=== PATIENT | male | born 1935 | race Caucasian/White ===

== ENCOUNTER → 2018-07-25 07:51 | Outpatient (CLI) | payer MEDICARE, OTHER, SELFPAY ==
[2018-07-25 10:14] LABS: Alanine Aminotransferase 15 IU/L (21-72); Albumin 4.4 g/dL (3.5-5.0); Albumin Globulin Ratio 1.3 (1.0-2.8); Alkaline Phosphatase 107 U/L (38-126); Aspartate Aminotransferase 23 IU/L (17-59); BUN Creatinine Ratio 17.1 (6-22); Bilirubin Total 0.8 mg/dL (0.2-1.3); Blood Urea Nitrogen 29 mg/dL (9-20); Calcium 9.8 mg/dL (8.4-10.2); Carbon Dioxide 32 mmol/L (22-32); Chloride 93 mmol/L (98-107); Cholesterol 151 mg/dL (140-199); Estimated Glomerular Filt Rate 38.7 mL/min (>60); Globulin 3.5 g/dL (1.7-4.1); HDL Cholesterol 39 mg/dL (40-60); HEMOLYSIS < 15 (0-50); LDL Cholesterol Calculated 71 mg/dL (<100); Potassium 4.6 mmol/L (3.4-5.1); Sodium 137 mmol/L (137-145); Total Protein 7.9 g/dL (6.3-8.2); Triglycerides 206 mg/dL (35-150)
[2018-07-25 10:16] LABS: Add Manual Diff / Slide Review NO; Basophils Percent Auto 0.4 % (0-2); Eosinophils Percent Auto 1.4 % (2-4); Hematocrit 44.8 % (41-53); Hemoglobin 14.9 g/dL (13.5-17.5); Lymphocytes Percent Auto 29.6 % (25-40); Mean Corpuscular HGB Conc 33.2 % (30-36); Mean Corpuscular Hemoglobin 31.3 PG (26-34); Mean Corpuscular Volume 94.3 fL (80-100); Monocytes Percent Auto 10.6 % (3-14); Neutrophils Absolute Auto 6800 /uL (3000-5900); Platelet Count 226 X10^3/uL (150-400); Red Blood Cell Count 4.75 X10^6/uL (4.5-5.9); Red Cell Distribution Width 13.4 % (11.6-14.8); White Blood Cell Count 11.7 X10^3/uL (4.5-11.0)
[2018-07-25 11:29] LABS: Glucose 532 mg/dL (80-110)
== END ==
PROVIDERS: PCP Family Medicine; Visit Provider Family Medicine
DX: E11.9 Type 2 diabetes mellitus without complications (principal)
CPT/HCPCS: 36415; 80053; 80061; 83036; 84443; 85025

== ENCOUNTER → 2018-12-27 08:32 | Outpatient (CLI) | payer MEDICARE, OTHER, SELFPAY ==
[2018-12-27 09:27] LABS: Hemoglobin A1C% w Est Avg Glu 7.8 % (4.0-6.0)
[2018-12-27 09:58] LABS: BUN Creatinine Ratio 16.5 (6-22); Blood Urea Nitrogen 28 mg/dL (9-20); Calcium 10.8 mg/dL (8.4-10.2); Carbon Dioxide 32 mmol/L (22-32); Chloride 98 mmol/L (98-107); Estimated Glomerular Filt Rate 38.7 mL/min (>60); Glucose 169 mg/dL (80-110); HEMOLYSIS < 15 (0-50); Potassium 4.7 mmol/L (3.4-5.1); Sodium 139 mmol/L (137-145)
== END ==
PROVIDERS: PCP Family Medicine; Visit Provider Family Medicine
DX: E11.9 Type 2 diabetes mellitus without complications (principal)
CPT/HCPCS: 36415; 80048; 83036

== ENCOUNTER → 2019-04-07 07:40 | Outpatient (CLI) | payer MEDICARE, OTHER, SELFPAY ==
[2019-04-07 09:03] LABS: Hemoglobin A1C% w Est Avg Glu 6.6 % (4.0-6.0)
[2019-04-07 09:33] LABS: Blood Urea Nitrogen 28 mg/dL (9-20); Calcium 10.6 mg/dL (8.4-10.2); Carbon Dioxide 32 mmol/L (22-32); Chloride 99 mmol/L (98-107); Estimated Glomerular Filt Rate 48.3 mL/min (>60); Glucose 156 mg/dL (80-110); HEMOLYSIS < 15 (0-50); Potassium 4.7 mmol/L (3.4-5.1); Sodium 141 mmol/L (137-145)
== END ==
PROVIDERS: PCP Family Medicine; Visit Provider Family Medicine
DX: E11.9 Type 2 diabetes mellitus without complications (principal)
CPT/HCPCS: 36415; 80048; 83036

== ENCOUNTER → 2019-07-06 07:58 | Outpatient (CLI) | payer MEDICARE, OTHER, SELFPAY ==
[2019-07-06 09:02] LABS: Hemoglobin A1C% w Est Avg Glu 6.4 % (4.0-6.0)
[2019-07-06 09:18] LABS: BUN Creatinine Ratio 18.6 (6-22); Blood Urea Nitrogen 26 mg/dL (9-20); Calcium 10.4 mg/dL (8.4-10.2); Carbon Dioxide 30 mmol/L (22-32); Chloride 100 mmol/L (98-107); Estimated Glomerular Filt Rate 48.3 mL/min (>60); Glucose 129 mg/dL (80-110); HEMOLYSIS < 15 (0-50); Potassium 4.5 mmol/L (3.4-5.1); Sodium 138 mmol/L (137-145)
== END ==
PROVIDERS: PCP Family Medicine; Visit Provider Family Medicine
DX: E11.9 Type 2 diabetes mellitus without complications (principal)
CPT/HCPCS: 36415; 80048; 83036

== ENCOUNTER → 2019-11-03 08:30 | Outpatient (CLI) | payer MEDICARE, OTHER, SELFPAY ==
[2019-11-03 10:06] LABS: Hemoglobin A1C% w Est Avg Glu 6.5 % (4.0-6.0)
[2019-11-03 10:07] LABS: BUN Creatinine Ratio 16.2 (6-22); Blood Urea Nitrogen 21 mg/dL (9-20); Calcium 11.1 mg/dL (8.4-10.2); Carbon Dioxide 32 mmol/L (22-32); Chloride 97 mmol/L (98-107); Estimated Glomerular Filt Rate 52.6 mL/min (>60); Glucose 132 mg/dL (80-110); HEMOLYSIS < 15 (0-50); Potassium 4.6 mmol/L (3.4-5.1); Sodium 138 mmol/L (137-145)
== END ==
PROVIDERS: PCP Family Medicine; Visit Provider Family Medicine
DX: E11.9 Type 2 diabetes mellitus without complications (principal)
CPT/HCPCS: 36415; 80048; 83036

== ENCOUNTER → 2020-02-02 08:09 | Outpatient (CLI) | payer MEDICARE, OTHER, SELFPAY ==
[2020-02-02 08:54] LABS: Hemoglobin A1C% w Est Avg Glu 6.9 % (4.0-6.0)
[2020-02-02 08:56] LABS: BUN Creatinine Ratio 17.3 (6-22); Blood Urea Nitrogen 23 mg/dL (9-20); Calcium 10.7 mg/dL (8.4-10.2); Carbon Dioxide 29 mmol/L (22-32); Chloride 99 mmol/L (98-107); Estimated Glomerular Filt Rate 51.2 mL/min (>60); Glucose 163 mg/dL (80-110); HEMOLYSIS < 15 (0-50); Potassium 4.6 mmol/L (3.4-5.1); Sodium 138 mmol/L (137-145)
== END ==
PROVIDERS: PCP Family Medicine; Referring Provider Family Medicine; Visit Provider Family Medicine
DX: E11.9 Type 2 diabetes mellitus without complications (principal)
CPT/HCPCS: 36415; 80048; 83036

== ENCOUNTER → 2020-05-07 07:36 | Outpatient (CLI) | payer MEDICARE, OTHER, SELFPAY ==
[2020-05-07 08:05] LABS: Add Manual Diff / Slide Review NO; Basophils Absolute Auto 100 /uL (0-100); Basophils Percent Auto 0.5 % (0-2); Eosinophils Absolute Auto 200 /uL (0-450); Eosinophils Percent Auto 1.4 % (2-4); Hematocrit 44.7 % (41-53); Hemoglobin 14.7 g/dL (13.5-17.5); Lymphocytes Absolute Auto 3300 /uL (1100-4500); Mean Corpuscular HGB Conc 32.8 % (30-36); Mean Corpuscular Hemoglobin 30.6 PG (26-34); Mean Corpuscular Volume 93.1 fL (80-100); Monocytes Absolute Auto 1200 /uL (0-900); Monocytes Percent Auto 9.6 % (3-14); Neutrophils Absolute Auto 8000 /uL (1500-7000); Neutrophils Percent Auto 62.5 % (50-75); Platelet Count 190 X10^3/uL (150-400); Red Blood Cell Count 4.81 X10^6/uL (4.5-5.9); White Blood Cell Count 12.8 X10^3/uL (4.5-11.0)
[2020-05-07 08:27] LABS: Alanine Aminotransferase 20 IU/L (<50); Albumin 4.1 g/dL (3.5-5.0); Albumin Globulin Ratio 1.4 (1.0-2.8); Alkaline Phosphatase 84 U/L (38-126); Aspartate Aminotransferase 25 IU/L (17-59); BUN Creatinine Ratio 17.8 (6-22); Blood Urea Nitrogen 23 mg/dL (9-20); Calcium 10.3 mg/dL (8.4-10.2); Carbon Dioxide 28 mmol/L (22-32); Chloride 102 mmol/L (98-107); Cholesterol 137 mg/dL (140-199); Estimated Glomerular Filt Rate 52.9 mL/min (>60); Glucose 184 mg/dL (80-110); HDL Cholesterol 53 mg/dL (40-60); HEMOLYSIS < 15 (0-50); LDL Cholesterol Calculated 63 mg/dL (<100); Potassium 4.9 mmol/L (3.4-5.1); Sodium 137 mmol/L (137-145); Total Protein 7.1 g/dL (6.3-8.2); Triglycerides 103 mg/dL (35-150)
== END ==
PROVIDERS: PCP Family Medicine; Referring Provider Family Medicine; Visit Provider Family Medicine
DX: E11.9 Type 2 diabetes mellitus without complications (principal)
CPT/HCPCS: 36415; 80053; 80061; 83036; 85025

== ENCOUNTER → 2020-05-13 11:38 | Outpatient (CLI) | payer MEDICARE, OTHER, SELFPAY ==
--- NOTE | 2020-05-13 11:39 | DI.CT.S_ITS ---
PROCEDURE: CT SINUS SCREEN WO CON INDICATIONS: Chronic sinusitis TECHNIQUE: Noncontrast 3.0 mm axial images acquired from the frontal sinuses to the mid-sella, with coronal and sagittal reformats. For radiation dose reduction, the following was used: automated exposure control, adjustment of mA and/or kV according to patient size. COMPARISON: None. FINDINGS: Image quality: Excellent. Maxillary Sinuses: No bony remodeling or destruction. Sinuses are clear. Ethmoid Air Cells: No bony remodeling or destruction. Sinuses are clear. Sphenoid Sinuses: No bony remodeling or destruction. Mild mucosal thickening can be seen within the anterior right sphenoid sinus. Frontal Sinuses: No bony remodeling or destruction. Sinuses are clear. Ostiomeatal Complexes: Ostiomeatal complexes are patent, yet they are constitutionally narrowed, with bilateral Marino cells. Miscellaneous: Visualized intra-orbital contents are normal. No tameka bullosa or paradoxical turbinate curvature. There is mild S-shaped nasal septal deviation, with both rightward and leftward components. IMPRESSION: No significant active paranasal sinus disease is seen. Constitutionally narrowed ostiomeatal complexes. Mild S-shaped nasal septal deviation. Dictated by: Benny Montenegro M.D. on 05/13/2020 at 11:45 Approved by: Benny Montenegro M.D. on 05/13/2020 at 11:46
== END ==
PROVIDERS: PCP Family Medicine; Referring Provider Family Medicine; Visit Provider Family Medicine
DX: J32.9 Chronic sinusitis, unspecified (principal); J34.2 Deviated nasal septum
CPT/HCPCS: 70486

== ENCOUNTER → 2020-08-14 07:59 | Outpatient (CLI) | payer MEDICARE, OTHER, SELFPAY ==
[2020-08-14 09:25] LABS: Hemoglobin A1C% w Est Avg Glu 7.2 % (4.0-6.0)
[2020-08-14 09:27] LABS: BUN Creatinine Ratio 17.4 (6-22); Blood Urea Nitrogen 24 mg/dL (9-20); Calcium 10.2 mg/dL (8.4-10.2); Carbon Dioxide 34 mmol/L (22-32); Chloride 100 mmol/L (98-107); Glucose 165 mg/dL (80-110); HEMOLYSIS < 15 (0-50); Potassium 4.7 mmol/L (3.4-5.1); Sodium 139 mmol/L (137-145)
== END ==
PROVIDERS: PCP Family Medicine; Referring Provider Family Medicine; Visit Provider Family Medicine
DX: E11.9 Type 2 diabetes mellitus without complications (principal)
CPT/HCPCS: 36415; 80048; 83036

== ENCOUNTER → 2020-08-21 11:05 | Outpatient (CLI) | payer MEDICARE, OTHER, SELFPAY ==
[2020-08-21 13:20] LABS: Free T3, Triiodothyronine Free 4.32 pg/mL (2.77-5.27); Free T4, Direct Thyroxine 1.17 ng/dL (0.78-2.19)
[2020-08-21 13:34] LABS: Thyroid Stimulating Hormone 0.473 uIU/mL (0.47-4.68)
== END ==
PROVIDERS: PCP Family Medicine; Referring Provider Family Medicine; Visit Provider Family Medicine
DX: E78.2 Mixed hyperlipidemia (principal); R79.89 Other specified abnormal findings of blood chemistry
CPT/HCPCS: 36415; 84439; 84443; 84481

== ENCOUNTER → 2020-10-25 14:33 | Outpatient (CLI) | payer MEDICARE, OTHER, SELFPAY ==
[2020-10-25 15:26] LABS: Hemoglobin A1C% w Est Avg Glu 7.1 % (4.0-6.0)
[2020-10-25 15:30] LABS: BUN Creatinine Ratio 17.6 (6-22); Blood Urea Nitrogen 22 mg/dL (9-20); Calcium 10.1 mg/dL (8.4-10.2); Carbon Dioxide 30 mmol/L (22-32); Chloride 103 mmol/L (98-107); Estimated Glomerular Filt Rate 54.9 mL/min (>60); Glucose 215 mg/dL (80-110); HEMOLYSIS 16 (0-50); Potassium 4.5 mmol/L (3.4-5.1); Sodium 138 mmol/L (137-145)
[2020-10-25 16:01] LABS: TSH w/ Reflex to FT4 0.53 uIU/mL (0.47-4.68)
[2020-10-25 16:18] LABS: Vitamin B12 569 pg/mL (239-931)
== END ==
PROVIDERS: Family Medicine; PCP Student in an Organized Health Care Education/Training Program; Referring Provider Psychiatry & Neurology Neurology; Visit Provider Psychiatry & Neurology Neurology
DX: E11.9 Type 2 diabetes mellitus without complications (principal); F02.80 Dementia in other diseases classified elsewhere, unspecified severity, without behavioral disturbance, psychotic disturbance, mood disturbance, and anxiety
CPT/HCPCS: 36415; 80048; 82607; 83036; 84443

== ENCOUNTER → 2020-10-30 11:23 | Outpatient (CLI) | payer MEDICARE, OTHER, SELFPAY ==
[2020-10-30 17:38] LABS: Creatinine Urine Random 82.9 mg/dL
[2020-10-30 17:43] LABS: Microalbumi Creatinin Ratio Ur 42.2 ug/mg CR (<30); Microalbumin Urine Random 3.5 mg/dL (0-1.6)
== END ==
PROVIDERS: PCP Student in an Organized Health Care Education/Training Program; Referring Provider Student in an Organized Health Care Education/Training Program; Visit Provider Student in an Organized Health Care Education/Training Program
DX: E11.9 Type 2 diabetes mellitus without complications (principal)
CPT/HCPCS: 36415; 82043; 82570

== ENCOUNTER → 2021-03-10 07:43 | Outpatient (CLI) | payer MEDICARE, OTHER, SELFPAY ==
[2021-03-10 08:28] LABS: Hemoglobin A1C% w Est Avg Glu 6.3 % (4.0-6.0)
[2021-03-10 08:37] LABS: BUN Creatinine Ratio 20.7 (6-22); Blood Urea Nitrogen 23 mg/dL (9-20); Estimated Glomerular Filt Rate > 60.0 mL/min (>60)
[2021-03-10 08:49] LABS: Vitamin D 25 Hydroxy (D3) 55.1 ng/mL (30.0-100.0)
[2021-03-10 10:52] LABS: Creatinine Urine Random 83.2 mg/dL
[2021-03-10 10:57] LABS: Microalbumi Creatinin Ratio Ur 25.2 ug/mg CR (<30); Microalbumin Urine Random 2.1 mg/dL (0-1.6)
== END ==
PROVIDERS: PCP Student in an Organized Health Care Education/Training Program; Referring Provider Student in an Organized Health Care Education/Training Program; Visit Provider Student in an Organized Health Care Education/Training Program
DX: E11.9 Type 2 diabetes mellitus without complications (principal); E55.9 Vitamin D deficiency, unspecified
CPT/HCPCS: 36415; 82043; 82306; 82565; 82570; 83036; 84520

== ENCOUNTER 2021-05-18 06:16 | Emergency (ER) | payer MEDICARE, OTHER, SELFPAY ==
[2021-05-18 06:24] VITALS: BP 187/80; PULSE 72; RESP 24; TEMP 36.8; O2SAT 99
--- NOTE | 2021-05-18 06:32 | PC.NURSE ---
Patient does not remember falling, but was found down on the ground by SNF staff. Endorsed some pain in his R hip that he said was resolved at the time he arrived to ED. Patient was argumentative with staff.
--- NOTE | 2021-05-18 06:38 | ED.FALL ---
HPI - Fall General Chief Complaint: Fall Stated Complaint: GLF/UTI Time Seen by Provider: 05/18/21 06:38 Source: EMS Mode of arrival: EMS Related Data Home Medications Medication Instructions Recorded Confirmed [CALCIUM/VITAMIN D] 1 tab PO QDAY #0 03/10/17 03/11/21 [CENTRUM SILVER] 1 tab PO QDAY #0 03/10/17 03/11/21 [FISH OIL] 1 cap PO QDAY #0 03/10/17 03/11/21 acetaminophen 500 mg tablet 1 tab PO PRN PRN #0 03/10/17 03/11/21 ipratropium bromide 42 mcg (0.06 2 spray INTRANASAL TID ml 08/21/20 03/11/21 %) nasal spray aspirin 81 mg tablet,delayed 81 mg PO DAILY 10/30/20 03/11/21 release clonazepam 0.25 mg disintegrating 0.75 mg PO DAILY tab 03/11/21 03/11/21 tablet trazodone 100 mg tablet 100 mg PO BEDTIME PRN 03/11/21 03/11/21 Previous Rx's Medication Instructions Recorded simvastatin 20 mg tablet 20 mg PO HS #90 mg 02/07/20 lancets 28 gauge (FreeStyle #100 each 02/19/20 Lancets) blood sugar diagnostic (FreeStyle #100 each 03/06/20 Lite Strips) carbidopa 25 mg-levodopa 250 mg 1 tab PO QID #360 tab 05/27/20 tablet glimepiride 1 mg tablet 4 mg PO BID #360 mg 07/30/20 rasagiline 0.5 mg tablet (Azilect) 0.5 mg PO DAILY #90 tab 11/05/20 lisinopril 5 mg tablet 5 mg PO DAILY #90 tab 11/26/20 metformin 500 mg tablet 1,000 mg PO BID #360 tab 01/08/21 Allergies Allergy/AdvReac Type Severity Reaction Status Date / Time bacitracin Allergy Unknown Verified 03/11/21 13:41 [From NEOSPORIN ([id number])] neomycin Allergy Unknown Verified 03/11/21 13:41 [From NEOSPORIN ([id number])] polymyxin B Allergy Unknown Verified 03/11/21 13:41 [From NEOSPORIN ([id number])] Patient History Medical History (Updated 03/12/21 @ 08:00 by Richard Ortiz MD) Chicken pox Hearing loss (~2011) Hyperlipidemia associated with type 2 diabetes mellitus Measles Mumps Parkinson's disease (~2009) 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 Rosacea Sleep apnea (~2010) Type 2 diabetes mellitus without complication (11/10/16) Surgical History (Updated 04/05/18 @ 21:11 by Dalia Barragan) Anesthesia History of cataract removal with insertion of prosthetic lens History of tonsillectomy Status post appendectomy Family History (Updated 04/05/18 @ 21:15 by Dalia Barragan) Mother Heart disease Diabetes mellitus Father Cancer Grandfather Heart disease Grandmother Heart disease Grandmother Heart disease Social History Smoking Status: Former smoker Smoking Status: Former smoker Substance Use Type: does not use Exam Initial Vital Signs Initial Vital Signs: Vital Signs Temperature 98.3 F 05/18/21 06:24 Pulse Rate 72 05/18/21 06:24 Respiratory Rate 24 05/18/21 06:24 Blood Pressure 187/80 H 05/18/21 06:24 Pulse Oximetry 99 05/18/21 06:24 Course Vital Signs Vital signs: Vital Signs - 8 hr 05/18/21 06:24 Temperature 98.3 F Pulse Rate 72 Respiratory Rate 24 Blood Pressure 187/80 H Pulse Oximetry 99 Discharge Plan Departure Prescriptions: No Action [CENTRUM SILVER] 1 tab PO QDAY Qty: 0 RF: 0 [CALCIUM/VITAMIN D] 1 tab PO QDAY Qty: 0 RF: 0 acetaminophen 500 MG tablet 1 tab PO PRN PRNQty: 0 RF: 0 [FISH OIL] 1 cap PO QDAY Qty: 0 RF: 0 (DME) lancets [FreeStyle Lancets] 28 gauge misc See Dose Instructions .ROUTE .MEDSUPPLY Qty: 100 RF: 3 (DME) FreeStyle Lite Strips Strip See Dose Instructions .ROUTE .MEDSUPPLY Qty: 100 RF: 3 carbidopa-levodopa 25-250 mg tablet 1 tab PO QID Qty: 360 RF: 1 glimepiride 1 mg tablet 4 mg PO BID Qty: 360 RF: 3 rasagiline [Azilect] 0.5 mg tablet 0.5 mg PO DAILY Qty: 90 RF: 3 lisinopril 5 mg tablet 5 mg PO DAILY Qty: 90 RF: 3 metformin 500 mg tablet 1,000 mg PO BID Qty: 360 RF: 1 clonazepam 0.25 mg tablet,disintegrating 0.75 mg PO DAILY RF: 0 trazodone 100 mg tablet 100 mg PO BEDTIME PRNRF: 0 simvastatin 20 mg tablet 20 mg PO HS Qty: 90 RF: 3 ipratropium bromide 42 mcg (0.06 %) spray,non-aerosol 2 spray intranasal TID RF: 0 aspirin 81 mg tablet,delayed release (DR/EC) 81 mg PO DAILY RF: 0 Referrals: Richard Ortiz MD [Primary Care Provider] -
[2021-05-18 07:41] LABS: Add Manual Diff / Slide Review NO; Basophils Absolute Auto 0 /uL (0-100); Basophils Percent Auto 0.3 % (0-2); Eosinophils Absolute Auto 200 /uL (0-450); Eosinophils Percent Auto 1.4 % (2-4); Hematocrit 38.7 % (41-53); Hemoglobin 12.5 g/dL (13.5-17.5); Lymphocytes Absolute Auto 2400 /uL (1100-4500); Lymphocytes Percent Auto 18.1 % (25-40); Mean Corpuscular HGB Conc 32.3 % (30-36); Mean Corpuscular Hemoglobin 30.2 PG (26-34); Mean Corpuscular Volume 93.4 fL (80-100); Monocytes Absolute Auto 1600 /uL (0-900); Monocytes Percent Auto 11.6 % (3-14); Neutrophils Absolute Auto 9200 /uL (1500-7000); Neutrophils Percent Auto 68.6 % (50-75); Platelet Count 215 X10^3/uL (150-400); Red Blood Cell Count 4.15 X10^6/uL (4.5-5.9); Red Cell Distribution Width 14.1 % (11.6-14.8); White Blood Cell Count 13.5 X10^3/uL (4.5-11.0)
[2021-05-18 07:49] LABS: Alanine Aminotransferase 11 IU/L (<50); Albumin 3.8 g/dL (3.5-5.0); Albumin Globulin Ratio 1.1 (1.0-2.8); Alkaline Phosphatase 73 U/L (38-126); Aspartate Aminotransferase 27 IU/L (17-59); BUN Creatinine Ratio 21.4 (6-22); Bilirubin Total 1.2 mg/dL (0.2-1.3); Blood Urea Nitrogen 25 mg/dL (9-20); Calcium 10.4 mg/dL (8.4-10.2); Carbon Dioxide 29 mmol/L (22-32); Chloride 106 mmol/L (98-107); Estimated Glomerular Filt Rate 59.1 mL/min (>60); Globulin 3.5 g/dL (1.7-4.1); Glucose 136 mg/dL (80-110); HEMOLYSIS < 15 (0-50); Potassium 4.8 mmol/L (3.4-5.1); Sodium 140 mmol/L (137-145); Total Protein 7.3 g/dL (6.3-8.2)
[2021-05-18 07:59] LABS: RBC Urine None Seen (0-5/HPF)
[2021-05-18 08:01] LABS: Bilirubin Urine UA NEGATIVE (NEGATIVE); Color Urine UA YELLOW; Glucose Urine UA NEGATIVE (Negative); Ketones Urine UA NEGATIVE (NEGATIVE); Leukocyte Esterase Urine UA 3+ (NEGATIVE); Nitrite Urine UA POSITIVE (Negative); Occult Blood Urine UA TRACE-LYSED (Negative); Protein Urine UA NEGATIVE (Negative); Urobilinogen Urine UA 0.2 E.U./dL (0.2)
[2021-05-18 08:02] LABS: Appearance Urine UA Slightly Cloudy
[2021-05-18 08:12] LABS: Bacteria Urine Moderate (10-30); Culture Indicated Urine Specimen Cultured; Squamous Epithelial Cell Urine 0-1 /HPF (0-5/HPF); WBC Urine 30-100/HPF (0-5/HPF)
--- NOTE | 2021-05-18 08:24 | ED.FALL ---
HPI - Fall General Chief Complaint: Fall Stated Complaint: GLF/UTI Time Seen by Provider: 05/18/21 06:38 Source: EMS Mode of arrival: EMS History of Present Illness HPI Narrative: 86-year-old gentleman who lives in a memory care facility with staff reports of mild behavioral changes over the last week with concerns for developing urinary tract infection. They believe he may have had fall sometime last night but details of that are unclear and not confirmed. Patient is accompanied by his who indicates that he has been more agitated with increasing wondering and verbal outbursts over the last week. She notes that there has been no reports of fevers he is not complaining of abdominal pain, dysuria there has been no noted hematuria. He has some mild chronic back pain that is otherwise unchanged. Related Data Home Medications Medication Instructions Recorded Confirmed [CALCIUM/VITAMIN D] 1 tab PO QDAY #0 03/10/17 03/11/21 [CENTRUM SILVER] 1 tab PO QDAY #0 03/10/17 03/11/21 [FISH OIL] 1 cap PO QDAY #0 03/10/17 03/11/21 acetaminophen 500 mg tablet 1 tab PO PRN PRN #0 03/10/17 03/11/21 ipratropium bromide 42 mcg (0.06 2 spray INTRANASAL TID ml 08/21/20 03/11/21 %) nasal spray aspirin 81 mg tablet,delayed 81 mg PO DAILY 10/30/20 03/11/21 release clonazepam 0.25 mg disintegrating 0.75 mg PO DAILY tab 03/11/21 03/11/21 tablet trazodone 100 mg tablet 100 mg PO BEDTIME PRN 03/11/21 03/11/21 Previous Rx's Medication Instructions Recorded simvastatin 20 mg tablet 20 mg PO HS #90 mg 02/07/20 lancets 28 gauge (FreeStyle #100 each 02/19/20 Lancets) blood sugar diagnostic (FreeStyle #100 each 03/06/20 Lite Strips) carbidopa 25 mg-levodopa 250 mg 1 tab PO QID #360 tab 05/27/20 tablet glimepiride 1 mg tablet 4 mg PO BID #360 mg 07/30/20 rasagiline 0.5 mg tablet (Azilect) 0.5 mg PO DAILY #90 tab 11/05/20 lisinopril 5 mg tablet 5 mg PO DAILY #90 tab 11/26/20 metformin 500 mg tablet 1,000 mg PO BID #360 tab 01/08/21 ciprofloxacin HCl 500 mg tablet 500 mg PO BID #10 tab 05/18/21 Allergies Allergy/AdvReac Type Severity Reaction Status Date / Time bacitracin Allergy Unknown Verified 03/11/21 13:41 [From NEOSPORIN ([id number])] neomycin Allergy Unknown Verified 03/11/21 13:41 [From NEOSPORIN ([id number])] polymyxin B Allergy Unknown Verified 03/11/21 13:41 [From NEOSPORIN ([id number])] Review of Systems Review of Systems Narrative: Complete review of systems is limited to input from his with full review difficult due to his dementia and Parkinson's disease. 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 HEENT: Moist mucous membranes, normal sclera with reactive pupils, Respiratory: Full and symmetrical air movement, speaking in full sentences Cardiac: Regular rate and rhythm no murmurs no bruits Abdomen: Soft, nontender, good bowel tones, no flank pain. No suprapubic pain Skin: Warm and dry, no rashes Neurologic: Grossly neurologically intact with no obvious asymmetries or abnormalities Extremities: No trauma, well perfused Psych: Flat affect, poor eye contact mildly cantankerous and poor insight into overall reason for visit today Initial Vital Signs Initial Vital Signs: Vital Signs Temperature 98.3 F 05/18/21 06:24 Pulse Rate 72 05/18/21 06:24 Respiratory Rate 24 05/18/21 06:24 Blood Pressure 187/80 H 05/18/21 06:24 Pulse Oximetry 99 05/18/21 06:24 Course Orders Ordered: ED Orders 05/18/21 07:30 Complete Blood Count AUTO DIFF Stat Comprehensive Metabolic Panel Stat 05/18/21 07:58 Urinalysis and Microscopic Stat Urine Culture Stat Ciprofloxacin (Ciprofloxacin 250 Mg Tablet) 500 mg PO NOW ONE Stop: 05/18/21 08:42 Vital Signs Vital signs: Vital Signs - 8 hr 05/18/21 06:24 Temperature 98.3 F Pulse Rate 72 Respiratory Rate 24 Blood Pressure 187/80 H Pulse Oximetry 99 - Fall Lab Data Result diagrams: 05/18/21 07:30 05/18/21 07:30 Labs: Lab Results 05/18/21 05/18/21 05/18/21 Range/Units 07:30 07:30 07:58 WBC 13.5 H (4.5-11.0) X10^3/uL RBC 4.15 L (4.5-5.9) X10^6/uL Hgb 12.5 L (13.5-17.5) g/dL Hct 38.7 L (41-53) % MCV 93.4 (80-100) fL MCH 30.2 (26-34) PG MCHC 32.3 (30-36) % RDW 14.1 (11.6-14.8) % Plt Count 215 (150-400) X10^3/uL Neut % (Auto) 68.6 (50-75) % Lymph % (Auto) 18.1 L (25-40) % [place] % (Auto) 11.6 (3-14) % Eos % (Auto) 1.4 L (2-4) % Baso % (Auto) 0.3 (0-2) % Neut # (Auto) 9200 H (2626-7268) /uL Lymph # (Auto) 2400 (1714-5331) /uL [place] # (Auto) 1600 H (0-900) /uL Eos # (Auto) 200 (0-450) /uL Baso # (Auto) 0 (0-100) /uL Sodium 140 (137-145) mmol/L Potassium 4.8 (3.4-5.1) mmol/L Chloride 106 (98-107) mmol/L Carbon Dioxide 29 (22-32) mmol/L BUN 25 H (9-20) mg/dL Creatinine 1.17 (0.66-1.25) mg/dL Estimated GFR 59.1 L (>60) mL/min BUN/Creatinine Ratio 21.4 (6-22) Glucose 136 H (80-110) mg/dL Calcium 10.4 H (8.4-10.2) mg/dL Total Bilirubin 1.2 (0.2-1.3) mg/dL AST 27 (17-59) IU/L ALT 11 (<50) IU/L Alkaline Phosphatase 73 (38-126) U/L Total Protein 7.3 (6.3-8.2) g/dL Albumin 3.8 (3.5-5.0) g/dL Globulin 3.5 (1.7-4.1) g/dL Albumin/Globulin Ratio 1.1 (1.0-2.8) Urine Color Yellow Urine Appearance Slightly cloudy Urine pH 6.0 (4.5-8.0) Ur Specific [place] 1.010 (1.000-1.035) Urine Protein Negative (Negative) Urine Glucose (UA) Negative (Negative) g/dL Urine Ketones Negative (NEGATIVE) Urine Occult Blood Trace-lysed (Negative) Urine Nitrate Positive H (Negative) Urine Bilirubin Negative (NEGATIVE) Urine Urobilinogen 0.2 (0.2) E.U./dL Ur Leukocyte Esterase 3+ H (NEGATIVE) Urine RBC None seen (0-5/HPF) Urine WBC 30-100/hpf H (0-5/HPF) Ur Squamous Epith Cells 0-1 /hpf (0-5/HPF) Urine Bacteria Moderate (10-30) H (None) Ur Culture Indicated? Specimen cultured MDM Narrative Medical decision making narrative: Who lives [facility] with increasing agitation over the last week and lab work suggesting developing urinary tract infection without evidence of sepsis or pyelonephritis. His notes that he had a urinary tract infection about a year ago and was treated antibiotics. There are no urine cultures from that visit to guide antibiotic choices at this time. Because his white count is slightly elevated will choose Cipro b.i.d. for 5 days with 1st dose given in the emergency department today. Patient is safe for discharge back to [facility]. Discharge Plan Departure Patient Disposition: Home Clinical Impression: Parkinson's disease, Altered behavior Urinary tract infection Qualifiers: Urinary tract infection type: acute cystitis Hematuria presence: without hematuria Qualified Code(s): N30.00 - Acute cystitis without hematuria Instructions: DI for Urinary Tract Infection (UTI) Activity Restrictions/Additional Instructions: Your urine sample today suggest that you do have a bladder infection. Your white blood cell count, the cells that fight infection, are slightly elevated but there is no sign of overwhelming infection or need for hospitalization at this time. I have given you your 1st dose of ciprofloxacin, 500 mg and you will need to continue for 5 complete days, with dosing twice daily. Prescription was electronically transmitted to [facility] and your next dose will be due at bedtime this evening. If you have worsening symptoms or additional concerns, please return to the ER for further evaluation Prescriptions: New ciprofloxacin HCl 500 mg tablet 500 mg PO BID Qty: 10 RF: 0 No Action [CENTRUM SILVER] 1 tab PO QDAY Qty: 0 RF: 0 [CALCIUM/VITAMIN D] 1 tab PO QDAY Qty: 0 RF: 0 acetaminophen 500 MG tablet 1 tab PO PRN PRNQty: 0 RF: 0 [FISH OIL] 1 cap PO QDAY Qty: 0 RF: 0 (DME) lancets [FreeStyle Lancets] 28 gauge misc See Dose Instructions .ROUTE .MEDSUPPLY Qty: 100 RF: 3 (DME) FreeStyle Lite Strips Strip See Dose Instructions .ROUTE .MEDSUPPLY Qty: 100 RF: 3 carbidopa-levodopa 25-250 mg tablet 1 tab PO QID Qty: 360 RF: 1 glimepiride 1 mg tablet 4 mg PO BID Qty: 360 RF: 3 rasagiline [Azilect] 0.5 mg tablet 0.5 mg PO DAILY Qty: 90 RF: 3 lisinopril 5 mg tablet 5 mg PO DAILY Qty: 90 RF: 3 metformin 500 mg tablet 1,000 mg PO BID Qty: 360 RF: 1 clonazepam 0.25 mg tablet,disintegrating 0.75 mg PO DAILY RF: 0 trazodone 100 mg tablet 100 mg PO BEDTIME PRNRF: 0 simvastatin 20 mg tablet 20 mg PO HS Qty: 90 RF: 3 ipratropium bromide 42 mcg (0.06 %) spray,non-aerosol 2 spray intranasal TID RF: 0 aspirin 81 mg tablet,delayed release (DR/EC) 81 mg PO DAILY RF: 0 Referrals: Richard Ortiz MD [Primary Care Provider] -
[2021-05-18] MEDS: CIPROFLOXACIN 250 MG TABLET 500 MG PO (08:50)
[2021-05-18 09:00] VITALS: BP 165/82; PULSE 70; RESP 18; O2SAT 98
== END 2021-05-18 09:16 | disposition home or self-care (01) ==
PROVIDERS: Emergency Medicine; Emergency Provider Emergency Medicine; PCP Student in an Organized Health Care Education/Training Program
DX: N30.00 Acute cystitis without hematuria (principal); G20 Parkinson's disease
CPT/HCPCS: 36415; 80053; 81001; 85025; 87077; 87086; 99283

== ENCOUNTER 2021-06-02 14:06 | Emergency (ER) | payer MEDICARE, OTHER, SELFPAY ==
[2021-06-02 14:11] VITALS: BP 126/66; PULSE 75; RESP 16; TEMP 36.9; O2SAT 97
--- NOTE | 2021-06-02 14:22 | ED_ITS ---
HPI - Psych General Chief Complaint: Psychiatric Symptoms Stated Complaint: combative/valeriy psych Time Seen by Provider: 06/02/21 14:11 History of Present Illness HPI Narrative: Patient is an 86-year-old male who resides at [facility]. He was recently diagnosed with UTI on 05/18/2021. He was placed on Cipro, it grew lactobacillus species. Today he presents with aggressive behavior. states that he has a history of Parkinson's and he does have some hallucinations occasionally and gets slightly combative. He has no complaints he is a bit cantankerous. No evidence of trauma Related Data Home Medications Medication Instructions Recorded Confirmed [CALCIUM/VITAMIN D] 1 tab PO QDAY #0 03/10/17 03/11/21 [CENTRUM SILVER] 1 tab PO QDAY #0 03/10/17 03/11/21 [FISH OIL] 1 cap PO QDAY #0 03/10/17 03/11/21 acetaminophen 500 mg tablet 1 tab PO PRN PRN #0 03/10/17 03/11/21 ipratropium bromide 42 mcg (0.06 2 spray INTRANASAL TID ml 08/21/20 03/11/21 %) nasal spray aspirin 81 mg tablet,delayed 81 mg PO DAILY 10/30/20 03/11/21 release clonazepam 0.25 mg disintegrating 0.75 mg PO DAILY tab 03/11/21 03/11/21 tablet trazodone 100 mg tablet 100 mg PO BEDTIME PRN 03/11/21 03/11/21 Previous Rx's Medication Instructions Recorded simvastatin 20 mg tablet 20 mg PO HS #90 mg 02/07/20 lancets 28 gauge (FreeStyle #100 each 02/19/20 Lancets) blood sugar diagnostic (FreeStyle #100 each 03/06/20 Lite Strips) carbidopa 25 mg-levodopa 250 mg 1 tab PO QID #360 tab 05/27/20 tablet glimepiride 1 mg tablet 4 mg PO BID #360 mg 07/30/20 rasagiline 0.5 mg tablet (Azilect) 0.5 mg PO DAILY #90 tab 11/05/20 lisinopril 5 mg tablet 5 mg PO DAILY #90 tab 11/26/20 metformin 500 mg tablet 1,000 mg PO BID #360 tab 01/08/21 ciprofloxacin HCl 500 mg tablet 500 mg PO BID #10 tab 05/18/21 Allergies Allergy/AdvReac Type Severity Reaction Status Date / Time bacitracin Allergy Unknown Verified 03/11/21 13:41 [From NEOSPORIN ([id number])] neomycin Allergy Unknown Verified 03/11/21 13:41 [From NEOSPORIN ([id number])] polymyxin B Allergy Unknown Verified 03/11/21 13:41 [From NEOSPORIN ([id number])] Review of Systems Review of Systems ROS Unobtainable: All systems reviewed & are unremarkable except as noted in HPI and below Constitutional Constitutional: Denies fever(s) ENT Ears, Nose, Mouth, and Throat: Denies otalgia Cardiovascular Cardiovascular: Denies chest pain and Denies dyspnea Respiratory Respiratory: Denies cough and Denies dyspnea Gastrointestinal Gastrointestinal: Denies nausea and Denies vomiting Genitourinary Genitourinary: Reports as per HPI Musculoskeletal Musculoskeletal: Denies back pain Integumentary/Breasts Skin/Breast: Denies rash Neurologic Neurologic: Reports behavioral changes Psychiatric Psychiatric: Reports behavioral changes 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 Rosacea Sleep apnea (~2010) Type 2 diabetes mellitus without complication (11/10/16) Surgical History Anesthesia History of cataract removal with insertion of prosthetic lens History of tonsillectomy Status post appendectomy Family History Mother Heart disease Diabetes mellitus Father Cancer Grandfather Heart disease Grandmother Heart disease Grandmother Heart disease Social History Smoking Status: Former smoker Smoking Status: Former smoker Substance Use Type: does not use Exam Initial Vital Signs Initial Vital Signs: Vital Signs Temperature 98.4 F 06/02/21 14:11 Pulse Rate 75 06/02/21 14:11 Respiratory Rate 16 06/02/21 14:11 Blood Pressure 126/66 06/02/21 14:11 Pulse Oximetry 97 06/02/21 14:11 GENERAL: Alert 86-year-old male responsive HEENT: Head atraumatic,EOMI, pupils reactive, CARDIOVASCULAR: Regular rate and rhythm without murmurs, rubs or gallops. RESPIRATORY: Breath sounds equal bilaterally, no wheezes rales or rhonchi. ABDOMEN: Soft, nontender. Normoactive bowel sounds all 4 quadrants. No guarding or rebound. EXTREMITIES: Normal range of motion, no clubbing or + 1 pitting edema Neurovascularly intact NEUROLOGICAL: Alert and oriented to person. No focal deficit SKIN: Warm, dry, no laceration, no petechiae, no rashes or lesions. Course Orders Ordered: ED Orders 06/02/21 14:30 Basic Metabolic Panel Stat Complete Blood Count AUTO DIFF Stat Vital Signs Vital signs: Vital Signs - 8 hr 06/02/21 14:11 Temperature 98.4 F Pulse Rate 75 Respiratory Rate 16 Blood Pressure 126/66 Pulse Oximetry 97 MDM - Psych Lab Data Attestation: I reviewed the patient's lab results. Result diagrams: 06/02/21 14:30 06/02/21 14:30 Labs: Lab Results 06/02/21 06/02/21 Range/Units 14:30 14:30 WBC 9.7 (4.5-11.0) X10^3/uL RBC 3.80 L (4.5-5.9) X10^6/uL Hgb 11.8 L (13.5-17.5) g/dL Hct 35.6 L (41-53) % MCV 93.7 (80-100) fL MCH 31.0 (26-34) PG MCHC 33.1 (30-36) % RDW 14.1 (11.6-14.8) % Plt Count 201 (150-400) X10^3/uL Neut % (Auto) 61.7 (50-75) % Lymph % (Auto) 25.3 (25-40) % [place] % (Auto) 10.4 (3-14) % Eos % (Auto) 2.2 (2-4) % Baso % (Auto) 0.4 (0-2) % Neut # (Auto) 6000 (3589-9230) /uL Lymph # (Auto) 2500 (6333-7271) /uL [place] # (Auto) 1000 H (0-900) /uL Eos # (Auto) 200 (0-450) /uL Baso # (Auto) 0 (0-100) /uL Sodium 140 (137-145) mmol/L Potassium 4.6 (3.4-5.1) mmol/L Chloride 106 (98-107) mmol/L Carbon Dioxide 30 (22-32) mmol/L BUN 19 (9-20) mg/dL Creatinine 1.19 (0.66-1.25) mg/dL Estimated GFR 58.0 L (>60) mL/min BUN/Creatinine Ratio 16.0 (6-22) Glucose 134 H (80-110) mg/dL Calcium 9.9 (8.4-10.2) mg/dL Urine Dip Bedside Urine Glucose Negative Bedside Urine Bilirubin - Negative Bedside Urine Ketone - Negative Urine Specific [place] 1.020 Bedside Urine Occult Blood - Negative Bedside Urine pH 6.0 Bedside Urine Protein - Negative Bedside Urine Urobilinogen - Negative Bedside Urine Nitrite - Negative Bedside Urine Leukocytes - Negative Esterase MDM Narrative Medical decision making narrative: Patient has not had any behavior issues here in this emergency department. Blood work is overall reassuring urine does not show any sign of infection. At this time behavior changes are not related to infection, more likely related to his Parkinson's and hallucinations. is bedside. She is happy to take him to [facility]. Discharge Plan Departure Patient Disposition: Home Clinical Impression: Dementia Instructions: Dementia Activity Restrictions/Additional Instructions: *You have been diagnosed with dementia *What to do: At this time there is no evidence of infection *Continue to take medications as directed *Follow up with your primary care provider in 2-3 days *Return to ER if you should have increased confusion, fever or any new, worsening or concerning symptoms Prescriptions: No Action [CENTRUM SILVER] 1 tab PO QDAY Qty: 0 RF: 0 [CALCIUM/VITAMIN D] 1 tab PO QDAY Qty: 0 RF: 0 acetaminophen 500 MG tablet 1 tab PO PRN PRNQty: 0 RF: 0 [FISH OIL] 1 cap PO QDAY Qty: 0 RF: 0 (DME) lancets [FreeStyle Lancets] 28 gauge misc See Dose Instructions .ROUTE .MEDSUPPLY Qty: 100 RF: 3 (DME) FreeStyle Lite Strips Strip See Dose Instructions .ROUTE .MEDSUPPLY Qty: 100 RF: 3 carbidopa-levodopa 25-250 mg tablet 1 tab PO QID Qty: 360 RF: 1 glimepiride 1 mg tablet 4 mg PO BID Qty: 360 RF: 3 rasagiline [Azilect] 0.5 mg tablet 0.5 mg PO DAILY Qty: 90 RF: 3 lisinopril 5 mg tablet 5 mg PO DAILY Qty: 90 RF: 3 metformin 500 mg tablet 1,000 mg PO BID Qty: 360 RF: 1 clonazepam 0.25 mg tablet,disintegrating 0.75 mg PO DAILY RF: 0 trazodone 100 mg tablet 100 mg PO BEDTIME PRNRF: 0 simvastatin 20 mg tablet 20 mg PO HS Qty: 90 RF: 3 ipratropium bromide 42 mcg (0.06 %) spray,non-aerosol 2 spray intranasal TID RF: 0 aspirin 81 mg tablet,delayed release (DR/EC) 81 mg PO DAILY RF: 0 ciprofloxacin HCl 500 mg tablet 500 mg PO BID Qty: 10 RF: 0 Referrals: Richard Ortiz MD [Primary Care Provider] -
[2021-06-02 14:39] LABS: Add Manual Diff / Slide Review NO; Basophils Absolute Auto 0 /uL (0-100); Basophils Percent Auto 0.4 % (0-2); Eosinophils Absolute Auto 200 /uL (0-450); Eosinophils Percent Auto 2.2 % (2-4); Hematocrit 35.6 % (41-53); Hemoglobin 11.8 g/dL (13.5-17.5); Lymphocytes Absolute Auto 2500 /uL (1100-4500); Lymphocytes Percent Auto 25.3 % (25-40); Mean Corpuscular HGB Conc 33.1 % (30-36); Mean Corpuscular Volume 93.7 fL (80-100); Monocytes Absolute Auto 1000 /uL (0-900); Monocytes Percent Auto 10.4 % (3-14); Neutrophils Absolute Auto 6000 /uL (1500-7000); Neutrophils Percent Auto 61.7 % (50-75); Platelet Count 201 X10^3/uL (150-400); Red Cell Distribution Width 14.1 % (11.6-14.8); White Blood Cell Count 9.7 X10^3/uL (4.5-11.0)
[2021-06-02 14:49] LABS: Blood Urea Nitrogen 19 mg/dL (9-20); Calcium 9.9 mg/dL (8.4-10.2); Carbon Dioxide 30 mmol/L (22-32); Chloride 106 mmol/L (98-107); Glucose 134 mg/dL (80-110); HEMOLYSIS < 15 (0-50); Potassium 4.6 mmol/L (3.4-5.1); Sodium 140 mmol/L (137-145)
[2021-06-02 15:41] VITALS: BP 165/74; PULSE 66; RESP 16; O2SAT 100
== END 2021-06-02 15:42 | disposition home or self-care (01) ==
PROVIDERS: Emergency Provider Emergency Medicine; PCP Student in an Organized Health Care Education/Training Program
DX: F03.90 Unspecified dementia, unspecified severity, without behavioral disturbance, psychotic disturbance, mood disturbance, and anxiety (principal)
CPT/HCPCS: 36415; 80048; 81003; 85025; 99283; 99284

== ENCOUNTER → 2021-06-11 11:58 | Outpatient (CLI) | payer MEDICARE, OTHER, SELFPAY ==
[2021-06-11 13:22] LABS: Add Manual Diff / Slide Review NO; Basophils Absolute Auto 0 /uL (0-100); Basophils Percent Auto 0.4 % (0-2); Eosinophils Absolute Auto 200 /uL (0-450); Eosinophils Percent Auto 1.5 % (2-4); Hematocrit 37.2 % (41-53); Lymphocytes Absolute Auto 2500 /uL (1100-4500); Lymphocytes Percent Auto 22.5 % (25-40); Mean Corpuscular HGB Conc 32.3 % (30-36); Mean Corpuscular Hemoglobin 30.1 PG (26-34); Mean Corpuscular Volume 93.2 fL (80-100); Monocytes Absolute Auto 1100 /uL (0-900); Monocytes Percent Auto 10.3 % (3-14); Neutrophils Absolute Auto 7200 /uL (1500-7000); Neutrophils Percent Auto 65.3 % (50-75); Platelet Count 206 X10^3/uL (150-400); Red Cell Distribution Width 14.3 % (11.6-14.8); White Blood Cell Count 11.1 X10^3/uL (4.5-11.0)
[2021-06-11 13:46] LABS: Hemoglobin A1C% w Est Avg Glu 5.6 % (4.0-6.0)
[2021-06-11 14:01] LABS: Alanine Aminotransferase 11 IU/L (<50); Albumin 3.6 g/dL (3.5-5.0); Albumin Globulin Ratio 1.2 (1.0-2.8); Alkaline Phosphatase 82 U/L (38-126); Aspartate Aminotransferase 23 IU/L (17-59); BUN Creatinine Ratio 15.6 (6-22); Bilirubin Total 0.8 mg/dL (0.2-1.3); Blood Urea Nitrogen 17 mg/dL (9-20); Calcium 9.8 mg/dL (8.4-10.2); Carbon Dioxide 29 mmol/L (22-32); Chloride 105 mmol/L (98-107); Estimated Glomerular Filt Rate > 60.0 mL/min (>60); Glucose 160 mg/dL (80-110); HEMOLYSIS < 15 (0-50); Potassium 4.6 mmol/L (3.4-5.1); Sodium 140 mmol/L (137-145); Total Protein 6.6 g/dL (6.3-8.2)
== END ==
PROVIDERS: PCP Student in an Organized Health Care Education/Training Program; Referring Provider Nurse Practitioner Family; Visit Provider Nurse Practitioner Family
DX: E11.9 Type 2 diabetes mellitus without complications (principal); D72.829 Elevated white blood cell count, unspecified
CPT/HCPCS: 36415; 80053; 83036; 85025

== ENCOUNTER 2021-08-07 12:20 | Inpatient (IN) | payer MEDICARE, OTHER, SELFPAY ==
[2021-08-07] VITALS (26 sets, daily range): BP systolic 120–196; BP diastolic 59–120; PULSE 67–84; RESP 18–37; TEMP 36.8–37.1; O2SAT 85–99; BMI 37.3; BMI 25.7
--- NOTE | 2021-08-07 12:26 | DI.RAD.S_ITS ---
PROCEDURE: XR CHEST 1V INDICATIONS: flu-like symptoms TECHNIQUE: One view of the chest was acquired. COMPARISON: [facility], , CHEST 1 VIEW, 02/24/2017, 11:33. FINDINGS: Surgical changes and devices: None. Lungs and pleura: Minimal bilateral inferior interstitial infiltrates are seen. Trace blunting of the costophrenic angles can be seen. No pneumothorax. Mediastinum: The cardiac contours are within normal limits. The aorta demonstrates calcification and tortuosity. Bones and chest wall: No suspicious bony lesions. Age-appropriate bony degenerative changes are seen. Overlying soft tissues appear unremarkable. IMPRESSION: Minimal inferior interstitial type infiltrates are seen. Please consider atypical infiltrate, including COVID pneumonia. Likely trace bilateral pleural effusions. Dictated by: Benny Montenegro M.D. on 08/07/2021 at 12:53 Approved by: Benny Montenegro M.D. on 08/07/2021 at 12:53
--- NOTE | 2021-08-07 12:49 | PC.NURSE ---
RT at bedside intiating heated high flow nasal cannula.
[2021-08-07 12:51] LABS: Add Manual Diff / Slide Review NO; Basophils Absolute Auto 0 /uL (0-100); Basophils Percent Auto 0.3 % (0-2); Eosinophils Absolute Auto 300 /uL (0-450); Eosinophils Percent Auto 2.9 % (2-4); Hematocrit 37.2 % (41-53); Hemoglobin 12.3 g/dL (13.5-17.5); Lymphocytes Absolute Auto 2500 /uL (1100-4500); Lymphocytes Percent Auto 26.3 % (25-40); Mean Corpuscular Hemoglobin 29.6 PG (26-34); Monocytes Absolute Auto 1000 /uL (0-900); Monocytes Percent Auto 10.9 % (3-14); Neutrophils Absolute Auto 5600 /uL (1500-7000); Neutrophils Percent Auto 59.6 % (50-75); Platelet Count 125 X10^3/uL (150-400); Red Blood Cell Count 4.14 X10^6/uL (4.5-5.9); Red Cell Distribution Width 13.8 % (11.6-14.8); White Blood Cell Count 9.4 X10^3/uL (4.5-11.0)
[2021-08-07 12:57] LABS: D Dimer 718 ng/mL (<230)
[2021-08-07 12:59] LABS: Lactate (Lactic Acid) 1.5 mmol/L (0.7-2.1)
[2021-08-07 13:03] LABS: Alanine Aminotransferase 10 IU/L (<50); Albumin 3.4 g/dL (3.5-5.0); Alkaline Phosphatase 195 U/L (38-126); Aspartate Aminotransferase 37 IU/L (17-59); BUN Creatinine Ratio 24.1 (6-22); Bilirubin Total 0.7 mg/dL (0.2-1.3); Blood Urea Nitrogen 32 mg/dL (9-20); Calcium 9.4 mg/dL (8.4-10.2); Carbon Dioxide 31 mmol/L (22-32); Chloride 99 mmol/L (98-107); Creatine Kinase 21 U/L (55-170); Globulin 3.4 g/dL (1.7-4.1); Glucose 88 mg/dL (80-110); HEMOLYSIS < 15 (0-50); Sodium 138 mmol/L (137-145); Total Protein 6.8 g/dL (6.3-8.2)
[2021-08-07] MEDS: SODIUM CHLORIDE 0.9% 1,000 ML 125 ML IV (13:08)
[2021-08-07 13:13] LABS: NT-proBNP (BNP-Adult 18+) 163 pg/mL (<450); Troponin I 0.054 ng/mL (0.01-0.034)
[2021-08-07 13:16] LABS: C-Reactive Protein Quant 20.5 mg/dL (<1.0)
[2021-08-07 13:17] LABS: Procalcitonin 0.29 ng/mL (<0.5)
--- NOTE | 2021-08-07 13:19 | ED.GENADULT ---
HPI - General Adult General Chief complaint: Shortness of Breath/Dyspnea Stated complaint: Hypoxic COVID + Time Seen by Provider: 08/07/21 12:24 Source: EMS Mode of arrival: EMS Limitations: altered mental status History of Present Illness HPI narrative: Patient is an 86-year-old male. Comes from [facility]. Received a call from the nurse practitioner at the facility that approximately 1 week ago the patient tested positive for COVID. Today his reported that he was hypoxic on room air to the 70s. Unsure if he has received any treatment up to this point since his positive COVID result. Here in the emergency department the patient states that he does have a cough but denies any chest pain. No abdominal pain. No nausea vomiting. No headache. No urinary symptoms. He reports no arm or leg discomfort. At the time of my evaluation he was on heated high-flow and states that things seem to be improving with this. Patient does have a POLSt form that does say DNR with limited interventions. Related Data Home Medications Medication Instructions Recorded Confirmed [CALCIUM/VITAMIN D] 1 tab PO QDAY #0 03/10/17 03/11/21 [CENTRUM SILVER] 1 tab PO QDAY #0 03/10/17 03/11/21 [FISH OIL] 1 cap PO QDAY #0 03/10/17 03/11/21 acetaminophen 500 mg tablet 1 tab PO PRN PRN #0 03/10/17 03/11/21 ipratropium bromide 42 mcg (0.06 2 spray INTRANASAL TID ml 08/21/20 03/11/21 %) nasal spray aspirin 81 mg tablet,delayed 81 mg PO DAILY 10/30/20 03/11/21 release clonazepam 0.25 mg disintegrating 0.75 mg PO DAILY tab 03/11/21 03/11/21 tablet trazodone 100 mg tablet 100 mg PO BEDTIME PRN 03/11/21 03/11/21 Previous Rx's Medication Instructions Recorded simvastatin 20 mg tablet 20 mg PO HS #90 mg 02/07/20 lancets 28 gauge (FreeStyle #100 each 02/19/20 Lancets) blood sugar diagnostic (FreeStyle #100 each 03/06/20 Lite Strips) carbidopa 25 mg-levodopa 250 mg 1 tab PO QID #360 tab 05/27/20 tablet glimepiride 1 mg tablet 4 mg PO BID #360 mg 07/30/20 rasagiline 0.5 mg tablet (Azilect) 0.5 mg PO DAILY #90 tab 11/05/20 lisinopril 5 mg tablet 5 mg PO DAILY #90 tab 11/26/20 metformin 500 mg tablet 1,000 mg PO BID #360 tab 01/08/21 ciprofloxacin HCl 500 mg tablet 500 mg PO BID #10 tab 05/18/21 Allergies Allergy/AdvReac Type Severity Reaction Status Date / Time bacitracin Allergy Unknown Verified 03/11/21 13:41 [From NEOSPORIN ([id number])] neomycin Allergy Unknown Verified 03/11/21 13:41 [From NEOSPORIN ([id number])] polymyxin B Allergy Unknown Verified 03/11/21 13:41 [From NEOSPORIN ([id number])] Review of Systems Constitutional Constitutional: Denies fever(s) ENT Ears, Nose, Mouth, and Throat: Reports system reviewed and no additional complaints, except as documented Cardiovascular Cardiovascular: Reports as per HPI Respiratory Respiratory: Reports as per HPI and Reports cough Gastrointestinal Gastrointestinal: Reports as per HPI and Reports system reviewed and no additional complaints, except as documented Musculoskeletal Musculoskeletal: Reports system reviewed and no additional complaints, except as documented and Reports as per HPI Integumentary/Breasts Skin/Breast: Reports system reviewed and no additional complaints, except as documented Neurologic Neurologic: Reports system reviewed and no additional complaints, except as documented Hematologic/Lymphatic On Anticoagulants: No Allergic/Immunologic Allergic/Immunologic: Reports system reviewed and no additional complaints, except as documented 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 Rosacea Sleep apnea (~2010) Type 2 diabetes mellitus without complication (11/10/16) Surgical History Anesthesia History of cataract removal with insertion of prosthetic lens History of tonsillectomy Status post appendectomy Family History Mother Heart disease Diabetes mellitus Father Cancer Grandfather Heart disease Grandmother Heart disease Grandmother Heart disease Social History Smoking Status: Former smoker Smoking Status: Former smoker Substance Use Type: does not use Exam Initial Vital Signs Initial Vital Signs: Vital Signs Pulse Rate 70 08/07/21 12:23 Pulse Oximetry 97 08/07/21 12:23 Const General: cooperative and comfortable HENMT Head: normal to inspection and normocephalic Eyes General: appearance normal, both eyes and all related structures Resp Effort & Inspection: not labored and tachypneic Auscultation: crackles Cardio Rate: regular rate Rhythm: regular rhythm GI Inspection: normal to inspection Palpation: soft Skin General: no rashes or lesions noted Neuro General: patient alert, patient awake and moves all extremities Extrem General: no pedal edema Psych Appearance: grossly normal Scores GCS [place] coma scale eye opening: Spontaneous Katina coma scale verbal response: Confused [place] coma scale motor response: Obey commands [place] coma scale total score: 14 Course Orders Ordered: ED Orders 08/07/21 12:25 High flow/High humidity nasal STAT 08/07/21 12:26 XR chest 1V Stat EKG-12 Lead Stat 08/07/21 12:31 Arterial Blood Gas Stat 08/07/21 12:35 C-Reactive Protein Quant Stat COVID19 - ADMIT (ESCROW CLERK swab/PCR) Stat Complete Blood Count AUTO DIFF Stat Comprehensive Metabolic Panel Stat D Dimer Stat Ferritin Stat Lactate (Lactic Acid) Stat Lactate Dehydrogenase Stat NT-proBNP (BNP-Adult 18+) Stat Procalcitonin Stat Troponin & CK Cardiac Panel Stat 08/07/21 13:07 Blood Culture Stat Sodium Chloride (Normal Saline 0.9%) 1,000 mls @ 125 mls/hr IV CONT MARYELLEN Last Admin: 08/07/21 13:08 Dose: 125 mls/hr Documented by: MONTRELL Remdesivir 200 mg/ Sodium (Chloride) 250 mls @ 250 mls/hr IV NOW ONE Stop: 08/07/21 15:05 Last Admin: 08/07/21 14:36 Dose: 250 mls/hr Documented by: MONTRELL Discontinued Medications Dexamethasone (Dexamethasone 10 Mg/Ml Vial) 10 mg IV NOW ONE Stop: 08/07/21 14:07 Last Admin: 08/07/21 14:36 Dose: 10 mg Documented by: KBROWNE Furosemide (Furosemide 40 Mg/4 Ml Vial) 40 mg IV NOW ONE Stop: 08/07/21 14:47 Vital Signs Vital signs: Vital Signs - 8 hr 08/07/21 12:23 08/07/21 12:30 08/07/21 12:40 Temperature 98.7 F Pulse Rate 70 70 Respiratory Rate 37 H 34 H Blood Pressure 147/62 H Pulse Oximetry 97 97 93 08/07/21 13:00 08/07/21 13:02 08/07/21 13:04 Temperature Pulse Rate 69 67 68 Respiratory Rate 37 H 33 H 33 H Blood Pressure 152/70 H 156/73 H 159/84 H Pulse Oximetry 96 94 93 08/07/21 13:17 08/07/21 13:30 08/07/21 13:31 Temperature Pulse Rate 69 68 69 Respiratory Rate 34 H 31 H 31 H Blood Pressure 145/67 H Pulse Oximetry 94 95 95 08/07/21 14:00 08/07/21 14:01 Temperature Pulse Rate 70 70 Respiratory Rate 27 H 31 H Blood Pressure 159/65 H Pulse Oximetry 95 95 Medical Decision Making Medical Records Medical records reviewed: Yes I reviewed the patient's medical records. Lab Data Lab results reviewed: Yes I reviewed the patient's lab results. Result diagrams: 08/07/21 12:35 08/07/21 12:35 Labs: Lab Results 08/07/21 08/07/21 08/07/21 Range/Units 12:31 12:35 12:35 WBC (4.5-11.0) X10^3/uL RBC (4.5-5.9) X10^6/uL Hgb (13.5-17.5) g/dL Hct (41-53) % MCV (80-100) fL MCH (26-34) PG MCHC (30-36) % RDW (11.6-14.8) % Plt Count (150-400) X10^3/uL Neut % (Auto) (50-75) % Lymph % (Auto) (25-40) % [place] % (Auto) (3-14) % Eos % (Auto) (2-4) % Baso % (Auto) (0-2) % Neut # (Auto) (7539-7195) /uL Lymph # (Auto) (8510-0817) /uL [place] # (Auto) (0-900) /uL Eos # (Auto) (0-450) /uL Baso # (Auto) (0-100) /uL D-Dimer 718 H (<230) ng/mL ABG pH 7.43 (7.35-7.45) ABG pCO2 43.1 (35-45) mmHg ABG pO2 44 L* (80-100) mmHg ABG HCO3 29 H (22-26) mmol/L ABG Total CO2 30 (21-31) mmol/L ABG O2 Saturation 81 L* (95-100) % ABG Base Excess 4.0 H (-2-2) mmol/L FiO2 21 Sodium (137-145) mmol/L Potassium (3.4-5.1) mmol/L Chloride (98-107) mmol/L Carbon Dioxide (22-32) mmol/L BUN (9-20) mg/dL Creatinine (0.66-1.25) mg/dL Estimated GFR (>60) mL/min BUN/Creatinine Ratio (6-22) Glucose (80-110) mg/dL Lactate (0.7-2.1) mmol/L Calcium (8.4-10.2) mg/dL Ferritin (18-464) ng/mL Total Bilirubin (0.2-1.3) mg/dL AST (17-59) IU/L ALT (<50) IU/L Alkaline Phosphatase (38-126) U/L Total Creatine Kinase (55-170) U/L CK-MB (CK-2) CK-MB (CK-2) Rel Index Troponin I (0.01-0.034) ng/mL C-Reactive Protein (<1.0) mg/dL NT-Pro-B Natriuret Pep (<450) pg/mL Total Protein (6.3-8.2) g/dL Albumin (3.5-5.0) g/dL Globulin (1.7-4.1) g/dL Albumin/Globulin Ratio (1.0-2.8) Procalcitonin 0.29 (<0.5) ng/mL SARS-CoV-2 (PCR) (Negative) 08/07/21 08/07/21 08/07/21 Range/Units 12:35 12:35 12:35 WBC 9.4 (4.5-11.0) X10^3/uL RBC 4.14 L (4.5-5.9) X10^6/uL Hgb 12.3 L (13.5-17.5) g/dL Hct 37.2 L (41-53) % MCV 90.0 (80-100) fL MCH 29.6 (26-34) PG MCHC 33.0 (30-36) % RDW 13.8 (11.6-14.8) % Plt Count 125 L (150-400) X10^3/uL Neut % (Auto) 59.6 (50-75) % Lymph % (Auto) 26.3 (25-40) % Freestone % (Auto) 10.9 (3-14) % Eos % (Auto) 2.9 (2-4) % Baso % (Auto) 0.3 (0-2) % Neut # (Auto) 5600 (8408-7318) /uL Lymph # (Auto) 2500 (4010-0216) /uL Freestone # (Auto) 1000 H (0-900) /uL Eos # (Auto) 300 (0-450) /uL Baso # (Auto) 0 (0-100) /uL D-Dimer (<230) ng/mL ABG pH (7.35-7.45) ABG pCO2 (35-45) mmHg ABG pO2 (80-100) mmHg ABG HCO3 (22-26) mmol/L ABG Total CO2 (21-31) mmol/L ABG O2 Saturation (95-100) % ABG Base Excess (-2-2) mmol/L FiO2 Sodium 138 (137-145) mmol/L Potassium 5.0 (3.4-5.1) mmol/L Chloride 99 (98-107) mmol/L Carbon Dioxide 31 (22-32) mmol/L BUN 32 H (9-20) mg/dL Creatinine 1.33 H (0.66-1.25) mg/dL Estimated GFR 51.0 L (>60) mL/min BUN/Creatinine Ratio 24.1 H (6-22) Glucose 88 (80-110) mg/dL Lactate 1.5 (0.7-2.1) mmol/L Calcium 9.4 (8.4-10.2) mg/dL Ferritin 422 (18-464) ng/mL Total Bilirubin 0.7 (0.2-1.3) mg/dL AST 37 (17-59) IU/L ALT 10 (<50) IU/L Alkaline Phosphatase 195 H (38-126) U/L Total Creatine Kinase 21 L (55-170) U/L CK-MB (CK-2) TNP CK-MB (CK-2) Rel Index TNP Troponin I 0.054 H (0.01-0.034) ng/mL C-Reactive Protein 20.5 H (<1.0) mg/dL NT-Pro-B Natriuret Pep 163 (<450) pg/mL Total Protein 6.8 (6.3-8.2) g/dL Albumin 3.4 L (3.5-5.0) g/dL Globulin 3.4 (1.7-4.1) g/dL Albumin/Globulin Ratio 1.0 (1.0-2.8) Procalcitonin (<0.5) ng/mL SARS-CoV-2 (PCR) (Negative) 08/07/21 Range/Units 12:35 WBC (4.5-11.0) X10^3/uL RBC (4.5-5.9) X10^6/uL Hgb (13.5-17.5) g/dL Hct (41-53) % MCV (80-100) fL MCH (26-34) PG MCHC (30-36) % RDW (11.6-14.8) % Plt Count (150-400) X10^3/uL Neut % (Auto) (50-75) % Lymph % (Auto) (25-40) % Freestone % (Auto) (3-14) % Eos % (Auto) (2-4) % Baso % (Auto) (0-2) % Neut # (Auto) (1832-1559) /uL Lymph # (Auto) (1549-3710) /uL [place] # (Auto) (0-900) /uL Eos # (Auto) (0-450) /uL Baso # (Auto) (0-100) /uL D-Dimer (<230) ng/mL ABG pH (7.35-7.45) ABG pCO2 (35-45) mmHg ABG pO2 (80-100) mmHg ABG HCO3 (22-26) mmol/L ABG Total CO2 (21-31) mmol/L ABG O2 Saturation (95-100) % ABG Base Excess (-2-2) mmol/L FiO2 Sodium (137-145) mmol/L Potassium (3.4-5.1) mmol/L Chloride (98-107) mmol/L Carbon Dioxide (22-32) mmol/L BUN (9-20) mg/dL Creatinine (0.66-1.25) mg/dL Estimated GFR (>60) mL/min BUN/Creatinine Ratio (6-22) Glucose (80-110) mg/dL Lactate (0.7-2.1) mmol/L Calcium (8.4-10.2) mg/dL Ferritin (18-464) ng/mL Total Bilirubin (0.2-1.3) mg/dL AST (17-59) IU/L ALT (<50) IU/L Alkaline Phosphatase (38-126) U/L Total Creatine Kinase (55-170) U/L CK-MB (CK-2) CK-MB (CK-2) Rel Index Troponin I (0.01-0.034) ng/mL C-Reactive Protein (<1.0) mg/dL NT-Pro-B Natriuret Pep (<450) pg/mL Total Protein (6.3-8.2) g/dL Albumin (3.5-5.0) g/dL Globulin (1.7-4.1) g/dL Albumin/Globulin Ratio (1.0-2.8) Procalcitonin (<0.5) ng/mL SARS-CoV-2 (PCR) Positive H (Negative) Imaging Data Chest x-ray: Radiologist's Impression: [address] [address] XRay Report Signed Patient: Richard Bird MR#: [id number] : 1935 Acct:[id number] Age/Sex: 86 / M Date of Service: 08/07/21 Loc: ED Accession Number: [id number] ?? Procedure: XR chest 1V Ordering Provider: Zacarias Loza D.O. PROCEDURE:? XR CHEST 1V ? INDICATIONS:? flu-like symptoms ? TECHNIQUE:? One view of the chest was acquired.? ? COMPARISON:? [facility], CR, CHEST 1 VIEW, 02/24/2017, 11:33. ? FINDINGS:? ? Surgical changes and devices:? None.? ? Lungs and pleura:? Minimal bilateral inferior interstitial infiltrates are seen.? Trace blunting of the costophrenic angles can be seen.? No pneumothorax.? ? Mediastinum:? The cardiac contours are within normal limits. The aorta demonstrates calcification and tortuosity. ? Bones and chest wall:? No suspicious bony lesions.? Age-appropriate bony degenerative changes are seen. ? Overlying soft tissues appear unremarkable.? ? ? IMPRESSION:? Minimal inferior interstitial type infiltrates are seen.? Please consider atypical infiltrate, including COVID pneumonia. ? Likely trace bilateral pleural effusions. ? ? Dictated by: Benny Montenegro M.D. on 08/07/2021 at 12:53 ? ? Approved by: Benny Montenegro M.D. on 08/07/2021 at 12:53?? ECG Data Attestation: I personally reviewed and interpreted this ECG as follows: Interpretation: Sinus rhythm Ventricular rate is 69 Occasional PVC Normal axis Normal QTC No ST T wave changes MDM Narrative Medical decision making narrative: COVID positive and vital signs and chest x-ray consistent with this. Patient was hypoxic on room air. Improved with oxygen by nasal cannula however was still somewhat tachypneic so was placed on high-flow. This did seem to improve his symptoms. Patient is a DNR/DNI however family OK with treatment up to the point of intubation. Discussed the case with Dr. Fischer. Will admit for further evaluation and treatment. Discharge Plan Departure Patient Disposition: Admitted As Inpatient Clinical Impression: COVID-19, Hypoxia
[2021-08-07 13:22] LABS: HCO3 ABG 29 mmol/L (22-26); PCO2 ABG 43.1 mmHg (35-45); PO2 ABG 44 mmHg (80-100); TCO2 ABG 30 mmol/L (21-31); pH ABG 7.43 (7.35-7.45)
[2021-08-07 13:23] LABS: Fractionated Inspired Oxygen 21; Oxygen Saturation ABG 81 % (95-100)
[2021-08-07 13:36] LABS: Ferritin 422 ng/mL (18-464)
[2021-08-07 13:53] LABS: COVID19 - ADMIT (NP swab/PCR) POSITIVE (Negative)
[2021-08-07] MEDS: REMDESIVIR 200 MG in SODIUM CHLORIDE 0.9% 210 ML 250 ML IV (14:36)
[2021-08-07] MEDS: DEXAMETHASONE 10 MG/ML VIAL IV (14:36)
--- NOTE | 2021-08-07 15:30 | PC.NURSE ---
Patient aggressive and uncooperative throughout the afternoon, tears off his monitoring stickers, tried to tip over the high flow machine twice, threatened staff, thinks he is back in [place], calls RNs the enemy and warns staff to hit the door before you get hurt and you are the enemy. Patient is redirectable 50% of the time and aggressive the remaindder amount of time.
[2021-08-07] MEDS: FUROSEMIDE 40 MG/4 ML VIAL IV (15:50)
[2021-08-07 17:44] LABS: Lactate Dehydrogenase 425 U/L (313-618)
--- NOTE | 2021-08-07 19:06 | P.HP_ITS ---
History of Present Illness History of Present Illness Date Patient Seen: 08/07/21 Time Patient Seen: 19:06 Chief complaint: Hypoxic COVID + Narrative: This is an 86-year-old male, with a past medical history of hyperlipidemia, diabetes, Parkinson's dementia, resident of [facility] unit who was sent to the emergency room for worsening shortness of breath after a positive COVID-19 test. Patient is on able to participate in HPI so information is gleaned from emergency record. According to the ER report the ER physician received a call from the nurse practitioner who stated that at the facility approximately 1 week ago the patient tested positive for COVID-19. At the facility, the patient was hypoxic on room air into the 70s and in respiratory distress. During my interview, the patient denies any chest pain, shortness of breath. He states he generally did not feel well but was unable to explain why. He denied any nausea, vomiting, or abdominal pain. In the emergency room, the patient was hypertensive, hypoxic to 85% on room air, he was initially placed on high-flow nasal cannula, and at the time of arrival to the hospital floor his oxygen needs are currently at 10 L via high-flow nasal cannula. He was also initially tachypneic which improved with supplemental therapy. His laboratory results were notable for a mild thrombocytopenia with a platelet count of 125, the rest of his CBC was unremarkable. D-dimer was negative for age at 718. Arterial blood gas showed a PO2 of 44 on room air, there was no hypercarbia with a pCO2 of 43.1. Chemistry panel showed a creatinine of 1.33, slightly up from his baseline of around 1.1, the remainder of his chemistry panel was unremarkable. Troponin was elevated at 0.054. Procalcitonin was 0.29. COVID-19 testing was positive. 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 Rosacea Sleep apnea (~2010) Type 2 diabetes mellitus without complication (11/10/16) Surgical History Anesthesia History of cataract removal with insertion of prosthetic lens History of tonsillectomy Status post appendectomy Family & Social History Family History Mother Heart disease Diabetes mellitus Father Cancer Grandfather Heart disease Grandmother Heart disease Grandmother Heart disease Safety & Behavioral: Feels Safe in Current Yes Environment Been Physically Hurt or No Threatened By a Person Tobacco & Substance use: Smoking Status Former smoker Substance Use Type does not use Meds Home Medications and Allergies Home Medications Medication Instructions Recorded Confirmed Type [CALCIUM/VITAMIN D] 1 tab PO QDAY #0 03/10/17 08/07/21 History [CENTRUM SILVER] 1 tab PO QDAY #0 03/10/17 08/07/21 History [FISH OIL] 2 cap PO QDAY #0 03/10/17 08/07/21 History simvastatin 20 mg tablet 20 mg PO HS #90 mg 02/07/20 03/11/21 Rx lancets 28 gauge (FreeStyle #100 each 02/19/20 03/11/21 Rx Lancets) blood sugar diagnostic (FreeStyle #100 each 03/06/20 03/11/21 Rx Lite Strips) ipratropium bromide 42 mcg (0.06 2 spray INTRANASAL TID ml 08/21/20 03/11/21 History %) nasal spray aspirin 81 mg tablet,delayed 81 mg PO DAILY 10/30/20 08/07/21 History release rasagiline 0.5 mg tablet (Azilect) 0.5 mg PO DAILY #90 tab 11/05/20 08/07/21 Rx lisinopril 5 mg tablet 5 mg PO DAILY #90 tab 11/26/20 08/07/21 Rx metformin 500 mg tablet 1,000 mg PO BID #360 tab 01/08/21 08/07/21 Rx trazodone 100 mg tablet 100 mg PO BEDTIME PRN 03/11/21 03/11/21 History albuterol sulfate 90 mcg/actuation 2 inh INHALATION BID 08/07/21 08/07/21 History aerosol inhaler ascorbic acid (vitamin C) 1,000 mg 1 g PO DAILY 08/07/21 08/07/21 History tablet carbidopa 25 mg-levodopa 100 mg 1 tab PO TID 08/07/21 08/07/21 History tablet citalopram 10 mg tablet 10 mg PO DAILY 08/07/21 08/07/21 History clonazepam 0.5 mg disintegrating 0.5 mg PO BID 08/07/21 08/07/21 History tablet clonazepam 0.5 mg disintegrating 0.5 mg PO Q4H PRN 08/07/21 08/07/21 History tablet famotidine 20 mg tablet 20 mg PO DAILY 08/07/21 08/07/21 History ipratropium bromide 42 mcg (0.06 2 spray INTRANASAL TID PRN 08/07/21 08/07/21 History %) nasal spray melatonin 10 mg tablet 10 mg PO BEDTIME 08/07/21 08/07/21 History psyllium husk 0.4 gram capsule 0.8 g PO BEDTIME 08/07/21 08/07/21 History (Metamucil) quetiapine 25 mg tablet (Seroquel) 25 mg PO Q4HR PRN 08/07/21 08/07/21 History quetiapine 50 mg tablet 50 mg PO BID 08/07/21 08/07/21 History trazodone 100 mg tablet 100 mg PO BEDTIME PRN 08/07/21 08/07/21 History Allergies Allergy/AdvReac Type Severity Reaction Status Date / Time bacitracin Allergy Unknown Verified 03/11/21 13:41 [From NEOSPORIN ([id number])] neomycin Allergy Unknown Verified 03/11/21 13:41 [From NEOSPORIN ([id number])] polymyxin B Allergy Unknown Verified 03/11/21 13:41 [From NEOSPORIN ([id number])] Review of Systems Review of Systems Narrative: Unable to perform accurate review of systems given the patient's dementia. Exam Vital Signs (past 8 hours): - 08/07/21 12:23 08/07/21 12:30 08/07/21 12:40 Temperature 98.7 F Pulse Rate 70 70 Respiratory Rate 37 H 34 H Blood Pressure 147/62 H Pulse Oximetry 97 97 93 08/07/21 13:00 08/07/21 13:02 08/07/21 13:04 Temperature Pulse Rate 69 67 68 Respiratory Rate 37 H 33 H 33 H Blood Pressure 152/70 H 156/73 H 159/84 H Pulse Oximetry 96 94 93 08/07/21 13:17 08/07/21 13:30 08/07/21 13:31 Temperature Pulse Rate 69 68 69 Respiratory Rate 34 H 31 H 31 H Blood Pressure 145/67 H Pulse Oximetry 94 95 95 08/07/21 14:00 08/07/21 14:01 08/07/21 14:30 Temperature Pulse Rate 70 70 69 Respiratory Rate 27 H 31 H 29 H Blood Pressure 159/65 H 148/104 H Pulse Oximetry 95 95 96 08/07/21 14:32 08/07/21 15:00 08/07/21 15:01 Temperature Pulse Rate 68 67 67 Respiratory Rate 34 H 33 H 35 H Blood Pressure 154/70 H 158/69 H Pulse Oximetry 96 97 97 08/07/21 15:30 08/07/21 16:00 08/07/21 16:30 Temperature Pulse Rate 68 67 69 Respiratory Rate 32 H 29 H 31 H Blood Pressure 156/120 H 168/72 H Pulse Oximetry 91 92 08/07/21 16:31 08/07/21 17:01 08/07/21 17:03 Temperature Pulse Rate 69 73 72 Respiratory Rate 33 H Blood Pressure 179/75 H 177/74 H 196/82 H Pulse Oximetry 92 88 L 08/07/21 18:00 Temperature Pulse Rate 84 Respiratory Rate 24 Blood Pressure Pulse Oximetry 94 Oxygen Delivery Method Nasal Cannula Oxygen Flow Rate 6 Narrative Exam Narrative: GENERAL APPEARANCE: Mildly ill-appearing elderly male, in no acute distress SKIN: Inspection of the skin reveals no rashes, ulcerations or petechiae. HEENT: Normocephalic atraumatic, extraocular muscles are intact, oropharynx is clear and mucous membranes are moist, neck is supple without adenopathy NECK: Supple and symmetric. There was no thyroid enlargement, and no tenderness, or masses were felt. CHEST: Normal AP diameter and normal contour without any kyphoscoliosis. LUNGS: Auscultation of the lungs revealed no wheezes, rhonchi, or rales. CARDIOVASCULAR: There was a regular rate and rhythm without any murmurs, gallops, rubs. Peripheral pulses were 2+ and symmetric. ABDOMEN: Soft, nontender, and nondistended MUSCULOSKELETAL: There was no tenderness or effusions noted. Muscle strength and tone were normal. EXTREMITIES: No cyanosis, clubbing or edema. NEUROLOGIC: Alert and oriented x1 (name only). No focal deficits. Occasional tremor. Objective ECG Impression: Sinus rhythm with a single PVC. No evidence of acute ischemia. Imaging Chest x-ray: My impression: Minimal bilateral interstitial infiltrates of the lower lungs. Trace bilateral pleural effusions. No pneumothorax. Radiologist's impression: PROCEDURE:? XR CHEST 1V ? INDICATIONS:? flu-like symptoms ? TECHNIQUE:? One view of the chest was acquired.? ? COMPARISON:? Located Within [facility], , CHEST 1 VIEW, 02/24/2017, 11:33. ? FINDINGS:? ? Surgical changes and devices:? None.? ? Lungs and pleura:? Minimal bilateral inferior interstitial infiltrates are seen.? Trace blunting of the costophrenic angles can be seen.? No pneumothorax.? ? Mediastinum:? The cardiac contours are within normal limits. The aorta demonstrates calcification and tortuosity. ? Bones and chest wall:? No suspicious bony lesions.? Age-appropriate bony degenerative changes are seen. ? Overlying soft tissues appear unremarkable.? ? ? IMPRESSION:? Minimal inferior interstitial type infiltrates are seen.? Please consider atypical infiltrate, including COVID pneumonia. ? Likely trace bilateral pleural effusions. Labs Result Diagrams: 08/07/21 12:35 08/07/21 12:35 Labs: Laboratory Results - last 24 hr 08/07/21 08/07/21 08/07/21 12:31 12:35 12:35 WBC RBC Hgb Hct MCV MCH MCHC RDW Plt Count Neut % (Auto) Lymph % (Auto) [place] % (Auto) Eos % (Auto) Baso % (Auto) Neut # (Auto) Lymph # (Auto) [place] # (Auto) Eos # (Auto) Baso # (Auto) D-Dimer 718 H ABG pH 7.43 ABG pCO2 43.1 ABG pO2 44 L* ABG HCO3 29 H ABG Total CO2 30 ABG O2 Saturation 81 L* ABG Base Excess 4.0 H FiO2 21 Sodium Potassium Chloride Carbon Dioxide BUN Creatinine Estimated GFR BUN/Creatinine Ratio Glucose Lactate Calcium Ferritin Total Bilirubin AST ALT Alkaline Phosphatase Lactate Dehydrogenase Total Creatine Kinase CK-MB (CK-2) CK-MB (CK-2) Rel Index Troponin I C-Reactive Protein NT-Pro-B Natriuret Pep Total Protein Albumin Globulin Albumin/Globulin Ratio Procalcitonin 0.29 SARS-CoV-2 (PCR) 08/07/21 08/07/21 08/07/21 12:35 12:35 12:35 WBC 9.4 RBC 4.14 L Hgb 12.3 L Hct 37.2 L MCV 90.0 MCH 29.6 MCHC 33.0 RDW 13.8 Plt Count 125 L Neut % (Auto) 59.6 Lymph % (Auto) 26.3 [place] % (Auto) 10.9 Eos % (Auto) 2.9 Baso % (Auto) 0.3 Neut # (Auto) 5600 Lymph # (Auto) 2500 [place] # (Auto) 1000 H Eos # (Auto) 300 Baso # (Auto) 0 D-Dimer ABG pH ABG pCO2 ABG pO2 ABG HCO3 ABG Total CO2 ABG O2 Saturation ABG Base Excess FiO2 Sodium 138 Potassium 5.0 Chloride 99 Carbon Dioxide 31 BUN 32 H Creatinine 1.33 H Estimated GFR 51.0 L BUN/Creatinine Ratio 24.1 H Glucose 88 Lactate 1.5 Calcium 9.4 Ferritin 422 Total Bilirubin 0.7 AST 37 ALT 10 Alkaline Phosphatase 195 H Lactate Dehydrogenase 425 Total Creatine Kinase 21 L CK-MB (CK-2) TNP CK-MB (CK-2) Rel Index TNP Troponin I 0.054 H C-Reactive Protein 20.5 H NT-Pro-B Natriuret Pep 163 Total Protein 6.8 Albumin 3.4 L Globulin 3.4 Albumin/Globulin Ratio 1.0 Procalcitonin SARS-CoV-2 (PCR) 08/07/21 12:35 WBC RBC Hgb Hct MCV MCH MCHC RDW Plt Count Neut % (Auto) Lymph % (Auto) [place] % (Auto) Eos % (Auto) Baso % (Auto) Neut # (Auto) Lymph # (Auto) [place] # (Auto) Eos # (Auto) Baso # (Auto) D-Dimer ABG pH ABG pCO2 ABG pO2 ABG HCO3 ABG Total CO2 ABG O2 Saturation ABG Base Excess FiO2 Sodium Potassium Chloride Carbon Dioxide BUN Creatinine Estimated GFR BUN/Creatinine Ratio Glucose Lactate Calcium Ferritin Total Bilirubin AST ALT Alkaline Phosphatase Lactate Dehydrogenase Total Creatine Kinase CK-MB (CK-2) CK-MB (CK-2) Rel Index Troponin I C-Reactive Protein NT-Pro-B Natriuret Pep Total Protein Albumin Globulin Albumin/Globulin Ratio Procalcitonin SARS-CoV-2 (PCR) Positive H Assessment & Plan Assessment & Plan narrative: 1. Acute respiratory failure secondary to COVID-19 - continue to wean O2 as tolerated, goal >90% - start baricitinib, decadron, remdesevir given high flow currently. - DNR / DNI - if heated high flow will be ICU status. - unknown vaccination status at this time. 2. Type 2 diabetes - hold long acting for now given glucose 88 on admit labs. add sliding scale. Hold home meds. - check a1c. 3. Hypertension - continue home medications, patient is quite hypertensive here. 4. Parkinson's dementia with behavioral disturbance - continue home benzos to avoid withdrawal, continue home seroquel and sinemet. Code: DNR, surrogate as outlined in scanned advanced directive on file. DVT: lovenox daily dispo: Admit as inpatient. I have utilized all available immediate resources to obtain, update, or review the patient's current medications. COVID-19 COVID-19 status: Positive Time Spent With Patient Critical Care time: I spent a total of [] minutes of critical care time on this patient's care today; this time is exclusive of procedural time. Quality MIPS - Admit I confirm the patient?s Advance Care Plan is present, Code status is documented, Surrogate decision maker is in patient?s record [If Yes, STOP here]: Yes
--- NOTE | 2021-08-07 19:37 | PC.NURSE ---
Rec'd pt from ED to rm 231 at 1815. Pt was transitioned to high flow nasal cannula 10L with sats 97%. Denies shortness of breath at rest. Sounds audibly wet and noted to be hypertensive. Reported to Dr. Fischer on rounds at bedside. Pt was also extremely incontinent of urine on arrival. Brief was soaked completely through sweatpants, blankets, and sheets. Provided hygiene, clean brief. Pt is oriented to self and month. Bed alarm on.
[2021-08-07] MEDS: QUETIAPINE 25 MG TABLET 50 MG PO (20:40)
[2021-08-07] MEDS: clonazePAM 0.5 MG TABLET PO (20:40)
[2021-08-07] MEDS: CARBIDOPA-LEVODOPA 25/100 TABLET 1 EACH PO (20:40)
[2021-08-07] MEDS: TRAZODONE 100 MG TABLET PO (20:41)
[2021-08-07] MEDS: ACETAMINOPHEN 325 MG TABLET 650 MG PO (20:42)
[2021-08-07 21:13] LABS: Troponin I 0.043 ng/mL (0.01-0.034)
[2021-08-08] VITALS (16 sets, daily range): BP systolic 115–158; BP diastolic 61–87; PULSE 59–79; RESP 16–24; TEMP 36.2–36.8; O2SAT 87–97
[2021-08-08 04:12] LABS: Add Manual Diff / Slide Review NO; Basophils Absolute Auto 0 /uL (0-100); Basophils Percent Auto 0.3 % (0-2); Eosinophils Absolute Auto 0 /uL (0-450); Hematocrit 38.8 % (41-53); Hemoglobin 12.9 g/dL (13.5-17.5); Lymphocytes Absolute Auto 1400 /uL (1100-4500); Lymphocytes Percent Auto 15.7 % (25-40); Mean Corpuscular HGB Conc 33.2 % (30-36); Mean Corpuscular Hemoglobin 29.6 PG (26-34); Mean Corpuscular Volume 89.3 fL (80-100); Monocytes Absolute Auto 500 /uL (0-900); Monocytes Percent Auto 5.5 % (3-14); Neutrophils Absolute Auto 7000 /uL (1500-7000); Neutrophils Percent Auto 78.5 % (50-75); Platelet Count 160 X10^3/uL (150-400); Red Blood Cell Count 4.35 X10^6/uL (4.5-5.9); Red Cell Distribution Width 13.9 % (11.6-14.8); White Blood Cell Count 8.9 X10^3/uL (4.5-11.0)
[2021-08-08 04:18] LABS: Alanine Aminotransferase 7 IU/L (<50); Albumin 3.4 g/dL (3.5-5.0); Albumin Globulin Ratio 0.9 (1.0-2.8); Alkaline Phosphatase 172 U/L (38-126); Aspartate Aminotransferase 32 IU/L (17-59); BUN Creatinine Ratio 32.8 (6-22); Bilirubin Total 0.7 mg/dL (0.2-1.3); Blood Urea Nitrogen 42 mg/dL (9-20); Calcium 9.5 mg/dL (8.4-10.2); Carbon Dioxide 30 mmol/L (22-32); Chloride 100 mmol/L (98-107); Estimated Glomerular Filt Rate 53.3 mL/min (>60); Globulin 3.7 g/dL (1.7-4.1); Glucose 198 mg/dL (80-110); HEMOLYSIS 30 (0-50); Sodium 138 mmol/L (137-145); Total Protein 7.1 g/dL (6.3-8.2)
[2021-08-08 04:46] LABS: Hemoglobin A1C% w Est Avg Glu 6.4 % (4.0-6.0)
[2021-08-08] MEDS: ENOXAPARIN 40 MG/0.4 ML SYRINGE SUBCUT (08:12)
[2021-08-08] MEDS: ASPIRIN EC 81 MG TABLET PO (08:14)
[2021-08-08] MEDS: clonazePAM 0.5 MG TABLET PO ×3 (08:14→20:25)
[2021-08-08] MEDS: CARBIDOPA-LEVODOPA 25/100 TABLET 1 EACH PO ×3 (08:14→20:25)
[2021-08-08] MEDS: CITALOPRAM 10 MG TABLET PO (08:14)
[2021-08-08] MEDS: FAMOTIDINE 20 MG TABLET PO (08:14)
[2021-08-08] MEDS: QUETIAPINE 25 MG TABLET 50 MG PO ×2 (08:14→20:25)
[2021-08-08] MEDS: DEXAMETHASONE 10 MG/ML VIAL 6 MG IV (08:14)
[2021-08-08] MEDS: lisinopriL 5 MG TABLET PO (08:14)
[2021-08-08] MEDS: BARICITINIB 2 MG TABLET 4 MG PO (08:21)
[2021-08-08] MEDS: INSULIN LISPRO 100 UNIT/ML 3ML VIAL SUBCUT ×3 (08:23→20:22)
[2021-08-08] MEDS: REMDESIVIR 100 MG in SODIUM CHLORIDE 0.9% 230 ML 250 ML IV (10:27)
--- NOTE | 2021-08-08 10:53 | PC.NURSE ---
Addendum entered by Ross Traore R.N. 08/08/21 12:39: Nurse's name is Emily. Also called and requested someone bring pt's hearing aid independent consultant. Original Note: Spoke with Nurse Lindsay from [facility]. Requested she send pt's glasses and medication not stocked by our pharmacy. Nurse states pt is normally 1PA with walker for transfers to w/c. Normally takes his pills whole and feeds himself. 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 Incontinent of bladder but continent of stool.
--- NOTE | 2021-08-08 13:50 | DIET.PN1 ---
Dietary Progress Note Assessment: 86 y/o M covid +. Discussed pt with RN. She reports he has poor appetite. Difficulty seeing food r/t blindness in right eye. Notes indicate he normally self feeds. Also hard of hearing. PMH Parkinson's dementia. Weight hx indicates potential weight loss. RN confirms recent weight of 88.5 kg. Weight hx per EMR: 06/02/21: 95 kg 05/18/21: 102 kg 03/11/21: 99.79 kg 10/30/20: 99.79 kg 08/21/20: 94 kg Potentially 6.8% weight loss over 3 months (not significant) and 11% over 5 months (significant). Unclear how reliable weight hx is. No change in food intake reported at intake. Due to covid +, no nutrition focused physical exam completed. Tried calling pt. He did not answer, and may not be appropriate for consult over the phone. At risk for malnutrition. Ht: 185.42 cm Wt: 88.5 kg BMI: 25.7 Last BM: 08/07/21 (08/07/21 18:30) MNA: 7 Elmer Score: 17 Diet: 08/07/21 Dinner General (Regular) Diet Diet Modifications: Nutrition Percent Meal Consumed 7 08/08/21 13:18 Percent Meal Consumed 5 08/08/21 10:14 Labs: RBC 4.35 X10^6/uL (4.5-5.9) L 08/08/21 03:48 Hgb 12.9 g/dL (13.5-17.5) L 08/08/21 03:48 Hct 38.8 % (41-53) L 08/08/21 03:48 Creatinine 1.28 mg/dL (0.66-1.25) H 08/08/21 03:48 Hemoglobin A1c 6.4 % (4.0-6.0) H 08/08/21 03:48 Lactate 1.5 mmol/L (0.7-2.1) 08/07/21 12:35 Ferritin 422 ng/mL (18-464) 08/07/21 12:35 NT-Pro-B Natriuret Pep 163 pg/mL (<450) 08/07/21 12:35 Nutrition Diagnosis: Inadequate intake r/t potential difficulty seeing foods, poor appetite, increased energy needs with covid+ aeb RN report and low PO% and EMR notes Interventions: 1. Sending Ensure max ONS daily to support kcal and protein needs 2. Changing diet to soft chew and finger foods preferred Monitoring/Evaluations: PO, ONS tolerance. Electronically Signed by: Emily Rae 08/08/21 13:50 Clinical Dietitian [address] [address]
--- NOTE | 2021-08-08 14:34 | CM.DANOTE ---
DCP Assessment: Patient is a 86 yr old male who was admitted for Covid pneumonia. CM spoke with Emily at [facility] and yes the patient has been vaccinated on 12/13/2020 and 01/03/2021 Patient has advancing dementia and lives at [facility]. Patient is incontinent with urine but can feed himself and is usually not aggressive or combative according to Emily. However, she did say that patient does have flash backs to his time in [place] days occasionally but not every day. patient currently on High flow at 6L per NC. I: medicare and for life Plan: DC back to [facility] when medically stable.Emily at [facility] said that the paitent is welcome back and are happy to have him when he is ready to DC. prior to DC if patient needs home O2 that will need to be in place prior to his return. Saniya Sifuentes RNdirector of knowledge management Discharge Planning/Care Management Discharge Assessment Start: 08/08/21 14:26 Freq: Status: Active Protocol: Document 08/08/21 14:26 (Rec: 08/08/21 14:31 [id number]) Discharge Planning Assessment Assigned Radiology Services Manager Saniya Sifuentes RNwheel alignment technician DPOA/Assigned Designee Name Marleen Bird () Contact Information [phone] Advance Directives? Yes: POLST on chart Advance Directives on File No History Provided By Family Member,Medical Record Prior Living Arrangements Intermediate Facility Comment lives at [facility] Household Members other Type of transporation used prior to Relies on Others admit Facility Name Admitted From: [facility] Independent with ADL's No: incontinent Is patient alert and oriented? No: Has dementia Caregiver for Another No Whiteboard Updated in Patient Room with Yes name and ext. # of Radiology Services Manager Review Status In Process Next Review Type Continued Stay Review
--- NOTE | 2021-08-08 15:54 | P.PN_ITS ---
Subjective Subjective Date Patient Seen: 08/08/21 Time Patient Seen: 15:54 Interval history: Denies chest pain, abdominal pain. Does not feel short of breath, but still on approx. 6L of oxygen. Exam Vital Signs (past 8 hours): - 08/08/21 08:00 08/08/21 09:32 08/08/21 11:00 Temperature 97.1 F L Pulse Rate 59 L Respiratory Rate 16 Blood Pressure 158/71 H Pulse Oximetry 94 95 94 08/08/21 11:45 08/08/21 13:30 Temperature 97.8 F Pulse Rate 64 68 Respiratory Rate 19 24 Blood Pressure 132/61 Pulse Oximetry 94 95 Fraction of Inspired Oxygen 40 Oxygen Delivery Method High Flow Nasal Cannula Oxygen Flow Rate 6 Narrative Exam Narrative: GENERAL APPEARANCE:? Mildly ill-appearing elderly male, in no acute distress SKIN: Inspection of the skin reveals no rashes, ulcerations or petechiae. HEENT:? Normocephalic atraumatic, extraocular muscles are intact, oropharynx is clear and mucous membranes are moist, neck is supple without adenopathy NECK: Supple and symmetric. There was no thyroid enlargement, and no tenderness, or masses were felt. CHEST: Normal AP diameter and normal contour without any kyphoscoliosis. LUNGS: Auscultation of the lungs revealed no wheezes, rhonchi, or rales. CARDIOVASCULAR: There was a regular rate and rhythm without any murmurs, gallops, rubs. Peripheral pulses were 2+ and symmetric. ABDOMEN:? Soft, nontender, and nondistended MUSCULOSKELETAL: There was no tenderness or effusions noted. Muscle strength and tone were normal. EXTREMITIES: No cyanosis, clubbing or edema. NEUROLOGIC: Alert and oriented x1 (name only).? No focal deficits.? Occasional tremor. Mumbles responses frequently. Objective Labs Result Diagrams: 08/08/21 03:48 08/08/21 03:48 Labs: Laboratory Results - last 24 hr 08/07/21 08/07/21 08/07/21 12:35 18:30 20:42 WBC RBC Hgb Hct MCV MCH MCHC RDW Plt Count Neut % (Auto) Lymph % (Auto) [place] % (Auto) Eos % (Auto) Baso % (Auto) Neut # (Auto) Lymph # (Auto) [place] # (Auto) Eos # (Auto) Baso # (Auto) Sodium Potassium Chloride Carbon Dioxide BUN Creatinine Estimated GFR BUN/Creatinine Ratio Glucose Hemoglobin A1c Calcium Total Bilirubin AST ALT Alkaline Phosphatase Lactate Dehydrogenase 425 Troponin I 0.043 H Total Protein Albumin Globulin Albumin/Globulin Ratio Nasal Screen MRSA (PCR) Negative for mrsa 08/08/21 08/08/21 08/08/21 03:48 03:48 03:48 WBC 8.9 RBC 4.35 L Hgb 12.9 L Hct 38.8 L MCV 89.3 MCH 29.6 MCHC 33.2 RDW 13.9 Plt Count 160 Neut % (Auto) 78.5 H Lymph % (Auto) 15.7 L [place] % (Auto) 5.5 Eos % (Auto) 0.0 L Baso % (Auto) 0.3 Neut # (Auto) 7000 Lymph # (Auto) 1400 [place] # (Auto) 500 Eos # (Auto) 0 Baso # (Auto) 0 Sodium 138 Potassium 6.0 H Chloride 100 Carbon Dioxide 30 BUN 42 H Creatinine 1.28 H Estimated GFR 53.3 L BUN/Creatinine Ratio 32.8 H Glucose 198 H D Hemoglobin A1c 6.4 H Calcium 9.5 Total Bilirubin 0.7 AST 32 ALT 7 Alkaline Phosphatase 172 H Lactate Dehydrogenase Troponin I Total Protein 7.1 Albumin 3.4 L Globulin 3.7 Albumin/Globulin Ratio 0.9 L Nasal Screen MRSA (PCR) [facility] Medical History Chicken pox Hearing loss (~2011) Hyperlipidemia associated with type 2 diabetes mellitus Measles Mumps Parkinson's disease (~2009) 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 Rosacea Sleep apnea (~2010) Type 2 diabetes mellitus without complication (11/10/16) Surgical History Anesthesia History of cataract removal with insertion of prosthetic lens History of tonsillectomy Status post appendectomy Family History Mother Heart disease Diabetes mellitus Father Cancer Grandfather Heart disease Grandmother Heart disease Grandmother Heart disease Social History household members: other Smoking Status: Former smoker Assessment & Plan Assessment & Plan narrative: ?1. Acute respiratory failure secondary to COVID-19 ?- continue to wean O2 as tolerated, goal >90% ?- continue baricitinib, decadron, remdesevir given high flow nasal cannula currently. ?- DNR / DNI ?- if heated high flow will be ICU status. ?- patient was vaccinated according to [facility]. 2. Type 2 diabetes ?- replace home meds with lantus, but low dose to start at 5. Held initially given glucose 88 on admit labs. added sliding scale. Hold home PO meds. ?- A1c 6.4% with adequate control 3. Hypertension ?- continue home medications, patient was quite hypertensive here intially but now improved. 4. Parkinson's dementia with behavioral disturbance ?- continue home benzos to avoid withdrawal, continue home seroquel and sinemet. 5. Elevated troponin - likely in setting of acute hypoxia. EKG without ischemic changes and no chest pain reported. Stopped trending once downtrending, peaked at 0.05. 6. Hyperkalemia - unclear etiology, will recheck labs today to confirm. Medically treat if repeat remains elevated. Code: DNR, surrogate as outlined in scanned advanced directive on file. DVT: lovenox daily dispo: Admit as inpatient. I have utilized all available immediate resources to obtain, update, or review the patient's current medications. COVID-19 COVID-19 status:?Positive Time Spent With Patient Critical Care time: I spent a total of [] minutes of critical care time on this patient's care today; this time is exclusive of procedural time.
[2021-08-08] MEDS: QUETIAPINE 25 MG TABLET PO (16:27)
[2021-08-08] MEDS: RASAGILINE 0.5 MG 0.5 EACH PO (16:28)
--- NOTE | 2021-08-08 16:43 | PC.NURSE ---
Addendum entered by Ross Traore R.N. 08/08/21 18:49: Pt open to getting back to bed and having brief change. Pt had large amount of incontinent urine. Assisted back to bed with walker and CGA. Pt declined dinner, blood sugar check, insulin. On 6L high flow NC with SPO2 96%. Bed alarm on. Original Note: Pt has been calm and cooperative with care over course of shift but became acutely agitated after being incontinent of urine. Pt states he needs to urinate. Assisted with urinal but pt unable to void (due to already being incontinent). Pt became angry about the [email or web address] and proceeded to throw an empty urinal at this RN. Pt then stated he was going into the bathroom and attempted to exit the bed without assistance of staff or fww per pt request. Able to redirect pt to use fww and assisted pt to sitting up to chair. Pt declines garrett care/brief change at this time. Also declining blood glucose check. Reported to hospitalist and orders received for pt's normal PRN med regimen as well as IV lorazepam. Gave pt PO meds with glucerna and pt took them without issue. Pt is currently declining O2 therapy. SPO2 ranging 86-92% on RA. Will attempt to replace O2 once pt is calm. Pt is currently sitting up to chair with call light in easy reach, curtain opened for direct visualization.
--- NOTE | 2021-08-08 18:08 | PM.PN.1 ---
Exam Vital Signs (past 8 hours): - 08/08/21 11:00 08/08/21 11:45 08/08/21 13:30 Temperature 97.8 F Pulse Rate 64 68 Respiratory Rate 19 24 Blood Pressure 132/61 Pulse Oximetry 94 94 95 08/08/21 15:25 08/08/21 17:05 08/08/21 17:43 Temperature 97.7 F Pulse Rate 77 Respiratory Rate 19 Blood Pressure 145/67 H Pulse Oximetry 94 87 L 94 Fraction of Inspired Oxygen 40 Oxygen Delivery Method High Flow Nasal Cannula Oxygen Flow Rate 6 Objective Labs Result Diagrams: 08/08/21 03:48 08/08/21 03:48 Labs: Laboratory Results - last 24 hr 08/07/21 08/07/21 08/08/21 18:30 20:42 03:48 WBC 8.9 RBC 4.35 L Hgb 12.9 L Hct 38.8 L MCV 89.3 MCH 29.6 MCHC 33.2 RDW 13.9 Plt Count 160 Neut % (Auto) 78.5 H Lymph % (Auto) 15.7 L [place] % (Auto) 5.5 Eos % (Auto) 0.0 L Baso % (Auto) 0.3 Neut # (Auto) 7000 Lymph # (Auto) 1400 [place] # (Auto) 500 Eos # (Auto) 0 Baso # (Auto) 0 Sodium Potassium Chloride Carbon Dioxide BUN Creatinine Estimated GFR BUN/Creatinine Ratio Glucose Hemoglobin A1c Calcium Total Bilirubin AST ALT Alkaline Phosphatase Troponin I 0.043 H Total Protein Albumin Globulin Albumin/Globulin Ratio Nasal Screen MRSA (PCR) Negative for mrsa 08/08/21 08/08/21 03:48 03:48 WBC RBC Hgb Hct MCV MCH MCHC RDW Plt Count Neut % (Auto) Lymph % (Auto) [place] % (Auto) Eos % (Auto) Baso % (Auto) Neut # (Auto) Lymph # (Auto) [place] # (Auto) Eos # (Auto) Baso # (Auto) Sodium 138 Potassium 6.0 H Chloride 100 Carbon Dioxide 30 BUN 42 H Creatinine 1.28 H Estimated GFR 53.3 L BUN/Creatinine Ratio 32.8 H Glucose 198 H D Hemoglobin A1c 6.4 H Calcium 9.5 Total Bilirubin 0.7 AST 32 ALT 7 Alkaline Phosphatase 172 H Troponin I Total Protein 7.1 Albumin 3.4 L Globulin 3.7 Albumin/Globulin Ratio 0.9 L Nasal Screen MRSA (PCR) [facility] Medical History Chicken pox Hearing loss (~2011) Hyperlipidemia associated with type 2 diabetes mellitus Measles Mumps Parkinson's disease (~2009) 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 Acute respiratory failure secondary to COVID-19 ?- continue to wean O2 as tolerated, goal >90% ?- continue baricitinib, decadron, remdesevir given high flow nasal cannula currently. ?- DNR / DNI ?- if heated high flow will be ICU status. ?- patient was vaccinated according to [facility]. 2. Type 2 diabetes ?- replace home meds with lantus, but low dose to start at 5. Held initially given glucose 88 on admit labs. added sliding scale. Hold home PO meds. ?- A1c 6.4% with adequate control 3. Hypertension ?- continue home medications, patient was quite hypertensive here intially but now improved. 4. Parkinson's dementia with behavioral disturbance ?- continue home benzos to avoid withdrawal, continue home seroquel and sinemet. 5. Elevated troponin ?- likely in setting of acute hypoxia. EKG without ischemic changes and no chest pain reported. Stopped trending once downtrending, peaked at 0.05. 6. Hyperkalemia ?- unclear etiology, will recheck labs today to confirm. Medically treat if repeat remains elevated. Code: DNR, surrogate as outlined in scanned advanced directive on file. DVT: lovenox daily dispo: Admit as inpatient. I have utilized all available immediate resources to obtain, update, or review the patient's current medications. Time Spent With Patient Critical Care time: I spent a total of [] minutes of critical care time on this patient's care today; this time is exclusive of procedural time.
[2021-08-08] MEDS: INSULIN GLARGINE 100 UNIT/ML 3ML PEN SUBCUT (20:22)
[2021-08-08] MEDS: DOCUSATE 100 MG CAPSULE PO (20:25)
[2021-08-08] MEDS: TRAZODONE 100 MG TABLET PO (20:25)
[2021-08-08] MEDS: SENNOSIDES 8.6 MG TABLET 17.2 MG PO (20:25)
[2021-08-08] MEDS: LORazepam 2 MG/ML INJ 0.5 MG IV (23:03)
--- NOTE | 2021-08-08 23:52 | PC.NURSE ---
Evening Note-Patient is pleasantly confused, cooperative with care except refused lab draw, did allow finger stick for [id number], HS Lantus and sliding scale Lispro given and HS meds given without incident. 0.5mg IV Ativan for restlessness, constantly taking HFNC off, SpO2 84% on RA, >90% on 5L, RR 20, loose non-productive cough, lungs sounds rhonchorus throughout, denies shortness of breath.
[2021-08-09] VITALS (14 sets, daily range): BP systolic 136–167; BP diastolic 64–73; PULSE 55–65; RESP 14–24; TEMP 36.2–36.7; O2SAT 93–96
[2021-08-09 05:29] LABS: Add Manual Diff / Slide Review NO; Basophils Absolute Auto 0 /uL (0-100); Eosinophils Absolute Auto 0 /uL (0-450); Eosinophils Percent Auto 0.1 % (2-4); Hematocrit 36.8 % (41-53); Hemoglobin 12.1 g/dL (13.5-17.5); Lymphocytes Absolute Auto 1800 /uL (1100-4500); Mean Corpuscular Hemoglobin 29.5 PG (26-34); Mean Corpuscular Volume 89.5 fL (80-100); Monocytes Absolute Auto 900 /uL (0-900); Monocytes Percent Auto 9.1 % (3-14); Neutrophils Absolute Auto 7600 /uL (1500-7000); Neutrophils Percent Auto 73.8 % (50-75); Platelet Count 206 X10^3/uL (150-400); Red Blood Cell Count 4.11 X10^6/uL (4.5-5.9); Red Cell Distribution Width 13.7 % (11.6-14.8); White Blood Cell Count 10.3 X10^3/uL (4.5-11.0)
[2021-08-09 05:40] LABS: Alanine Aminotransferase 10 IU/L (<50); Albumin 3.1 g/dL (3.5-5.0); Albumin Globulin Ratio 0.9 (1.0-2.8); Alkaline Phosphatase 165 U/L (38-126); Aspartate Aminotransferase 33 IU/L (17-59); Bilirubin Total 0.4 mg/dL (0.2-1.3); Blood Urea Nitrogen 52 mg/dL (9-20); Calcium 9.2 mg/dL (8.4-10.2); Carbon Dioxide 32 mmol/L (22-32); Chloride 100 mmol/L (98-107); Estimated Glomerular Filt Rate > 60.0 mL/min (>60); Globulin 3.4 g/dL (1.7-4.1); Glucose 312 mg/dL (80-110); HEMOLYSIS < 15 (0-50); Potassium 5.1 mmol/L (3.4-5.1); Sodium 137 mmol/L (137-145); Total Protein 6.5 g/dL (6.3-8.2)
--- NOTE | 2021-08-09 08:08 | PM.PN.1 ---
Subjective Subjective Date Patient Seen: 08/09/21 Interval history: He is seen in his room today to follow-up his COVID pneumonia. His speech is somewhat garbled but he does say quite clearly that he is feeling better today and that he would like to keep trying to sleep instead of visiting. He comes from the [facility] where most of the residents experienced COVID. His CMP is normal and the glucose is 317. Exam Vital Signs (past 8 hours): - 08/09/21 03:00 08/09/21 03:30 08/09/21 04:00 Temperature Pulse Rate 61 Respiratory Rate 22 Blood Pressure Pulse Oximetry 96 96 96 08/09/21 05:00 08/09/21 05:13 Temperature 97.2 F L Pulse Rate 58 L 61 Respiratory Rate 18 20 Blood Pressure 140/68 Pulse Oximetry 96 96 Fraction of Inspired Oxygen 40 Oxygen Delivery Method High Flow Nasal Cannula Oxygen Flow Rate 3 Narrative Exam Narrative: He is alert but quite distracted by sleepiness. No apparent respiratory distress Heart is regular rate and rhythm without murmur. Lungs are clear to auscultation bilaterally Extremities have no ankle edema. Objective Labs Result Diagrams: 08/09/21 04:50 08/09/21 04:50 Labs: Laboratory Results - last 24 hr 08/09/21 08/09/21 04:50 04:50 WBC 10.3 RBC 4.11 L Hgb 12.1 L Hct 36.8 L MCV 89.5 MCH 29.5 MCHC 33.0 RDW 13.7 Plt Count 206 Neut % (Auto) 73.8 Lymph % (Auto) 17.0 L [place] % (Auto) 9.1 Eos % (Auto) 0.1 L Baso % (Auto) 0.0 Neut # (Auto) 7600 H Lymph # (Auto) 1800 [place] # (Auto) 900 Eos # (Auto) 0 Baso # (Auto) 0 Sodium 137 Potassium 5.1 Chloride 100 Carbon Dioxide 32 BUN 52 H Creatinine 1.04 Estimated GFR > 60.0 BUN/Creatinine Ratio 50.0 H Glucose 312 H D Calcium 9.2 Total Bilirubin 0.4 AST 33 ALT 10 Alkaline Phosphatase 165 H Total Protein 6.5 Albumin 3.1 L Globulin 3.4 Albumin/Globulin Ratio 0.9 L [facility] Medical History Chicken pox Hearing loss (~2011) Hyperlipidemia associated with type 2 diabetes mellitus Measles Mumps Parkinson's disease (~2009) 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 Acute respiratory failure secondary to COVID-19 pneumonia - continue to wean O2 as tolerated, goal >90%, currently on 6 L on 08/09. - continue baricitinib, decadron, remdesevir given continued hypoxia - DNR / DNI a - patient was vaccinated according to [facility]. 2. Type 2 diabetes - replace home meds with lantus, but low dose to start at 5. Held initially given glucose 88 on admit labs. added sliding scale. Hold home PO meds. - A1c 6.4% with adequate control 3. Hypertension - continue home medications, patient was quite hypertensive here intially but now improved. 4. Parkinson's dementia with behavioral disturbance - continue home benzos to avoid withdrawal, continue home seroquel and sinemet. 5. Elevated troponin - likely in setting of acute hypoxia. EKG without ischemic changes and no chest pain reported. Stopped trending once downtrending, peaked at 0.05. 6. Hyperkalemia - unclear etiology, resolved Code: DNR, surrogate as outlined in scanned advanced directive on file. DVT: lovenox daily Time Spent With Patient Critical Care time: I spent a total of [] minutes of critical care time on this patient's care today; this time is exclusive of procedural time.
[2021-08-09] MEDS: BARICITINIB 2 MG TABLET PO (08:32)
[2021-08-09] MEDS: QUETIAPINE 25 MG TABLET 50 MG PO ×2 (08:32→21:35)
[2021-08-09] MEDS: CITALOPRAM 10 MG TABLET PO (08:33)
[2021-08-09] MEDS: DEXAMETHASONE 10 MG/ML VIAL 6 MG IV (08:33)
[2021-08-09] MEDS: clonazePAM 0.5 MG TABLET PO ×2 (08:33→21:35)
[2021-08-09] MEDS: CARBIDOPA-LEVODOPA 25/100 TABLET 1 EACH PO ×3 (08:33→21:35)
[2021-08-09] MEDS: DOCUSATE 100 MG CAPSULE PO (08:33)
[2021-08-09] MEDS: FAMOTIDINE 20 MG TABLET PO (08:33)
[2021-08-09] MEDS: lisinopriL 5 MG TABLET PO (08:33)
[2021-08-09] MEDS: ASPIRIN EC 81 MG TABLET PO (08:33)
[2021-08-09] MEDS: RASAGILINE 0.5 MG 0.5 EACH PO (08:33)
[2021-08-09] MEDS: ENOXAPARIN 40 MG/0.4 ML SYRINGE SUBCUT (08:34)
[2021-08-09] MEDS: INSULIN LISPRO 100 UNIT/ML 3ML VIAL SUBCUT ×3 (08:35→22:35)
[2021-08-09] MEDS: SODIUM CHLORIDE 0.9% FLUSH 10 ML IV ×2 (08:35→21:30)
[2021-08-09] MEDS: REMDESIVIR 100 MG in SODIUM CHLORIDE 0.9% 230 ML 250 ML IV (09:08)
--- NOTE | 2021-08-09 18:14 | PC.NURSE ---
0900 Pt is lethargic and oriented to name. Pt able to give one word answers, make eye contact and drinks ensure with morning meds. 1200 Pt's lethargy has increased. Pt is arousable to voice and gives incoherent sounds in response to questions. pt drinks a few sips of water and an sip of ensure. 1500 Pt is more awake and gives one word answers to simple questions. Pt is arousable to voice and when asked if he is hot, looks at the RN and flutters his eyebrows and smiles. Pt set up to watch tv. 1700 Pt drinks half a can of V8 and is happy to hear that his daughter Karolina called to check in on him. Pt follows simple directions. Pt lifts upper extremities and moves lower extremities to edge of bed but does not make an attempt to leave the bed. Pt voided twice in briefs x 2. No BM this shift. Pt coughed up moderate amount of sputum this am x 3. Pt had intermittent coughing in the am and whenever he was repositioned. Pt has on high flow nasal cannula 3L for entire shift and stating between 92% - 95%. Was temporarily placed on 5L after he removed the cannula for about 10 minutes. Daughter, Karolina and Emily at [facility] given updates this shift.
[2021-08-09] MEDS: INSULIN GLARGINE 100 UNIT/ML 3ML PEN SUBCUT (21:35)
[2021-08-09] MEDS: SENNOSIDES 8.6 MG TABLET 17.2 MG PO (21:35)
[2021-08-09] MEDS: TRAZODONE 100 MG TABLET PO (21:35)
[2021-08-10] VITALS (12 sets, daily range): BP systolic 115–176; BP diastolic 58–85; PULSE 58–68; RESP 16–20; TEMP 36.3–36.8; O2SAT 93–97
[2021-08-10] MEDS: LORazepam 2 MG/ML INJ 0.5 MG IV ×2 (05:20→09:00)
[2021-08-10] MEDS: CARBIDOPA-LEVODOPA 25/100 TABLET 1 EACH PO ×3 (08:55→21:25)
[2021-08-10] MEDS: CITALOPRAM 10 MG TABLET PO (08:55)
[2021-08-10] MEDS: DEXAMETHASONE 10 MG/ML VIAL 6 MG IV (08:55)
[2021-08-10] MEDS: BARICITINIB 2 MG TABLET 4 MG PO (08:55)
[2021-08-10] MEDS: ASPIRIN EC 81 MG TABLET PO (08:55)
[2021-08-10] MEDS: clonazePAM 0.5 MG TABLET PO ×2 (08:55→21:24)
[2021-08-10] MEDS: ENOXAPARIN 40 MG/0.4 ML SYRINGE SUBCUT (08:57)
[2021-08-10] MEDS: FAMOTIDINE 20 MG TABLET PO (08:57)
[2021-08-10] MEDS: lisinopriL 5 MG TABLET PO (08:57)
[2021-08-10] MEDS: DOCUSATE 100 MG CAPSULE PO ×2 (08:57→21:24)
[2021-08-10] MEDS: QUETIAPINE 25 MG TABLET 50 MG PO ×2 (08:58→21:24)
[2021-08-10] MEDS: REMDESIVIR 100 MG in SODIUM CHLORIDE 0.9% 230 ML 250 ML IV (08:58)
[2021-08-10] MEDS: SODIUM CHLORIDE 0.9% FLUSH 10 ML IV ×2 (09:00→21:25)
[2021-08-10] MEDS: INSULIN LISPRO 100 UNIT/ML 3ML VIAL SUBCUT ×4 (09:19→21:52)
[2021-08-10 11:17] LABS: Add Manual Diff / Slide Review NO; Basophils Absolute Auto 0 /uL (0-100); Basophils Percent Auto 0.2 % (0-2); Eosinophils Absolute Auto 0 /uL (0-450); Eosinophils Percent Auto 0.1 % (2-4); Hematocrit 45.5 % (41-53); Lymphocytes Absolute Auto 1400 /uL (1100-4500); Lymphocytes Percent Auto 9.6 % (25-40); Mean Corpuscular HGB Conc 32.9 % (30-36); Mean Corpuscular Hemoglobin 29.5 PG (26-34); Mean Corpuscular Volume 89.7 fL (80-100); Monocytes Absolute Auto 1100 /uL (0-900); Monocytes Percent Auto 7.6 % (3-14); Neutrophils Absolute Auto 12000 /uL (1500-7000); Neutrophils Percent Auto 82.5 % (50-75); Platelet Count 286 X10^3/uL (150-400); Red Blood Cell Count 5.08 X10^6/uL (4.5-5.9); White Blood Cell Count 14.6 X10^3/uL (4.5-11.0)
[2021-08-10 11:28] LABS: Alanine Aminotransferase 19 IU/L (<50); Albumin 4.1 g/dL (3.5-5.0); Alkaline Phosphatase 205 U/L (38-126); Aspartate Aminotransferase 54 IU/L (17-59); BUN Creatinine Ratio 43.4 (6-22); Bilirubin Total 0.8 mg/dL (0.2-1.3); Blood Urea Nitrogen 46 mg/dL (9-20); Calcium 10.5 mg/dL (8.4-10.2); Carbon Dioxide 32 mmol/L (22-32); Chloride 103 mmol/L (98-107); Estimated Glomerular Filt Rate > 60.0 mL/min (>60); Globulin 4.2 g/dL (1.7-4.1); Glucose 204 mg/dL (80-110); HEMOLYSIS < 15 (0-50); Potassium 4.6 mmol/L (3.4-5.1); Sodium 143 mmol/L (137-145); Total Protein 8.3 g/dL (6.3-8.2)
--- NOTE | 2021-08-10 14:54 | CM.DPC ---
DCP/continued: Reviewed chart. Per Dr. Medrano patient is medically stable to return to [facility]. CH[facility] L[employer] WETTER placed call to [facility] and spoke with Emily ph# [phone]. Emily reports that they cannot accept this patient back today. [facility] agreeable to accept patient tomorrow. Per Emily they most likely will provide transport. Emily to follow up with [employer] in AM. P: Return to [facility] on 08-11-21. JULY
[2021-08-10 16:01] LABS: COVID19 -Nasal RAPID POSITIVE (Negative)
--- NOTE | 2021-08-10 18:24 | P.PN_ITS ---
Subjective Subjective Date Patient Seen: 08/10/21 Interval history: 86-year-old male with Parkinson's, dementia admitted with COVID pneumonia. Patient has been improving and now on room air. He is baseline confused but reports feeling better. Exam Vital Signs (past 8 hours): - 08/10/21 12:00 08/10/21 14:00 08/10/21 16:00 Temperature 97.4 F L 97.7 F Pulse Rate 64 68 Respiratory Rate 20 20 Blood Pressure 115/58 L 160/85 H Pulse Oximetry 93 97 94 Fraction of Inspired Oxygen 21 Oxygen Delivery Method Room Air Oxygen Flow Rate 0 Narrative Exam Narrative: General: Alert, NAD Breathing nonlabored Objective Labs Result Diagrams: 08/10/21 11:05 08/10/21 11:05 Labs: Laboratory Results - last 24 hr 08/10/21 08/10/21 08/10/21 11:05 11:05 15:30 WBC 14.6 H RBC 5.08 Hgb 15.0 Hct 45.5 MCV 89.7 MCH 29.5 MCHC 32.9 RDW 14.0 Plt Count 286 Neut % (Auto) 82.5 H Lymph % (Auto) 9.6 L [place] % (Auto) 7.6 Eos % (Auto) 0.1 L Baso % (Auto) 0.2 Neut # (Auto) 83805 H Lymph # (Auto) 1400 [place] # (Auto) 1100 H Eos # (Auto) 0 Baso # (Auto) 0 Sodium 143 Potassium 4.6 Chloride 103 Carbon Dioxide 32 BUN 46 H Creatinine 1.06 Estimated GFR > 60.0 BUN/Creatinine Ratio 43.4 H Glucose 204 H D Calcium 10.5 H Total Bilirubin 0.8 AST 54 ALT 19 Alkaline Phosphatase 205 H Total Protein 8.3 H Albumin 4.1 Globulin 4.2 H Albumin/Globulin Ratio 1.0 SARS-CoV-2 (PCR) Cancelled [facility] Medical History Chicken pox Hearing loss (~2011) Hyperlipidemia associated with type 2 diabetes mellitus Measles Mumps Parkinson's disease (~2009) 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 Acute respiratory failure secondary to COVID-19 pneumonia -improving status, O2 titrated off, current sat 94% room air -stopped baracitinib, dexamethasone and remdesivir given marked improvement in status - DNR / DNI - patient was vaccinated according to [facility]. -discharge tomorrow 2. Type 2 diabetes - replace home meds with lantus, but low dose to start at 5. Held initially given glucose 88 on admit labs. added sliding scale. Hold home PO meds. - A1c 6.4% with adequate control 3. Hypertension - continue home medications, patient was quite hypertensive here intially but now improved. 4. Parkinson's dementia with behavioral disturbance - continue home benzos to avoid withdrawal, continue home seroquel and sinemet. 5. Elevated troponin - likely in setting of acute hypoxia. EKG without ischemic changes and no chest pain reported. Stopped trending once downtrending, peaked at 0.05. 6. Hyperkalemia - unclear etiology, resolved Code: DNR, surrogate as outlined in scanned advanced directive on file. DVT: lovenox daily Time Spent With Patient Critical Care time: I spent a total of [] minutes of critical care time on this patient's care today; this time is exclusive of procedural time.
[2021-08-10] MEDS: SENNOSIDES 8.6 MG TABLET 17.2 MG PO (21:24)
[2021-08-10] MEDS: INSULIN GLARGINE 100 UNIT/ML 3ML PEN SUBCUT (21:52)
[2021-08-11] VITALS (7 sets, daily range): BP systolic 165–171; BP diastolic 80–83; PULSE 58–62; RESP 18–19; TEMP 36.4–36.8; O2SAT 90–95
[2021-08-11] MEDS: QUETIAPINE 25 MG TABLET PO (04:01)
[2021-08-11] MEDS: INSULIN LISPRO 100 UNIT/ML 3ML VIAL SUBCUT (07:58)
[2021-08-11] MEDS: ENOXAPARIN 40 MG/0.4 ML SYRINGE SUBCUT (08:02)
[2021-08-11] MEDS: FAMOTIDINE 20 MG TABLET PO (08:02)
[2021-08-11] MEDS: lisinopriL 5 MG TABLET PO (08:02)
[2021-08-11] MEDS: ASPIRIN EC 81 MG TABLET PO (08:03)
[2021-08-11] MEDS: clonazePAM 0.5 MG TABLET PO (08:03)
[2021-08-11] MEDS: DOCUSATE 100 MG CAPSULE PO (08:03)
[2021-08-11] MEDS: CARBIDOPA-LEVODOPA 25/100 TABLET 1 EACH PO (08:03)
[2021-08-11] MEDS: CITALOPRAM 10 MG TABLET PO (08:03)
[2021-08-11] MEDS: QUETIAPINE 25 MG TABLET 50 MG PO (08:03)
[2021-08-11] MEDS: SODIUM CHLORIDE 0.9% FLUSH 10 ML IV (08:04)
[2021-08-11] MEDS: RASAGILINE 0.5 MG 0.5 EACH PO (08:14)
--- NOTE | 2021-08-11 14:46 | CM.DANOTE ---
DCP/continued: Reviewed chart. Patient medically stable to return to [facility]. Placed call to [facility] and spoke with Emily. They are aware and agreeable to accept. Asked NIKO/Trisha to fax requested information to [facility]. Spoke with RN and she reports that she will contact daughter re: d/c. Patient scheduled to be picked up at approximately 3:00pm by [facility]. Staff instructed to take patient to ED entrance. P: Return to [facility] today. JULY
--- NOTE | 2021-08-11 15:01 | P.DS_ITS ---
History of Present Illness History of Present Illness Chief complaint: Hypoxic COVID + Narrative: This is an 86-year-old male, with a past medical history of hyperlipidemia, diabetes, Parkinson's dementia, resident of [facility] unit who was sent to the emergency room for worsening shortness of breath after a positive COVID-19 test.? Patient is on able to participate in HPI so information is gleaned from emergency record.? According to the ER report the ER physician received a call from the nurse practitioner who stated that at the facility approximately 1 week ago the patient tested positive for COVID-19.? At the facility, the patient was hypoxic on room air into the 70s and in respiratory distress.? During my interview, the patient denies any chest pain, shortness of breath.? He states he generally did not feel well but was unable to explain why.? He denied any nausea, vomiting, or abdominal pain. In the emergency room, the patient was hypertensive, hypoxic to 85% on room air, he was initially placed on high-flow nasal cannula, and at the time of arrival to the hospital floor his oxygen needs are currently at 10 L via high-flow nasal cannula.? He was also initially tachypneic which improved with supplemental therapy.? His laboratory results were notable for a mild thrombocytopenia with a platelet count of 125, the rest of his CBC was unremarkable.? D-dimer was negative for age at 718.? Arterial blood gas showed a PO2 of 44 on room air, there was no hypercarbia with a pCO2 of 43.1.? Chemistry panel showed a creatinine of 1.33, slightly up from his baseline of around 1.1, the remainder of his chemistry panel was unremarkable.? Troponin was elevated at 0.054.? Procalcitonin was 0.29.? COVID-19 testing was positive. Discharge Providers Provider Date of admission: 08/07/21 17:15 Discharge Date: 08/11/21 Primary care physician: Richard Ortiz MD Consults: 08/07/21 19:26 Consult to Dietitian, Adult Routine Comment: Reason For Exam: at risk Discharge provider: Thanh Medrano MD Summary Hospital Course Discharge Diagnosis: 1. COVID-19 pneumonia with acute hypoxic respiratory failur e 2. Parkinson's dementia with behavioral disturbance 3. Type 2 diabetes 4. Elevated troponin demand ischemia 5. Hyperkalemia, resolved 6. Hypertension Patient was treated with dexamethasone, remdesivir and baracitinib in addition to respiratory support. He gradually improved to where he is now doing well on room air. Otherwise medically stable with chronic conditions. Status at Discharge Cognitive/behavioral status at discharge: at baseline, confused Overall status at discharge: patient is progressing back to baseline Exam Vital Signs (past 8 hours): - 08/11/21 08:00 08/11/21 08:02 08/11/21 08:45 Temperature 97.8 F Pulse Rate 59 L Respiratory Rate 18 Blood Pressure 171/80 H 171/80 H Pulse Oximetry 90 L 93 Fraction of Inspired Oxygen 21 Oxygen Delivery Method Room Air Oxygen Flow Rate 0 Narrative Exam Narrative: General: Alert and comfortable appearing Lungs: Clear Objective Labs Result Diagrams: 08/10/21 11:05 08/10/21 11:05 Labs: Laboratory Results - last 24 hr 08/10/21 15:30 SARS-CoV-2 (PCR) Cancelled [facility] Medical History Chicken pox Hearing loss (~2011) Hyperlipidemia associated with type 2 diabetes mellitus Measles Mumps Parkinson's disease (~2009) 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 Rosacea Sleep apnea (~2010) Type 2 diabetes mellitus without complication (11/10/16) Surgical History Anesthesia History of cataract removal with insertion of prosthetic lens History of tonsillectomy Status post appendectomy Family History Mother Heart disease Diabetes mellitus Father Cancer Grandfather Heart disease Grandmother Heart disease Grandmother Heart disease Social History household members: other Smoking Status: Former smoker Discharge Plan Discharge Plan Patient Disposition: Assisted Living Transfer to: [facility] Consult as needed: Dental, Hearing, Mental health, Podiatry and Vision Provider Discharge Comment: Patient was treated for COVID pneumonia and respiratory failure. He is medically stable for discharge. He should quarantine for 10 days from date of first positive test. Discharge orders & Medications Discharge Orders: Discharge (Order); Ordered 08/11/21 Ordered By: Thanh Medrano Prescriptions: Continued [CENTRUM SILVER] 1 tab PO QDAY Qty: 0 RF: 0 [CALCIUM/VITAMIN D] 1 tab PO QDAY Qty: 0 RF: 0 [FISH OIL] 2 cap PO QDAY Qty: 0 RF: 0 (DME) lancets [FreeStyle Lancets] 28 gauge misc See Dose Instructions .ROUTE .MEDSUPPLY Qty: 100 RF: 3 (DME) FreeStyle Lite Strips Strip See Dose Instructions .ROUTE .MEDSUPPLY Qty: 100 RF: 3 rasagiline [Azilect] 0.5 mg tablet 0.5 mg PO DAILY Qty: 90 RF: 3 lisinopril 5 mg tablet 5 mg PO DAILY Qty: 90 RF: 3 metformin 500 mg tablet 1,000 mg PO BID Qty: 360 RF: 1 aspirin 81 mg tablet,delayed release (DR/EC) 81 mg PO DAILY RF: 0 quetiapine [Seroquel] 25 mg Tablet 25 mg PO Q4HR PRN (Reason: Anxiety) RF: 0 ascorbic acid (vitamin C) 1,000 mg Tablet 1 g PO DAILY RF: 0 citalopram 10 mg tablet 10 mg PO DAILY RF: 0 famotidine 20 mg Tablet 20 mg PO DAILY RF: 0 trazodone 100 mg Tablet 100 mg PO BEDTIME PRN (Reason: Sleep) RF: 0 albuterol sulfate 90 mcg/actuation HFA aerosol inhaler 2 inh INHALATION BID RF: 0 carbidopa-levodopa 25-100 mg tablet 1 tab PO TID RF: 0 clonazepam 0.5 mg tablet,disintegrating 0.5 mg PO Q4H PRN (Reason: Agitation) RF: 0 clonazepam 0.5 mg tablet,disintegrating 0.5 mg PO BID RF: 0 quetiapine 50 mg tablet 50 mg PO BID RF: 0 melatonin 10 mg Tablet 10 mg PO BEDTIME RF: 0 psyllium husk [Metamucil] 0.4 gram Capsule 0.8 g PO BEDTIME RF: 0 ipratropium bromide 42 mcg (0.06 %) spray,non-aerosol 2 spray INTRANASAL TID PRN (Reason: Allergy Symptoms) RF: 0 lisinopril 5 mg tablet 5 mg PO DAILY RF: 0 rasagiline 0.5 mg tablet 0.5 mg PO DAILY RF: 0 Follow up/Referrals: Richard Ortiz MD [Primary Care Provider] - Discharge Health Status Multidrug resistant organism: No MDRO Precautions: Droplet Diet/Activity/Treatments Diet: Regular Liquid consistency: Normal/Thin Food texture: Regular Discharge Data Primary Care Provider: Richard Ortiz
--- NOTE | 2021-08-11 15:38 | PC.NURSE ---
Addendum entered by Christal Pitts R.N. 08/11/21 15:43: This RN called daughter to update on patient transfer back to [facility]. Per daughter she will update patients on transfer. Original Note: Discharge Note Patient A&O to baseline. VSS, RA 93%. No complaints of pain/discomfort. Patient eager to discharge to facility. Patient assisted to wheelchair and wheeled down to facility vehicle. Belongings and discharge packet given to facility staff.
== END 2021-08-11 15:20 | DRG 177 ==
LOC: ED 15:18 → AC 17:16 → ICU 17:48 → AC 08-09 18:49
PROVIDERS: Admitting Provider Internal Medicine; Emergency Provider Emergency Medicine; PCP Student in an Organized Health Care Education/Training Program; Referring Provider Emergency Medicine; Visit Provider Internal Medicine
DX: U07.1 COVID-19 (principal); J96.01 Acute respiratory failure with hypoxia; J12.82 Pneumonia due to coronavirus disease 2019; F02.81 Dementia in other diseases classified elsewhere, unspecified severity, with behavioral disturbance; I24.8 Other forms of acute ischemic heart disease; E87.5 Hyperkalemia; G20 Parkinson's disease; I10 Essential (primary) hypertension; Z66 Do not resuscitate; E11.9 Type 2 diabetes mellitus without complications; Z79.84 Long term (current) use of oral hypoglycemic drugs; Z87.891 Personal history of nicotine dependence
CPT/HCPCS: 36415; 36600; 71045; 80053; 82550; 82728; 82805; 82962; 83036; 83605; 83615; 83880; 84145; 84484; 85025; 85379; 86140; 87040; 87635; 87797; 93005; 94762; 96361; 96365; 96366; 96375; 99285; C9803; A9270; J1100; J1650; J1815; J1940; J2060

== ENCOUNTER → 2021-09-12 11:09 | Outpatient (CLI) | payer MEDICARE, OTHER, SELFPAY ==
[2021-08-07 18:30] VITALS: BMI 25.7
[2021-09-12 11:56] LABS: Hemoglobin A1C% w Est Avg Glu 6.4 % (4.0-6.0)
[2021-09-12 12:05] LABS: BUN Creatinine Ratio 14.7 (6-22); Blood Urea Nitrogen 16 mg/dL (9-20); Calcium 9.6 mg/dL (8.4-10.2); Carbon Dioxide 30 mmol/L (22-32); Chloride 103 mmol/L (98-107); Estimated Glomerular Filt Rate > 60.0 mL/min (>60); Glucose 178 mg/dL (80-110); HEMOLYSIS < 15 (0-50); Potassium 4.7 mmol/L (3.4-5.1); Sodium 140 mmol/L (137-145)
== END ==
PROVIDERS: Referring Provider Nurse Practitioner Family; Visit Provider Nurse Practitioner Family
DX: E11.9 Type 2 diabetes mellitus without complications (principal); N28.9 Disorder of kidney and ureter, unspecified
CPT/HCPCS: 36415; 80048; 83036

== ENCOUNTER → 2021-10-29 16:37 | Outpatient (ROUT) | payer MEDICARE, OTHER, SELFPAY ==
[2021-08-07 18:30] VITALS: BMI 25.7
[2021-10-29 16:58] LABS: Appearance Urine UA CLOUDY; Bilirubin Urine UA NEGATIVE (NEGATIVE); Color Urine UA YELLOW; Glucose Urine UA NEGATIVE (Negative); Ketones Urine UA NEGATIVE (NEGATIVE); Leukocyte Esterase Urine UA 3+ (NEGATIVE); Nitrite Urine UA POSITIVE (Negative); Occult Blood Urine UA TRACE-INTACT (Negative); Protein Urine UA 1+ (Negative); Specific Gravity Urine UA 1.015 (1.000-1.035); Urobilinogen Urine UA 0.2 E.U./dL (0.2)
[2021-10-29 17:16] LABS: Amorphous Sediment Urine 1+; Bacteria Urine Occasional (0-1); Culture Indicated Urine Specimen Cultured; RBC Urine 1-5/HPF (0-5/HPF); WBC Urine 5-10/HPF (0-5/HPF)
== END ==
PROVIDERS: PCP Student in an Organized Health Care Education/Training Program; Visit Provider Nurse Practitioner Family
DX: R41.0 Disorientation, unspecified (principal)
CPT/HCPCS: 81001; 87077; 87086; 87186

== ENCOUNTER → 2022-03-27 15:03 | Outpatient (CLI) | payer MEDICARE, OTHER, SELFPAY ==
[2021-08-07 18:30] VITALS: BMI 25.7
[2022-03-27 16:57] LABS: BUN Creatinine Ratio 19.3 (6-22); Blood Urea Nitrogen 28 mg/dL (9-20); Calcium 9.7 mg/dL (8.4-10.2); Carbon Dioxide 34 mmol/L (22-32); Chloride 99 mmol/L (98-107); Estimated Glomerular Filt Rate 47 mL/min (>60); Glucose 216 mg/dL (80-110); HEMOLYSIS < 15 (0-50); Potassium 4.2 mmol/L (3.4-5.1); Sodium 141 mmol/L (137-145)
== END ==
PROVIDERS: PCP Student in an Organized Health Care Education/Training Program; Referring Provider Nurse Practitioner Family; Visit Provider Nurse Practitioner Family
DX: R60.9 Edema, unspecified (principal)
CPT/HCPCS: 36415; 80048

== ENCOUNTER 2022-06-25 09:53 | Emergency (ER) | payer MEDICARE, OTHER, SELFPAY ==
[2021-08-07 18:30] VITALS: BMI 25.7
[2022-06-25] VITALS (18 sets, daily range): BP systolic 149–214; BP diastolic 66–98; PULSE 68–77; RESP 19–24; TEMP 36.7; O2SAT 96–98; BMI 32.0
--- NOTE | 2022-06-25 10:25 | ED_ITS ---
HPI - General Adult General Chief complaint: Dental/Oral Stated complaint: Blood in Mouth Time Seen by Provider: 06/25/22 10:14 Source: EMS Mode of arrival: EMS History of Present Illness HPI narrative: Patient brought in by ambulance from [facility]. Patient has history of dementia. Is not on any blood thinners. is at bedside. states she noted blood in patient's mouth yesterday. He was coughing up blood. No vomiting blood. No bloody nose. Staff at facility decided to watch the patient overnight. Patient had another episode this morning of blood in his mouth. And hemoptysis. Currently, no blood in mouth or nose. Vital signs noted, no hypotension or tachycardia. No history of blood clots in legs or lungs. No history of lung cancer. Related Data Home Medications Medication Instructions Recorded Confirmed [CALCIUM/VITAMIN D] 1 tab PO QDAY ##0 03/10/17 08/07/21 [CENTRUM SILVER] 1 tab PO QDAY ##0 03/10/17 08/07/21 [FISH OIL] 2 cap PO QDAY ##0 03/10/17 08/07/21 aspirin 81 mg tablet,delayed 81 mg PO DAILY 10/30/20 08/07/21 release albuterol sulfate 90 mcg/actuation 2 inh inhalation BID 08/07/21 08/07/21 aerosol inhaler ascorbic acid (vitamin C) 1,000 mg 1 g PO DAILY 08/07/21 08/07/21 tablet carbidopa 25 mg-levodopa 100 mg 1 tab PO TID 08/07/21 08/07/21 tablet citalopram 10 mg tablet 10 mg PO DAILY 08/07/21 08/07/21 clonazepam 0.5 mg disintegrating 0.5 mg PO BID 08/07/21 08/07/21 tablet clonazepam 0.5 mg disintegrating 0.5 mg PO Q4H PRN Agitation 08/07/21 08/07/21 tablet famotidine 20 mg tablet 20 mg PO DAILY 08/07/21 08/07/21 ipratropium bromide 42 mcg (0.06 2 spray intranasal TID PRN Allergy 08/07/21 08/07/21 %) nasal spray Symptoms lisinopril 5 mg tablet 5 mg PO DAILY 08/07/21 08/07/21 melatonin 10 mg tablet 10 mg PO BEDTIME 08/07/21 08/07/21 psyllium husk 0.4 gram capsule 0.8 g PO BEDTIME 08/07/21 08/07/21 (Metamucil) quetiapine 25 mg tablet (Seroquel) 25 mg PO Q4HR PRN Anxiety 08/07/21 08/07/21 quetiapine 50 mg tablet 50 mg PO BID 08/07/21 08/07/21 rasagiline 0.5 mg tablet 0.5 mg PO DAILY 08/07/21 08/07/21 trazodone 100 mg tablet 100 mg PO BEDTIME PRN Sleep 08/07/21 08/07/21 Previous Rx's Medication Instructions Recorded lancets 28 gauge (FreeStyle #100 ea 02/19/20 Lancets) blood sugar diagnostic (FreeStyle #100 ea 03/06/20 Lite Strips) rasagiline 0.5 mg tablet (Azilect) 0.5 mg PO DAILY #90 tabs 11/05/20 lisinopril 5 mg tablet 5 mg PO DAILY #90 tabs 11/26/20 metformin 500 mg tablet 1,000 mg PO BID #360 tabs 01/08/21 Allergies Allergy/AdvReac Type Severity Reaction Status Date / Time bacitracin Allergy Unknown Verified 09/15/21 08:02 [From NEOSPORIN ([id number])] neomycin Allergy Unknown Verified 09/15/21 08:02 [From NEOSPORIN ([id number])] polymyxin B Allergy Unknown Verified 09/15/21 08:02 [From NEOSPORIN ([id number])] Review of Systems Review of Systems Narrative: GENERAL: Denies chills, fatigue, malaise, fever, sweats. HEENT: Denies sinus pain, ear pain, sore throat RESPIRATORY: Denies dyspnea, cough, positive hemoptysis CARDIOVASCULAR: Denies chest pain, palpitations GASTROINTESTINAL: Denies nausea, vomiting, abdominal pain : Denies dysuria, frequency, hematuria MUSCULOSKELETAL: denies muscle or bony pain SKIN: Denies rash, skin lesions NEUROLOGIC: Denies weakness, numbness ROS Unobtainable: All systems reviewed & are unremarkable except as noted in HPI and below 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 Rosacea Sleep apnea (~2010) Type 2 diabetes mellitus without complication (11/10/16) Surgical History Anesthesia History of cataract removal with insertion of prosthetic lens History of tonsillectomy Status post appendectomy Family History Mother Heart disease Diabetes mellitus Father Cancer Grandfather Heart disease Grandmother Heart disease Grandmother Heart disease Social History household members: other Smoking Status: Former smoker Smoking Status: Former smoker Substance Use Type: does not use Exam Narrative Exam Narrative: GENERAL: in no distress, not toxic not dyspneic HEAD: Normocephalic. EYES: Pupils equal round No scleral icterus. ENT: Mucous membranes moist. No blood in nares, no blood in posterior pharynx or mouth. NECK: Trachea midline. CARDIOVASCULAR: Regular rate and rhythm without murmurs RESPIRATORY: Clear to auscultation. Breath sounds equal bilaterally. No wheezes, rales, or rhonchi. GASTROINTESTINAL: Abdomen soft, non-tender EXTREMITIES: No gross deformities. BACK: No flank tenderness. NEURO: AOx4. SKIN: Warm and dry PSYCH: Not anxious, is cooperative Initial Vital Signs Initial Vital Signs: Vital Signs Pulse Rate 72 06/25/22 09:57 Pulse Oximetry 97 06/25/22 09:57 Course Course Course Narrative: No new issues during course of stay Orders Ordered: ED Orders 06/25/22 10:25 CT angio chest PE protocol Stat 06/25/22 11:10 CBC Auto Diff [Complete Blood Count AUTO DIFF] Stat CMP [Comprehensive Metabolic Panel] Stat PT [Prothrombin Time INR] Stat PTT [Partial Thromboplastin Time] Stat Discontinued Medications Sodium Chloride (Normal Saline 0.9%) 500 mls @ 1,000 mls/hr IV BOLUS ONE Stop: 06/25/22 10:53 Last Infusion: 06/25/22 12:05 Dose: 0 mls/hr Documented By: Admin: 06/25/22 11:12 Dose: 1,000 mls/hr Documented By: RB Reevaluation(s) Reevaluation #1: Blood pressure 159/70 at time of discharge. Patient much more relaxed. Originally patient was anxious according to . Reviewed results with patient and . At this time source of hemoptysis may be from epistaxis. As it pulls in the posterior pharynx patient would cough to remove the blood in the posterior pharynx. CT scan is reassuring. They do agree for discharge home and follow up with primary care as well as ENT referral. Time: 13:39 Vital Signs Vital signs: Vital Signs - 8 hr 06/25/22 10:05 06/25/22 09:57 06/25/22 09:58 Temperature 98.1 F Pulse Rate 73 72 72 Respiratory Rate 20 Blood Pressure 149/66 H Pulse Oximetry 97 97 98 Oxygen Delivery Method Room Air 06/25/22 09:58 06/25/22 10:00 06/25/22 10:30 Temperature Pulse Rate 70 69 Respiratory Rate Blood Pressure 149/66 H Pulse Oximetry 98 98 Oxygen Delivery Method 06/25/22 10:31 06/25/22 10:31 06/25/22 11:00 Temperature Pulse Rate 70 68 Respiratory Rate Blood Pressure 175/79 H Pulse Oximetry 97 97 Oxygen Delivery Method 06/25/22 11:01 06/25/22 11:01 06/25/22 11:30 Temperature Pulse Rate 70 73 Respiratory Rate 21 Blood Pressure 207/73 H Pulse Oximetry 97 97 Oxygen Delivery Method 06/25/22 11:31 06/25/22 11:31 06/25/22 12:00 Temperature Pulse Rate 74 73 Respiratory Rate 21 22 Blood Pressure 194/77 H Pulse Oximetry 97 96 Oxygen Delivery Method 06/25/22 12:13 06/25/22 12:13 06/25/22 12:25 Temperature Pulse Rate 77 Respiratory Rate 24 Blood Pressure 213/98 H 192/84 H Pulse Oximetry 97 Oxygen Delivery Method 06/25/22 12:25 06/25/22 12:30 06/25/22 12:30 Temperature Pulse Rate 73 72 Respiratory Rate 21 19 Blood Pressure 202/87 H Pulse Oximetry 98 97 Oxygen Delivery Method 06/25/22 12:44 06/25/22 12:44 06/25/22 13:00 Temperature Pulse Rate 73 71 Respiratory Rate 20 19 Blood Pressure 214/80 H Pulse Oximetry 97 97 Oxygen Delivery Method 06/25/22 13:04 06/25/22 13:36 Temperature Pulse Rate 73 Respiratory Rate 22 Blood Pressure 159/70 H Pulse Oximetry 97 Oxygen Delivery Method Medical Decision Making Differential Diagnosis Differential Diagnosis: Epistaxis/PE/hemoptysis/neoplastic process/lung cancer Lab Data Result diagrams: 06/25/22 11:10 06/25/22 11:10 Labs: Lab Results 06/25/22 06/25/22 06/25/22 Range/Units 11:10 11:10 11:10 WBC 16.4 H (4.5-11.0) X10^3/uL RBC 4.25 L (4.5-5.9) X10^6/uL Hgb 12.7 L (13.5-17.5) g/dL Hct 38.3 L (41-53) % MCV 90.2 (80-100) fL MCH 29.9 (26-34) PG MCHC 33.2 (30-36) % RDW 14.1 (11.6-14.8) % Plt Count 178 (150-400) X10^3/uL Neut % (Auto) 68.9 (50-75) % Lymph % (Auto) 21.1 L (25-40) % [place] % (Auto) 8.2 (3-14) % Eos % (Auto) 1.3 L (2-4) % Baso % (Auto) 0.5 (0-2) % Neut # (Auto) 89724 H (1494-2188) /uL Lymph # (Auto) 3500 (9335-8247) /uL [place] # (Auto) 1300 H (0-900) /uL Eos # (Auto) 200 (0-450) /uL Baso # (Auto) 100 (0-100) /uL PT 10.8 (10.1-12.7) SECONDS INR 0.9 (0.9-1.3) APTT 32 (26-36) SECONDS Sodium 138 (137-145) mmol/L Potassium 5.1 (3.4-5.1) mmol/L Chloride 100 (98-107) mmol/L Carbon Dioxide 31 (22-32) mmol/L BUN 44 H (9-20) mg/dL Creatinine 1.60 H (0.66-1.25) mg/dL Estimated GFR 41 L (>60) mL/min BUN/Creatinine Ratio 27.5 H (6-22) Glucose 270 H (80-110) mg/dL Calcium 9.9 (8.4-10.2) mg/dL Total Bilirubin 1.0 (0.2-1.3) mg/dL AST 25 (17-59) IU/L ALT 11 (<50) IU/L Alkaline Phosphatase 115 (38-126) U/L Total Protein 7.9 (6.3-8.2) g/dL Albumin 3.8 (3.5-5.0) g/dL Globulin 4.1 (1.7-4.1) g/dL Albumin/Globulin Ratio 0.9 L (1.0-2.8) Imaging Data CT scan - chest: Radiologist's Impression: [address] [address] [address] Scan Report Signed Patient: Richard Bird MR#: [id number] : 1935 Acct:[id number] Age/Sex: 87 / M Date of Service: 06/25/22 Loc: ED Accession Number: [id number] ?? Procedure: CT angio chest PE protocol Ordering Provider: Humza Nelson MD PROCEDURE:? CT ANGIO CHEST PE PROTOCOL ? INDICATIONS:? Hemoptysis ? TECHNIQUE:? After the administration of intravenous contrast, 2 mm thick sections acquired from the pulmonary apices to the posterior costophrenic angles.? 3-dimensional maximum intensity projection (MIP) coronal and sagittal reformats were then acquired through the thorax.? For radiation dose reduction, the following was used:? automated exposure contro l, adjustment of mA and/or kV according to patient size.? ? COMPARISON:? None. ? FINDINGS:? Image quality:? Excellent.? ? Pulmonary arteries:? Pulmonary arteries are normal in size, and demonstrate no intraluminal filling defects to suggest central pulmonary embolism.? ? Lungs and pleura:? Lungs are clear.? No pleural effusions or pneumothorax.? Central and peripheral airways are patent.? ? Mediastinum:? Heart size is normal, without pericardial effusion.? The coronary arteries have atherosclerotic calcifications.? No mediastinal or hilar adenopathy.? Thoracic aorta is normal in caliber and enhancement.? Esophagus is patulous with a small hiatal hernia.? ? ? Bones and chest wall:? No suspicious bony lesions.? Ribs and thoracic spine appear intact throughout.? Thyroid gland is normal.? No axillary or supraclavicular adenopathy.? ? Abdomen:? Visualized upper abdominal solid organs appear normal in the early arterial phase of enhancement.? ? IMPRESSION:? 1. No pulmonary embolism. 2. No acute abnormality of the chest. 3. Patulous esophagus with a small hiatal hernia.? ? ? Dictated by: Donta Talley M.D. on 06/25/2022 at 12:42 ? ? Approved by: Donta Talley M.D. on 06/25/2022 at 12:45 ? MDM Narrative Medical decision making narrative: Appropriate for discharge home. Exam and imaging and laboratory studies are reassuring. Differential diagnosis includes but not limited to PE/lung cancer/epistaxis. Patient could have epistaxis that pulls and posterior pharynx causing him to cough and remove blood from posterior pharynx. At this time no signs epistaxis. Return precautions reviewed with them, they agree for discharge and not toxic at this time. Referral for Otolaryngology given as well. Discharge Plan Departure Patient Disposition: Home Clinical Impression: Hemoptysis Instructions: DI for Nosebleed, DI for Hemoptysis Activity Restrictions/Additional Instructions: Call provided ENT office today or tomorrow for office recheck next week for possible bloody nose as source of coughing blood. May continue home medications. See family doctor next week for re-evaluation. Today's laboratory studies and CT scans have been reassuring. Return if worse if any questions or concerns Prescriptions: No Action [CENTRUM SILVER] 1 tab PO QDAY Qty: 0 Rx Instructions: 7AM [CALCIUM/VITAMIN D] 1 tab PO QDAY Qty: 0 Rx Instructions: 7AM [FISH OIL] 2 cap PO QDAY Qty: 0 (DME) lancets [FreeStyle Lancets] 28 gauge misc See Dose Instructions .ROUTE .MEDSUPPLY Qty: 100 3RF Dose Instruction: As directed Rx Instructions: Use one Lancet to test Blood Sugar once daily (DME) FreeStyle Lite Strips Strip See Dose Instructions .ROUTE .MEDSUPPLY Qty: 100 3RF Dose Instruction: As directed Rx Instructions: Use one strip to test blood sugars once daily rasagiline [Azilect] 0.5 mg tablet 0.5 mg PO DAILY Qty: 90 3RF lisinopril 5 mg tablet 5 mg PO DAILY Qty: 90 3RF metformin 500 mg tablet 1,000 mg PO BID Qty: 360 1RF aspirin 81 mg tablet,delayed release (DR/EC) 81 mg PO DAILY quetiapine [Seroquel] 25 mg Tablet 25 mg PO Q4HR PRN (Reason: Anxiety) ascorbic acid (vitamin C) 1,000 mg Tablet 1 g PO DAILY citalopram 10 mg tablet 10 mg PO DAILY famotidine 20 mg Tablet 20 mg PO DAILY Rx Instructions: before dinner trazodone 100 mg Tablet 100 mg PO BEDTIME PRN (Reason: Sleep) albuterol sulfate 90 mcg/actuation HFA aerosol inhaler 2 inh INHALATION BID carbidopa-levodopa 25-100 mg tablet 1 tab PO TID Rx Instructions: 7AM, 12PM, 4PM clonazepam 0.5 mg tablet,disintegrating 0.5 mg PO Q4H PRN (Reason: Agitation) Rx Instructions: anxiety/agitation clonazepam 0.5 mg tablet,disintegrating 0.5 mg PO BID Rx Instructions: 7AM, 8PM quetiapine 50 mg tablet 50 mg PO BID Rx Instructions: 7AM, 8PM melatonin 10 mg Tablet 10 mg PO BEDTIME psyllium husk [Metamucil] 0.4 gram Capsule 0.8 g PO BEDTIME ipratropium bromide 42 mcg (0.06 %) spray,non-aerosol 2 spray INTRANASAL TID PRN (Reason: Allergy Symptoms) lisinopril 5 mg tablet 5 mg PO DAILY rasagiline 0.5 mg tablet 0.5 mg PO DAILY Referrals: Richard Ortiz MD [Primary Care Provider] - Mat Lopez MD [Physician] - Visit Report Forms: Patient Portal/API
--- NOTE | 2022-06-25 10:25 | DI.CT.S_ITS ---
PROCEDURE: CT ANGIO CHEST PE PROTOCOL INDICATIONS: Hemoptysis TECHNIQUE: After the administration of intravenous contrast, 2 mm thick sections acquired from the pulmonary apices to the posterior costophrenic angles. 3-dimensional maximum intensity projection (MIP) coronal and sagittal reformats were then acquired through the thorax. For radiation dose reduction, the following was used: automated exposure control, adjustment of mA and/or kV according to patient size. COMPARISON: None. FINDINGS: Image quality: Excellent. Pulmonary arteries: Pulmonary arteries are normal in size, and demonstrate no intraluminal filling defects to suggest central pulmonary embolism. Lungs and pleura: Lungs are clear. No pleural effusions or pneumothorax. Central and peripheral airways are patent. Mediastinum: Heart size is normal, without pericardial effusion. The coronary arteries have atherosclerotic calcifications. No mediastinal or hilar adenopathy. Thoracic aorta is normal in caliber and enhancement. Esophagus is patulous with a small hiatal hernia. Bones and chest wall: No suspicious bony lesions. Ribs and thoracic spine appear intact throughout. Thyroid gland is normal. No axillary or supraclavicular adenopathy. Abdomen: Visualized upper abdominal solid organs appear normal in the early arterial phase of enhancement. IMPRESSION: 1. No pulmonary embolism. 2. No acute abnormality of the chest. 3. Patulous esophagus with a small hiatal hernia. Dictated by: Donta Talley M.D. on 06/25/2022 at 12:42 Approved by: Donta Talley M.D. on 06/25/2022 at 12:45
[2022-06-25] MEDS: SODIUM CHLORIDE 0.9% 500 ML 1000 ML IV (11:12)
[2022-06-25 11:19] LABS: Add Manual Diff / Slide Review NO; Basophils Absolute Auto 100 /uL (0-100); Basophils Percent Auto 0.5 % (0-2); Eosinophils Absolute Auto 200 /uL (0-450); Eosinophils Percent Auto 1.3 % (2-4); Hematocrit 38.3 % (41-53); Hemoglobin 12.7 g/dL (13.5-17.5); Lymphocytes Absolute Auto 3500 /uL (1100-4500); Lymphocytes Percent Auto 21.1 % (25-40); Mean Corpuscular HGB Conc 33.2 % (30-36); Mean Corpuscular Hemoglobin 29.9 PG (26-34); Mean Corpuscular Volume 90.2 fL (80-100); Monocytes Absolute Auto 1300 /uL (0-900); Monocytes Percent Auto 8.2 % (3-14); Neutrophils Absolute Auto 11300 /uL (1500-7000); Neutrophils Percent Auto 68.9 % (50-75); Platelet Count 178 X10^3/uL (150-400); Red Blood Cell Count 4.25 X10^6/uL (4.5-5.9); Red Cell Distribution Width 14.1 % (11.6-14.8); White Blood Cell Count 16.4 X10^3/uL (4.5-11.0)
[2022-06-25 11:26] LABS: INR 0.9 (0.9-1.3); Prothrombin Time 10.8 SECONDS (10.1-12.7)
[2022-06-25 11:29] LABS: PTT Partial Thromboplastin Tim 32 SECONDS (26-36)
[2022-06-25 11:31] LABS: Alanine Aminotransferase 11 IU/L (<50); Albumin 3.8 g/dL (3.5-5.0); Albumin Globulin Ratio 0.9 (1.0-2.8); Alkaline Phosphatase 115 U/L (38-126); Aspartate Aminotransferase 25 IU/L (17-59); BUN Creatinine Ratio 27.5 (6-22); Blood Urea Nitrogen 44 mg/dL (9-20); Calcium 9.9 mg/dL (8.4-10.2); Carbon Dioxide 31 mmol/L (22-32); Chloride 100 mmol/L (98-107); Estimated Glomerular Filt Rate 41 mL/min (>60); Globulin 4.1 g/dL (1.7-4.1); Glucose 270 mg/dL (80-110); HEMOLYSIS < 15 (0-50); Potassium 5.1 mmol/L (3.4-5.1); Sodium 138 mmol/L (137-145); Total Protein 7.9 g/dL (6.3-8.2)
== END 2022-06-25 13:51 | disposition home or self-care (01) ==
PROVIDERS: Emergency Provider Emergency Medicine; PCP Student in an Organized Health Care Education/Training Program
DX: R04.2 Hemoptysis (principal); F03.90 Unspecified dementia, unspecified severity, without behavioral disturbance, psychotic disturbance, mood disturbance, and anxiety
CPT/HCPCS: 36415; 71275; 80053; 85025; 85610; 85730; 96360; 99284; Q9967

== ENCOUNTER 2022-06-30 13:00 | Emergency (ER) | payer MEDICARE, OTHER, SELFPAY ==
[2021-08-07 18:30] VITALS: BMI 25.7
[2022-06-30 13:12] VITALS: BP 141/64; PULSE 67; RESP 18; TEMP 36.6; O2SAT 96; BMI 35.6
--- NOTE | 2022-06-30 13:46 | DI.RAD.S_ITS ---
PROCEDURE: XR CHEST 1V INDICATIONS: blood clot coughed up TECHNIQUE: One view of the chest was acquired. COMPARISON: [facility], CT, CT ANGIO CHEST PE PROTOCOL, 06/25/2022, 12:04. [facility], CR, XR CHEST 1V, 08/07/2021, 13:15. FINDINGS: Surgical changes and devices: None. Lungs and pleura: Lungs are clear. No pleural effusions or pneumothorax. Mediastinum: Mediastinal contours appear normal. Heart size is normal. Bones and chest wall: No suspicious bony lesions. Overlying soft tissues appear unremarkable. IMPRESSION: No acute pulmonary process. Dictated by: Livier Gray M.D. on 06/30/2022 at 14:24 Approved by: Livier Gray M.D. on 06/30/2022 at 14:25
[2022-06-30 15:51] VITALS: BP 148/67; PULSE 61; RESP 20; O2SAT 95
--- NOTE | 2022-06-30 16:41 | ED.GENADULT ---
HPI - General Adult <Tara Harry PA-C - Last Filed: 06/30/22 16:47> General Chief complaint: Upper Respiratory Symptoms Stated complaint: cough/AMS Time Seen by Provider: 06/30/22 13:48 Source: patient and EMS Mode of arrival: EMS History of Present Illness HPI narrative: 87-year-old male with dementia brought in by his for coughing up some blood. Patient was seen in the ED for the same problem last week, patient describes it as he suddenly feels like there is blood at the back of his throat or mouth and he feels a choking sensation and then coughs up some blood. Patient describes this as being episodic and has happened a handful of times in the last week. Patient denies any other symptoms including fever, chills, chest pain, shortness of breath, sore throat, runny nose, nausea, vomiting, abdominal pain. Patient had a CTA last week to rule out a pulmonary embolism. Patient states that he has been using Flonase. Related Data Home Medications Medication Instructions Recorded Confirmed [CALCIUM/VITAMIN D] 1 tab PO QDAY ##0 03/10/17 08/07/21 [CENTRUM SILVER] 1 tab PO QDAY ##0 03/10/17 08/07/21 [FISH OIL] 2 cap PO QDAY ##0 03/10/17 08/07/21 aspirin 81 mg tablet,delayed 81 mg PO DAILY 10/30/20 08/07/21 release albuterol sulfate 90 mcg/actuation 2 inh inhalation BID 08/07/21 08/07/21 aerosol inhaler ascorbic acid (vitamin C) 1,000 mg 1 g PO DAILY 08/07/21 08/07/21 tablet carbidopa 25 mg-levodopa 100 mg 1 tab PO TID 08/07/21 08/07/21 tablet citalopram 10 mg tablet 10 mg PO DAILY 08/07/21 08/07/21 clonazepam 0.5 mg disintegrating 0.5 mg PO BID 08/07/21 08/07/21 tablet clonazepam 0.5 mg disintegrating 0.5 mg PO Q4H PRN Agitation 08/07/21 08/07/21 tablet famotidine 20 mg tablet 20 mg PO DAILY 08/07/21 08/07/21 ipratropium bromide 42 mcg (0.06 2 spray intranasal TID PRN Allergy 08/07/21 08/07/21 %) nasal spray Symptoms lisinopril 5 mg tablet 5 mg PO DAILY 08/07/21 08/07/21 melatonin 10 mg tablet 10 mg PO BEDTIME 08/07/21 08/07/21 psyllium husk 0.4 gram capsule 0.8 g PO BEDTIME 08/07/21 08/07/21 (Metamucil) quetiapine 25 mg tablet (Seroquel) 25 mg PO Q4HR PRN Anxiety 08/07/21 08/07/21 quetiapine 50 mg tablet 50 mg PO BID 08/07/21 08/07/21 rasagiline 0.5 mg tablet 0.5 mg PO DAILY 08/07/21 08/07/21 trazodone 100 mg tablet 100 mg PO BEDTIME PRN Sleep 08/07/21 08/07/21 Previous Rx's Medication Instructions Recorded lancets 28 gauge (FreeStyle #100 ea 02/19/20 Lancets) blood sugar diagnostic (FreeStyle #100 ea 03/06/20 Lite Strips) rasagiline 0.5 mg tablet (Azilect) 0.5 mg PO DAILY #90 tabs 11/05/20 lisinopril 5 mg tablet 5 mg PO DAILY #90 tabs 11/26/20 metformin 500 mg tablet 1,000 mg PO BID #360 tabs 01/08/21 Allergies Allergy/AdvReac Type Severity Reaction Status Date / Time bacitracin Allergy Unknown Verified 06/30/22 13:19 [From NEOSPORIN ([id number])] neomycin Allergy Unknown Verified 06/30/22 13:19 [From NEOSPORIN ([id number])] polymyxin B Allergy Unknown Verified 06/30/22 13:19 [From NEOSPORIN ([id number])] Review of Systems <Tara Harry PA-C - Last Filed: 06/30/22 16:47> Review of Systems ROS Unobtainable: All systems reviewed & are unremarkable except as noted in HPI and below Constitutional Constitutional: Denies chills, Denies fatigue, Denies fever(s), Denies frequent falls, Denies lethargy and Denies weakness Eyes Eyes: Denies change in vision, Denies eye discharge, Denies irritation and Denies loss of vision ENT Ears, Nose, Mouth, and Throat: Denies change in voice, Denies dizziness, Denies neck pain, Denies sore throat and Denies throat swelling Cardiovascular Cardiovascular: Denies chest pain, Denies irregular heart rhythm, Denies lightheadedness, Denies palpitations, Denies dyspnea, Denies dyspnea on exertion and Denies orthopnea Respiratory Respiratory: Denies cough, Reports hemoptysis, Denies dyspnea, Denies dyspnea on exertion and Denies wheezing Gastrointestinal Gastrointestinal: Denies abdominal pain, Denies change in bowel habits, Denies diarrhea, Denies nausea and Denies vomiting Genitourinary Genitourinary: Denies hematuria, Denies flank pain, Denies urinary incontinence and Denies urinary urgency Musculoskeletal Musculoskeletal: Denies back pain, Denies muscle weakness, Denies neck pain, Denies numbness and Denies tingling Integumentary/Breasts Skin/Breast: Denies pruritus, Denies erythema, Denies rash and Denies wounds Neurologic Neurologic: Denies behavioral changes, Denies confusion, Denies dizziness, Denies frequent falls, Denies loss of vision, Denies numbness, Denies tingling and Denies weakness Psychiatric Psychiatric: Denies anxiety, Denies behavioral changes, Denies confusion, Denies depression, Denies homicidal ideation and Denies suicidal ideation Endocrine Endocrine: Denies fatigue, Denies flushing and Denies palpitations Hematologic/Lymphatic Hematologic/Lymphatic: Denies easy bruising Allergic/Immunologic Allergic/Immunologic: Denies urticaria, Denies throat swelling and Denies wheezing Patient History <Tara Harry PA-C - Last Filed: 06/30/22 16:47> Medical History Chicken pox Hearing loss (~2011) Hyperlipidemia associated with type 2 diabetes mellitus Measles Mumps Parkinson's disease (~2009) 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 Rosacea Sleep apnea (~2010) Type 2 diabetes mellitus without complication (11/10/16) Surgical History Anesthesia History of cataract removal with insertion of prosthetic lens History of tonsillectomy Status post appendectomy Family History Mother Heart disease Diabetes mellitus Father Cancer Grandfather Heart disease Grandmother Heart disease Grandmother Heart disease Social History household members: other Smoking Status: Former smoker Smoking Status: Former smoker Substance Use Type: does not use Exam <Tara Harry PA-C - Last Filed: 06/30/22 16:47> Narrative Exam Narrative: Const General:?cooperative, healthy appearing and comfortable HENWV Head:?normal to inspection Ears:?hearing grossly normal bilaterally Nose:?external nose normal; no bleeding inside the nares Face and sinus:?normal facial exam and sinuses nontender Mouth:?oral mucosae normal; no wounds, no source of bleeding visualized, no blood visualized on exam Throat:?posterior oropharynx normal Eyes General:?appearance normal, both eyes and all related structures Neck Neck:?normal visual inspection and no lymphadenopathy noted Resp Effort & Inspection:?normal respiratory effort Auscultation:?clear to auscultation bilaterally Cardio Rate:?regular rate Rhythm:?regular rhythm Neuro General:?patient alert, patient awake and patient oriented x3 Initial Vital Signs Initial Vital Signs: Vital Signs Temperature 97.8 F 06/30/22 13:12 Pulse Rate 67 06/30/22 13:12 Respiratory Rate 18 06/30/22 13:12 Blood Pressure 141/64 H 06/30/22 13:12 Pulse Oximetry 96 06/30/22 13:12 Oxygen Delivery Method 06/30/22 13:12 <Desi Boudreaux DO - Last Filed: 07/06/22 19:50> Initial Vital Signs Initial Vital Signs: Vital Signs Temperature 97.8 F 06/30/22 13:12 Pulse Rate 67 06/30/22 13:12 Respiratory Rate 18 06/30/22 13:12 Blood Pressure 141/64 H 06/30/22 13:12 Pulse Oximetry 96 06/30/22 13:12 Oxygen Delivery Method 06/30/22 13:12 Course <Tara Harry PA-C - Last Filed: 06/30/22 16:47> Orders Ordered: ED Orders 06/30/22 13:46 XR chest 1V Stat Vital Signs Vital signs: Vital Signs - 8 hr 06/30/22 13:12 06/30/22 15:51 Temperature 97.8 F Pulse Rate 67 61 Respiratory Rate 18 20 Blood Pressure 141/64 H 148/67 H Pulse Oximetry 96 95 Oxygen Delivery Method Room Air Room Air <Desi Boudreaux DO - Last Filed: 07/06/22 19:50> Orders Ordered: ED Orders 06/30/22 13:46 XR chest 1V Stat Vital Signs Vital signs: Vital Signs - 8 hr 06/30/22 13:12 06/30/22 15:51 Temperature 97.8 F Pulse Rate 67 61 Respiratory Rate 18 20 Blood Pressure 141/64 H 148/67 H Pulse Oximetry 96 95 Oxygen Delivery Method Room Air Room Air Medical Decision Making <Tara Harry PA-C - Last Filed: 06/30/22 16:47> MDM Narrative Medical decision making narrative: 87-year-old male with dementia brought in by his for coughing up some blood. Patient is stable in the ED. Physical exam shows no blood in the mouth, etiology unknown. Most likely cause is posterior epistaxis. Flonase could be a contributing cause. Patient and patient's agree to follow-up with ENT as soon as possible. ED return precautions discussed with patient. Patient and patient's verbalized understanding. Discharge Plan Departure Patient Disposition: Home Clinical Impression: Epistaxis Instructions: DI for Nosebleed Activity Restrictions/Additional Instructions: You were evaluated in the ED today for some blood in the mouth. Based on the history, and symptoms, this is most likely due to a nose bleed. It is likely that the Flonase nasal spray that you are using might be contributing to the nosebleeds as well possible we recommend that you follow-up with a ENT specialist as soon as possible. You may call [facility] at [phone] to make an appointment. Please stop the Flonase until you have seen the ENT specialist. Return to the ED if you have uncontrollable nose bleeds, shortness of breath, lightheadedness, dizziness. Prescriptions: No Action [CENTRUM SILVER] 1 tab PO QDAY Qty: 0 Rx Instructions: 7AM [CALCIUM/VITAMIN D] 1 tab PO QDAY Qty: 0 Rx Instructions: 7AM [FISH OIL] 2 cap PO QDAY Qty: 0 (DME) lancets [FreeStyle Lancets] 28 gauge misc See Dose Instructions .ROUTE .MEDSUPPLY Qty: 100 3RF Dose Instruction: As directed Rx Instructions: Use one Lancet to test Blood Sugar once daily (DME) FreeStyle Lite Strips Strip See Dose Instructions .ROUTE .MEDSUPPLY Qty: 100 3RF Dose Instruction: As directed Rx Instructions: Use one strip to test blood sugars once daily rasagiline [Azilect] 0.5 mg tablet 0.5 mg PO DAILY Qty: 90 3RF lisinopril 5 mg tablet 5 mg PO DAILY Qty: 90 3RF metformin 500 mg tablet 1,000 mg PO BID Qty: 360 1RF aspirin 81 mg tablet,delayed release (DR/EC) 81 mg PO DAILY quetiapine [Seroquel] 25 mg Tablet 25 mg PO Q4HR PRN (Reason: Anxiety) ascorbic acid (vitamin C) 1,000 mg Tablet 1 g PO DAILY citalopram 10 mg tablet 10 mg PO DAILY famotidine 20 mg Tablet 20 mg PO DAILY Rx Instructions: before dinner trazodone 100 mg Tablet 100 mg PO BEDTIME PRN (Reason: Sleep) albuterol sulfate 90 mcg/actuation HFA aerosol inhaler 2 inh INHALATION BID carbidopa-levodopa 25-100 mg tablet 1 tab PO TID Rx Instructions: 7AM, 12PM, 4PM clonazepam 0.5 mg tablet,disintegrating 0.5 mg PO Q4H PRN (Reason: Agitation) Rx Instructions: anxiety/agitation clonazepam 0.5 mg tablet,disintegrating 0.5 mg PO BID Rx Instructions: 7AM, 8PM quetiapine 50 mg tablet 50 mg PO BID Rx Instructions: 7AM, 8PM melatonin 10 mg Tablet 10 mg PO BEDTIME psyllium husk [Metamucil] 0.4 gram Capsule 0.8 g PO BEDTIME ipratropium bromide 42 mcg (0.06 %) spray,non-aerosol 2 spray INTRANASAL TID PRN (Reason: Allergy Symptoms) lisinopril 5 mg tablet 5 mg PO DAILY rasagiline 0.5 mg tablet 0.5 mg PO DAILY Referrals: Richard Ortiz MD [Primary Care Provider] - Visit Report Forms: Patient Portal/API <Desi Boudreaux DO - Last Filed: 07/06/22 19:50> Cosign ED Attending Marilyature Attestation: I was immediately available in the department for consultation. Documentation has been reviewed. I agree with assessment and plan.
== END 2022-06-30 15:51 | disposition home or self-care (01) ==
PROVIDERS: Emergency Provider Student in an Organized Health Care Education/Training Program; PCP Student in an Organized Health Care Education/Training Program
DX: R04.0 Epistaxis (principal)
CPT/HCPCS: 71045; 99281; 99283

== ENCOUNTER 2022-07-24 10:28 | Inpatient (IN) | payer MEDICARE, OTHER, SELFPAY ==
[2021-08-07 18:30] VITALS: BMI 25.7
[2022-07-24] VITALS (11 sets, daily range): BP systolic 126–162; BP diastolic 56–77; PULSE 66–72; RESP 16–24; TEMP 36.3–36.7; O2SAT 94–97; BMI 30.4
--- NOTE | 2022-07-24 10:29 | DI.CT.S_ITS ---
PROCEDURE: CT STROKE INDICATIONS: left sided weakness, slurred speech TECHNIQUE: Noncontrast 4.5 mm thick angled axial sections acquired from the foramen magnum to the vertex, with coronal reformats. For radiation dose reduction, the following was used: automated exposure control, adjustment of mA and/or kV according to patient size. COMPARISON: None. FINDINGS: Image quality: Excellent. CSF spaces: Basal cisterns are patent. No extra-axial fluid collections. Ventricles are normal in size and shape. Brain: Advanced moderate global cerebral volume loss and chronic microvascular ischemic changes. No midline shift. No intracranial masses or hemorrhage. Zelaya-white matter interface is normal. Skull and face: Calvarium and visualized facial bones are intact, without suspicious lesions. Sinuses: Visualized sinuses and mastoids are clear. IMPRESSION: No acute intracranial abnormality. Results discussed with Dr. Boudreaux at time of dictation. This study fulfills neurological imaging criteria for inclusion or exclusion of acute stroke therapies based on available published neurological imaging guidelines. Dictated by: Jason Snyder M.D. on 07/24/2022 at 10:40 Approved by: Jason Snyder M.D. on 07/24/2022 at 10:42
--- NOTE | 2022-07-24 10:29 | DI.CT.S_ITS ---
PROCEDURE: CT ANGIO HEAD AND NECK INDICATIONS: left sided weakness TECHNIQUE: After the administration of intravenous contrast, 1 mm thick sections acquired from the aortic arch through the [place]. Post-contrast 4.5 mm thick sections then re-acquired from the foramen magnum to the vertex. 3-dimensional fbygigt-kpeuombdy-lbamcerywu (MIP) and/or volume rendering reformats were acquired of the central intracranial vasculature and neck separately. For radiation dose reduction, the following was used: automated exposure control, adjustment of mA and/or kV according to patient size. COMPARISON: None. FINDINGS: Image quality: Excellent. BRAIN: CSF spaces: Ventricles are normal in size and shape. Basal cisterns are patent. No extra-axial fluid collections. Brain: No midline shift. No intracranial bleeds or masses. Zelaya-white matter interface appears intact. Skull and face: Calvarium and facial bones appear intact, without suspicious lesions. Orbits appear normal. Sinuses: Sinuses and mastoids are clear. HEAD CT ANGIOGRAPHY: Anterior circulation: Intracranial internal carotid arteries are normal in size and flow. The flow within the paired anterior cerebral arteries is normal and symmetric. The flow within the middle cerebral arteries is normal and symmetric. The anterior communicating artery is seen. No aneurysms are seen. Posterior circulation: Visualized portions of the vertebral arteries demonstrate normal caliber, and join to form a normal appearing basilar artery. Flow within the posterior cerebral arteries is normal and symmetric. No aneurysms are seen. NECK CT ANGIOGRAPHY: Carotid system: The great vessels demonstrate a conventional anatomy as they arise from the aortic arch. The origins of the common carotid arteries appear patent. The common carotid arteries demonstrate normal caliber and courses. The bifurcation regions are both widely patent. The internal carotid arteries demonstrate normal calibers and courses. Posterior circulation: The origins of the vertebral arteries both appear widely patent. The more superior extracranial portions of both vertebral arteries also demonstrate normal courses and calibers. They join to form a normal appearing basilar artery. Soft tissues: Visualized neck soft tissues demonstrate no suspicious abnormalities. Bones: No suspicious bony lesions. Visualized cervical spine appears normally aligned. IMPRESSION: No hemodynamically significant stenosis or occlusion of the major intracranial or cervical arterial vasculature. Non-hemodynamically significant atherosclerotic narrowing of the carotid siphons and carotid termini. Any quantitative measurements of stenosis were performed using NASCET criteria. Dictated by: Jason Snyder M.D. on 07/24/2022 at 11:04 Approved by: Jason Snyder M.D. on 07/24/2022 at 11:16
--- NOTE | 2022-07-24 10:30 | DI.RAD.S_ITS ---
PROCEDURE: XR CHEST 1V INDICATIONS: stroke TECHNIQUE: One view of the chest was acquired. COMPARISON: [facility], CR, XR CHEST 1V, 06/30/2022, 13:46. FINDINGS: Surgical changes and devices: None. Lungs and pleura: Lungs are clear. No pleural effusions or pneumothorax. Mediastinum: Mediastinal contours appear normal. Heart size is normal. Bones and chest wall: No suspicious bony lesions. Overlying soft tissues appear unremarkable. IMPRESSION: No acute process. Dictated by: Jason Snyder M.D. on 07/24/2022 at 11:00 Approved by: Jason Snyder M.D. on 07/24/2022 at 11:00
--- NOTE | 2022-07-24 10:44 | ED_ITS ---
HPI - Neuro Symptoms/Deficit General Chief Complaint: Neuro Symptoms/Deficit Stated Complaint: code stroke Time Seen by Provider: 07/24/22 10:29 History of Present Illness HPI Narrative: Patient is a 87-year-old male who resides at [facility] history of hypertension, Parkinson's, hyperlipidemia presenting today as a code stroke. His last known well was 10:00 a.m. seen by staff then developed slurring of speech and was leaning towards the left. Speech was reported to be getting pos sibly improved per EMS. He is not on any anti-platelet or anticoagulation is. He is a DNR with limited interventions. Related Data Home Medications Medication Instructions Recorded Confirmed [CALCIUM/VITAMIN D] 1 tab PO QDAY ##0 03/10/17 07/24/22 [CENTRUM SILVER] 1 tab PO QDAY ##0 03/10/17 07/24/22 [FISH OIL] 2 cap PO QDAY ##0 03/10/17 07/24/22 aspirin 81 mg tablet,delayed 81 mg PO DAILY 10/30/20 07/24/22 release ascorbic acid (vitamin C) 1,000 mg 1 g PO DAILY 08/07/21 07/24/22 tablet carbidopa 25 mg-levodopa 100 mg 1 tab PO TID 08/07/21 07/24/22 tablet citalopram 10 mg tablet 10 mg PO DAILY 08/07/21 07/24/22 clonazepam 0.5 mg disintegrating 0.5 mg PO BID 08/07/21 07/24/22 tablet clonazepam 0.5 mg disintegrating 0.5 mg PO Q4H PRN Agitation 08/07/21 07/24/22 tablet famotidine 20 mg tablet 20 mg PO DAILY 08/07/21 07/24/22 ipratropium bromide 42 mcg (0.06 2 spray intranasal TID PRN Allergy 08/07/21 07/24/22 %) nasal spray Symptoms lisinopril 5 mg tablet 5 mg PO DAILY 08/07/21 07/24/22 melatonin 10 mg tablet 10 mg PO BEDTIME 08/07/21 07/24/22 psyllium husk 0.4 gram capsule 0.8 g PO BEDTIME 08/07/21 07/24/22 (Metamucil) quetiapine 25 mg tablet (Seroquel) 25 mg PO Q4HR PRN Anxiety 08/07/21 07/24/22 quetiapine 50 mg tablet 50 mg PO BID 08/07/21 07/24/22 rasagiline 0.5 mg tablet 0.5 mg PO DAILY 08/07/21 07/24/22 trazodone 100 mg tablet 100 mg PO BEDTIME PRN Sleep 08/07/21 07/24/22 Previous Rx's Medication Instructions Recorded lancets 28 gauge (FreeStyle #100 ea 02/19/20 Lancets) blood sugar diagnostic (FreeStyle #100 ea 03/06/20 Lite Strips) metformin 500 mg tablet 1,000 mg PO BID #360 tabs 01/08/21 Allergies Allergy/AdvReac Type Severity Reaction Status Date / Time bacitracin Allergy Unknown Verified 06/30/22 13:19 [From NEOSPORIN ([id number])] neomycin Allergy Unknown Verified 06/30/22 13:19 [From NEOSPORIN ([id number])] polymyxin B Allergy Unknown Verified 06/30/22 13:19 [From NEOSPORIN ([id number])] Review of Systems Review of Systems ROS Unobtainable: Unobtainable due to medical condition 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 Rosacea Sleep apnea (~2010) Type 2 diabetes mellitus without complication (11/10/16) Surgical History Anesthesia History of cataract removal with insertion of prosthetic lens History of tonsillectomy Status post appendectomy Family History Mother Heart disease Diabetes mellitus Father Cancer Grandfather Heart disease Grandmother Heart disease Grandmother Heart disease Social History household members: other Smoking Status: Former smoker alcohol intake: never Smoking Status: Former smoker Substance Use Type: does not use Exam Initial Vital Signs Initial Vital Signs: Vital Signs Temperature 97.8 F 07/24/22 10:46 Pulse Rate 69 07/24/22 10:46 Respiratory Rate 18 07/24/22 10:46 Blood Pressure 152/65 H 07/24/22 10:46 Pulse Oximetry 97 07/24/22 10:46 Oxygen Delivery Method 07/24/22 10:46 GENERAL: Alert 87-year-old male leaning towards the left HEENT: Head atraumatic,EOMI, pupils reactive, face symmetric, moist mucous membranes CARDIOVASCULAR: Regular rate and rhythm without murmurs, rubs or gallops. RESPIRATORY: Breath sounds equal bilaterally, no wheezes rales or rhonchi. ABDOMEN: Soft, nontender. Normoactive bowel sounds all 4 quadrants. No guarding or rebound. EXTREMITIES: Normal range of motion, no clubbing or edema. Neurovascularly intact NEUROLOGICAL: Alert and oriented x3.Normal gait and speech. Cranial nerves II through XII grossly intact. Good [id number], good [id number], strength equal bilaterally, mild dysarthria or aphasia, sensation in tact to soft touch bilaterally, no visual changes, no facial droop SKIN: Warm, dry, no laceration, no petechiae, no rashes or lesions. Scores NIH Stroke Scale Level of Conciousness: Alert, keenly responsive Ask month/age: Answers both questions correctly. Open/close eyes, close hand: Performs both tasks correctly Best gaze horizontal: Normal Visual ba: No visual loss Facial palsy: Normal symetrical movement Left arm drift: No drift for full 10 sec Right arm drift: No drift for full 10 sec Left leg drift: No drift for full 5 sec Right leg drift: No drift for full 5 sec Limb ataxia: Absent Sensory on face/arms/legs: Normal, no sensory loss Best language: No aphasia, normal Dysarthria: Mild to mod,some slurring Extinction or inattention: No abnormality Total NIH Stroke scale score: 1 Course Orders Ordered: ED Orders 07/24/22 10:[address] angio head and neck Stat 07/24/22 10:30 Chest [XR chest 1V] Stat CBC Auto Diff [Complete Blood Count AUTO DIFF] Stat CMP [Comprehensive Metabolic Panel] Stat PT [Prothrombin Time INR] Stat PTT [Partial Thromboplastin Time] Stat Troponin & CK Cardiac Panel Stat EKG-12 Lead Stat Acetaminophen (Acetaminophen 325 Mg Tablet) 650 mg PO Q4H PRN PRN Reason: Fever/Mild Pain (1-3) Ascorbic Acid (Ascorbic Acid 500 Mg Tablet) 1,000 mg PO DAILY [facility] Aspirin (Aspirin Ec 81 Mg Tablet) 81 mg PO DAILY [facility] Calcium Carbonate/Cholecalciferol (Calcium Carb/Vit D3 500/200 Tablet) 1 each PO DAILY [facility] Carbidopa/Levodopa (Carbidopa-Levodopa 25/100 Tablet) 1 each PO TID@0700,1200,1600 [facility] Citalopram Hydrobromide (Citalopram 10 Mg Tablet) 10 mg PO DAILY [facility] Clonazepam (Clonazepam 0.5 Mg Tablet) 0.5 mg PO BID [facility] Clonazepam (Clonazepam 0.5 Mg Tablet) 0.5 mg PO Q4H PRN PRN Reason: Agitation Clopidogrel Bisulfate (Clopidogrel 75 Mg Tablet) 75 mg PO DAILY [facility] Enoxaparin Sodium (Enoxaparin 40 Mg/0.4 Ml Syringe) 40 mg SUBCUT DAILY [facility] Famotidine (Famotidine 20 Mg Tablet) 20 mg PO DAILY [facility] Fish Oil (Fish Oil 1,000 Mg Capsule) 2,000 mg PO DAILY [facility] Sodium Chloride (Normal Saline 0.45%) 1,000 mls @ 84 mls/hr IV CONT [facility] Last Admin: 07/24/22 18:42 Dose: 84 mls/hr Documented By: MS Ipratropium [place] (Ipratropium 0.06% Nasal 15 Ml) 2 spray NASAL TID PRN PRN Reason: Allergy Symptoms Lisinopril (Lisinopril 5 Mg Tablet) 5 mg PO DAILY [facility] Melatonin (Melatonin 3 Mg Tablet) 3 mg PO BEDTIME [facility] Metformin HCl (Metformin Hcl 500 Mg Tablet) 1,000 mg PO BIDWM [facility] Last Admin: 07/24/22 16:48 Dose: 1,000 mg Documented By: MS Multivitamins (Multivitamin 1 Tablet) 1 tab PO DAILY [facility] Rasagiline 1 Mg (Tablet) 0.5 mg PO DAILY [facility] Ondansetron HCl (Ondansetron 4 Mg Odt) 8 mg PO Q6HR PRN PRN Reason: nausea/vomiting Psyllium Hydrophilic Mucilloid (Psyllium Husk 1 Packet) 1 packet PO DAILY [facility] Quetiapine Fumarate (Quetiapine 25 Mg Tablet) 50 mg PO BID [facility] Quetiapine Fumarate (Quetiapine 25 Mg Tablet) 25 mg PO Q4HR PRN PRN Reason: Anxiety Sennosides (Sennosides 8.6 Mg Tablet) 17.2 mg PO BEDTIME MARYELLEN Trazodone HCl (Trazodone 100 Mg Tablet) 100 mg PO BEDTIME PRN PRN Reason: Sleep Discontinued Medications Aspirin (Aspirin 81 Mg Chew Tab) 324 mg PO NOW ONE Stop: 07/24/22 11:59 Last Admin: 07/24/22 12:06 Dose: 324 mg Documented By: AUGUSTO Carbidopa/Levodopa (Carbidopa-Levodopa 25/100 Tablet) 1 each PO TID MARYELLEN Last Admin: 07/24/22 15:31 Dose: 1 each Documented By: Clopidogrel Bisulfate (Clopidogrel 75 Mg Tablet) 300 mg PO NOW ONE Stop: 07/24/22 17:29 Last Admin: 07/24/22 18:21 Dose: 300 mg Documented By: Non-Formulary Medication (Melatonin) 10 mg PO BEDTIME MARYELLEN Ondansetron HCl (Ondansetron 8 Mg Tablet) 8 mg PO Q8H PRN PRN Reason: Nausea And Vomiting Vital Signs Vital signs: Vital Signs - 8 hr 07/24/22 11:00 07/24/22 11:00 07/24/22 11:30 Pulse Rate 72 70 Respiratory Rate 20 20 Blood Pressure 126/58 L Pulse Oximetry 97 97 Oxygen Delivery Method Room Air 07/24/22 11:31 07/24/22 11:31 07/24/22 12:00 Pulse Rate 71 67 Respiratory Rate 20 19 Blood Pressure 142/65 H Pulse Oximetry 97 96 Oxygen Delivery Method 07/24/22 12:01 07/24/22 12:01 07/24/22 12:30 Pulse Rate 67 Respiratory Rate 19 Blood Pressure 129/56 L 131/61 Pulse Oximetry 95 Oxygen Delivery Method 07/24/22 12:30 Pulse Rate 67 Respiratory Rate 19 Blood Pressure Pulse Oximetry 96 Oxygen Delivery Method MDM - Neuro Symptoms/Deficit Lab Data Result diagrams: 07/24/22 10:30 07/24/22 10:30 Labs: Lab Results 07/24/22 07/24/22 07/24/22 Range/Units 10:30 10:30 10:30 WBC 11.6 H (4.5-11.0) X10^3/uL RBC 4.05 L (4.5-5.9) X10^6/uL Hgb 12.2 L (13.5-17.5) g/dL Hct 36.9 L (41-53) % MCV 91.3 (80-100) fL MCH 30.2 (26-34) PG MCHC 33.1 (30-36) % RDW 14.2 (11.6-14.8) % Plt Count 173 (150-400) X10^3/uL Neut % (Auto) 58.4 (50-75) % Lymph % (Auto) 25.8 (25-40) % Tucker % (Auto) 11.4 (3-14) % Eos % (Auto) 3.9 (2-4) % Baso % (Auto) 0.5 (0-2) % Neut # (Auto) 6800 (7252-7229) /uL Lymph # (Auto) 3000 (0544-7399) /uL Tucker # (Auto) 1300 H (0-900) /uL Eos # (Auto) 400 (0-450) /uL Baso # (Auto) 100 (0-100) /uL PT 11.0 (10.1-12.7) SECONDS INR 1.0 (0.9-1.3) APTT 31 (26-36) SECONDS Sodium 140 (137-145) mmol/L Potassium 4.7 (3.4-5.1) mmol/L Chloride 99 (98-107) mmol/L Carbon Dioxide 30 (22-32) mmol/L BUN 39 H (9-20) mg/dL Creatinine 1.96 H (0.66-1.25) mg/dL Estimated GFR 32 L (>60) mL/min BUN/Creatinine Ratio 19.9 (6-22) Glucose 252 H (80-110) mg/dL Calcium 9.6 (8.4-10.2) mg/dL Total Bilirubin 0.7 (0.2-1.3) mg/dL AST 24 (17-59) IU/L ALT 14 (<50) IU/L Alkaline Phosphatase 122 (38-126) U/L Total Creatine Kinase 36 L (55-170) U/L CK-MB (CK-2) TNP CK-MB (CK-2) Rel Index TNP Troponin I < 0.012 (0.01-0.034) ng/mL Total Protein 8.0 (6.3-8.2) g/dL Albumin 3.9 (3.5-5.0) g/dL Globulin 4.1 (1.7-4.1) g/dL Albumin/Globulin Ratio 1.0 (1.0-2.8) Imaging Data CT scan - head: Radiologist's Impression: CT Scan Report Signed Patient: Richard Bird MR#: [id number] : 1935 Acct:[id number] Age/Sex: 87 / M Date of Service: 07/24/22 Loc: ED Accession Number: [id number] ?? Procedure: CT Stroke Ordering Provider: Desi Boudreaux D.O. PROCEDURE:? CT STROKE ? INDICATIONS:? left sided weakness, slurred speech ? TECHNIQUE:? Noncontrast 4.5 mm thick angled axial sections acquired from the foramen magnum to the vertex, with coronal reformats.? For radiation dose reduction, the following was used:? automated exposure control, adjustment of mA and/or kV according to patient size.? ? COMPARISON:? None. ? FINDINGS:? Image quality:? Excellent.? ? CSF spaces:? Basal cisterns are patent.? No extra-axial fluid collections.? Ventricles are normal in size and shape.? ? Brain:? Advanced moderate global cerebral volume loss and chronic microvascular ischemic changes.? No midline shift.? No intracranial masses or hemorrhage.? Zelaya-white matter interface is normal.? ? Skull and face:? Calvarium and visualized facial bones are intact, without suspicious lesions.? ? Sinuses:? Visualized sinuses and mastoids are clear.? ? IMPRESSION:? No acute intracranial abnormality.? Results discussed with Dr. Boudreaux at time of dictation. ? This study fulfills neurological imaging criteria for inclusion or exclusion of acute stroke therapies based on available published neurological imaging guidelines.? ? ? Dictated by: Jason Snyder M.D. on 07/24/2022 at 10:40 ? ? CTA - brain/neck: Radiologist's Impression: CT Scan Report Signed Patient: Richard Bird MR#: [id number] : 1935 Acct:[id number] Age/Sex: 87 / M Date of Service: 07/24/22 Loc: ED Accession Number: [id number] ?? Procedure: CT angio head and neck Ordering Provider: Botnick,Desi D.O. PROCEDURE:? CT ANGIO HEAD AND NECK ? INDICATIONS:? left sided weakness ? TECHNIQUE: ? After the administration of intravenous contrast, 1 mm thick sections acquired from the aortic arch through the [place] of [place].? Post-contrast 4.5 mm thick sections then re-acquired from the foramen magnum to the vertex.? 3-dimensional bcqmrkn-kvlvdiysg-mkmdezhjie (MIP) and/or volume rendering reformats were acquired of the central intracranial vasculature and neck separately. For radiation dose reduction, the following was used:? automated exposure control, adjustment of mA and/or kV according to patient size.? ? COMPARISON:? None. ? FINDINGS:? Image quality:? Excellent.? ? BRAIN:? CSF spaces:? Ventricles are normal in size and shape.? Basal cisterns are patent.? No extra-axial fluid collections.? ? Brain:? No midline shift.? No intracranial bleeds or masses.? Zelaya-white matter interface appears intact.? ? Skull and face:? Calvarium and facial bones appear intact, without suspicious lesions.? Orbits appear normal.? ? Sinuses:? Sinuses and mastoids are clear.? ? HEAD CT ANGIOGRAPHY:? Anterior circulation:? Intracranial internal carotid arteries are normal in size and flow.? The flow within the paired anterior cerebral arteries is normal and symmetric.? The flow within the middle cerebral arteries is normal and symmetric.? The anterior communicating artery is seen.? No aneurysms are seen.? ? Posterior circulation:? Visualized portions of the vertebral arteries demonstrate normal caliber, and join to form a normal appearing basilar artery.? Flow within the posterior cerebral arteries is normal and symmetric.? No aneurysms are seen.? ? NECK CT ANGIOGRAPHY:? Carotid system:? The great vessels demonstrate a conventional anatomy as they arise from the aortic arch.? The origins of the common carotid arteries appear patent.? The common carotid arteries demonstrate normal caliber and courses.? The bifurcation regions are both widely patent.? The internal carotid arteries demonstrate normal calibers and courses.? ? Posterior circulation:? The origins of the vertebral arteries both appear widely patent.? The more superior extracranial portions of both vertebral arteries also demonstrate normal courses and calibers.? They join to form a normal appearing basilar artery.? ? Soft tissues:? Visualized neck soft tissues demonstrate no suspicious abnormalities.? ? Bones:? No suspicious bony lesions.? Visualized cervical spine appears normally aligned.? IMPRESSION:? ? No hemodynamically significant stenosis or occlusion of the major intracranial or cervical arterial vasculature.? ? Non-hemodynamically significant atherosclerotic narrowing of the carotid siphons and carotid termini. ? Any quantitative measurements of stenosis were performed using NASCET criteria.? ? ? Dictated by: Jason Snyder M.D. on 07/24/2022 at 11:04 ? ? Approved by: Jason Snyder M.D. on 07/24/2022 at 11:16 ? Chest x-ray: Radiologist's Impression: XRay Report Signed Patient: Richard Bird MR#: [id number] : 1935 Acct:[id number] Age/Sex: 87 / M Date of Service: 07/24/22 Loc: ED Accession Number: [id number] ?? Procedure: XR chest 1V Ordering Provider: Desi Boudreaux D.O. PROCEDURE:? XR CHEST 1V ? INDICATIONS:? stroke ? TECHNIQUE:? One view of the chest was acquired.? ? COMPARISON:? [facility], , XR CHEST 1V, 06/30/2022, 13:46. ? FINDINGS:? ? Surgical changes and devices:? None.? ? Lungs and pleura:? Lungs are clear.? No pleural effusions or pneumothorax.? ? Mediastinum:? Mediastinal contours appear normal.? Heart size is normal.? ? Bones and chest wall:? No suspicious bony lesions.? Overlying soft tissues appear unremarkable.? ? IMPRESSION:? No acute process. ? ? Dictated by: Jason Snyder M.D. on 07/24/2022 at 11:00 ? ? ECG Data Interpretation: Normal sinus rhythm rate 72 AR interval 202 QRS [address] changes no T- wave inversions similar to prior [facility] Narrative Medical decision making narrative: Patient presents today as a code stroke. Initially having some left-sided weakness and speech difficulty. Head CT and CT angio are both negative. Neurology was consulted patient is actually having improved left-sided weakness but still having some speech difficulty giving him an NIH Stroke Scale of 1. At this time with a low NIH no recommendation of tPA. Upon re-evaluation speech is improved even more. at bedside states that he sometimes has trouble speaking at baseline but overall seems to be back to his normal self. Concern now for TIA. Dr. Evangelista accepts patient. Discharge Plan Departure Patient Disposition: Admitted as Observation Clinical Impression: Transient cerebral ischemia Admit Date/Time: 07/24/22 12:30 Admit Provider: Susan Carrizales
[2022-07-24 10:46] LABS: Add Manual Diff / Slide Review NO; Basophils Absolute Auto 100 /uL (0-100); Basophils Percent Auto 0.5 % (0-2); Eosinophils Absolute Auto 400 /uL (0-450); Eosinophils Percent Auto 3.9 % (2-4); Hematocrit 36.9 % (41-53); Hemoglobin 12.2 g/dL (13.5-17.5); Lymphocytes Absolute Auto 3000 /uL (1100-4500); Lymphocytes Percent Auto 25.8 % (25-40); Mean Corpuscular HGB Conc 33.1 % (30-36); Mean Corpuscular Hemoglobin 30.2 PG (26-34); Mean Corpuscular Volume 91.3 fL (80-100); Monocytes Absolute Auto 1300 /uL (0-900); Monocytes Percent Auto 11.4 % (3-14); Neutrophils Absolute Auto 6800 /uL (1500-7000); Neutrophils Percent Auto 58.4 % (50-75); Platelet Count 173 X10^3/uL (150-400); Red Blood Cell Count 4.05 X10^6/uL (4.5-5.9); Red Cell Distribution Width 14.2 % (11.6-14.8); White Blood Cell Count 11.6 X10^3/uL (4.5-11.0)
[2022-07-24 10:55] LABS: PTT Partial Thromboplastin Tim 31 SECONDS (26-36)
[2022-07-24 10:57] LABS: Alanine Aminotransferase 14 IU/L (<50); Albumin 3.9 g/dL (3.5-5.0); Alkaline Phosphatase 122 U/L (38-126); Aspartate Aminotransferase 24 IU/L (17-59); BUN Creatinine Ratio 19.9 (6-22); Bilirubin Total 0.7 mg/dL (0.2-1.3); Blood Urea Nitrogen 39 mg/dL (9-20); Calcium 9.6 mg/dL (8.4-10.2); Carbon Dioxide 30 mmol/L (22-32); Chloride 99 mmol/L (98-107); Creatine Kinase 36 U/L (55-170); Estimated Glomerular Filt Rate 32 mL/min (>60); Globulin 4.1 g/dL (1.7-4.1); Glucose 252 mg/dL (80-110); HEMOLYSIS < 15 (0-50); Potassium 4.7 mmol/L (3.4-5.1); Sodium 140 mmol/L (137-145)
[2022-07-24 11:09] LABS: Troponin I < 0.012 ng/mL (0.01-0.034)
[2022-07-24] MEDS: ASPIRIN 81 MG CHEW TAB 324 MG PO (12:06)
[2022-07-24 13:13] LABS: COVID19 -Nasal RAPID Negative (Negative)
--- NOTE | 2022-07-24 13:18 | PC.NURSE ---
DayShift Pt arrived to floor at 1310 from ER. Pt VS WNL, RA' 98. Pt denies any chest pain,pain or nausea. Pt orientated to call light. Pt had all questions answered.
[2022-07-24] MEDS: CARBIDOPA-LEVODOPA 25/100 TABLET 1 EACH PO (15:31)
[2022-07-24] MEDS: METFORMIN HCL 500 MG TABLET 1000 MG PO (16:48)
--- NOTE | 2022-07-24 17:09 | PM.HP.1 ---
History of Present Illness History of Present Illness Date Patient Seen: 07/24/22 Chief complaint: code stroke Narrative: This is an 87-year-old male, with a past medical history of hyperlipidemia, diabetes, Parkinson's dementia, resident of [facility] care unit who was sent to the emergency room for concern for Stroke. ?His last known well was 10:00 a.m. seen by staff then developed slurring of speech and was leaning towards the left.? Speech was reported to be getting possibly improved per EMS.? He is not on any anti-platelet or anticoagulation is.? He is a DNR with limited interventions. On examination in the ER the patient was Total NIH Stroke scale score: 1. Only scored due to minor dysarthria that likely is his baseline due to the patient's underlying Parkinson's disease. Therefore the initial working diagnosis is a TIA that is resolving. No fever chills nausea vomiting or diaphoresis. No chest pain. No cough wheezing or shortness of breath. No palpitations. No abdominal pain constipation or diarrhea. Able to move all extremities at his baseline that is affected by Parkinson's. Patient normally is mostly wheelchair-bound but can take a few steps with a walker. Patient will be placed in Observation for further assessment and treatment. It is unlikely that the patient will have a hospital stay more than 2 midnights. 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 Rosacea Sleep apnea (~2010) Type 2 diabetes mellitus without complication (11/10/16) Surgical History Anesthesia History of cataract removal with insertion of prosthetic lens History of tonsillectomy Status post appendectomy Family & Social History Family History Mother Heart disease Diabetes mellitus Father Cancer Grandfather Heart disease Grandmother Heart disease Grandmother Heart disease Social History: household members other Prior Living Arrangements Skilled Nurse Facility Safety & Behavioral: Feels Safe in Current Yes Environment Been Physically Hurt or No Threatened By a Person Tobacco & Substance use: Tobacco type cigarettes Smoking Status Former smoker alcohol intake never Substance Use Type does not use Meds Home Medications and Allergies Home Medications Medication Instructions Recorded Confirmed Type [CALCIUM/VITAMIN D] 1 tab PO QDAY ##0 03/10/17 07/24/22 History [CENTRUM SILVER] 1 tab PO QDAY ##0 03/10/17 07/24/22 History [FISH OIL] 2 cap PO QDAY ##0 03/10/17 07/24/22 History lancets 28 gauge (FreeStyle #100 ea 02/19/20 07/24/22 Rx Lancets) blood sugar diagnostic (FreeStyle #100 ea 03/06/20 07/24/22 Rx Lite Strips) aspirin 81 mg tablet,delayed 81 mg PO DAILY 10/30/20 07/24/22 History release metformin 500 mg tablet 1,000 mg PO BID #360 tabs 01/08/21 07/24/22 Rx ascorbic acid (vitamin C) 1,000 mg 1 g PO DAILY 08/07/21 07/24/22 History tablet carbidopa 25 mg-levodopa 100 mg 1 tab PO TID 08/07/21 07/24/22 History tablet citalopram 10 mg tablet 10 mg PO DAILY 08/07/21 07/24/22 History clonazepam 0.5 mg disintegrating 0.5 mg PO BID 08/07/21 07/24/22 History tablet clonazepam 0.5 mg disintegrating 0.5 mg PO Q4H PRN Agitation 08/07/21 07/24/22 History tablet famotidine 20 mg tablet 20 mg PO DAILY 08/07/21 07/24/22 History ipratropium bromide 42 mcg (0.06 2 spray intranasal TID PRN Allergy 08/07/21 07/24/22 History %) nasal spray Symptoms lisinopril 5 mg tablet 5 mg PO DAILY 08/07/21 07/24/22 History melatonin 10 mg tablet 10 mg PO BEDTIME 08/07/21 07/24/22 History psyllium husk 0.4 gram capsule 0.8 g PO BEDTIME 08/07/21 07/24/22 History (Metamucil) quetiapine 25 mg tablet (Seroquel) 25 mg PO Q4HR PRN Anxiety 08/07/21 07/24/22 History quetiapine 50 mg tablet 50 mg PO BID 08/07/21 07/24/22 History rasagiline 0.5 mg tablet 0.5 mg PO DAILY 08/07/21 07/24/22 History trazodone 100 mg tablet 100 mg PO BEDTIME PRN Sleep 08/07/21 07/24/22 History Allergies Allergy/AdvReac Type Severity Reaction Status Date / Time bacitracin Allergy Unknown Verified 06/30/22 13:19 [From NEOSPORIN ([id number])] neomycin Allergy Unknown Verified 06/30/22 13:19 [From NEOSPORIN ([id number])] polymyxin B Allergy Unknown Verified 06/30/22 13:19 [From NEOSPORIN ([id number])] Review of Systems Review of Systems Narrative: Fourteen system review was completed and pertinent findings in the history of chief complaint. Exam Vital Signs (past 8 hours): - 07/24/22 10:46 07/24/22 10:51 07/24/22 10:53 Temperature 97.8 F Pulse Rate 69 72 72 Respiratory Rate 18 24 21 Blood Pressure 152/65 H Pulse Oximetry 97 97 96 Oxygen Delivery Method Room Air Oxygen Flow Rate 07/24/22 10:53 07/24/22 11:00 07/24/22 11:00 Temperature Pulse Rate 72 Respiratory Rate 20 Blood Pressure 135/60 126/58 L Pulse Oximetry 97 Oxygen Delivery Method Room Air Oxygen Flow Rate 07/24/22 11:30 07/24/22 11:31 07/24/22 11:31 Temperature Pulse Rate 70 71 Respiratory Rate 20 20 Blood Pressure 142/65 H Pulse Oximetry 97 97 Oxygen Delivery Method Oxygen Flow Rate 07/24/22 12:00 07/24/22 12:01 07/24/22 12:01 Temperature Pulse Rate 67 67 Respiratory Rate 19 19 Blood Pressure 129/56 L Pulse Oximetry 96 95 Oxygen Delivery Method Oxygen Flow Rate 07/24/22 12:30 07/24/22 12:30 07/24/22 13:30 Temperature 97.4 F L Pulse Rate 67 66 Respiratory Rate 19 16 Blood Pressure 131/61 148/74 H Pulse Oximetry 96 95 Oxygen Delivery Method Oxygen Flow Rate 0 Oxygen Delivery Method Room Air Oxygen Flow Rate 0 Narrative Exam Narrative: General: Appears not to be in any acute distress. HEENT: Skin around the right eye is a little bit erythema from the patient rubbing it. He states that he was rubbing it since there was eye symptoms with decreased vision initially at home at the onset of symptoms. He can reactive to light. Neck is supple. Trachea is midline. Head is normocephalic. Cardiovascular: Heart sounds S1 and S2 no extra sounds or murmurs. Peripheral pulses equal bilaterally. Respiratory: Adequate air entry throughout the lung ba. No wheezes or crackles. Gastrointestinal: Abdomen is soft. Nontender. Bowel sounds normal. Musculoskeletal: Some stiffness of extremity secondary to Parkinson's. Able to move volitionally all extremities. Amount of movement is consistent with the patient's baseline. Neuro: Normal sensation of all extremities. Objective Labs Result Diagrams: 07/24/22 10:30 07/24/22 10:30 Labs: Laboratory Results - last 24 hr 07/24/22 07/24/22 07/24/22 10:30 10:30 10:30 WBC 11.6 H RBC 4.05 L Hgb 12.2 L Hct 36.9 L MCV 91.3 MCH 30.2 MCHC 33.1 RDW 14.2 Plt Count 173 Neut % (Auto) 58.4 Lymph % (Auto) 25.8 [place] % (Auto) 11.4 Eos % (Auto) 3.9 Baso % (Auto) 0.5 Neut # (Auto) 6800 Lymph # (Auto) 3000 [place] # (Auto) 1300 H Eos # (Auto) 400 Baso # (Auto) 100 PT 11.0 INR 1.0 APTT 31 Sodium 140 Potassium 4.7 Chloride 99 Carbon Dioxide 30 BUN 39 H Creatinine 1.96 H Estimated GFR 32 L BUN/Creatinine Ratio 19.9 Glucose 252 H Calcium 9.6 Total Bilirubin 0.7 AST 24 ALT 14 Alkaline Phosphatase 122 Total Creatine Kinase 36 L CK-MB (CK-2) TNP CK-MB (CK-2) Rel Index TNP Troponin I < 0.012 Total Protein 8.0 Albumin 3.9 Globulin 4.1 Albumin/Globulin Ratio 1.0 SARS-CoV-2 (PCR) 07/24/22 12:53 WBC RBC Hgb Hct MCV MCH MCHC RDW Plt Count Neut % (Auto) Lymph % (Auto) [place] % (Auto) Eos % (Auto) Baso % (Auto) Neut # (Auto) Lymph # (Auto) [place] # (Auto) Eos # (Auto) Baso # (Auto) PT INR APTT Sodium Potassium Chloride Carbon Dioxide BUN Creatinine Estimated GFR BUN/Creatinine Ratio Glucose Calcium Total Bilirubin AST ALT Alkaline Phosphatase Total Creatine Kinase CK-MB (CK-2) CK-MB (CK-2) Rel Index Troponin I Total Protein Albumin Globulin Albumin/Globulin Ratio SARS-CoV-2 (PCR) Negative Assessment & Plan Assessment & Plan narrative: 1. Concern for TIA. Emergency room. Brain CT done in the emergency room. Loading ASA completed in the emergency room. We will treat with 81 mg daily of ASA and loading dose of clopidogrel 300 mg followed by 75 mg daily. Telemetry monitoring. Echocardiogram. Lipid panel. Consult physical therapy, occupational therapy and speech therapy. 2. Hyperlipidemia. Maintain patient's regular medications. 3. Parkinson's disorder. Maintain patient's regular medication. 4. Diabetes. Maintain patient's regular medication. Code status: Do not resuscitate DVT prophylaxis: Enoxaparin 40 mg subcu daily GI prophylaxis: Currently on famotidine. will continue Surrogate decision maker: Patient's . Time Spent With Patient Critical Care time: I spent a total of [] minutes of critical care time on this patient's care today; this time is exclusive of procedural time. Quality VTE Deep Vein Thrombosis/Pulmonary Embolism Present on Admission: No
--- NOTE | 2022-07-24 17:29 | DI.ECHO.S_ITS ---
[facility]---------+ [facility] +---------+ : : [address] [place] : : : : [id number] : : : : Phone: [phone]---------+ Echocardiogram Report + + :Name: BRAULIO CAR Study Date: 07/25/2022 Height: 73 in : :[facility] ReadingLocation: Weight: 230 lb : : Gender: Male BSA: 2.3 m2 : :: 1935 Age: 87 yrs BP: 162/77 mmHg: :Reason For Study: TIA : :Ordering Physician: ALONSO, : :MARISA Performed By: Gabibe Espinosa : :Referring: MARISA GUPTA : + + Interpretation Summary There is mild concentric left ventricular hypertrophy. The ejection fraction is estimated to be 55-60%. Diastolic parameters suggest probable normal left ventricular diastolic function and normal filling pressures. The right ventricle is mildly dilated. The right ventricular systolic function is normal. No significant valvular abnormalities. The right ventricular systolic pressure is estimated to be at least 37 mmHg based on an estimated right atrial pressure of 3 mm Hg. The aortic root is mildly dilated. Procedure: A two-dimensional transthoracic echocardiogram with color flow and Doppler was performed. The study quality was technically adequate. There is no prior echocardiogram noted for this patient. A contrast injection of Definity was performed to improve assessment of LV function. The patient had occasional PVCs during the exam. The patient was in sinus rhythm with heart rates between 59-76 bpm during the exam. Left Ventricle: The left ventricle is normal in size. There is mild concentric left ventricular hypertrophy. The ejection fraction is estimated to be 55-60%. Diastolic parameters suggest probable normal left ventricular diastolic function and normal filling pressures. Right Ventricle: The right ventricle is mildly dilated. The right ventricular systolic function is normal. Atria: The left atrial size is normal. Right atrial size is normal. There is no Doppler evidence for an interatrial shunt. Mitral Valve: The mitral valve is normal in structure and function. There is trace mitral regurgitation. Aortic Valve: The aortic valve is mildly calcified. The aortic valve is not well visualized. There is no aortic valve stenosis. No aortic regurgitation is present. Tricuspid Valve: The tricuspid valve is normal in structure and function. There is trace tricuspid regurgitation. The right ventricular systolic pressure is estimated to be at least 37 mmHg based on an estimated right atrial pressure of 3 mm Hg. Pulmonic Valve: The pulmonic valve is not well visualized. There is mild pulmonic regurgitation. Great Vessels: The aortic root is mildly dilated. The ascending aorta could not be visualized. The IVC is of normal diameter and collapses greater than 50% with a sniff. This suggests a low right atrial pressure of 3 mm Hg. Pericardium/ Pleura There is no pericardial effusion. There is no pleural effusion. MMode/2D Measurements & Calculations LVIDd: 4.6 cm LVOT diam: 2.5 cm LVIDs: 3.3 cm Ao root diam: 4.1 cm FS: 28.2 % Ao Arch Diam (Prox Trans): 3.1 cm IVSd: 1.2 cm LVPWd: 1.0 cm LV alejandro. diameter/BSA (cm/m^2): 2.0 LV sys. diameter/BSA (cm/m^2): 1.4 LA A2 area: 16.3 cm2 RA long axis: 5.2 cm LA A4 area: 16.9 cm2 RA area: 20.1 cm2 LA length (vol): 5.1 cm RA vol: 65.7 ml LA vol: 45.5 ml RA : 28.8 ml/m2 LA vol index: 19.9 ml/m2 IVC diam: 1.1 cm RVD1 (basal): 4.1 cm RVD2 (mid): 3.9 cm TAPSE: 3.2 cm Doppler Measurements & Calculations Ao V2 max: 202.0 cm/sec LVOT Max Garcia: 90.9 cm/sec Ao V2 mean: 141.0 cm/sec LV V1 max P.3 mmHg Ao max P.3 mmHg LV V1 VTI: 23.6 cm Ao mean P.8 mmHg JAVY(I,D): 2.5 cm2 Ao V2 VTI: 48.3 cm JAVY(V,D): 2.3 cm2 sev ratio: 0.49 JAVY indexed to BSA (cm^2/m^2): 1.1 MV E max garcia: 83.5 cm/sec TR max garcia: 290.9 cm/sec MV A max garcia: 95.3 cm/sec TR max P.9 mmHg MV E/A: 0.88 PA V2 max: 138.1 cm/sec Med Peak E' Garcia: 6.2 cm/sec PA V2 mean: 100.6 cm/sec E/E' med: 13.5 PA mean P.4 mmHg Lat Peak E' Garcia: 8.8 cm/sec E/E' lat: 9.5 E/e' average: 11.5 MV dec time: 0.28 sec SV(LVOT): 119.1 ml Reading Physician:02:54 PM
[2022-07-24] MEDS: CLOPIDOGREL 75 MG TABLET 300 MG PO (18:21)
[2022-07-24] MEDS: SODIUM CHLORIDE 0.45% 1,000 ML 84 ML IV (18:42)
[2022-07-24] MEDS: clonazePAM 0.5 MG TABLET PO (20:12)
[2022-07-24] MEDS: QUETIAPINE 25 MG TABLET 50 MG PO (20:12)
[2022-07-24] MEDS: SENNOSIDES 8.6 MG TABLET 17.2 MG PO (20:12)
[2022-07-24] MEDS: MELATONIN 3 MG TABLET PO (20:12)
[2022-07-25] VITALS (8 sets, daily range): BP systolic 130–163; BP diastolic 58–76; PULSE 64–77; RESP 16–18; TEMP 36.2–36.4; O2SAT 93–96
--- NOTE | 2022-07-25 03:12 | PC.NURSE ---
Pt is AxOx3-4, calm and cooperative. VSS, pt denies pain. Pt is on tele and it is SR and 1st degree AV. Pt slept well. No BM overnight. Continue monitor.
[2022-07-25] MEDS: CARBIDOPA-LEVODOPA 25/100 TABLET 1 EACH PO ×3 (06:13→17:04)
[2022-07-25] MEDS: SODIUM CHLORIDE 0.45% 1,000 ML 84 ML IV ×2 (06:17→20:56)
[2022-07-25] MEDS: ASPIRIN EC 81 MG TABLET PO (09:38)
[2022-07-25] MEDS: METFORMIN HCL 500 MG TABLET 1000 MG PO (09:38)
[2022-07-25] MEDS: CALCIUM CARB/VIT D3 500/200 TABLET 1 EACH PO (09:39)
[2022-07-25] MEDS: ASCORBIC ACID 500 MG TABLET 1000 MG PO (09:39)
[2022-07-25] MEDS: CITALOPRAM 10 MG TABLET PO (09:39)
[2022-07-25] MEDS: CLOPIDOGREL 75 MG TABLET PO (09:40)
[2022-07-25] MEDS: ENOXAPARIN 40 MG/0.4 ML SYRINGE SUBCUT (09:40)
[2022-07-25] MEDS: clonazePAM 0.5 MG TABLET PO ×2 (09:40→20:56)
[2022-07-25] MEDS: lisinopriL 5 MG TABLET PO (09:41)
[2022-07-25] MEDS: FAMOTIDINE 20 MG TABLET PO (09:41)
[2022-07-25] MEDS: FISH OIL 1,000 MG CAPSULE 2000 MG PO (09:43)
[2022-07-25] MEDS: MULTIVITAMIN 1 TABLET 1 TAB PO (09:43)
[2022-07-25] MEDS: QUETIAPINE 25 MG TABLET 50 MG PO ×2 (09:44→20:57)
[2022-07-25] MEDS: PSYLLIUM HUSK 1 PACKET PO (09:44)
[2022-07-25 10:05] LABS: Add Manual Diff / Slide Review NO; Basophils Absolute Auto 100 /uL (0-100); Basophils Percent Auto 0.6 % (0-2); Eosinophils Absolute Auto 500 /uL (0-450); Eosinophils Percent Auto 4.4 % (2-4); Hematocrit 36.7 % (41-53); Lymphocytes Absolute Auto 2900 /uL (1100-4500); Lymphocytes Percent Auto 25.3 % (25-40); Mean Corpuscular HGB Conc 32.7 % (30-36); Mean Corpuscular Hemoglobin 30.1 PG (26-34); Mean Corpuscular Volume 91.8 fL (80-100); Monocytes Absolute Auto 1300 /uL (0-900); Monocytes Percent Auto 11.4 % (3-14); Neutrophils Absolute Auto 6800 /uL (1500-7000); Neutrophils Percent Auto 58.3 % (50-75); Platelet Count 163 X10^3/uL (150-400); Red Cell Distribution Width 13.9 % (11.6-14.8); White Blood Cell Count 11.6 X10^3/uL (4.5-11.0)
[2022-07-25 10:09] LABS: Appearance Urine UA CLOUDY; Bilirubin Urine UA NEGATIVE (NEGATIVE); Color Urine UA YELLOW; Glucose Urine UA NEGATIVE (Negative); Ketones Urine UA NEGATIVE (NEGATIVE); Leukocyte Esterase Urine UA 3+ (NEGATIVE); Nitrite Urine UA NEGATIVE (Negative); Occult Blood Urine UA 2+ (Negative); Protein Urine UA NEGATIVE (Negative); Specific Gravity Urine UA <=1.005 (1.000-1.035); Urobilinogen Urine UA 0.2 E.U./dL (0.2); pH Urine UA 6.5 (4.5-8.0)
[2022-07-25 10:15] LABS: Bacteria Urine Many (>30); Culture Indicated Urine Specimen Cultured; RBC Urine 0-1/HPF (0-5/HPF); WBC Urine 30-100/HPF (0-5/HPF)
[2022-07-25 10:28] LABS: BUN Creatinine Ratio 23.2 (6-22); Blood Urea Nitrogen 38 mg/dL (9-20); Calcium 9.1 mg/dL (8.4-10.2); Carbon Dioxide 29 mmol/L (22-32); Chloride 98 mmol/L (98-107); Cholesterol 193 mg/dL (140-199); Estimated Glomerular Filt Rate 40 mL/min (>60); Glucose 234 mg/dL (80-110); HDL Cholesterol 33 mg/dL (40-60); HEMOLYSIS < 15 (0-50); LDL Cholesterol Calculated 132 mg/dL (<100); Potassium 4.6 mmol/L (3.4-5.1); Sodium 137 mmol/L (137-145); Triglycerides 138 mg/dL (35-150)
--- NOTE | 2022-07-25 11:29 | CM.DANOTE ---
Patient is an 87 yo male who was admitted on 07/24/22 for CVA/TIA r/o. Pt has [facility] and [employer] for insurance and his PCP is Dr. Richard Ortiz. EMR was reviewed. Per MD, pt with hx of Parkinson's, advanced dementia, diabetes. MRI to r/o possible TIA as symptoms have resolved. Per MD, pt's urine results came back showing UTI with sepsis and KWAN. Pt to be started on IV-Abx and MRI today to still r/o other medical needs. SW met bedside with pt, very pleasant but demented and no behaviors, and spouse Marleen and explained role and spouse confirms that she and their Dtr Karolina are pt's DPOA's. Spouse confirms that she still lives in [facility] with her adult Dtr Karolina and spouse visits pt daily at [facility]. Pt moved into [facility] about a year and a half ago and spouse feels it has been going well. Pt ambulates with SBA short distances at [facility]. Spouse would like pt to return to [facility] at d/c and states she plans to provide transport as long as pt can still transfer from w/c into POV. SW called [facility] and spoke to [employer] as it's the weekend and they confirm that they love [place] at their facility and pt not w/c bound and helps with transfers and short ambulation distances with supervision. Pt pleasant and cooperative and no dementia aggression or behaviors. SW updated on current pt status and faxed requested clinicals to [facility] to review to fax [phone]. Plan: SW to follow for MRI results today and [facility] review of clinicals to confirm safe d/c back via spouse POV when medically stable. MARLENE Palencia Discharge Planning/Care Management CM Discharge Assessment Start: 07/25/22 11:26 Freq: Status: Active Protocol: Document 07/25/22 11:26 BF (Rec: 07/25/22 11:29 BF [id number]) Discharge Planning Assessment Assigned Maintenance Inspector MARLENE Quiroga DPOA/Assigned Designee Name Spouse Marleen solo, Dtr Karolina 2nd Contact Information [phone] Advance Directives? Yes: POLST Advance Directives on File Yes History Provided By Family Member,Significant Other,Medical Record Has Patient been admitted in last 30 No days? Prior Living Arrangements Assisted Living Household Members other Comment Lives at [facility] Type of transporation used prior to Relies on Others admit Independent with ADL's No: memory care facility Is patient alert and oriented? No: Dementia Caregiver for Another No Barriers to Discharge No Comment Return to [facility] Memory Discharge Plan Assisted Living Facility Transportation Arrangement spouse plans to transport pt at d/c as long as he isn't too below baseline Referrals Initiated None needed Additional Comment Pending possible PT eval and recommendations Whiteboard Updated in Patient Room with Yes name and ext. # of Maintenance Inspector Review Status In Process Please Provide Date Initial DC 07/25/22 Assessment Was Performed Next Review Type Continued Stay Review
--- NOTE | 2022-07-25 11:42 | PC.NURSE ---
Alert SELDOVIA impaired eye sight. Conversant though deliberate and a bit delayed responses. attentive in the room. Echo done. Will be going for MRI. needs urine sent.
--- NOTE | 2022-07-25 11:49 | OT.IP.EVAL ---
Past Medical History (Last Reviewed 06/30/22 @ 16:46 by Tara Harry PA-C) Chicken pox Hearing loss (~2011) Hyperlipidemia associated with type 2 diabetes mellitus Measles Mumps Parkinson's disease (~2009) 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 Rosacea Sleep apnea (~2010) Type 2 diabetes mellitus without complication (11/10/16) Surgical History (Last Reviewed 06/30/22 @ 16:46 by Tara Harry PA-C) Anesthesia History of cataract removal with insertion of prosthetic lens History of tonsillectomy Status post appendectomy Occupational Therapy Inpatient Evaluation/Re-Eval M1 PT/OT-IP Prior Functional Status Start: 07/25/22 12:54 Freq: NEEDED Status: Active Protocol: Document 07/25/22 15:11 CGR (Rec: 07/25/22 15:34 CGR [id number]) Medical Review Prior Functional Status Medical History Reviewed Yes Communication able to follow instructions but with delay Mobility and Gait pt's spouse in room and able to provide pt's PLOF and set up: stated that pt is w/c bound but able to maneuver w/c by himself using BUE/LE. able to stand using a 4WW for transfers with staff assist at [facility]. stated that pt gets assistance with almost everything: showers, dressing and toileting needs. spouse stated that pt had HHPT before and able to ambulate ~ 6-8 ft using 4WW Activities of Daily Living and IADL's Pt and state that he receives assist for all ADLs at [facility] but is able to perform simple ADLs seated at sink. Social History Household Members caregiver Living Arrangements Assisted Living Number of Stairs To Enter/Railing? pt lives at [facility] Home Environment Walk in Shower Home Equipment Four Wheel Walker,Lift Recliner Additional Social History Comment Pt has a bed cane on R side M2 OT-IP Current Condition Start: 07/25/22 15:10 Freq: Status: Active Protocol: Document 07/25/22 15:11 CGR (Rec: 07/25/22 15:34 CGR [id number]) Occupational Therapy Current Condition Current Condition Evaluation Date 07/25/22 Treatment Diagnosis slurring speech and left sided lean Diagnosis Onset Date 07/24/22 M3 OT- IP Subjective and Pain Start: 07/25/22 15:10 Freq: Status: Active Protocol: Document 07/25/22 15:11 CGR (Rec: 07/25/22 15:34 CGR [id number]) OT- Subjective Occupational Therapy Visit Type Type Initial Evaluation Visit Start Time 11:21 Visit Stop Time 11:49 Total Visit Minutes 28 Notes Pt's present throughout. OT Pain Assessment Pain When Pain Assessed At Rest Pain Present Pain Present Denied Pain M4 OT- IP ADL's Start: 07/25/22 15:10 Freq: Status: Active Protocol: Document 07/25/22 15:11 CGR (Rec: 07/25/22 15:34 CGR [id number]) OT [id number] Comments OT Self-Feeding Comments not meal time OT ADL-Grooming General Evaluation Grooming Ability Standby Assistance Areas Needing Assistance Combing/Brushing Hair,Face Washing Comments OT Grooming Comments seated in chair at sink OT ADL-Oral Care General Eval Oral Care Ability Standby Assistance Areas of Assistance Brushing Teeth Comments Oral Care Comments seated in chair at sink OT ADL-Dressing Comments OT Dressing Comments not performed, pt is dep at baseline. OT ADL-Toileting Comments OT Toileting Comments not performed, pt just completed using urinal with wifes assist when OT entered. OT ADL-Bathing Comments OT Bathing Comments not performed M5 OT- IP IADL's Start: 07/25/22 15:10 Freq: Status: Active Protocol: Document 07/25/22 15:11 CGR (Rec: 07/25/22 15:34 CGR [id number]) OT-Instrumental Activities of Daily Living Deficits IADL Deficits Identified Deficits Home Safety Awareness Awareness of Need for Assistance at Home Decreased Awareness Ability to Problem Solve Emergency Unable to Problem Solve Situations Medication Management Medication Management Caregiver Administers Money Management Money Management Caregiver Provides Assistance Meal Preparation Meal Preparation Caregiver Provides Assist Fire Alarm Operator Fire Alarm Operator Caregiver Provides Assist Driving Driving Comments Pt does not drive M6 OT- IP Functional Cognition Start: 07/25/22 15:10 Freq: Status: Active Protocol: Document 07/25/22 15:11 CGR (Rec: 07/25/22 15:34 CGR [id number]) Cognitive Factors Limiting Selfcare Function Cognitive Ability Level of Alertness Alert,Confusional State Patient Orientation Name,Age,Birthday,Month,Date, Year,Day of Week,Place, Situation Attention Span Ability Capable of Focused Attention, Capable of Sustained Attention Ability to Follow Commands Able to Follow One Step Commands with Increased Time, Able to Follow One Step Commands with Repetition Cognitive Comments Cognitive Assessment Comments Pt is cognitievly intact for orientation but has deficits with higher level congnition. 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 M7 OT- IP Mobility and Balance Start: 07/25/22 15:10 Freq: Status: Active Protocol: Document 07/25/22 15:11 CGR (Rec: 07/25/22 15:34 CGR [id number]) OT- Bed Mobility Assessment Rolling Level of Assistance Total Assistance,1 Person Assistance Supine to Sit Supine to Sit Assist Total Assistance,1 Person Assistance Scooting Scooting to Edge of Bed Total Assistance,1 Person Assistance OT-Transfer Assessment Sit to and From Stand Sit to and from Stand Total Assistance,1 Person Assistance Transfers Transfer Ability Total Assistance,1 Person Assistance Technique Transfer Destination Bed,Chair Transfer Technique Stand Step Pivot Devices Transfer Assistive Devices Gait Belt,Front Wheeled Walker Comments Mobility Comments Pt able to stand with total assist and transfer to chair. Pt's states his mobility appears typical OT- Balance Assessment Sitting Balance and Reactions Static Sitting Balance Ability Good Dynamic Sitting Balance Ability Fair M8 OT- IP Objective Assessments Start: 07/25/22 15:10 Freq: Status: Active Protocol: Document 07/25/22 15:11 CGR (Rec: 07/25/22 15:34 CGR [id number]) OT Gross Range of Motion Upper Extremity Range of Motion Assessment Within Functional Limits OT Strength Upper Extremity Strength Assessment Within Functional Limits Comments Strength Comments 4/5 OT- Coordination Assessment Upper Extremity Finger to Nose Test Within Functional Limits Finger Tapping Test Within Functional Limits OT-Muscle Tone Assessment Muscle Tone WNL Yes OT Sensation Assessment Edema Edema Absent M9 OT- IP Assessment and Plan Start: 07/25/22 15:10 Freq: Status: Active Protocol: Document 07/25/22 15:11 CGR (Rec: 07/25/22 15:34 CGR [id number]) OT Summary Assessment and Plan Potential Rehabilitation Potential Excellent Analytic Complexity at Evaluation High Summary OT Impairments Balance,Functional Cognition, Functional Mobility,Grooming, Dressing,Toileting,Bathing, Toilet Transfers,Shower Transfers,Activity Tolerance Progress Towards Goals Safe For Discharge Assessment Summary Pt presents as a high complexity ecaluation s/p admit for possible CVA. Pt appears to be at his baseline which is requiring assist for transfers and most ADls. No further OT needs. [facility] Frequency of Treatment Frequency Of Treatment Discharge Discharge Recommendations OT Discharge Recommendations LTAC Transportation Needs at Discharge Wheelchair/Cabulance
--- NOTE | 2022-07-25 11:51 | PT.IIE ---
Surgical History (Last Reviewed 06/30/22 @ 16:46 by Tara Harry PA-C) Anesthesia History of cataract removal with insertion of prosthetic lens History of tonsillectomy Status post appendectomy Medical History (Last Reviewed 06/30/22 @ 16:46 by Tara Harry PA-C) Chicken pox Hearing loss (~2011) Hyperlipidemia associated with type 2 diabetes mellitus Measles Mumps Parkinson's disease (~2009) 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 Rosacea Sleep apnea (~2010) Type 2 diabetes mellitus without complication (11/10/16) Physical Therapy Inpatient Evaluation/Re-Eval M1 PT/OT-IP Prior Functional Status Start: 07/25/22 12:54 Freq: NEEDED Status: Active Protocol: Document 07/25/22 11:51 AB (Rec: 07/25/22 13:15 AB [id number]) Medical Review Prior Functional Status Medical History Reviewed Yes Communication able to follow instructions but with delay Mobility and Gait pt's spouse in room and able to provide pt's PLOF and set up: stated that pt is w/c bound but able to maneuver w/c by himself using BUE/LE. able to stand using a 4WW for transfers with staff assist at [facility]. stated that pt gets assistance with almost everything: showers, dressing and toileting needs. spouse stated that pt had HHPT before and able to ambulate ~ 6-8 ft using 4WW Social History Household Members caregiver Living Arrangements Assisted Living Number of Stairs To Enter/Railing? pt lives at [facility] Home Environment Walk in Shower Home Equipment Four Wheel Walker,Lift Recliner Additional Social History Comment Pt has a bed cane on R side M2 PT-IP Current Condition Start: 07/25/22 12:54 Freq: NEEDED Status: Active Protocol: Document 07/25/22 11:51 AB (Rec: 07/25/22 13:15 AB [id number]) Physical Therapy Current Condition Current Condition Evaluation Date 07/25/22 Treatment Diagnosis TIA;PD; difficulty in walking Onset Date 07/24/22 M3 PT-IP Subjective Start: 07/25/22 12:54 Freq: NEEDED Status: Active Protocol: Document 07/25/22 11:51 AB (Rec: 07/25/22 13:15 AB [email or web address]) Subjective Physical Therapy Visit Type Type Initial Evaluation Visit Start Time 11:51 Visit Stop Time 12:12 Total Visit Minutes 21 Number of [facility] Visits 0 Physical Therapy Visit Comments Patient Comments agreeable to do PT M4 PT-IP Mobility and Gait Start: 07/25/22 12:54 Freq: NEEDED Status: Active Protocol: Document 07/25/22 11:51 AB (Rec: 07/25/22 13:15 AB [email or web address]) PT-Bed Mobility Assessment Supine to Sit Supine to Sit Maximum Assistance,Bedrails Sit to Supine Sit to Supine Minimal Assistance PT-Transfer Assessment Sit to and From Stand Sit to and from Stand Maximum Assistance,1 Person Assistance,2 Person Assistance ,Use of Upper Extremities Equipment Transfer Assistive Device Gait Belt,Front Wheeled Walker Orthotic/Prosthetic Devices or Brace: No Transfers Transfer Destination Bed,Chair Transfer Technique Stand Step Pivot Transfer Ability Level of Assist Maximum Assistance,1 Person Assistance,2 Person Assistance ,Use of Upper Extremities Comments Mobility Comments pt sitting on chair and spouse in room. pt completed sit to stand from the chair x 3 attempts max A x 1-2 and max cues. completed step transfer chair to bed max A x 1-2 and max cues. completed sit to supine min A and max A with supine to sit using bed rail. completed sit to stand from bed max A and step transfer back to chair using fWW max A and max cues. positioned pt on the chair. call light and table placed within reach. PT-Balance Assessment Sitting Balance and Reactions Static Sitting Balance Ability Good Dynamic Sitting Balance Ability Fair Standing Balance and Reactions Static Standing Balance Ability Poor Dynamic Standing Balance Ability Poor Device Used FWW M5 PT-IP Objective Assessments Start: 07/25/22 12:54 Freq: NEEDED Status: Active Protocol: Document 07/25/22 11:51 AB (Rec: 07/25/22 13:15 AB [id number]) Orientation Orientation/Cognition Level of Alertness Alert Orientation Name Safety Awareness Decreased Safety Awareness Memory Description Short Term Impaired Gross Range of Motion Lower Extremity ROM Assessment Within Functional Limits Strength Lower Extremity Strength Assessment Within Functional Limits Muscle Tone Muscle Tone WNL Yes M6 PT-IP Treatment Start: 07/25/22 12:54 Freq: NEEDED Status: Active Protocol: Document 07/25/22 11:51 AB (Rec: 07/25/22 13:15 AB [email or web address]) Physical Therapy Treatment Education Education Provided Safety M7 PT-IP Assessment and Plan Start: 07/25/22 12:54 Freq: NEEDED Status: Active Protocol: Document 07/25/22 11:51 AB (Rec: 07/25/22 13:15 AB [id number]) PT Summary Assessment and Plan Potential Rehabilitation Potential Fair Status of Condition at Evaluation Evolving Summary Impairments Pain,ROM,Strength,Balance, Coordination,Sensation,Tone, Cognition,Bed Mobility, Transfers,Gait,Activity Tolerance Assessment Summary pt requiring max A x 1-2 and max cues with transfers using FWW. pt lives at [facility] and if able to provide appropriate assistance to pt, pt may go back there. pt will benefit from HHPT. Goals Bed Mobility Goal Contact Guard Assistance Transfer Goal Minimal Assistance,Front Wheeled Walker Gait Goal Minimal Assistance,Front Wheel Walker Gait Distance 5 Days to Meet Goals 10 Frequency of Treatment Frequency Of Treatment Once a Day Treatment Plan Physical Therapy Treatment Plan Bed Mobility Training,Transfer Training,Gait Training, Therapeutic Exercise,Balance Retraining,Discharge Planning, Neuromuscular Re-ed, Coordination Retraining,Manual Therapy Precautions Other Precautions falls Recommendations To Nursing Amount of Assist Needed 2 Person Assist Discharge Recommendations PT Discharge Recommendations Home with 24/ Assist Available,Home Health Other Discharge Recommendations Home: [facility] Transportation Needs at Discharge Private Vehicle,Wheelchair/ Cabulance
--- NOTE | 2022-07-25 14:09 | P.PN_ITS ---
Subjective Subjective Date Patient Seen: 07/25/22 Interval history: 87 M whom resides at a memory care unit admitted with concern for possible CVA with reported weakness, slurred speech and leaning to the left. He is improved today. He does appear to have a UTI and did have an episode of what is likely encephalopathy based on review. Also with KWAN on admission. Concern for sepsis based on presentation. MRI of brain pending to evaluate for CVA but started on antibiotics for presumed sepsis today. He is hypertensive and appeared euvolemic and had been fairly stable so fluids were not given as the risks seemed to outweigh benefits in this situation. Exam Vital Signs (past 8 hours): - 07/25/22 08:10 07/25/22 09:41 07/25/22 11:05 Temperature 97.3 F L 97.6 F Pulse Rate 64 64 68 Respiratory Rate 18 18 Blood Pressure 138/68 138/68 163/72 H Pulse Oximetry 94 96 07/25/22 11:41 Temperature 97.6 F Pulse Rate 68 Respiratory Rate 18 Blood Pressure 163/72 H Pulse Oximetry 96 Oxygen Delivery Method Room Air Oxygen Flow Rate 0 Narrative Exam Narrative: GENERAL APPEARANCE:? elderly male, in no acute distress SKIN: Inspection of the skin reveals no rashes, ulcerations or petechiae. HEENT:? Normocephalic atraumatic, extraocular muscles are intact, oropharynx is clear and mucous membranes are moist, neck is supple without adenopathy NECK: Supple and symmetric. There was no thyroid enlargement, and no tenderness, or masses were felt. CHEST: Normal AP diameter and normal contour without any kyphoscoliosis. LUNGS: Auscultation of the lungs revealed no wheezes, rhonchi, or rales. CARDIOVASCULAR: There was a regular rate and rhythm without any murmurs, gallops, rubs. Peripheral pulses were 2+ and symmetric. ABDOMEN:? Soft, nontender, and nondistended MUSCULOSKELETAL: There was no tenderness or effusions noted. Muscle strength and tone were normal. EXTREMITIES: No cyanosis, clubbing or edema. NEUROLOGIC: Alert and oriented x1 (name only).? No focal deficits.? Occasional tremor. Mumbles responses frequently. Objective Labs Result Diagrams: 07/25/22 09:30 07/25/22 09:30 Labs: Laboratory Results - last 24 hr 07/25/22 07/25/22 07/25/22 09:30 09:30 09:45 WBC 11.6 H RBC 4.00 L Hgb 12.0 L Hct 36.7 L MCV 91.8 MCH 30.1 MCHC 32.7 RDW 13.9 Plt Count 163 Neut % (Auto) 58.3 Lymph % (Auto) 25.3 [place] % (Auto) 11.4 Eos % (Auto) 4.4 H Baso % (Auto) 0.6 Neut # (Auto) 6800 Lymph # (Auto) 2900 [place] # (Auto) 1300 H Eos # (Auto) 500 H Baso # (Auto) 100 Sodium 137 Potassium 4.6 Chloride 98 Carbon Dioxide 29 BUN 38 H Creatinine 1.64 H Estimated GFR 40 L BUN/Creatinine Ratio 23.2 H Glucose 234 H Calcium 9.1 Triglycerides 138 Cholesterol 193 LDL Cholesterol, Calc 132 H HDL Cholesterol 33 L Urine Color Yellow Urine Appearance Cloudy Urine pH 6.5 Ur Specific [place] <=1.005 Urine Protein Negative Urine Glucose (UA) Negative Urine Ketones Negative Urine Occult Blood 2+ H Urine Nitrate Negative Urine Bilirubin Negative Urine Urobilinogen 0.2 Ur Leukocyte Esterase 3+ H Urine RBC 0-1/hpf Urine WBC 30-100/hpf H Urine Bacteria Many (>30) H Ur Culture Indicated? Specimen cultured [facility] Medical History Chicken pox Hearing loss (~2011) Hyperlipidemia associated with type 2 diabetes mellitus Measles Mumps Parkinson's disease (~2009) 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 Rosacea Sleep apnea (~2010) Type 2 diabetes mellitus without complication (11/10/16) Surgical History Anesthesia History of cataract removal with insertion of prosthetic lens History of tonsillectomy Status post appendectomy Family History Mother Heart disease Diabetes mellitus Father Cancer Grandfather Heart disease Grandmother Heart disease Grandmother Heart disease Social History household members: caregiver Smoking Status: Former smoker alcohol intake: never Assessment & Plan Assessment & Plan narrative: 1. Sepsis secondary to acute cystitis with metabolic encephalopathy and KWAN - concern for possible CVA based on presentation, MRI pending but likely consistent with encephalopathy given UTI and KWAN today. He has a history of prior UTIs as well. - continue asa/plavix for now for possible CVA/TIA. Consider discontinuation if he remains improved given likely sepsis depending on MRI results. - started on ceftriaxone once urine culture results, risks of fluids (volume overload, hypertension) outweighed possible benefits so sepsis fluid bolus were considered but not given. - Creatinine improved today from 1.9 > 1.6. - follow up urine culture results, continue ceftriaxone for now 2. Hyperlipidemia. Maintain patient's regular medications. 3. Parkinson's disorder. Maintain patient's regular medication. 4. Diabetes. Hyperglycemic. Will hold home metformin in setting of sepsis, st art lantus 8 U tonight with sliding scale and continue to adjust as needed. Code status: Do not resuscitate DVT prophylaxis: Enoxaparin 40 mg subcu daily GI prophylaxis: Currently on famotidine. will continue Surrogate decision maker: Patient's . Time Spent With Patient Critical Care time: I spent a total of [] minutes of critical care time on this patient's care today; this time is exclusive of procedural time. Quality VTE Deep Vein Thrombosis/Pulmonary Embolism Present on Admission: No
--- NOTE | 2022-07-25 14:22 | DI.MRI.S_ITS ---
PROCEDURE: MR HEAD/BRAIN WO CON INDICATIONS: CVA vs TIA TECHNIQUE: Non-contrast axial T1 spin echo, axial T2 fast spin echo, sagittal and axial FLAIR, coronal T2 fast spin echo, axial gradient echo, axial diffusion and ADC through the brain. COMPARISON: [facility], CT, CT ANGIO HEAD AND NECK, 07/24/2022, 10:31. FINDINGS: Image quality: Excellent. CSF spaces: Ventricles appear symmetric in size and shape. Basal cisterns are patent. No extra-axial fluid collections. Brain: No intracranial bleeds or mass effects. There is cerebral volume loss for age. There are scattered small areas of periventricular and deep white matter chronic small vessel ischemic changes. Brainstem appears normal. Diffusion-weighted images show no acute ischemic insults. No chronic ischemic insults. Normal intravascular flow voids are present. Skull and face: Calvarial bone marrow is normal in signal. Orbits are normal. Sinuses: Sinuses and mastoids are clear. IMPRESSION: 1. No evidence of acute ischemia. 2. Age-appropriate exam with age-appropriate cortical volume and white matter signal changes. Dictated by: Kasey Israel M.D. on 07/25/2022 at 14:34 Approved by: Kasey Israel M.D. on 07/25/2022 at 14:37
--- NOTE | 2022-07-25 14:37 | ST.IPCSEOM ---
Visit Care Team Role Provider Type Richard Ortiz MD Primary Care Provider Physician Specialty: Internal Medicine Address: [address] [place] [address], [address], [place], [address] Email: [email or web address] Desi Boudreaux DO Emergency Provider Physician Referring Provider Specialty: Emergency Medicine Address: [address] [place] [address], [id number] Email: [email or web address] Susan Carrizales MD Admit Provider Physician Attending Provider Specialty: Family Practice Address: [address] [place] [address], [address] Phone: Fax: Email: [email or web address] Medical History (Last Reviewed 06/30/22 @ 16:46 by Tara Harry PA-C) Chicken pox (Medical) Hearing loss (Medical ~2011) Hyperlipidemia associated with type 2 diabetes mellitus (Medical) Measles (Medical) Mumps (Medical) Parkinson's disease (Medical ~2009) Partial blindness (Medical ~2014) Right eye Penis injury (Medical) REM behavioral disorder (Medical) Rosacea (Medical) Sleep apnea (Medical ~2010) Type 2 diabetes mellitus without complication (Medical 11/10/16) Speech-Language Pathology Swallow Evaluation [employer] Clinical Swallow Evaluation Start: 07/25/22 13:59 Freq: Status: Active Protocol: Document 07/25/22 13:59 CG (Rec: 07/25/22 14:11 [id number]) Clinical Swallow Evaluation Session Time Visit Start Time 12:55 Visit Stop Time 01:15 Total Visit Minutes 20 Visit Information Visit Number 1 Setting Assessment Location Acute Care Visit Type Note Type Initial evaluation Patient Information Identification Type Name History Pt is an 87-year-old male with a medical history significant for hyperlipidemia, diabetes, and Parkinson's, who is a resident of [facility]. He was sent to ED with concerns for a stroke, due to slurring of speech and leaning to the left. Initial working diagnosis was a TIA, with pt admitted for observation. Pt presents with dysarthria at baseline secondary to Parkinson's. Speech has been improving since admission per pt's . Subjective Observations Pt was seated upright in chair upon [employer] entry to the room. Pt was alert, oriented, and cooperative. Reported by Patient Comment Pt has a history of coughing/ choking on almanza and was previously on an altered diet. He was recently cleared for a regular diet by the [facility] at his [facility] care facility. Current Diet Regular,Thin liquids Baseline Feeding Method Independent in self-feeding Objective Assessment Mental Status Alert,Responsive Oral Integrity WFL Dentition Within normal limits Lip Function Mild impairment Observation of Lips at Rest Symmetrical Pucker Reduced range of motion, Reduced strength Lip Retraction Reduced range of motion Alternating Pucker/Lip Retraction Reduced range of motion, Incoordination Tongue Function Within normal limits Tongue Protrusion Within normal limits Tongue Lateralization Within normal limits Jaw Function Within normal limits Observations of Jaw at Rest Within normal limits Jaw Opening Within normal limits Jaw Closing Within normal limits Comment Pt presented with weak volitional cough. Food and Liquid Trials Position During Assessment Upright (90 degrees) Liquids Trialed Thin Solids Trialed Regular Administration Type Self-feeding Oral Impairment Mildly impaired Oral Phase Comments Prolongued mastication time, some lingual residue which cleared with lingual sweep and re-swallow. Pharyngeal Impairment Within normal limits Fatigue/Endurance Endurance WNL Findings Swallowing Function Within functional limits Severity of Swallow Impairment Within functional limits Prognosis Good Based on Family support Comment Patient is closely monitored for s/s dysphagia at his [facility] facility, per his 's report. Pt should continue to follow safe swallow strategies in order to minimize risk of aspiration. Impact on Safety and Functioning Risk for inadequate nutrition/ hydration Recommendations Instrumental Assessment No Swallowing Treatment No Recommended Solids Regular Recommended Liquids Thin Safety Precautions/Swallowing Feed only when alert,Remain Recommendations upright (90 degrees) during all oral intake,Needs verbal cues to use recommended strategies,Small bites and sips when eating,Check for pocketing Medication Recommendations As Tolerated Discharge Recommendations long-term care facility Education Patient/Caregiver Education Family/caregivers expressed understanding of evaluation, Patient expressed understanding of safety precautions,Patient expressed understanding of feeding recommendations,Family/ caregivers expressed understanding of safety precautions,Family/caregivers expressed understanding of feeding recommendations
[2022-07-25] MEDS: INSULIN LISPRO 100 UNIT/ML 3ML VIAL SUBCUT ×2 (17:05→21:09)
[2022-07-25] MEDS: SENNOSIDES 8.6 MG TABLET 17.2 MG PO (20:57)
[2022-07-25] MEDS: MELATONIN 3 MG TABLET PO (20:57)
[2022-07-25] MEDS: INSULIN GLARGINE 100 UNIT/ML 3ML PEN 8 UNIT SUBCUT (21:10)
[2022-07-26 00:21] VITALS: BP 151/55; PULSE 64; RESP 20; TEMP 36.6; O2SAT 94
--- NOTE | 2022-07-26 03:48 | PC.NURSE ---
At beginning of shift pt alert and oriented. Around 0000 pt by calling out for nurse and stuffing hands down brief, pt unsure of what he is doing. Pt is incontinent, urinating in brief, changed twice now.
[2022-07-26 04:46] VITALS: BP 152/75; PULSE 63; RESP 18; TEMP 36.5; O2SAT 94
[2022-07-26] MEDS: CARBIDOPA-LEVODOPA 25/100 TABLET 1 EACH PO ×2 (06:23→12:09)
[2022-07-26 07:36] VITALS: BP 159/72; PULSE 58; RESP 20; TEMP 36.5; O2SAT 94
--- NOTE | 2022-07-26 08:29 | PM.DS.1 ---
History of Present Illness History of Present Illness Date Patient Seen: 07/26/22 Chief complaint: code stroke Narrative: Per Dr. Carrizales, This is an 87-year-old male, with a past medical history of hyperlipidemia, diabetes, Parkinson's dementia, resident of [facility] unit who was sent to the emergency room for concern for Stroke. ?His last known well was 10:00 a.m. seen by staff then developed slurring of speech and was leaning towards the left.? Speech was reported to be getting possibly improved per EMS.? He is not on any anti-platelet or anticoagulation is.? He is a DNR with limited interventions. On examination in the ER the patient was Total NIH Stroke scale score: 1. Only scored due to minor dysarthria that likely is his baseline due to the patient's underlying Parkinson's disease. Therefore the initial working diagnosis is a TIA that is resolving. No fever chills nausea vomiting or diaphoresis. No chest pain. No cough wheezing or shortness of breath. No palpitations. No abdominal pain constipation or diarrhea. Able to move all extremities at his baseline that is affected by Parkinson's. Patient normally is mostly wheelchair-bound but can take a few steps with a walker. Patient will be placed in Observation for further assessment and treatment. It is unlikely that the patient will have a hospital stay more than 2 midnights. Discharge Providers Provider Date of admission: 07/24/22 12:30 Discharge Date: 07/26/22 Primary care physician: Richard Ortiz MD Consults: 07/24/22 14:21 Consult to Physical Therapy Evaluate & Treat Comment: TIA Physician Instructions: Evaluate and Treat 07/24/22 14:22 Consult to Occupational Therapy Evaluate & Treat Comment: TIA Physician Instructions: Evaluate and treat 07/24/22 17:32 Consult to Occupational Therapy Evaluate & Treat Comment: Physician Instructions: Evaluate and treat Consult to Physical Therapy Evaluate & Treat Comment: Physician Instructions: Evaluate and Treat Consult to Speech Therapy Evaluate & Treat Comment: Physician Instructions: Evaluate and treat Discharge provider: Ran Fischer DO Summary Hospital Course Discharge Diagnosis: 1. Sepsis secondary to acute cystitis with metabolic encephalopathy and KWAN 2. Hyperlipidemia. 3. Parkinson's disorder. 4. Diabetes, type 2. Hospital Course: This is an 87-year-old male with a past medical history of Parkinson's disease, diabetes, and hyperlipidemia who presented initially with concern for possible stroke with weakness and confusion. MRI was negative for acute infarct but infectious workup the following morning revealed a UTI. He quickly improved, was started on antibiotics. Cultures showed an alpha hemolytic strep species, so he was discharged home on oral augmentin to complete therapy for sepsis secondary to acute cystitis. He was also noted to have an KWAN which creatinine improved during his stay as well. Time Spent with Patient Time spent: Greater than 30 minutes Exam Vital Signs (past 8 hours): - 07/26/22 04:46 07/26/22 07:36 Temperature 97.7 F 97.7 F Pulse Rate 63 58 L Respiratory Rate 18 20 Blood Pressure 152/75 H 159/72 H Pulse Oximetry 94 94 Oxygen Flow Rate 0 Oxygen Delivery Method Room Air Oxygen Flow Rate 0 Narrative Exam Narrative: GENERAL APPEARANCE:? elderly male, in no acute distress SKIN: Inspection of the skin reveals no rashes, ulcerations or petechiae. HEENT:? Normocephalic atraumatic, extraocular muscles are intact, oropharynx is clear and mucous membranes are moist, neck is supple without adenopathy NECK: Supple and symmetric. There was no thyroid enlargement, and no tenderness, or masses were felt. CHEST: Normal AP diameter and normal contour without any kyphoscoliosis. LUNGS: Auscultation of the lungs revealed no wheezes, rhonchi, or rales. CARDIOVASCULAR: There was a regular rate and rhythm without any murmurs, gallops, rubs. Peripheral pulses were 2+ and symmetric. ABDOMEN:? Soft, nontender, and nondistended MUSCULOSKELETAL: There was no tenderness or effusions noted. Muscle strength and tone were normal. EXTREMITIES: No cyanosis, clubbing or edema. NEUROLOGIC: Alert and oriented x1 (name only).? No focal deficits.? Occasional tremor. Mumbles responses frequently. Objective Labs Result Diagrams: 07/25/22 09:30 07/25/22 09:30 Labs: Laboratory Results - last 24 hr 07/25/22 07/25/22 07/25/22 09:30 09:30 09:45 WBC 11.6 H RBC 4.00 L Hgb 12.0 L Hct 36.7 L MCV 91.8 MCH 30.1 MCHC 32.7 RDW 13.9 Plt Count 163 Neut % (Auto) 58.3 Lymph % (Auto) 25.3 Collin % (Auto) 11.4 Eos % (Auto) 4.4 H Baso % (Auto) 0.6 Neut # (Auto) 6800 Lymph # (Auto) 2900 Collin # (Auto) 1300 H Eos # (Auto) 500 H Baso # (Auto) 100 Sodium 137 Potassium 4.6 Chloride 98 Carbon Dioxide 29 BUN 38 H Creatinine 1.64 H Estimated GFR 40 L BUN/Creatinine Ratio 23.2 H Glucose 234 H Calcium 9.1 Triglycerides 138 Cholesterol 193 LDL Cholesterol, Calc 132 H HDL Cholesterol 33 L Urine Color Yellow Urine Appearance Cloudy Urine pH 6.5 Ur Specific Bozrah <=1.005 Urine Protein Negative Urine Glucose (UA) Negative Urine Ketones Negative Urine Occult Blood 2+ H Urine Nitrate Negative Urine Bilirubin Negative Urine Urobilinogen 0.2 Ur Leukocyte Esterase 3+ H Urine RBC 0-1/hpf Urine WBC 30-100/hpf H Urine Bacteria Many (>30) H Ur Culture Indicated? Specimen cultured [facility] Medical History Chicken pox Hearing loss (~2011) Hyperlipidemia associated with type 2 diabetes mellitus Measles Mumps Parkinson's disease (~2009) 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 Rosacea Sleep apnea (~2010) Type 2 diabetes mellitus without complication (11/10/16) Surgical History Anesthesia History of cataract removal with insertion of prosthetic lens History of tonsillectomy Status post appendectomy Family History Mother Heart disease Diabetes mellitus Father Cancer Grandfather Heart disease Grandmother Heart disease Grandmother Heart disease Social History household members: caregiver Smoking Status: Former smoker alcohol intake: never Discharge Plan Discharge Plan Patient Disposition: Home Provider Discharge Comment: you were admitted to the hospital with a urinary tract infection. You improved with treatments and will continue on oral antibiotics for one week. Discharge orders & Medications Prescriptions: New amoxicillin-pot clavulanate 875-125 mg tablet 1 tab PO BID 6 Days Qty: 12 0RF Continued [CENTRUM SILVER] 1 tab PO QDAY Qty: 0 Rx Instructions: 7AM [CALCIUM/VITAMIN D] 1 tab PO QDAY Qty: 0 Rx Instructions: 7AM [FISH OIL] 2 cap PO QDAY Qty: 0 (DME) lancets [FreeStyle Lancets] 28 gauge misc See Dose Instructions .ROUTE .MEDSUPPLY Qty: 100 3RF Dose Instruction: As directed Rx Instructions: Use one Lancet to test Blood Sugar once daily (DME) FreeStyle Lite Strips Strip See Dose Instructions .ROUTE .MEDSUPPLY Qty: 100 3RF Dose Instruction: As directed Rx Instructions: Use one strip to test blood sugars once daily metformin 500 mg tablet 1,000 mg PO BID Qty: 360 1RF aspirin 81 mg tablet,delayed release (DR/EC) 81 mg PO DAILY quetiapine [Seroquel] 25 mg Tablet 25 mg PO Q4HR PRN (Reason: Anxiety) ascorbic acid (vitamin C) 1,000 mg Tablet 1 g PO DAILY citalopram 10 mg tablet 10 mg PO DAILY famotidine 20 mg Tablet 20 mg PO DAILY Rx Instructions: before dinner trazodone 100 mg Tablet 100 mg PO BEDTIME PRN (Reason: Sleep) carbidopa-levodopa 25-100 mg tablet 1 tab PO TID Rx Instructions: 7AM, 12PM, 4PM clonazepam 0.5 mg tablet,disintegrating 0.5 mg PO Q4H PRN (Reason: Agitation) Rx Instructions: anxiety/agitation clonazepam 0.5 mg tablet,disintegrating 0.5 mg PO BID Rx Instructions: 7AM, 8PM quetiapine 50 mg tablet 50 mg PO BID Rx Instructions: 7AM, 8PM melatonin 10 mg Tablet 10 mg PO BEDTIME psyllium husk [Metamucil] 0.4 gram Capsule 0.8 g PO BEDTIME ipratropium bromide 42 mcg (0.06 %) spray,non-aerosol 2 spray INTRANASAL TID PRN (Reason: Allergy Symptoms) lisinopril 5 mg tablet 5 mg PO DAILY rasagiline 0.5 mg tablet 0.5 mg PO DAILY Follow up/Referrals: Richard Ortiz MD [Primary Care Provider] - Diet/Activity/Treatments Diet: Diet as Tolerated Activity: As tolerated. Visit Report/Discharge Packet Instructions: Amoxicillin and Clavulanic Acid Discharge Data Primary Care Provider: Richard Ortiz Attending Provider: Susan Carrizales VTE Deep Vein Thrombosis/Pulmonary Embolism Present on Admission: No
[2022-07-26] MEDS: ASPIRIN EC 81 MG TABLET PO (08:30)
[2022-07-26] MEDS: QUETIAPINE 25 MG TABLET 50 MG PO (08:30)
[2022-07-26] MEDS: SODIUM CHLORIDE 0.45% 1,000 ML 84 ML IV (08:30)
[2022-07-26] MEDS: CITALOPRAM 10 MG TABLET PO (08:31)
[2022-07-26 08:33] VITALS: BP 159/72; PULSE 59
[2022-07-26] MEDS: lisinopriL 5 MG TABLET PO (08:33)
[2022-07-26] MEDS: CLOPIDOGREL 75 MG TABLET PO (08:35)
[2022-07-26] MEDS: FAMOTIDINE 20 MG TABLET PO (08:35)
[2022-07-26] MEDS: ASCORBIC ACID 500 MG TABLET 1000 MG PO (08:36)
[2022-07-26] MEDS: MULTIVITAMIN 1 TABLET 1 TAB PO (08:37)
[2022-07-26] MEDS: FISH OIL 1,000 MG CAPSULE 2000 MG PO (08:37)
[2022-07-26] MEDS: INSULIN LISPRO 100 UNIT/ML 3ML VIAL SUBCUT ×2 (08:38→12:09)
[2022-07-26] MEDS: PSYLLIUM HUSK 1 PACKET PO (08:39)
[2022-07-26] MEDS: ENOXAPARIN 40 MG/0.4 ML SYRINGE SUBCUT (08:39)
[2022-07-26] MEDS: cefTRIAXone 1,000 MG in SODIUM CHLORIDE 0.9% 100 ML 200 MG IV (09:42)
[2022-07-26] MEDS: CALCIUM CARB/VIT D3 500/200 TABLET 1 EACH PO (09:46)
--- NOTE | 2022-07-26 11:20 | CM.DPC ---
DCP Discharge Per MD, pt medically stable from acute encephalopathy from UTI and to d/c on oral abx today and no identified barriers to discharge. ANDRES called [facility] and updated on d/c and confirmed no issues with pt discharge back just requesting d/c summary and med list. SW met bedside with pt and spouse and spouse states she is agreeable with d/c back today and she still plans to transport pt back today and denies any need for HH at this time but states pt was just discharged from [facility] and felt pt did well but does not need HH currently. Spouse states that typically [facility] orders their meds through [facility] but if needed she has filled rx at [facility] and has no issue doing this but MD states pt has his abx dose for today and will not need until tomorrow anyway. ANDERS updated RN and faxed signed med list and d/c summary to [facility] to review. Plan: Patient to d/c back to [facility] today via spouse POV and no further needs at this time. Spouse and pt has lots of local family support if needed. Kimber Rahman, SPECIAL EDUCATION ADMINISTRATOR
--- NOTE | 2022-07-26 11:26 | CM.DPC ---
DCP IV-Abx planning Per MD, pt's midline was placed and medically stable for d/c with IV Zosyn Q12 for total of 7 days and today is day 3 for when d/c plan secured. SW met bedside with pt and spouse and explained role again and they confirm preference would be home with home infusion rather than SNF but SNF if only option as Q12 too frequent for outpt infusion clinic. SW discussed quoted out of pocket of $425 a week from [facility] due to straight Medicare. Spouse states this would not be a barrier. SW called [facility] on-call pharmacist who cannot confirm if cost would be less since pt only has 4 days left of IV-Abx but that teaching would likely need to happen at the hospital prior to d/c since pt lives on [facility] and no teaching available today but will call their immigration case worker at [facility] to determine if they have availability tomorrow 07/27/22. If no availability to complete teaching and open pt to service then plan would be SNF. SW explained that pt likely cannot remain in the hospital just for IV-Abx course as she is medically stable to d/c to lower level of care. Plan: SW to follow closely for return call from [facility] to determine home infusion vs SNF today or tomorrow. MARLENE Palencia
--- NOTE | 2022-07-26 13:02 | PC.NURSE ---
Pt is A&Ox3,VSS, afebrile. Speech is slightly slurred, some drooling. Mild epistaxis this afternoon, provider notified. Pt is a 2PA with transfers; use of gaitbelt, fww. Pt is scheduled to D/C to [facility]. Spouse present for D/C teaching.
== END 2022-07-26 13:09 | disposition home or self-care (01) | DRG 871 ==
LOC: ED 12:27 → AC 12:31
PROVIDERS: Internal Medicine; Admitting Provider Neuromusculoskeletal Medicine, Sports Medicine; Emergency Provider Emergency Medicine; PCP Student in an Organized Health Care Education/Training Program; Referring Provider Emergency Medicine; Visit Provider Neuromusculoskeletal Medicine, Sports Medicine
DX: A41.9 Sepsis, unspecified organism (principal); G93.41 Metabolic encephalopathy; N17.9 Acute kidney failure, unspecified; N30.00 Acute cystitis without hematuria; R65.20 Severe sepsis without septic shock; R29.701 NIHSS score 1; E78.5 Hyperlipidemia, unspecified; G20 Parkinson's disease; F02.80 Dementia in other diseases classified elsewhere, unspecified severity, without behavioral disturbance, psychotic disturbance, mood disturbance, and anxiety; E11.65 Type 2 diabetes mellitus with hyperglycemia; Z79.84 Long term (current) use of oral hypoglycemic drugs; Z20.822 Contact with and (suspected) exposure to COVID-19; Z66 Do not resuscitate; Z87.891 Personal history of nicotine dependence
CPT/HCPCS: 70450; 70496; 70498; 70551; 71045; 80048; 80053; 80061; 81001; 82550; 82962; 84484; 85025; 85610; 85730; 87086; 87635; 92610; 93005; 93010; 97162; 97167; 97535; 99284; C9803; G0378; A9270; C8929; J0696; J1650; J1815; J7050; Q9957; Q9967

== ENCOUNTER 2022-08-04 09:36 | Emergency (ER) | payer MEDICARE, OTHER, SELFPAY ==
[2022-07-24 14:29] VITALS: BMI 30.4
[2022-08-04 09:30] VITALS: BP 111/59; PULSE 69; RESP 21; TEMP 36.4; O2SAT 96
--- NOTE | 2022-08-04 09:34 | DI.RAD.S_ITS ---
PROCEDURE: XR CHEST 1V INDICATIONS: chest pain TECHNIQUE: One view of the chest was acquired. COMPARISON: [facility], CR, XR CHEST 1V, 07/24/2022, 10:47. FINDINGS: Surgical changes and devices: None. Lungs and pleura: Lungs are clear. No pleural effusions or pneumothorax. Mediastinum: Mediastinal contours appear normal. Heart size is mildly enlarged. Bones and chest wall: No suspicious bony lesions. Overlying soft tissues appear unremarkable. IMPRESSION: No acute pulmonary process. Dictated by: Livier Gray M.D. on 08/04/2022 at 10:51 Approved by: Livier Gray M.D. on 08/04/2022 at 10:51
[2022-08-04 09:50] LABS: Add Manual Diff / Slide Review NO; Basophils Absolute Auto 100 /uL (0-100); Basophils Percent Auto 0.4 % (0-2); Eosinophils Absolute Auto 500 /uL (0-450); Eosinophils Percent Auto 3.2 % (2-4); Hematocrit 39.1 % (41-53); Hemoglobin 12.9 g/dL (13.5-17.5); Lymphocytes Absolute Auto 4700 /uL (1100-4500); Lymphocytes Percent Auto 31.8 % (25-40); Mean Corpuscular HGB Conc 33.1 % (30-36); Mean Corpuscular Hemoglobin 30.2 PG (26-34); Mean Corpuscular Volume 91.2 fL (80-100); Monocytes Absolute Auto 1200 /uL (0-900); Monocytes Percent Auto 7.8 % (3-14); Neutrophils Absolute Auto 8400 /uL (1500-7000); Neutrophils Percent Auto 56.8 % (50-75); Platelet Count 204 X10^3/uL (150-400); Red Blood Cell Count 4.29 X10^6/uL (4.5-5.9); Red Cell Distribution Width 14.1 % (11.6-14.8); White Blood Cell Count 14.8 X10^3/uL (4.5-11.0)
[2022-08-04 09:57] LABS: Alanine Aminotransferase 11 IU/L (<50); Albumin 3.9 g/dL (3.5-5.0); Alkaline Phosphatase 109 U/L (38-126); Aspartate Aminotransferase 20 IU/L (17-59); BUN Creatinine Ratio 22.1 (6-22); Bilirubin Total 0.7 mg/dL (0.2-1.3); Blood Urea Nitrogen 34 mg/dL (9-20); Calcium 9.7 mg/dL (8.4-10.2); Carbon Dioxide 30 mmol/L (22-32); Chloride 102 mmol/L (98-107); Creatine Kinase < 20 U/L (55-170); Estimated Glomerular Filt Rate 43 mL/min (>60); Globulin 4.1 g/dL (1.7-4.1); Glucose 183 mg/dL (80-110); HEMOLYSIS < 15 (0-50); Lipase 103 U/L (23-300); Magnesium 1.6 mg/dL (1.6-2.3); Potassium 4.5 mmol/L (3.4-5.1); Sodium 141 mmol/L (137-145)
[2022-08-04 10:08] LABS: Troponin I 0.014 ng/mL (0.01-0.034)
[2022-08-04 10:13] VITALS: BP 115/58; PULSE 65; RESP 18; O2SAT 96
--- NOTE | 2022-08-04 10:36 | ED_ITS ---
HPI - General Adult General Chief complaint: Syncope Stated complaint: Syncope Source: EMS Mode of arrival: EMS History of Present Illness HPI narrative: Elderly gentleman here today with a apparent apneic episode at the intermediate where he lives. The patient has no complaints at all at this time. He lives in a memory care facility and his says that she was called and told by a medicine switch technician that he had not been breathing for 60 seconds so they called 911. No abnormalities are noted by the paramedics. Related Data Home Medications Medication Instructions Recorded Confirmed [CALCIUM/VITAMIN D] 1 tab PO QDAY ##0 03/10/17 07/24/22 [CENTRUM SILVER] 1 tab PO QDAY ##0 03/10/17 07/24/22 [FISH OIL] 2 cap PO QDAY ##0 03/10/17 07/24/22 aspirin 81 mg tablet,delayed 81 mg PO DAILY 10/30/20 07/24/22 release ascorbic acid (vitamin C) 1,000 mg 1 g PO DAILY 08/07/21 07/24/22 tablet carbidopa 25 mg-levodopa 100 mg 1 tab PO TID 08/07/21 07/24/22 tablet citalopram 10 mg tablet 10 mg PO DAILY 08/07/21 07/24/22 clonazepam 0.5 mg disintegrating 0.5 mg PO BID 08/07/21 07/24/22 tablet clonazepam 0.5 mg disintegrating 0.5 mg PO Q4H PRN Agitation 08/07/21 07/24/22 tablet famotidine 20 mg tablet 20 mg PO DAILY 08/07/21 07/24/22 ipratropium bromide 42 mcg (0.06 2 spray intranasal TID PRN Allergy 08/07/21 07/24/22 %) nasal spray Symptoms lisinopril 5 mg tablet 5 mg PO DAILY 08/07/21 07/24/22 melatonin 10 mg tablet 10 mg PO BEDTIME 08/07/21 07/24/22 psyllium husk 0.4 gram capsule 0.8 g PO BEDTIME 08/07/21 07/24/22 (Metamucil) quetiapine 25 mg tablet (Seroquel) 25 mg PO Q4HR PRN Anxiety 08/07/21 07/24/22 quetiapine 50 mg tablet 50 mg PO BID 08/07/21 07/24/22 rasagiline 0.5 mg tablet 0.5 mg PO DAILY 08/07/21 07/24/22 trazodone 100 mg tablet 100 mg PO BEDTIME PRN Sleep 08/07/21 07/24/22 Previous Rx's Medication Instructions Recorded lancets 28 gauge (FreeStyle #100 ea 02/19/20 Lancets) blood sugar diagnostic (FreeStyle #100 ea 03/06/20 Lite Strips) metformin 500 mg tablet 1,000 mg PO BID #360 tabs 01/08/21 Allergies Allergy/AdvReac Type Severity Reaction Status Date / Time bacitracin Allergy Unknown Verified 08/04/22 09:33 [From NEOSPORIN ([id number])] neomycin Allergy Unknown Verified 08/04/22 09:33 [From NEOSPORIN ([id number])] polymyxin B Allergy Unknown Verified 08/04/22 09:33 [From NEOSPORIN ([id number])] Review of Systems Review of Systems Narrative: Complete review of systems is negative other than as noted. 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 Rosacea Sleep apnea (~2010) Type 2 diabetes mellitus without complication (11/10/16) Surgical History Anesthesia History of cataract removal with insertion of prosthetic lens History of tonsillectomy Status post appendectomy Family History Mother Heart disease Diabetes mellitus Father Cancer Grandfather Heart disease Grandmother Heart disease Grandmother Heart disease Social History household members: caregiver Smoking Status: Former smoker alcohol intake: never Smoking Status: Former smoker Substance Use Type: does not use Exam Narrative Exam Narrative: GENERAL: Alert, cooperative and in no distress. HEAD: Atraumatic. Normocephalic. EYES: Sclera are clear without icterus. Extraocular movements are full. ENT: No rhinorrhea NECK: Supple. Full range of motion. CARDIOVASCULAR: Normal rate and rhythm without murmur gallop or rub. RESPIRATORY: Clear to auscultation. Breath sounds equal bilaterally. No wheezes, rales, or rhonchi. GASTROINTESTINAL: Abdomen soft, non-tender, nondistended. EXTREMITIES: No edema, full range of motion. No obvious trauma. BACK: Normal inspection, no CVA tenderness. NEURO: Nonfocal examination, normal speech. SKIN: No rash or erythema of visible areas PSYCH: Normally oriented. Normal range of affect. Appropriate behavior Initial Vital Signs Initial Vital Signs: Vital Signs Temperature 97.6 F 08/04/22 09:30 Pulse Rate 69 08/04/22 09:30 Respiratory Rate 21 08/04/22 09:30 Blood Pressure 111/59 L 08/04/22 09:30 Pulse Oximetry 96 08/04/22 09:30 Oxygen Delivery Method 08/04/22 09:30 Course Orders Ordered: ED Orders 08/04/22 09:34 XR chest 1V Stat EKG-12 Lead Stat 08/04/22 09:35 Complete Blood Count AUTO DIFF Stat Comprehensive Metabolic Panel Stat Lipase Stat Magnesium Stat Troponin & CK Cardiac Panel Stat Vital Signs Vital signs: Vital Signs - 8 hr 08/04/22 09:30 08/04/22 10:13 Temperature 97.6 F Pulse Rate 69 65 Respiratory Rate 21 18 Blood Pressure 111/59 L 115/58 L Pulse Oximetry 96 96 Oxygen Delivery Method Room Air Room Air Medical Decision Making Lab Data Result diagrams: 08/04/22 09:35 08/04/22 09:35 Labs: Lab Results 08/04/22 08/04/22 Range/Units 09:35 09:35 WBC 14.8 H (4.5-11.0) X10^3/uL RBC 4.29 L (4.5-5.9) X10^6/uL Hgb 12.9 L (13.5-17.5) g/dL Hct 39.1 L (41-53) % MCV 91.2 (80-100) fL MCH 30.2 (26-34) PG MCHC 33.1 (30-36) % RDW 14.1 (11.6-14.8) % Plt Count 204 (150-400) X10^3/uL Neut % (Auto) 56.8 (50-75) % Lymph % (Auto) 31.8 (25-40) % Mchenry % (Auto) 7.8 (3-14) % Eos % (Auto) 3.2 (2-4) % Baso % (Auto) 0.4 (0-2) % Neut # (Auto) 8400 H (1427-8539) /uL Lymph # (Auto) 4700 H (1961-4892) /uL Mchenry # (Auto) 1200 H (0-900) /uL Eos # (Auto) 500 H (0-450) /uL Baso # (Auto) 100 (0-100) /uL Sodium 141 (137-145) mmol/L Potassium 4.5 (3.4-5.1) mmol/L Chloride 102 (98-107) mmol/L Carbon Dioxide 30 (22-32) mmol/L BUN 34 H (9-20) mg/dL Creatinine 1.54 H (0.66-1.25) mg/dL Estimated GFR 43 L (>60) mL/min BUN/Creatinine Ratio 22.1 H (6-22) Glucose 183 H (80-110) mg/dL Calcium 9.7 (8.4-10.2) mg/dL Magnesium 1.6 (1.6-2.3) mg/dL Total Bilirubin 0.7 (0.2-1.3) mg/dL AST 20 (17-59) IU/L ALT 11 (<50) IU/L Alkaline Phosphatase 109 (38-126) U/L Total Creatine Kinase < 20 L (55-170) U/L CK-MB (CK-2) TNP CK-MB (CK-2) Rel Index TNP Troponin I 0.014 (0.01-0.034) ng/mL Total Protein 8.0 (6.3-8.2) g/dL Albumin 3.9 (3.5-5.0) g/dL Globulin 4.1 (1.7-4.1) g/dL Albumin/Globulin Ratio 1.0 (1.0-2.8) Lipase 103 (23-300) U/L Imaging Data Chest x-ray: My Impression: Wet read: No pneumothorax, normal cardiac size, no discrete infiltrate. MDM Narrative Medical decision making narrative: Unknown event at the intermediate [facility] where he lives. He is entirely w ell-appearing now with reasonable laboratory report and x-ray. He has no complaints, normal exam. White blood cell count is elevated for no specific identified cause. Other laboratory data are baseline. I do not think further workup is indicated. EKG shows a sinus rhythm at 66 with a first-degree AV block. No other abnormality Discharge Plan Departure Patient Disposition: Home Clinical Impression: Apnea Activity Restrictions/Additional Instructions: No obvious cause for the event today. Your examination is totally reassuring at this point. Your white blood cell count is slightly elevated but this is a nonspecific finding. Chest x-ray and other laboratory data is relatively reassu ring. No urinalysis is performed. I recommend watchful waiting with follow-up with the provider at the intermediate or at the clinic in a few days if any symptoms persist or develop. Prescriptions: No Action [CENTRUM SILVER] 1 tab PO QDAY Qty: 0 Rx Instructions: 7AM [CALCIUM/VITAMIN D] 1 tab PO QDAY Qty: 0 Rx Instructions: 7AM [FISH OIL] 2 cap PO QDAY Qty: 0 (DME) lancets [FreeStyle Lancets] 28 gauge misc See Dose Instructions .ROUTE .MEDSUPPLY Qty: 100 3RF Dose Instruction: As directed Rx Instructions: Use one Lancet to test Blood Sugar once daily (DME) FreeStyle Lite Strips Strip See Dose Instructions .ROUTE .MEDSUPPLY Qty: 100 3RF Dose Instruction: As directed Rx Instructions: Use one strip to test blood sugars once daily metformin 500 mg tablet 1,000 mg PO BID Qty: 360 1RF aspirin 81 mg tablet,delayed release (DR/EC) 81 mg PO DAILY quetiapine [Seroquel] 25 mg Tablet 25 mg PO Q4HR PRN (Reason: Anxiety) ascorbic acid (vitamin C) 1,000 mg Tablet 1 g PO DAILY citalopram 10 mg tablet 10 mg PO DAILY famotidine 20 mg Tablet 20 mg PO DAILY Rx Instructions: before dinner trazodone 100 mg Tablet 100 mg PO BEDTIME PRN (Reason: Sleep) carbidopa-levodopa 25-100 mg tablet 1 tab PO TID Rx Instructions: 7AM, 12PM, 4PM clonazepam 0.5 mg tablet,disintegrating 0.5 mg PO Q4H PRN (Reason: Agitation) Rx Instructions: anxiety/agitation clonazepam 0.5 mg tablet,disintegrating 0.5 mg PO BID Rx Instructions: 7AM, 8PM quetiapine 50 mg tablet 50 mg PO BID Rx Instructions: 7AM, 8PM melatonin 10 mg Tablet 10 mg PO BEDTIME psyllium husk [Metamucil] 0.4 gram Capsule 0.8 g PO BEDTIME ipratropium bromide 42 mcg (0.06 %) spray,non-aerosol 2 spray INTRANASAL TID PRN (Reason: Allergy Symptoms) lisinopril 5 mg tablet 5 mg PO DAILY rasagiline 0.5 mg tablet 0.5 mg PO DAILY Referrals: Richard Ortiz MD [Primary Care Provider] -
== END 2022-08-04 11:03 | disposition home or self-care (01) ==
PROVIDERS: Emergency Provider Family Medicine Addiction Medicine; PCP Student in an Organized Health Care Education/Training Program
DX: R06.81 Apnea, not elsewhere classified (principal); R07.9 Chest pain, unspecified; Z79.899 Other long term (current) drug therapy
CPT/HCPCS: 71045; 80053; 82550; 83690; 83735; 84484; 85025; 93005; 99283; 99284

== ENCOUNTER → 2023-03-26 10:38 | Outpatient (ROUT) | payer MEDICARE, OTHER, SELFPAY ==
[2022-07-24 14:29] VITALS: BMI 30.4
[2023-03-26 10:45] LABS: Appearance Urine UA SL CLOUDY; Bilirubin Urine UA NEGATIVE (NEGATIVE); Color Urine UA YELLOW; Glucose Urine UA NEGATIVE (Negative); Ketones Urine UA NEGATIVE (NEGATIVE); Leukocyte Esterase Urine UA 3+ (NEGATIVE); Nitrite Urine UA NEGATIVE (Negative); Occult Blood Urine UA NEGATIVE (Negative); Protein Urine UA NEGATIVE (Negative); Urobilinogen Urine UA 0.2 E.U./dL (0.2); pH Urine UA 5.5 (4.5-8.0)
[2023-03-26 10:53] LABS: Bacteria Urine Moderate (10-30); Culture Indicated Urine Specimen Cultured; RBC Urine 5-10/HPF (0-5/HPF); Squamous Epithelial Cell Urine 1-5 /HPF (0-5/HPF); WBC Urine 30-100/HPF (0-5/HPF)
== END ==
PROVIDERS: PCP Nurse Practitioner Family; Visit Provider Nurse Practitioner Family
DX: R85.3 Abnormal level of substances chiefly nonmedicinal as to source in specimens from digestive organs and abdominal cavity (principal); R82.998 Other abnormal findings in urine
CPT/HCPCS: 81001; 87086

== ENCOUNTER → 2023-04-07 13:21 | Outpatient (ROUT) | payer MEDICARE, OTHER, SELFPAY ==
[2022-07-24 14:29] VITALS: BMI 30.4
[2023-04-07 13:29] LABS: Appearance Urine UA CLEAR; Bilirubin Urine UA NEGATIVE (NEGATIVE); Color Urine UA YELLOW; Glucose Urine UA NEGATIVE (Negative); Ketones Urine UA NEGATIVE (NEGATIVE); Leukocyte Esterase Urine UA NEGATIVE (NEGATIVE); Nitrite Urine UA NEGATIVE (Negative); Occult Blood Urine UA NEGATIVE (Negative); Protein Urine UA NEGATIVE (Negative); Urobilinogen Urine UA 0.2 E.U./dL (0.2)
[2023-04-07 13:40] LABS: Bacteria Urine None Seen; Culture Indicated Urine Cult Not Indicated; RBC Urine None Seen (0-5/HPF); Squamous Epithelial Cell Urine None Seen (0-5/HPF); WBC Urine 0-1/HPF (0-5/HPF)
== END ==
PROVIDERS: PCP Nurse Practitioner Family; Visit Provider Nurse Practitioner Family
DX: N39.0 Urinary tract infection, site not specified (principal)
CPT/HCPCS: 81001

== ENCOUNTER → 2023-04-13 09:13 | Outpatient (CLI) | payer MEDICARE, OTHER, SELFPAY ==
[2022-07-24 14:29] VITALS: BMI 30.4
[2023-04-13 09:57] LABS: Add Manual Diff / Slide Review NO; Basophils Absolute Auto 100 /uL (0-100); Basophils Percent Auto 0.5 % (0-2); Eosinophils Absolute Auto 400 /uL (0-450); Eosinophils Percent Auto 2.9 % (2-4); Hematocrit 34.7 % (41-53); Hemoglobin 11.4 g/dL (13.5-17.5); Lymphocytes Absolute Auto 3100 /uL (1100-4500); Lymphocytes Percent Auto 23.2 % (25-40); Mean Corpuscular HGB Conc 32.8 % (30-36); Mean Corpuscular Hemoglobin 29.9 PG (26-34); Mean Corpuscular Volume 91.3 fL (80-100); Monocytes Absolute Auto 1400 /uL (0-900); Monocytes Percent Auto 10.5 % (3-14); Neutrophils Absolute Auto 8400 /uL (1500-7000); Neutrophils Percent Auto 62.9 % (50-75); Platelet Count 252 X10^3/uL (150-400); Red Cell Distribution Width 13.5 % (11.6-14.8); White Blood Cell Count 13.3 X10^3/uL (4.5-11.0)
[2023-04-13 11:11] LABS: Alanine Aminotransferase 8 IU/L (<50); Albumin 3.2 g/dL (3.5-5.0); Alkaline Phosphatase 202 U/L (38-126); Aspartate Aminotransferase 17 IU/L (17-59); BUN Creatinine Ratio 20.8 (6-22); Bilirubin Total 0.4 mg/dL (0.2-1.3); Blood Urea Nitrogen 42 mg/dL (9-20); Calcium 9.2 mg/dL (8.4-10.2); Carbon Dioxide 28 mmol/L (22-32); Chloride 99 mmol/L (98-107); Estimated Glomerular Filt Rate 31 mL/min (>60); Globulin 3.2 g/dL (1.7-4.1); Glucose 177 mg/dL (80-110); HEMOLYSIS < 15 (0-50); Potassium 5.5 mmol/L (3.4-5.1); Sodium 136 mmol/L (137-145); Total Protein 6.4 g/dL (6.3-8.2)
[2023-04-13 11:34] LABS: Thyroid Stimulating Hormone 0.166 uIU/mL (0.47-4.68)
[2023-04-13 12:01] LABS: Vitamin B12 499 pg/mL (239-931)
[2023-04-14 05:30] LABS: Labcorp Hemoglobin (Hb) A1c 9.3 % (4.8-5.6)
== END ==
PROVIDERS: PCP Nurse Practitioner Family; Referring Provider Nurse Practitioner Family; Visit Provider Nurse Practitioner Family
DX: R53.83 Other fatigue (principal); E11.9 Type 2 diabetes mellitus without complications
CPT/HCPCS: 36415; 80053; 82607; 83036; 84443; 85025

== ENCOUNTER → 2023-04-14 11:13 | Outpatient (CLI) | payer MEDICARE, OTHER, SELFPAY ==
[2022-07-24 14:29] VITALS: BMI 30.4
== END ==
PROVIDERS: PCP Nurse Practitioner Family; Referring Provider Nurse Practitioner Family; Visit Provider Nurse Practitioner Family
DX: I49.9 Cardiac arrhythmia, unspecified (principal)
CPT/HCPCS: 93005

== ENCOUNTER → 2023-04-16 13:25 | Outpatient (CLI) | payer MEDICARE, OTHER, SELFPAY ==
[2022-07-24 14:29] VITALS: BMI 30.4
[2023-04-16 14:57] LABS: BUN Creatinine Ratio 18.3 (6-22); Blood Urea Nitrogen 36 mg/dL (9-20); Calcium 9.5 mg/dL (8.4-10.2); Carbon Dioxide 29 mmol/L (22-32); Chloride 98 mmol/L (98-107); Estimated Glomerular Filt Rate 32 mL/min (>60); Glucose 241 mg/dL (80-110); HEMOLYSIS < 15 (0-50); Potassium 4.5 mmol/L (3.4-5.1); Sodium 138 mmol/L (137-145)
== END ==
PROVIDERS: PCP Nurse Practitioner Family; Referring Provider Nurse Practitioner Family; Visit Provider Nurse Practitioner Family
DX: I49.9 Cardiac arrhythmia, unspecified (principal); E87.5 Hyperkalemia
CPT/HCPCS: 36415; 80048

== ENCOUNTER 2023-06-30 15:36 | Emergency (ER) | payer MEDICARE, OTHER, SELFPAY ==
[2022-07-24 14:29] VITALS: BMI 30.4
[2023-06-30] VITALS (12 sets, daily range): BP systolic 155–186; BP diastolic 65–81; PULSE 55–82; RESP 14–34; TEMP 36.4; O2SAT 93–97; BMI 35.6
--- NOTE | 2023-06-30 15:51 | DI.CT.S_ITS ---
PROCEDURE: CT HEAD/BRAIN WO CON INDICATIONS: fall,hit head TECHNIQUE: Noncontrast 4.5 mm thick angled axial sections acquired from the foramen magnum to the vertex, with coronal and sagittal reformats. For radiation dose reduction, the following was used: automated exposure control, adjustment of mA and/or kV according to patient size. COMPARISON: [facility], CT, CT STROKE, 07/24/2022, 10:31. FINDINGS: Image quality: Excellent. CSF spaces: Basal cisterns are patent. No extra-axial fluid collections. The ventricles are symmetric in size and shape. Brain: No intracranial bleeds or masses. There is cerebral volume loss for age, with resultant ventricular and sulcal prominence. There are periventricular and deep white matter chronic small vessel ischemic changes. There is intracranial internal carotid artery atherosclerosis. Skull and face: Calvarium and visualized facial bones appear intact, without suspicious lesions. Sinuses: Visualized sinuses and mastoids are clear. IMPRESSION: No acute intracranial process Dictated by: Kirby Orourke M.D. on 06/30/2023 at 16:21 Approved by: Kirby Orourke M.D. on 06/30/2023 at 16:22
--- NOTE | 2023-06-30 16:06 | DI.CT.S_ITS ---
PROCEDURE: CT CERVICAL SPINE WO CON INDICATIONS: fall,hit head TECHNIQUE: Noncontrast 3 mm thick sections acquired from the skull base to the T4 level. Sagittal and coronal reformats were then constructed. For radiation dose reduction, the following was used: automated exposure control, adjustment of mA and/or kV according to patient size. COMPARISON: [facility], CT, CT HEAD/BRAIN WO CON, 06/30/2023, 15:55. FINDINGS: Image quality: Excellent. Bones: No fractures or dislocations. Visualized superior ribs are intact. Cervical spine degenerative changes are seen, which are worst inferiorly. Soft tissues: Prevertebral soft tissues are normal in thickness. No paravertebral hematomas. No apical pneumothoraces. Atherosclerotic calcification is noted. IMPRESSION: Negative for cervical spine fracture. Dictated by: Benny Montenegro M.D. on 06/30/2023 at 15:17 Approved by: Benny Montenegro M.D. on 06/30/2023 at 15:19
[2023-06-30 16:55] LABS: Appearance Urine UA CLEAR; Bilirubin Urine UA NEGATIVE (NEGATIVE); Color Urine UA YELLOW; Glucose Urine UA NEGATIVE (Negative); Ketones Urine UA NEGATIVE (NEGATIVE); Leukocyte Esterase Urine UA 3+ (NEGATIVE); Nitrite Urine UA NEGATIVE (Negative); Occult Blood Urine UA TRACE-INTACT (Negative); Protein Urine UA NEGATIVE (Negative); Urobilinogen Urine UA 0.2 E.U./dL (0.2); pH Urine UA 5.5 (4.5-8.0)
[2023-06-30 17:12] LABS: Bacteria Urine Many (>30); Culture Indicated Urine Specimen Cultured; RBC Urine 0-1/HPF (0-5/HPF); Squamous Epithelial Cell Urine None Seen (0-5/HPF); WBC Urine >100/HPF (0-5/HPF)
--- NOTE | 2023-06-30 18:24 | ED.FALL ---
HPI - Fall <Marlyn Poe PA-C - Last Filed: 06/30/23 18:30> General Chief Complaint: Fall Stated Complaint: GLF, Head lac Time Seen by Provider: 06/30/23 16:24 Source: EMS Mode of arrival: EMS History of Present Illness HPI Narrative: Patient is an 88-year-old male who lives in a memory care facility who had a fall today. No loss of consciousness was reported. His thinks that he grew impatient trying to go to the restroom and attempted to move from his chair to his wheelchair without any assistance. He fell and hit the back of his head. He does not take any blood thinners. reports that he is at his baseline mentally today. He is incontinent at baseline. He is had no recent vomiting, diarrhea or constipation. He has no bleeding laceration from his head. Related Data Home Medications Medication Instructions Recorded Confirmed [CALCIUM/VITAMIN D] 1 tab PO QDAY ##0 03/10/17 07/24/22 [CENTRUM SILVER] 1 tab PO QDAY ##0 03/10/17 07/24/22 [FISH OIL] 2 cap PO QDAY ##0 03/10/17 07/24/22 aspirin 81 mg tablet,delayed 81 mg PO DAILY 10/30/20 07/24/22 release ascorbic acid (vitamin C) 1,000 mg 1 g PO DAILY 08/07/21 07/24/22 tablet carbidopa 25 mg-levodopa 100 mg 1 tab PO TID 08/07/21 07/24/22 tablet citalopram 10 mg tablet 10 mg PO DAILY 08/07/21 07/24/22 clonazepam 0.5 mg disintegrating 0.5 mg PO BID 08/07/21 07/24/22 tablet clonazepam 0.5 mg disintegrating 0.5 mg PO Q4H PRN Agitation 08/07/21 07/24/22 tablet famotidine 20 mg tablet 20 mg PO DAILY 08/07/21 07/24/22 ipratropium bromide 42 mcg (0.06 2 spray intranasal TID PRN Allergy 08/07/21 07/24/22 %) nasal spray Symptoms lisinopril 5 mg tablet 5 mg PO DAILY 08/07/21 07/24/22 melatonin 10 mg tablet 10 mg PO BEDTIME 08/07/21 07/24/22 psyllium husk 0.4 gram capsule 0.8 g PO BEDTIME 08/07/21 07/24/22 (Metamucil) quetiapine 25 mg tablet (Seroquel) 25 mg PO Q4HR PRN Anxiety 08/07/21 07/24/22 quetiapine 50 mg tablet 50 mg PO BID 08/07/21 07/24/22 rasagiline 0.5 mg tablet 0.5 mg PO DAILY 08/07/21 07/24/22 trazodone 100 mg tablet 100 mg PO BEDTIME PRN Sleep 08/07/21 07/24/22 Previous Rx's Medication Instructions Recorded lancets 28 gauge (FreeStyle #100 ea 02/19/20 Lancets) blood sugar diagnostic (FreeStyle #100 ea 03/06/20 Lite Strips) metformin 500 mg tablet 1,000 mg (2 x 500 mg) PO BID #360 01/08/21 tabs cefdinir 300 mg capsule 300 mg PO BID #14 caps 06/30/23 Allergies Allergy/AdvReac Type Severity Reaction Status Date / Time bacitracin Allergy Unknown Verified 08/04/22 09:33 [From NEOSPORIN ([id number])] neomycin Allergy Unknown Verified 08/04/22 09:33 [From NEOSPORIN ([id number])] polymyxin B Allergy Unknown Verified 08/04/22 09:33 [From NEOSPORIN ([id number])] Review of Systems <Marlyn Poe PA-C - Last Filed: 06/30/23 18:30> Review of Systems ROS Unobtainable: All systems reviewed & are unremarkable except as noted in HPI and below Patient History <Marlyn Poe PA-C - Last Filed: 06/30/23 18:30> Medical History Chicken pox Hearing loss (~2011) Hyperlipidemia associated with type 2 diabetes mellitus Measles Mumps Parkinson's disease (~2009) 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 Rosacea Sleep apnea (~2010) Type 2 diabetes mellitus without complication (11/10/16) Surgical History Anesthesia History of cataract removal with insertion of prosthetic lens History of tonsillectomy Status post appendectomy Family History Mother Heart disease Diabetes mellitus Father Cancer Grandfather Heart disease Grandmother Heart disease Grandmother Heart disease Social History household members: caregiver Smoking Status: Former smoker alcohol intake: never Smoking Status: Former smoker tobacco type: cigarettes Substance Use Type: does not use Exam <Marlyn Poe PA-C - Last Filed: 06/30/23 18:30> Narrative Exam Narrative: GENERAL: 88 year old patient appears stated age. Well-developed patient, in no distress. NEURO: AOx3. HEAD: No depressed skull fracture or focal abnormality on palpation. No laceration noted. Normocephalic. EYES: Pupils equal round and reactive. Extraocular motions intact. No scleral icterus. No injection or drainage. ENT: Nose without bleeding or purulent drainage. Airway patent. NECK: Trachea midline. Non tender CARDIOVASCULAR: Regular rate and rhythm without murmurs, gallops, or rubs. RESPIRATORY: Clear to auscultation. Breath sounds equal bilaterally. No wheezes, rales, or rhonchi. GASTROINTESTINAL: Abdomen soft, non-tender, nondistended. SKIN: No rash or erythema of visible areas Initial Vital Signs Initial Vital Signs: Vital Signs Pulse Rate 55 L 06/30/23 15:45 Pulse Oximetry 93 06/30/23 15:45 <Humza Nelson MD - Last Filed: 07/09/23 08:47> Initial Vital Signs Initial Vital Signs: Vital Signs Pulse Rate 55 L 06/30/23 15:45 Pulse Oximetry 93 06/30/23 15:45 Course <Marlyn Poe PA-C - Last Filed: 06/30/23 18:30> Orders Ordered: Discontinued Medications Cefdinir (Cefdinir 300 Mg Capsule) 300 mg PO NOW ONE Stop: 06/30/23 18:25 Last Admin: 06/30/23 18:31 Dose: 300 mg Documented By: TREMAYNE Vital Signs Vital signs: Vital Signs - 8 hr 06/30/23 15:53 Temperature 97.5 F L Pulse Rate 66 Respiratory Rate 14 Blood Pressure 184/78 H Pulse Oximetry 96 Oxygen Delivery Method Room Air <Humza Nelson MD - Last Filed: 07/09/23 08:47> Orders Ordered: Discontinued Medications Cefdinir (Cefdinir 300 Mg Capsule) 300 mg PO NOW ONE Stop: 06/30/23 18:25 Last Admin: 06/30/23 18:31 Dose: 300 mg Documented By: TREMAYNE Vital Signs Vital signs: Vital Signs - 8 hr 06/30/23 15:53 Temperature 97.5 F L Pulse Rate 66 Respiratory Rate 14 Blood Pressure 184/78 H Pulse Oximetry 96 Oxygen Delivery Method Room Air MDM - Fall <Marlyn Poe PA-C - Last Filed: 06/30/23 18:30> Lab Data Labs: Lab Results 06/30/23 Range/Units 16:41 Urine Color Yellow Urine Appearance Clear Urine pH 5.5 (4.5-8.0) Ur Specific Hilliard 1.010 (1.000-1.035) Urine Protein Negative (Negative) Urine Glucose (UA) Negative (Negative) g/dL Urine Ketones Negative (NEGATIVE) Urine Occult Blood Trace-intact (Negative) Urine Nitrate Negative (Negative) Urine Bilirubin Negative (NEGATIVE) Urine Urobilinogen 0.2 (0.2) E.U./dL Ur Leukocyte Esterase 3+ H (NEGATIVE) Urine RBC 0-1/hpf (0-5/HPF) Urine WBC >100/hpf H (0-5/HPF) Ur Squamous Epith Cells None seen (0-5/HPF) Urine Bacteria Many (>30) H (None) Ur Culture Indicated? Specimen cultured Imaging Data CT scan - head: Radiologist's Impression: PROCEDURE:? CT HEAD/BRAIN WO CON ? INDICATIONS:? fall,hit head ? TECHNIQUE:? Noncontrast 4.5 mm thick angled axial sections acquired from the foramen magnum to the vertex, with coronal and sagittal reformats.? For radiation dose reduction, the following was used:? automated exposure control, adjustment of mA and/or kV according to patient size.? ? COMPARISON:? [facility], CT, CT STROKE, 07/24/2022, 10:31. ? FINDINGS:? Image quality:? Excellent.? ? CSF spaces:? Basal cisterns are patent.? No extra-axial fluid collections.? The ventricles are symmetric in size and shape.? ? Brain:? No intracranial bleeds or masses.? There is cerebral volume loss for age, with resultant ventricular and sulcal prominence.? There are periventricular and deep white matter chronic small vessel ischemic changes.? There is intracranial internal carotid artery atherosclerosis.? ? Skull and face:? Calvarium and visualized facial bones appear intact, without suspicious lesions.? ? Sinuses:? Visualized sinuses and mastoids are clear.? ? IMPRESSION:? No acute intracranial process ? ? Dictated by: Kirby Orourke M.D. on 06/30/2023 at 16:21 ? ? Approved by: Kirby Orourke M.D. on 06/30/2023 at 16:22 ? CT - cervical spine: Radiologist's Impression: PROCEDURE:? CT CERVICAL SPINE WO CON ? INDICATIONS:? fall,hit head ? TECHNIQUE:? Noncontrast 3 mm thick sections acquired from the skull base to the T4 level.? Sagittal and coronal reformats were then constructed.? For radiation dose reduction, the following was used:? automated exposure control, adjustment of mA and/or kV according to patient size.? ? COMPARISON:? [facility], CT, CT HEAD/BRAIN WO CON, 06/30/2023, 15:55. ? FINDINGS:? Image quality:? Excellent.? ? Bones:? No fractures or dislocations.? Visualized superior ribs are intact.? Cervical spine degenerative changes are seen, which are worst inferiorly. ? Soft tissues:? Prevertebral soft tissues are normal in thickness.? No paravertebral hematomas.? No apical pneumothoraces.? Atherosclerotic calcification is noted.? ? ? IMPRESSION:? Negative for cervical spine fracture. ? ? ? Dictated by: Benny Montenegro M.D. on 06/30/2023 at 15:17 ? ? Approved by: Benny Montenegro M.D. on 06/30/2023 at 15:19 ? MDM Narrative Medical decision making narrative: Multiple etiologies for patient's symptoms considered including, but not limited to: Intracranial hemorrhage, skull fracture, cervical spine fracture. Imaging without evidence of intracranial abnormality or bony fracture. UA consistent with UTI. Patient denies any fever or chills or abdominal pain or pressure. states patient is incontinent at baseline. We will start a 7 day course of antibiotics for urinary tract infection and monitor urine culture for growth and sensitivity. Patient is stable to return to his memory care facility. Patient's symptoms improved over duration of stay with above-stated therapies. Findings and discharge diagnosis discussed with patient/family followed by verbalization of understanding Return precautions discussed with patient/family whom verbalize understanding of diagnosis and plan <Humza Nelson MD - Last Filed: 07/09/23 08:47> Lab Data Labs: Lab Results 06/30/23 Range/Units 16:41 Urine Color Yellow Urine Appearance Clear Urine pH 5.5 (4.5-8.0) Ur Specific Hilliard 1.010 (1.000-1.035) Urine Protein Negative (Negative) Urine Glucose (UA) Negative (Negative) g/dL Urine Ketones Negative (NEGATIVE) Urine Occult Blood Trace-intact (Negative) Urine Nitrate Negative (Negative) Urine Bilirubin Negative (NEGATIVE) Urine Urobilinogen 0.2 (0.2) E.U./dL Ur Leukocyte Esterase 3+ H (NEGATIVE) Urine RBC 0-1/hpf (0-5/HPF) Urine WBC >100/hpf H (0-5/HPF) Ur Squamous Epith Cells None seen (0-5/HPF) Urine Bacteria Many (>30) H (None) Ur Culture Indicated? Specimen cultured Discharge Plan Departure Patient Disposition: SNF Clinical Impression: Urinary tract infection, Fall Activity Restrictions/Additional Instructions: *You have been diagnosed with urinary tract infection. Your head and neck CT were negative for fracture or bleeding. Please take all the antibiotics, even if you feel better. Drink lots of water. *What to do: *Please continue to take your regular medications as directed. [x] New medication prescriptions sent to your pharmacy: [[facility]] [ ] New medication written as a paper prescription [ ] No new medications given *Please follow up with your primary care provider in 2-3 days, call for an appointment. Let them know you were seen in the Emergency Department and that we ask that you be seen in follow up. We will electronically transmit a record of today's note if your PCP is in our system *If you do not have a primary care provider please contact the [facility] Resource line at [phone]. They will ask some questions about your medical history and help get you set up with a doctor in the community. *Return to Emergency Department if you should have any new, worsening or concerning symptoms, such as [fever greater than 101 F, shaking chills, worsening pain, persistent vomiting or other concerning symptoms]. Prescriptions: New cefdinir 300 mg capsule 300 mg PO BID Qty: 14 0RF No Action [CENTRUM SILVER] 1 tab PO QDAY Qty: 0 Rx Instructions: 7AM [CALCIUM/VITAMIN D] 1 tab PO QDAY Qty: 0 Rx Instructions: 7AM [FISH OIL] 2 cap PO QDAY Qty: 0 (DME) lancets [FreeStyle Lancets] 28 gauge misc See Dose Instructions .ROUTE .MEDSUPPLY Qty: 100 3RF Dose Instruction: As directed Rx Instructions: Use one Lancet to test Blood Sugar once daily (DME) FreeStyle Lite Strips Strip See Dose Instructions .ROUTE .MEDSUPPLY Qty: 100 3RF Dose Instruction: As directed Rx Instructions: Use one strip to test blood sugars once daily metformin 500 mg tablet 1,000 mg PO BID Qty: 360 1RF aspirin 81 mg tablet,delayed release (DR/EC) 81 mg PO DAILY quetiapine [Seroquel] 25 mg Tablet 25 mg PO Q4HR PRN (Reason: Anxiety) ascorbic acid (vitamin C) 1,000 mg Tablet 1 g PO DAILY citalopram 10 mg tablet 10 mg PO DAILY famotidine 20 mg Tablet 20 mg PO DAILY Rx Instructions: before dinner trazodone 100 mg Tablet 100 mg PO BEDTIME PRN (Reason: Sleep) carbidopa-levodopa 25-100 mg tablet 1 tab PO TID Rx Instructions: 7AM, 12PM, 4PM clonazepam 0.5 mg tablet,disintegrating 0.5 mg PO Q4H PRN (Reason: Agitation) Rx Instructions: anxiety/agitation clonazepam 0.5 mg tablet,disintegrating 0.5 mg PO BID Rx Instructions: 7AM, 8PM quetiapine 50 mg tablet 50 mg PO BID Rx Instructions: 7AM, 8PM melatonin 10 mg Tablet 10 mg PO BEDTIME psyllium husk [Metamucil] 0.4 gram Capsule 0.8 g PO BEDTIME ipratropium bromide 42 mcg (0.06 %) spray,non-aerosol 2 spray INTRANASAL TID PRN (Reason: Allergy Symptoms) lisinopril 5 mg tablet 5 mg PO DAILY rasagiline 0.5 mg tablet 0.5 mg PO DAILY Stand Alone Forms: Patient Portal/API SNF Discharge Plan Transfer to: [facility] Transportation: Private vehicle I certify the postop hospital long-term care is medically necessary on a continuing basis for any conditions for which he/ she received care during this hospitalization.: Yes The receiving facility has agreed to accept transfer and provide medical treatment.: Yes Discharge Health Status Precautions: [place] ED Sign-out <Humza Nelson MD - Last Filed: 07/09/23 08:47> Cosign ED Attending Cosignature Attestation: I was immediately available in the department for consultation. ?This documentation has been reviewed and I agree with assessment and plan. Supervised by Humza Nelson MD
[2023-06-30] MEDS: CEFDINIR 300 MG CAPSULE PO (18:31)
== END 2023-06-30 18:45 ==
PROVIDERS: Emergency Medicine; Emergency Provider Physician Assistant; PCP Nurse Practitioner Family
DX: N39.0 Urinary tract infection, site not specified (principal); S09.90XA Unspecified injury of head, initial encounter; W18.30XA Fall on same level, unspecified, initial encounter; Z79.899 Other long term (current) drug therapy
CPT/HCPCS: 70450; 72125; 81001; 87086; 99283; 99284

== ENCOUNTER → 2023-07-22 18:21 | Outpatient (ROUT) | payer MEDICARE, OTHER, SELFPAY ==
[2022-07-24 14:29] VITALS: BMI 30.4
[2023-07-22 20:09] LABS: Appearance Urine UA CLOUDY; Bilirubin Urine UA NEGATIVE (NEGATIVE); Color Urine UA YELLOW; Glucose Urine UA NEGATIVE (Negative); Ketones Urine UA NEGATIVE (NEGATIVE); Leukocyte Esterase Urine UA 3+ (NEGATIVE); Nitrite Urine UA NEGATIVE (Negative); Occult Blood Urine UA 1+ (Negative); Protein Urine UA 2+ (Negative); Specific Gravity Urine UA 1.015 (1.000-1.035); Urobilinogen Urine UA 0.2 E.U./dL (0.2)
[2023-07-22 20:43] LABS: RBC Urine 0-1/HPF (0-5/HPF)
[2023-07-22 20:44] LABS: Bacteria Urine Many (>30); Culture Indicated Urine Specimen Cultured; Squamous Epithelial Cell Urine 0-1 /HPF (0-5/HPF); WBC Urine >100/HPF (0-5/HPF)
== END ==
PROVIDERS: PCP Nurse Practitioner Family; Visit Provider Nurse Practitioner Family
DX: R32 Unspecified urinary incontinence (principal)
CPT/HCPCS: 81001; 87077; 87086; 87186

== ENCOUNTER → 2023-08-04 15:52 | Outpatient (ROUT) | payer MEDICARE, OTHER, SELFPAY ==
[2022-07-24 14:29] VITALS: BMI 30.4
[2023-08-04 16:00] LABS: Appearance Urine UA CLOUDY; Bilirubin Urine UA NEGATIVE (NEGATIVE); Color Urine UA YELLOW; Glucose Urine UA NEGATIVE (Negative); Ketones Urine UA NEGATIVE (NEGATIVE); Leukocyte Esterase Urine UA 3+ (NEGATIVE); Nitrite Urine UA NEGATIVE (Negative); Occult Blood Urine UA NEGATIVE (Negative); Protein Urine UA 1+ (Negative); Specific Gravity Urine UA 1.015 (1.000-1.035); Urobilinogen Urine UA 0.2 E.U./dL (0.2)
[2023-08-04 16:14] LABS: Bacteria Urine Many (>30); Culture Indicated Urine Specimen Cultured; RBC Urine 0-1/HPF (0-5/HPF); Squamous Epithelial Cell Urine 1-5 /HPF (0-5/HPF); Triple Phosphate Crystal Urine Few; WBC Urine 30-100/HPF (0-5/HPF)
== END ==
PROVIDERS: PCP Nurse Practitioner Family; Visit Provider Nurse Practitioner Family
DX: R31.9 Hematuria, unspecified (principal)
CPT/HCPCS: 81001; 87077; 87086; 87186

== ENCOUNTER 2023-08-06 12:12 | Emergency (ER) | payer MEDICARE, OTHER, SELFPAY ==
[2022-07-24 14:29] VITALS: BMI 30.4
[2023-08-06] VITALS (16 sets, daily range): BP systolic 131–165; BP diastolic 70–95; PULSE 60–79; RESP 18–31; TEMP 36.6; O2SAT 94–99; BMI 31.1
--- NOTE | 2023-08-06 12:22 | DI.RAD.S_ITS ---
PROCEDURE: XR CHEST 1V INDICATIONS: chest pain TECHNIQUE: One view of the chest was acquired. COMPARISON: [facility], CR, XR CHEST 1V, 08/04/2022, 10:26. [facility], CR, XR CHEST 1V, 07/24/2022, 10:47. FINDINGS: Surgical changes and devices: None. Lungs and pleura: Lungs are unchanged, with a chronic mild interstitial prominence. No pleural effusions or pneumothorax. Mediastinum: Mediastinal contours appear normal. Heart size is normal. Bones and chest wall: No suspicious bony lesions. Overlying soft tissues appear unremarkable. IMPRESSION: Chronic mild interstitial prominence, no definite source of new onset chest pain is found. Dictated by: Rick Cordon M.D. on 08/06/2023 at 14:10 Approved by: Rick Cordon M.D. on 08/06/2023 at 14:10
--- NOTE | 2023-08-06 12:22 | DI.CT.S_ITS ---
PROCEDURE: CT HEAD/BRAIN WO CON INDICATIONS: decrease mental status TECHNIQUE: Noncontrast 4.5 mm thick angled axial sections acquired from the foramen magnum to the vertex, with coronal and sagittal reformats. For radiation dose reduction, the following was used: automated exposure control, adjustment of mA and/or kV according to patient size. COMPARISON: [facility], CT, CT HEAD/BRAIN WO CON, 06/30/2023, 15:55. FINDINGS: Image quality: Excellent. CSF spaces: Basal cisterns are patent. No extra-axial fluid collections. The ventricles are symmetric in size and shape. Brain: No intracranial bleeds or masses. There is cerebral volume loss for age, with resultant ventricular and sulcal prominence. There are periventricular and deep white matter chronic small vessel ischemic changes. There is intracranial internal carotid artery atherosclerosis. Skull and face: Calvarium and visualized facial bones appear intact, without suspicious lesions. Sinuses: Visualized sinuses and mastoids are clear. IMPRESSION: No acute intracranial process Dictated by: Kirby Orourke M.D. on 08/06/2023 at 13:37 Approved by: Kirby Orourke M.D. on 08/06/2023 at 13:38
--- NOTE | 2023-08-06 12:25 | ED_ITS ---
HPI - Weakness General Chief complaint: Weakness Stated complaint: lethargic Time Seen by Provider: 08/06/23 12:13 History of Present Illness HPI Narrative: Patient 88-year-old male history of Parkinson's cognitive impair lives at [facility] presenting today with weakness. Ongoing for couple of days. EMS reports heart rate 35 with bigeminy. He is not on beta-blockers or calcium channel blockers. He is alert and following commands denies any pain. No cough or shortness of breath. now at bedside reports that she saw him this morning. They were getting him up he was very lethargic not arousable kind of slurring of speech but no facial droop no unilateral weakness just kind of diffuse weakness. Related Data Home Medications Medication Instructions Recorded Confirmed [CALCIUM/VITAMIN D] 1 tab PO QDAY ##0 03/10/17 07/24/22 [CENTRUM SILVER] 1 tab PO QDAY ##0 03/10/17 07/24/22 [FISH OIL] 2 cap PO QDAY ##0 03/10/17 07/24/22 aspirin 81 mg tablet,delayed 81 mg PO DAILY 10/30/20 07/24/22 release ascorbic acid (vitamin C) 1,000 mg 1 g PO DAILY 08/07/21 07/24/22 tablet carbidopa 25 mg-levodopa 100 mg 1 tab PO TID 08/07/21 07/24/22 tablet citalopram 10 mg tablet 10 mg PO DAILY 08/07/21 07/24/22 clonazepam 0.5 mg disintegrating 0.5 mg PO BID 08/07/21 07/24/22 tablet clonazepam 0.5 mg disintegrating 0.5 mg PO Q4H PRN Agitation 08/07/21 07/24/22 tablet famotidine 20 mg tablet 20 mg PO DAILY 08/07/21 07/24/22 ipratropium bromide 42 mcg (0.06 2 spray intranasal TID PRN Allergy 08/07/21 07/24/22 %) nasal spray Symptoms lisinopril 5 mg tablet 5 mg PO DAILY 08/07/21 07/24/22 melatonin 10 mg tablet 10 mg PO BEDTIME 08/07/21 07/24/22 psyllium husk 0.4 gram capsule 0.8 g PO BEDTIME 08/07/21 07/24/22 (Metamucil) quetiapine 25 mg tablet (Seroquel) 25 mg PO Q4HR PRN Anxiety 08/07/21 07/24/22 quetiapine 50 mg tablet 50 mg PO BID 08/07/21 07/24/22 rasagiline 0.5 mg tablet 0.5 mg PO DAILY 08/07/21 07/24/22 trazodone 100 mg tablet 100 mg PO BEDTIME PRN Sleep 08/07/21 07/24/22 Previous Rx's Medication Instructions Recorded lancets 28 gauge (FreeStyle #100 ea 02/19/20 Lancets) blood sugar diagnostic (FreeStyle #100 ea 03/06/20 Lite Strips) metformin 500 mg tablet 1,000 mg (2 x 500 mg) PO BID #360 01/08/21 tabs cefdinir 300 mg capsule 300 mg PO BID #14 caps 06/30/23 Allergies Allergy/AdvReac Type Severity Reaction Status Date / Time bacitracin Allergy Unknown Verified 08/04/22 09:33 [From NEOSPORIN ([id number])] neomycin Allergy Unknown Verified 08/04/22 09:33 [From NEOSPORIN ([id number])] polymyxin B Allergy Unknown Verified 08/04/22 09:33 [From NEOSPORIN ([id number])] 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 Rosacea Sleep apnea (~2010) Type 2 diabetes mellitus without complication (11/10/16) Surgical History Anesthesia History of cataract removal with insertion of prosthetic lens History of tonsillectomy Status post appendectomy Family History Mother Heart disease Diabetes mellitus Father Cancer Grandfather Heart disease Grandmother Heart disease Grandmother Heart disease Social History household members: caregiver Smoking Status: Former smoker alcohol intake: never Smoking Status: Former smoker tobacco type: cigarettes Substance Use Type: does not use Exam Initial Vital Signs Initial Vital Signs: Vital Signs Temperature 97.9 F 08/06/23 12:15 Pulse Rate 68 08/06/23 12:15 Respiratory Rate 18 08/06/23 12:15 Blood Pressure 165/72 H 08/06/23 12:15 Pulse Oximetry 97 08/06/23 12:15 Oxygen Delivery Method Room Air 08/06/23 12:15 GENERAL: Alert 88-year-old male and in [no acute] distress. HEENT: Head atraumatic,EOMI, pupils reactive, face symmetric, [moist] mucous membranes CARDIOVASCULAR: Regular rate and rhythm without murmurs, rubs or gallops. RESPIRATORY: Breath sounds equal bilaterally, no wheezes rales or rhonchi. ABDOMEN: Soft, nontender. Normoactive bowel sounds all 4 quadrants. No guarding or rebound. EXTREMITIES: Normal range of motion, no clubbing or edema. Neurovascularly intact strong palpating NEUROLOGICAL: Alert and oriented x1.Normal gait and speech. Cranial nerves II through XII grossly intact. [Good [id number], good [id number], strength equal bilaterally, no dysarthria or aphasia, sensation in tact to soft touch bilaterally, no visual changes, no facial droop] SKIN: Warm, dry, no laceration, no petechiae, no rashes or lesions. Course Orders Ordered: ED Orders 08/06/23 12:12 Complete Blood Count AUTO DIFF Stat Comprehensive Metabolic Panel Stat Lactate (Lactic Acid) Stat Lipase Stat Troponin & CK Cardiac Panel Stat 08/06/23 12:22 CT head/brain wo con Stat XR chest 1V Stat EKG-12 Lead Stat 08/06/23 12:44 Blood Culture Stat 08/06/23 13:47 UA Complete [Urinalysis and Microscopic] Stat Urine Culture Stat 08/06/23 14:45 COVID19 -Nasal RAPID Stat Discontinued Medications Sodium Chloride (Normal Saline 0.9%) 1,000 mls @ 150 mls/hr IV CONT MARYELLEN Last Admin: 08/06/23 12:53 Dose: Not Given Documented By: TEP Vital Signs Vital signs: Vital Signs - 8 hr 08/06/23 12:15 08/06/23 12:36 08/06/23 13:00 Temperature 97.9 F Pulse Rate 68 66 64 Respiratory Rate 18 22 21 Blood Pressure 165/72 H 165/72 H Pulse Oximetry 97 97 97 Oxygen Delivery Method Room Air 08/06/23 13:01 08/06/23 13:01 08/06/23 13:14 Temperature Pulse Rate 66 65 Respiratory Rate 21 20 Blood Pressure 162/70 H Pulse Oximetry 97 97 Oxygen Delivery Method 08/06/23 13:14 08/06/23 13:30 08/06/23 13:30 Temperature Pulse Rate 66 Respiratory Rate 30 H Blood Pressure 156/70 H 161/83 H Pulse Oximetry 97 Oxygen Delivery Method 08/06/23 14:00 08/06/23 14:01 08/06/23 14:01 Temperature Pulse Rate 60 63 Respiratory Rate 21 21 Blood Pressure 156/70 H Pulse Oximetry 99 98 Oxygen Delivery Method 08/06/23 14:30 08/06/23 14:31 08/06/23 14:31 Temperature Pulse Rate 65 79 Respiratory Rate 31 H 26 H Blood Pressure 164/88 H Pulse Oximetry 96 97 Oxygen Delivery Method 08/06/23 15:00 08/06/23 15:01 08/06/23 15:01 Temperature Pulse Rate 61 69 Respiratory Rate 23 Blood Pressure 151/89 H Pulse Oximetry 96 96 Oxygen Delivery Method 08/06/23 15:30 08/06/23 15:31 08/06/23 15:31 Temperature Pulse Rate 67 61 Respiratory Rate 25 H Blood Pressure 131/76 Pulse Oximetry 95 94 Oxygen Delivery Method 08/06/23 15:57 08/06/23 15:58 Temperature Pulse Rate 72 Respiratory Rate Blood Pressure 136/95 H Pulse Oximetry 94 Oxygen Delivery Method MDM - Weakness Lab Data 08/06/23 12:12 08/06/23 12:12 Labs: Lab Results 08/06/23 08/06/23 08/06/23 Range/Units 12:12 13:47 14:45 WBC 12.0 H (4.5-11.0) X10^3/uL RBC 3.97 L (4.5-5.9) X10^6/uL Hgb 12.1 L (13.5-17.5) g/dL Hct 36.5 L (41-53) % MCV 92.0 (80-100) fL MCH 30.4 (26-34) PG MCHC 33.1 (30-36) % RDW 14.6 (11.6-14.8) % Plt Count 167 (150-400) X10^3/uL Neut % (Auto) 52.2 (50-75) % Lymph % (Auto) 31.9 (25-40) % [place] % (Auto) 12.5 (3-14) % Eos % (Auto) 3.0 (2-4) % Baso % (Auto) 0.4 (0-2) % Neut # (Auto) 6200 (6326-2299) /uL Lymph # (Auto) 3800 (5757-3157) /uL [place] # (Auto) 1500 H (0-900) /uL Eos # (Auto) 400 (0-450) /uL Baso # (Auto) 0 (0-100) /uL Sodium 138 (137-145) mmol/L Potassium 5.1 (3.4-5.1) mmol/L Chloride 104 (98-107) mmol/L Carbon Dioxide 29 (22-32) mmol/L BUN 49 H (9-20) mg/dL Creatinine 2.16 H (0.66-1.25) mg/dL Estimated GFR 29 L (>60) mL/min BUN/Creatinine Ratio 22.7 H (6-22) Glucose 207 H (80-110) mg/dL Lactate 2.1 (0.7-2.1) mmol/L Calcium 10.2 (8.4-10.2) mg/dL Total Bilirubin 0.7 (0.2-1.3) mg/dL AST 25 (17-59) IU/L ALT 12 (<50) IU/L Alkaline Phosphatase 153 H (38-126) U/L Total Creatine Kinase < 20 L (55-170) U/L Troponin I < 0.012 (0.01-0.034) ng/mL Total Protein 7.4 (6.3-8.2) g/dL Albumin 3.8 (3.5-5.0) g/dL Globulin 3.6 (1.7-4.1) g/dL Albumin/Globulin Ratio 1.1 (1.0-2.8) Lipase 82 (23-300) U/L Urine Color Yellow Urine Appearance Sl cloudy Urine pH 6.5 (4.5-8.0) Ur Specific [place] 1.010 (1.000-1.035) Urine Protein Negative (Negative) Urine Glucose (UA) Negative (Negative) g/dL Urine Ketones Negative (NEGATIVE) Urine Occult Blood 1+ H (Negative) Urine Nitrate Negative (Negative) Urine Bilirubin Negative (NEGATIVE) Urine Urobilinogen 0.2 (0.2) E.U./dL Ur Leukocyte Esterase 3+ H (NEGATIVE) Urine RBC 1-5/hpf (0-5/HPF) Urine WBC 30-100/hpf H (0-5/HPF) Ur Squamous Epith Cells 0-1 /hpf (0-5/HPF) Urine Bacteria Moderate (10-30) H (None) Ur Culture Indicated? Specimen cultured SARS-CoV-2 (PCR) Negative (Negative) Imaging Data CT scan - head: Radiologist Impression: PROCEDURE: CT HEAD/BRAIN WO CON INDICATIONS: decrease mental status TECHNIQUE: Noncontrast 4.5 mm thick angled axial sections acquired from the foramen magnum to the vertex, with coronal and sagittal reformats. For radiation dose reduction, the following was used: automated exposure control, adjustment of mA and/or kV according to patient size. COMPARISON: [facility], CT, CT HEAD/BRAIN WO CON, 06/30/2023, 15:55. FINDINGS: Image quality: Excellent. CSF spaces: Basal cisterns are patent. No extra-axial fluid collections. The ventricles are symmetric in size and shape. Brain: No intracranial bleeds or masses. There is cerebral volume loss for age, with resultant ventricular and sulcal prominence. There are periventricular and deep white matter chronic small vessel ischemic changes. There is intracranial internal carotid artery atherosclerosis. Skull and face: Calvarium and visualized facial bones appear intact, without suspicious lesions. Sinuses: Visualized sinuses and mastoids are clear. IMPRESSION: No acute intracranial process Dictated by: Kirby Orourke M.D. on 08/06/2023 at 13:37 Chest x-ray: Radiologist Impression: PROCEDURE: XR CHEST 1V INDICATIONS: chest pain TECHNIQUE: One view of the chest was acquired. COMPARISON: [facility], CR, XR CHEST 1V, 08/04/2022, 10:26. [facility], CR, XR CHEST 1V, 07/24/2022, 10:47. FINDINGS: Surgical changes and devices: None. Lungs and pleura: Lungs are unchanged, with a chronic mild interstitial prominence. No pleural effusions or pneumothorax. Mediastinum: Mediastinal contours appear normal. Heart size is normal. Bones and chest wall: No suspicious bony lesions. Overlying soft tissues appear unremarkable. IMPRESSION: Chronic mild interstitial prominence, no definite source of new onset chest pain is found. Dictated by: Rick Cordon M.D. on 08/06/2023 at 14:10 ECG Data Interpretation: Sinus rhythm rate 68 DC interval 212 QRS 90 QTC 455 bigeminy frequent PVCs noted MDM Narrative Medical decision making narrative: Patient 88-year-old male history of Parkinson's with dementia lives at [facility] presents today with decreasing mental status. EMS found him with heart rate bigeminy and 35 but bed time he got to the ED quickly resolved. He was awake alert following commands. Head CT is negative chest x-ray negative. Blood work is overall reassuring without evidence of infection electrolyte abnormality or anemia. He is incontinent he is a condom catheter on. at bedside reports that he has completely improved. We talked about possibility of heart rate problem versus TIA. However at this time they feel comfortable going back to [facility] Discharge Plan Departure Patient Disposition: Home Clinical Impression: Bradycardia Instructions: Bradycardia Activity Restrictions/Additional Instructions: *You have been diagnosed with low heart rate *What to do: At this time you were found to have a low heart rate with EMS however it quickly resolved. Blood work and head CT in the ED overall reassuring. Please follow-up with your doctor you may require a Holter monitor *Continue to take medications as directed *Follow up with your primary care provider in 2-3 days or call [phone] *Return to ER if you should have increasing confusion heart rate less than 40 weakness facial droop or any new, worsening or concerning symptoms Prescriptions: No Action [CENTRUM SILVER] 1 tab PO QDAY Qty: 0 Rx Instructions: 7AM [CALCIUM/VITAMIN D] 1 tab PO QDAY Qty: 0 Rx Instructions: 7AM [FISH OIL] 2 cap PO QDAY Qty: 0 (DME) lancets [FreeStyle Lancets] 28 gauge misc See Dose Instructions .ROUTE .MEDSUPPLY Qty: 100 3RF Dose Instruction: As directed Rx Instructions: Use one Lancet to test Blood Sugar once daily (DME) FreeStyle Lite Strips Strip See Dose Instructions .ROUTE .MEDSUPPLY Qty: 100 3RF Dose Instruction: As directed Rx Instructions: Use one strip to test blood sugars once daily metformin 500 mg tablet 1,000 mg PO BID Qty: 360 1RF aspirin 81 mg tablet,delayed release (DR/EC) 81 mg PO DAILY cefdinir 300 mg capsule 300 mg PO BID Qty: 14 0RF quetiapine [Seroquel] 25 mg Tablet 25 mg PO Q4HR PRN (Reason: Anxiety) ascorbic acid (vitamin C) 1,000 mg Tablet 1 g PO DAILY citalopram 10 mg tablet 10 mg PO DAILY famotidine 20 mg Tablet 20 mg PO DAILY Rx Instructions: before dinner trazodone 100 mg Tablet 100 mg PO BEDTIME PRN (Reason: Sleep) carbidopa-levodopa 25-100 mg tablet 1 tab PO TID Rx Instructions: 7AM, 12PM, 4PM clonazepam 0.5 mg tablet,disintegrating 0.5 mg PO Q4H PRN (Reason: Agitation) Rx Instructions: anxiety/agitation clonazepam 0.5 mg tablet,disintegrating 0.5 mg PO BID Rx Instructions: 7AM, 8PM quetiapine 50 mg tablet 50 mg PO BID Rx Instructions: 7AM, 8PM melatonin 10 mg Tablet 10 mg PO BEDTIME psyllium husk [Metamucil] 0.4 gram Capsule 0.8 g PO BEDTIME ipratropium bromide 42 mcg (0.06 %) spray,non-aerosol 2 spray INTRANASAL TID PRN (Reason: Allergy Symptoms) lisinopril 5 mg tablet 5 mg PO DAILY rasagiline 0.5 mg tablet 0.5 mg PO DAILY Referrals: Silvia Garcia ARNP [Primary Care Provider] - Stand Alone Forms: Patient Portal/API
[2023-08-06 12:33] LABS: Add Manual Diff / Slide Review NO; Basophils Absolute Auto 0 /uL (0-100); Basophils Percent Auto 0.4 % (0-2); Eosinophils Absolute Auto 400 /uL (0-450); Hematocrit 36.5 % (41-53); Hemoglobin 12.1 g/dL (13.5-17.5); Lymphocytes Absolute Auto 3800 /uL (1100-4500); Lymphocytes Percent Auto 31.9 % (25-40); Mean Corpuscular HGB Conc 33.1 % (30-36); Mean Corpuscular Hemoglobin 30.4 PG (26-34); Monocytes Absolute Auto 1500 /uL (0-900); Monocytes Percent Auto 12.5 % (3-14); Neutrophils Absolute Auto 6200 /uL (1500-7000); Neutrophils Percent Auto 52.2 % (50-75); Platelet Count 167 X10^3/uL (150-400); Red Blood Cell Count 3.97 X10^6/uL (4.5-5.9); Red Cell Distribution Width 14.6 % (11.6-14.8)
[2023-08-06 12:37] LABS: Alanine Aminotransferase 12 IU/L (<50); Albumin 3.8 g/dL (3.5-5.0); Albumin Globulin Ratio 1.1 (1.0-2.8); Alkaline Phosphatase 153 U/L (38-126); Aspartate Aminotransferase 25 IU/L (17-59); BUN Creatinine Ratio 22.7 (6-22); Bilirubin Total 0.7 mg/dL (0.2-1.3); Blood Urea Nitrogen 49 mg/dL (9-20); Calcium 10.2 mg/dL (8.4-10.2); Carbon Dioxide 29 mmol/L (22-32); Chloride 104 mmol/L (98-107); Creatine Kinase < 20 U/L (55-170); Estimated Glomerular Filt Rate 29 mL/min (>60); Globulin 3.6 g/dL (1.7-4.1); Glucose 207 mg/dL (80-110); HEMOLYSIS < 15 (0-50); Lipase 82 U/L (23-300); Potassium 5.1 mmol/L (3.4-5.1); Sodium 138 mmol/L (137-145); Total Protein 7.4 g/dL (6.3-8.2)
[2023-08-06 12:38] LABS: Lactate (Lactic Acid) 2.1 mmol/L (0.7-2.1)
[2023-08-06 12:49] LABS: Troponin I < 0.012 ng/mL (0.01-0.034)
[2023-08-06 13:52] LABS: Appearance Urine UA SL CLOUDY; Bilirubin Urine UA NEGATIVE (NEGATIVE); Color Urine UA YELLOW; Glucose Urine UA NEGATIVE (Negative); Ketones Urine UA NEGATIVE (NEGATIVE); Leukocyte Esterase Urine UA 3+ (NEGATIVE); Nitrite Urine UA NEGATIVE (Negative); Occult Blood Urine UA 1+ (Negative); Protein Urine UA NEGATIVE (Negative); Urobilinogen Urine UA 0.2 E.U./dL (0.2); pH Urine UA 6.5 (4.5-8.0)
[2023-08-06 13:54] LABS: Bacteria Urine Moderate (10-30); Culture Indicated Urine Specimen Cultured; RBC Urine 1-5/HPF (0-5/HPF); Squamous Epithelial Cell Urine 0-1 /HPF (0-5/HPF); WBC Urine 30-100/HPF (0-5/HPF)
[2023-08-06 14:11] LABS: Reflexed Lactate in 2 Hours Y
--- NOTE | 2023-08-06 14:28 | PC.NURSE ---
placed a [place]/condom cath on patient, draining to gravity. pt tolerated well. urine sent for a sample. cloudy yellow.
[2023-08-06 15:28] LABS: COVID19 -Nasal RAPID Negative (Negative)
== END 2023-08-06 17:00 | disposition home or self-care (01) ==
PROVIDERS: Emergency Provider Emergency Medicine; PCP Nurse Practitioner Family
DX: R00.1 Bradycardia, unspecified (principal); R07.9 Chest pain, unspecified; R41.82 Altered mental status, unspecified; Z79.899 Other long term (current) drug therapy; Z20.822 Contact with and (suspected) exposure to COVID-19
CPT/HCPCS: 36415; 70450; 71045; 80053; 81001; 82550; 83605; 83690; 84484; 85025; 87040; 87086; 87635; 93005; 99284; C9803

== ENCOUNTER 2023-09-16 11:51 | Inpatient (IN) | payer MEDICARE, OTHER, SELFPAY ==
[2022-07-24 14:29] VITALS: BMI 30.4
[2023-09-16] VITALS (12 sets, daily range): BP systolic 110–184; BP diastolic 42–102; PULSE 53–126; RESP 16–57; TEMP 36.6–37.7; O2SAT 86–100; BMI 27.1
--- NOTE | 2023-09-16 12:12 | ED_ITS ---
HPI - SOB/Dyspnea General Chief Complaint: Upper Respiratory Symptoms Stated Complaint: resp distress x4 days Time Seen by Provider: 09/16/23 12:03 History of Present Illness HPI Narrative: Patient 88-year-old male who resides at [facility] history of Parkinson's disease, presents today with increasing shortness of breath. According to staff he is had increasing shortness of breath for the last 4 days. He apparently had a recent infection with RSV. Sounds wet and chunky. Hypoxic for EMS mid to 80s. at bedside reports does not typically have difficulty breathing. No history of aspiration. He does get soft diets normally. Patient currently appears to be in [id number] respiratory distress. Able to answer some questions. Denies any pain POLST form has been reviewed he is a DNR with limited interventions. Family agrees with workup. Related Data Home Medications Medication Instructions Recorded Confirmed [CALCIUM/VITAMIN D] 1 tab PO QDAY ##0 03/10/17 09/16/23 [CENTRUM SILVER] 1 tab PO QDAY ##0 03/10/17 09/16/23 [FISH OIL] 2 cap PO QDAY ##0 03/10/17 09/16/23 aspirin 81 mg tablet,delayed 81 mg PO DAILY 10/30/20 09/16/23 release ascorbic acid (vitamin C) 1,000 mg 1 g PO DAILY 08/07/21 09/16/23 tablet carbidopa 25 mg-levodopa 100 mg 1 tab PO TID 08/07/21 09/16/23 tablet citalopram 10 mg tablet 10 mg PO DAILY 08/07/21 09/16/23 clonazepam 0.5 mg disintegrating 0.5 mg PO BID 08/07/21 09/16/23 tablet clonazepam 0.5 mg disintegrating 0.5 mg PO Q4H PRN Agitation 08/07/21 09/16/23 tablet famotidine 20 mg tablet 20 mg PO DAILY 08/07/21 09/16/23 melatonin 10 mg tablet 10 mg PO BEDTIME 08/07/21 09/16/23 psyllium husk 0.4 gram capsule 0.8 g PO BEDTIME 08/07/21 09/16/23 (Metamucil) acetaminophen 325 mg capsule 650 mg PO Q4H PRN Pain (Scale 09/16/23 09/16/23 Score 1-3) furosemide 80 mg tablet 80 mg PO DAILY 09/16/23 09/16/23 quetiapine 25 mg tablet 50 mg PO BID 09/16/23 09/16/23 trazodone 100 mg tablet 100 mg PO ONCE PM 09/16/23 09/16/23 Previous Rx's Medication Instructions Recorded lancets 28 gauge (FreeStyle #100 ea 02/19/20 Lancets) blood sugar diagnostic (FreeStyle #100 ea 03/06/20 Lite Strips) metformin 500 mg tablet 1,000 mg (2 x 500 mg) PO BID #360 01/08/21 tabs Allergies Allergy/AdvReac Type Severity Reaction Status Date / Time bacitracin Allergy Unknown Verified 08/04/22 09:33 [From NEOSPORIN ([id number])] neomycin Allergy Unknown Verified 08/04/22 09:33 [From NEOSPORIN ([id number])] polymyxin B Allergy Unknown Verified 08/04/22 09:33 [From NEOSPORIN ([id number])] Patient History Medical History Hyperlipidemia associated with type 2 diabetes mellitus REM behavioral disorder Sleep apnea (~2010) Parkinson's disease (~2009) Rosacea Mumps Measles Chicken pox Hearing loss (~2011) Partial blindness (~2014) Type 2 diabetes mellitus without complication (11/10/16) Penis injury Surgical History Anesthesia History of tonsillectomy History of cataract removal with insertion of prosthetic lens Status post appendectomy Family History Mother Heart disease Diabetes mellitus Father Cancer Grandfather Heart disease Grandmother Heart disease Grandmother Heart disease Social History household members: caregiver Smoking Status: Former smoker alcohol intake: never Smoking Status: Former smoker tobacco type: cigarettes Substance Use Type: does not use Exam Initial Vital Signs Initial Vital Signs: Vital Signs Temperature 97.8 F 09/16/23 11:52 Pulse Rate 53 L 09/16/23 11:52 Respiratory Rate 45 H 09/16/23 11:52 Blood Pressure 132/65 09/16/23 11:52 Pulse Oximetry 91 09/16/23 11:52 Oxygen Delivery Method Nasal Cannula 09/16/23 11:52 GENERAL: Alert 88 year male appears [id number] HEENT: Head atraumatic,EOMI, pupils reactive, face symmetric, moist mucous membranes CARDIOVASCULAR: Regular rate and rhythm without murmurs, rubs or gallops. RESPIRATORY: Mild to moderate tachypnea coarse breath sounds bilaterally ABDOMEN: Soft, nontender. Normoactive bowel sounds all 4 quadrants. No guarding or rebound. EXTREMITIES: Normal range of motion, no clubbing or edema. Neurovascularly intact NEUROLOGICAL: Moving all extremities no gross deficits no facial droop SKIN: Warm, dry, no laceration, no petechiae, no rashes or lesions. Course Orders Ordered: ED Orders 09/16/23 11:49 Complete Blood Count AUTO DIFF Stat Comprehensive Metabolic Panel Stat Lactate (Lactic Acid) Stat Lipase Stat NT-proBNP (BNP-Adult 18+) Stat Procalcitonin Stat Troponin & CK Cardiac Panel Stat 09/16/23 12:07 EKG-12 Lead Stat 09/16/23 12:12 XR chest 1V Stat 09/16/23 12:21 Covid-19 + FLU A/B + RSV - PCR Stat 09/16/23 13:00 Blood Culture Stat Acetaminophen (Acetaminophen 325 Mg Tablet) 650 mg PO Q6H PRN PRN Reason: Fever/Mild Pain (1-3) Ascorbic Acid (Ascorbic Acid 500 Mg Tablet) 1,000 mg PO DAILY MARYELLEN Aspirin (Aspirin Ec 81 Mg Tablet) 81 mg PO DAILY MARYELLEN Carbidopa/Levodopa (Carbidopa-Levodopa 25/100 Tablet) 1 each PO TID MARYELLEN Citalopram Hydrobromide (Citalopram 10 Mg Tablet) 10 mg PO DAILY MARYELLEN Clonazepam (Clonazepam 0.5 Mg Tablet) 0.5 mg PO BID MARYELLEN Clonazepam (Clonazepam 0.5 Mg Tablet) 0.5 mg PO Q4H PRN PRN Reason: Agitation Enoxaparin Sodium (Enoxaparin 40 Mg/0.4 Ml Syringe) 40 mg SUBCUT DAILY MARYELLEN Famotidine (Famotidine 20 Mg Tablet) 20 mg PO DAILY MARYELLEN Piperacillin Sod/Tazobactam (Sod 3.375 gm/ Sodium Chloride) 100 mls @ 25 mls/hr IV Q8H MARYELLEN Dextrose (D10w) 100 mls @ 1,200 mls/hr IV PRN PRN PRN Reason: Hypoglycemia Insulin Human Lispro (Insulin Lispro 100 Unit/Ml 3ml Vial) 0 unit SUBCUT ACHS MARYELLEN; Protocol Naloxone HCl (Naloxone 0.4 Mg/Ml Vial) 0.2 mg IV Q2MIN PRN PRN Reason: Opiate Reversal Ondansetron HCl (Ondansetron 4 Mg/2 Ml Inj) 4 mg IV Q8HR PRN PRN Reason: Nausea And Vomiting Quetiapine Fumarate (Quetiapine 25 Mg Tablet) 50 mg PO BID MARYELLEN Trazodone HCl (Trazodone 50 Mg Tablet) 100 mg PO BEDTIME MARYELLEN Discontinued Medications Diazepam (Diazepam 10 Mg/2 Ml Syringe) 5 mg IV NOW ONE Stop: 09/16/23 17:58 Last Admin: 09/16/23 18:15 Dose: 5 mg Documented By: NANCY Metronidazole (Flagyl) 500 mg in 100 mls @ 100 mls/hr IV NOW ONE Stop: 09/16/23 14:52 Last Admin: 09/16/23 17:02 Dose: Not Given Documented By: SB Piperacillin Sod/Tazobactam (Sod 4.5 gm/ Sodium Chloride) 100 mls @ 200 mls/hr IV NOW ONE Stop: 09/16/23 13:54 Last Infusion: 09/16/23 15:15 Dose: Infused Documented By: Admin: 09/16/23 14:24 Dose: 200 mls/hr Documented By: WENDY Vital Signs Vital signs: Vital Signs - 8 hr 09/16/23 11:52 09/16/23 11:52 09/16/23 11:52 Temperature 97.8 F Pulse Rate 53 L 80 Respiratory Rate 45 H Blood Pressure 132/65 133/88 Pulse Oximetry 91 91 Oxygen Delivery Method Nasal Cannula 09/16/23 12:00 09/16/23 12:00 09/16/23 12:30 Temperature Pulse Rate 81 84 Respiratory Rate 57 H Blood Pressure 132/65 Pulse Oximetry 96 87 L Oxygen Delivery Method 09/16/23 12:31 09/16/23 12:31 09/16/23 13:00 Temperature Pulse Rate 87 103 H Respiratory Rate 37 H 48 H Blood Pressure 118/58 L Pulse Oximetry 86 L 94 Oxygen Delivery Method 09/16/23 13:00 09/16/23 13:00 09/16/23 13:04 Temperature Pulse Rate 85 Respiratory Rate 32 H 32 H Blood Pressure 140/63 140/63 Pulse Oximetry 97 95 Oxygen Delivery Method 09/16/23 13:04 09/16/23 13:30 09/16/23 13:30 Temperature Pulse Rate 85 85 Respiratory Rate 37 H 40 H Blood Pressure 184/102 H Pulse Oximetry 93 92 Oxygen Delivery Method 09/16/23 14:00 09/16/23 14:00 Temperature Pulse Rate 126 H Respiratory Rate 35 H Blood Pressure 155/73 H Pulse Oximetry 93 Oxygen Delivery Method MDM - SOB/Dyspnea Lab Data 09/16/23 11:49 09/16/23 11:49 Labs: Lab Results 09/16/23 09/16/23 09/16/23 Range/Units 11:49 12:21 13:42 WBC 22.6 H (4.5-11.0) X10^3/uL RBC 3.94 L (4.5-5.9) X10^6/uL Hgb 12.1 L (13.5-17.5) g/dL Hct 36.8 L (41-53) % MCV 93.5 (80-100) fL MCH 30.7 (26-34) PG MCHC 32.8 (30-36) % RDW 14.5 (11.6-14.8) % Plt Count 167 (150-400) X10^3/uL Neut % (Auto) 80.5 H (50-75) % Lymph % (Auto) 10.0 L (25-40) % [place] % (Auto) 8.1 (3-14) % Eos % (Auto) 1.0 L (2-4) % Baso % (Auto) 0.4 (0-2) % Neut # (Auto) 17690 H (9179-3619) /uL Lymph # (Auto) 2300 (2955-2592) /uL [place] # (Auto) 1800 H (0-900) /uL Eos # (Auto) 200 (0-450) /uL Baso # (Auto) 100 (0-100) /uL Sodium 142 (137-145) mmol/L Potassium 5.0 (3.4-5.1) mmol/L Chloride 103 (98-107) mmol/L Carbon Dioxide 32 (22-32) mmol/L BUN 39 H (9-20) mg/dL Creatinine 1.70 H (0.66-1.25) mg/dL Estimated GFR 38 L (>60) mL/min BUN/Creatinine Ratio 22.9 H (6-22) Glucose 182 H (80-110) mg/dL Lactate 2.5 H 2.6 H (0.7-2.1) mmol/L Calcium 9.9 (8.4-10.2) mg/dL Total Bilirubin 1.2 (0.2-1.3) mg/dL AST 36 (17-59) IU/L ALT 18 (<50) IU/L Alkaline Phosphatase 218 H (38-126) U/L Total Creatine Kinase < 20 L (55-170) U/L Troponin I < 0.012 (0.01-0.034) ng/mL NT-Pro-B Natriuret Pep 201 (<450) pg/mL Total Protein 7.7 (6.3-8.2) g/dL Albumin 3.9 (3.5-5.0) g/dL Globulin 3.8 (1.7-4.1) g/dL Albumin/Globulin Ratio 1.0 (1.0-2.8) Lipase 53 (23-300) U/L Procalcitonin 0.10 (<0.5) ng/mL SARS-CoV-2 (PCR) Negative (Negative) Influenza A (RT-PCR) Flu a negative (NEGATIVE) Influenza B (RT-PCR) Flu b negative (NEGATIVE) RSV (PCR) Negative (Negative) Imaging Data Chest x-ray: Radiologist's Impression: [address] [address] XRay Report Signed Patient: Richard Bird MR#: [id number] : 1935 Acct:[id number] Age/Sex: 88 / M Date of Service: 09/16/23 Loc: ED Accession Number: [id number] Procedure: XR chest 1V Ordering Provider: Desi Boudreaux D.O. PROCEDURE: XR CHEST 1V INDICATIONS: short of breath TECHNIQUE: One view of the chest was acquired. COMPARISON: [facility], , XR CHEST 1V, 08/06/2023, 13:42. FINDINGS: Surgical changes and devices: None. Lungs and pleura: There is mild bibasilar airspace opacity. No pleural effusions or pneumothorax. Mediastinum: Mediastinal contours appear normal. Heart size is normal. Bones and chest wall: No suspicious bony lesions. Overlying soft tissues appear unremarkable. IMPRESSION: Bibasilar pneumonia. Continued plain film surveillance is recommended to ensure resolution, and to exclude underlying or central malignancy. ECG Data Interpretation: Sinus rhythm rate 80 [place] interval 202 QRS 90 QTC 454 PVCs noted similar to previous EKGs MDM Narrative Medical decision making narrative: Patient 80-year-old male history of dementia Parkinson's disease presents with hypoxia and decreased mental status. Discussed with at bedside confirmed patient has limited interventions DNR DNI but agrees for workup and treatment. Recently had RSV infection requiring oxygen now. To mild work of breathing he is put on high-flow nasal cannula which he tolerates very well and seems to. Blood work has been reviewed he is found have leukocytosis of 22, lactate 2.5, creatinine 1.7 which is improved from previous at 2.16. Chest x-ray confirms bibasilar pneumonia. Blood cultures pending Patient is given Zosyn. He is not hypotensive sepsis fluids were not ordered antibiotic. Repeat lactate pending Dr. Fischer updated on patient's symptoms test results and accepts patient. Discharge Plan Departure Patient Disposition: Admitted As Inpatient Clinical Impression: Pneumonia Admit Date/Time: 09/16/23 14:06 Admit Provider: Ran Fischer
--- NOTE | 2023-09-16 12:12 | DI.RAD.S_ITS ---
PROCEDURE: XR CHEST 1V INDICATIONS: short of breath TECHNIQUE: One view of the chest was acquired. COMPARISON: [facility], CR, XR CHEST 1V, 08/06/2023, 13:42. FINDINGS: Surgical changes and devices: None. Lungs and pleura: There is mild bibasilar airspace opacity. No pleural effusions or pneumothorax. Mediastinum: Mediastinal contours appear normal. Heart size is normal. Bones and chest wall: No suspicious bony lesions. Overlying soft tissues appear unremarkable. IMPRESSION: Bibasilar pneumonia. Continued plain film surveillance is recommended to ensure resolution, and to exclude underlying or central malignancy. Dictated by: Leandro Cotton M.D. on 09/16/2023 at 12:52 Approved by: Leandro Cotton M.D. on 09/16/2023 at 12:52
[2023-09-16 12:45] LABS: Add Manual Diff / Slide Review NO; Basophils Absolute Auto 100 /uL (0-100); Basophils Percent Auto 0.4 % (0-2); Eosinophils Absolute Auto 200 /uL (0-450); Hematocrit 36.8 % (41-53); Hemoglobin 12.1 g/dL (13.5-17.5); Lymphocytes Absolute Auto 2300 /uL (1100-4500); Mean Corpuscular HGB Conc 32.8 % (30-36); Mean Corpuscular Hemoglobin 30.7 PG (26-34); Mean Corpuscular Volume 93.5 fL (80-100); Monocytes Absolute Auto 1800 /uL (0-900); Monocytes Percent Auto 8.1 % (3-14); Neutrophils Absolute Auto 18200 /uL (1500-7000); Neutrophils Percent Auto 80.5 % (50-75); Platelet Count 167 X10^3/uL (150-400); Red Blood Cell Count 3.94 X10^6/uL (4.5-5.9); Red Cell Distribution Width 14.5 % (11.6-14.8); White Blood Cell Count 22.6 X10^3/uL (4.5-11.0)
[2023-09-16 12:53] LABS: Alanine Aminotransferase 18 IU/L (<50); Albumin 3.9 g/dL (3.5-5.0); Alkaline Phosphatase 218 U/L (38-126); Aspartate Aminotransferase 36 IU/L (17-59); BUN Creatinine Ratio 22.9 (6-22); Bilirubin Total 1.2 mg/dL (0.2-1.3); Blood Urea Nitrogen 39 mg/dL (9-20); Calcium 9.9 mg/dL (8.4-10.2); Carbon Dioxide 32 mmol/L (22-32); Chloride 103 mmol/L (98-107); Creatine Kinase < 20 U/L (55-170); Estimated Glomerular Filt Rate 38 mL/min (>60); Globulin 3.8 g/dL (1.7-4.1); Glucose 182 mg/dL (80-110); HEMOLYSIS < 15 (0-50); Lipase 53 U/L (23-300); Sodium 142 mmol/L (137-145); Total Protein 7.7 g/dL (6.3-8.2)
[2023-09-16 12:54] LABS: Lactate (Lactic Acid) 2.5 mmol/L (0.7-2.1)
[2023-09-16 13:02] LABS: NT-proBNP (BNP-Adult 18+) 201 pg/mL (<450)
[2023-09-16 13:06] LABS: Troponin I < 0.012 ng/mL (0.01-0.034)
[2023-09-16 13:18] LABS: Influenza A - CEPHEID Flu A NEGATIVE (NEGATIVE); Influenza B - CEPHEID Flu B NEGATIVE (NEGATIVE); Respiratory Syncytial Virus Negative (Negative)
[2023-09-16 14:06] LABS: COVID-19 CEPHEID 4-PLEX PCR Negative (Negative)
[2023-09-16 14:24] LABS: Reflexed Lactate in 2 Hours Y
[2023-09-16] MEDS: PIPERACILLIN/TAZO 4.5 GM in SODIUM CHLORIDE 0.9% 100 ML IV (14:24)
[2023-09-16 14:38] LABS: Lactate 2HR (Lactic Acid Rflx) 2.6 mmol/L (0.7-2.1)
[2023-09-16 15:44] LABS: Lactate (Lactic Acid) 2.3 mmol/L (0.7-2.1)
[2023-09-16 17:05] LABS: Reflexed Lactate in 2 Hours Y
--- NOTE | 2023-09-16 17:19 | PC.NURSE ---
Day shift: Patient admitted from ER at 1510. Pt A&Ox3. Unaware of year. Patient came up with RT who placed him on heated high-flow. Continuous pulse ox - patient sat'ing between 92-98 percent. RR 20-24. Lungs have significant wheezing - inspiratory and expiratory. Patient denies pain or pain with breathing. Patient has tremors in B upper extremities at baseline due to Parkinson's. BLE mild edema at baseline. Notified MD Fischer of patient meeting sepsis criteria with elevated lactate, increased heart rate, and increased RR. Let him know IV zosyn given in ER and blood cultures taken, but no fluids given. Asked MD Fischer that sepsis protocol indicates giving fluid bolus. MD Fischer said not necessary at this time. Notified MD Fischer of patient having diabetes. BG prior to dinner 219. stated he would put in orders. Patient incontinent of urine. Patient attempting to pull off his oxygen multiple times. Moved patient to view room in 215 and report given to SHAMIR Grant. Bed alarm on.
--- NOTE | 2023-09-16 17:24 | PM.HP.1 ---
History of Present Illness History of Present Illness Date Patient Seen: 09/16/23 Time Patient Seen: 17:00 Chief complaint: resp distress x4 days Narrative: This is an 87-year-old male, with a past medical history of hyperlipidemia, diabetes, Parkinson's dementia, resident of [facility] care unit who was sent to the emergency room for shortness of breath. Patient is not a reliable historian due to his underlying dementia and unable to provide a colloborating history so largely obtained via ER provider. According to the staff he had increasing dyspnea over the past 4 days. He was hypoxic with EMS to the mid 80s. He is a DNR with limited interventions but family was agreeable for antibiotics, oxygen and further evaluation. His evaluation was notable for leukocytosis, elevated creatinine (though improved from previous admission), and negative COVID,flu,RSV panel. CXR shows bibasilar infiltrates. He was admitted for further management of pneumonia with acute respiratory failure with hypoxia. [facility] Medical History Hyperlipidemia associated with type 2 diabetes mellitus REM behavioral disorder Sleep apnea (~2010) Parkinson's disease (~2009) Rosacea Mumps Measles Chicken pox Hearing loss (~2011) Partial blindness (~2014) Type 2 diabetes mellitus without complication (11/10/16) Penis injury Surgical History Anesthesia History of tonsillectomy History of cataract removal with insertion of prosthetic lens Status post appendectomy Family History Mother Heart disease Diabetes mellitus Father Cancer Grandfather Heart disease Grandmother Heart disease Grandmother Heart disease Social History household members: caregiver Smoking Status: Former smoker alcohol intake: never Meds Home Medications and Allergies Home Medications Medication Instructions Recorded Confirmed Type [CALCIUM/VITAMIN D] 1 tab PO QDAY ##0 03/10/17 09/16/23 History [CENTRUM SILVER] 1 tab PO QDAY ##0 03/10/17 09/16/23 History [FISH OIL] 2 cap PO QDAY ##0 03/10/17 09/16/23 History lancets 28 gauge (FreeStyle #100 ea 02/19/20 09/16/23 Rx Lancets) blood sugar diagnostic (FreeStyle #100 ea 03/06/20 09/16/23 Rx Lite Strips) aspirin 81 mg tablet,delayed 81 mg PO DAILY 10/30/20 09/16/23 History release metformin 500 mg tablet 1,000 mg (2 x 500 mg) PO BID #360 01/08/21 09/16/23 Rx tabs ascorbic acid (vitamin C) 1,000 mg 1 g PO DAILY 08/07/21 09/16/23 History tablet carbidopa 25 mg-levodopa 100 mg 1 tab PO TID 08/07/21 09/16/23 History tablet citalopram 10 mg tablet 10 mg PO DAILY 08/07/21 09/16/23 History clonazepam 0.5 mg disintegrating 0.5 mg PO BID 08/07/21 09/16/23 History tablet clonazepam 0.5 mg disintegrating 0.5 mg PO Q4H PRN Agitation 08/07/21 09/16/23 History tablet famotidine 20 mg tablet 20 mg PO DAILY 08/07/21 09/16/23 History melatonin 10 mg tablet 10 mg PO BEDTIME 08/07/21 09/16/23 History psyllium husk 0.4 gram capsule 0.8 g PO BEDTIME 08/07/21 09/16/23 History (Metamucil) acetaminophen 325 mg capsule 650 mg PO Q4H PRN Pain (Scale 09/16/23 09/16/23 History Score 1-3) furosemide 80 mg tablet 80 mg PO DAILY 09/16/23 09/16/23 History quetiapine 25 mg tablet 50 mg PO BID 09/16/23 09/16/23 History trazodone 100 mg tablet 100 mg PO ONCE PM 09/16/23 09/16/23 History Allergies Allergy/AdvReac Type Severity Reaction Status Date / Time bacitracin Allergy Unknown Verified 08/04/22 09:33 [From NEOSPORIN ([id number])] neomycin Allergy Unknown Verified 08/04/22 09:33 [From NEOSPORIN ([id number])] polymyxin B Allergy Unknown Verified 08/04/22 09:33 [From NEOSPORIN ([id number])] Review of Systems Review of Systems Narrative: All other systems reviewed with the patient and are negative unless otherwise stated, though history is unreliable as discussed above. Exam Vital Signs (past 8 hours): - 09/16/23 11:52 09/16/23 11:52 09/16/23 11:52 Temperature 97.8 F Pulse Rate 53 L 80 Respiratory Rate 45 H Blood Pressure 132/65 133/88 Pulse Oximetry 91 91 Oxygen Delivery Method Nasal Cannula 09/16/23 12:00 09/16/23 12:00 09/16/23 12:30 Temperature Pulse Rate 81 84 Respiratory Rate 57 H Blood Pressure 132/65 Pulse Oximetry 96 87 L Oxygen Delivery Method 09/16/23 12:31 09/16/23 12:31 09/16/23 13:00 Temperature Pulse Rate 87 103 H Respiratory Rate 37 H 48 H Blood Pressure 118/58 L Pulse Oximetry 86 L 94 Oxygen Delivery Method 09/16/23 13:00 09/16/23 13:00 09/16/23 13:04 Temperature Pulse Rate 85 Respiratory Rate 32 H 32 H Blood Pressure 140/63 140/63 Pulse Oximetry 97 95 Oxygen Delivery Method 09/16/23 13:04 09/16/23 13:30 09/16/23 13:30 Temperature Pulse Rate 85 85 Respiratory Rate 37 H 40 H Blood Pressure 184/102 H Pulse Oximetry 93 92 Oxygen Delivery Method 09/16/23 14:00 09/16/23 14:00 09/16/23 14:30 Temperature Pulse Rate 126 H 86 Respiratory Rate 35 H 35 H Blood Pressure 155/73 H Pulse Oximetry 93 93 Oxygen Delivery Method 09/16/23 14:30 09/16/23 15:32 09/16/23 16:00 Temperature Pulse Rate 90 Respiratory Rate 34 H Blood Pressure 159/63 H 159/63 H Pulse Oximetry 93 Oxygen Delivery Method Heated High Flow Oxygen Delivery Method Heated High Flow Narrative Exam Narrative: GENERAL APPEARANCE:? elderly male, appears acutely ill, SKIN: Inspection of the skin reveals no rashes, ulcerations or petechiae. HEENT:? Normocephalic atraumatic, extraocular muscles are intact, oropharynx is clear and mucous membranes are moist, neck is supple without adenopathy NECK: Supple and symmetric. There was no thyroid enlargement, and no tenderness, or masses were felt. CHEST: Normal AP diameter and normal contour without any kyphoscoliosis. LUNGS: Auscultation of the lungs revealed no wheezes, rhonchi, or rales. CARDIOVASCULAR: There was a regular rate and rhythm without any murmurs, gallops, rubs. Peripheral pulses were 2+ and symmetric. ABDOMEN:? Soft, nontender, and nondistended MUSCULOSKELETAL: There was no tenderness or effusions noted. Muscle strength and tone were normal. EXTREMITIES: No cyanosis, clubbing or edema. NEUROLOGIC: Alert and oriented x1 (name only).? No focal deficits.? Occasional tremor. Mumbles responses frequently. Objective ECG Impression: Sinus rhythm with occasional premature ventricular complexes Left axis deviation Similar to previous tracings, no acute ischemia as interpreted by me. Labs 09/16/23 11:49 09/16/23 11:49 Labs: Laboratory Results - last 24 hr 09/16/23 09/16/23 09/16/23 11:49 12:21 13:42 WBC 22.6 H RBC 3.94 L Hgb 12.1 L Hct 36.8 L MCV 93.5 MCH 30.7 MCHC 32.8 RDW 14.5 Plt Count 167 Neut % (Auto) 80.5 H Lymph % (Auto) 10.0 L [place] % (Auto) 8.1 Eos % (Auto) 1.0 L Baso % (Auto) 0.4 Neut # (Auto) 93528 H Lymph # (Auto) 2300 [place] # (Auto) 1800 H Eos # (Auto) 200 Baso # (Auto) 100 Sodium 142 Potassium 5.0 Chloride 103 Carbon Dioxide 32 BUN 39 H Creatinine 1.70 H Estimated GFR 38 L BUN/Creatinine Ratio 22.9 H Glucose 182 H Lactate 2.5 H 2.6 H Calcium 9.9 Total Bilirubin 1.2 AST 36 ALT 18 Alkaline Phosphatase 218 H Total Creatine Kinase < 20 L Troponin I < 0.012 NT-Pro-B Natriuret Pep 201 Total Protein 7.7 Albumin 3.9 Globulin 3.8 Albumin/Globulin Ratio 1.0 Lipase 53 Procalcitonin 0.10 SARS-CoV-2 (PCR) Negative Influenza A (RT-PCR) Flu a negative Influenza B (RT-PCR) Flu b negative RSV (PCR) Negative 09/16/23 15:20 WBC RBC Hgb Hct MCV MCH MCHC RDW Plt Count Neut % (Auto) Lymph % (Auto) [place] % (Auto) Eos % (Auto) Baso % (Auto) Neut # (Auto) Lymph # (Auto) [place] # (Auto) Eos # (Auto) Baso # (Auto) Sodium Potassium Chloride Carbon Dioxide BUN Creatinine Estimated GFR BUN/Creatinine Ratio Glucose Lactate 2.3 H Calcium Total Bilirubin AST ALT Alkaline Phosphatase Total Creatine Kinase Troponin I NT-Pro-B Natriuret Pep Total Protein Albumin Globulin Albumin/Globulin Ratio Lipase Procalcitonin SARS-CoV-2 (PCR) Influenza A (RT-PCR) Influenza B (RT-PCR) RSV (PCR) Assessment & Plan Assessment & Plan narrative: 1. Sepsis secondary to pneumonia with elevated creatinine, acute metabolic encephalopathy, and acute respiratory failure with hypoxia - unclear baseline creatinine as prior admission had KWAN in setting of sepsis due to UTI. Creatinine currently 1.7. - continue zosyn for presumed pneumonia, there is some concern for aspiration but will order speech when improved mentation - Lactate improving without fluids. He is hypertensive currently and believe risks of possible pulmonary edema and constant IV access and wiring outweigh the benefits of fluid in this case. - hold home diuretic for now. 2. Hyperlipidemia. Maintain patient's regular medications. 3. Parkinson's dementia with behavioral disturbance. - Maintain patient's regular medication. including benzodiazepines, citalopram, and sleep aids - has history of aggression per staff. - continue home sinemet. 4. Diabetes. Will hold home metformin in setting of sepsis, ordered sliding scale insulin. May need lantus coverage but will monitor glucose ACHS. Code status: Do not resuscitate, no advancement of care from current high flow oxygen. DVT prophylaxis: Enoxaparin 40 mg subcu daily Surrogate decision maker: Patient's . I have utilized all available immediate resources to obtain, update, or review the patient's current medications. Dispo: Admitted inpatient. Anticipated stay is beyond two midnights. Will see if he can return to memory care or if he is able to go to SNF depending on improvement. Discussed with ER provider and bedside staff to add additional information to presenting history and formulate the above assessment and plan. Quality VTE Deep Vein Thrombosis/Pulmonary Embolism Present on Admission: No
[2023-09-16] MEDS: diazePAM 10 MG/2 ML SYRINGE 5 MG IV (18:15)
[2023-09-16 18:41] LABS: Lactate 2HR (Lactic Acid Rflx) 2.2 mmol/L (0.7-2.1)
[2023-09-16] MEDS: CARBIDOPA-LEVODOPA 25/100 TABLET 1 EACH PO (21:01)
[2023-09-16] MEDS: QUETIAPINE 25 MG TABLET 50 MG PO (21:01)
[2023-09-16] MEDS: TRAZODONE 50 MG TABLET 100 MG PO (21:01)
[2023-09-16] MEDS: clonazePAM 0.5 MG TABLET PO (21:02)
[2023-09-16] MEDS: PIPERACILLIN/TAZO 3.375 GM in SODIUM CHLORIDE 0.9% 100 ML IV (22:47)
[2023-09-16] MEDS: INSULIN LISPRO 100 UNIT/ML 3ML VIAL SUBCUT (23:19)
[2023-09-17] VITALS (7 sets, daily range): BP systolic 100–143; BP diastolic 44–59; PULSE 62–74; RESP 17–22; TEMP 36.3–36.7; O2SAT 91–97
[2023-09-17] MEDS: guaiFENesin Solution 100 MG/5 ML UDC PO (02:25)
[2023-09-17] MEDS: clonazePAM 0.5 MG TABLET PO ×3 (02:26→20:58)
[2023-09-17] MEDS: ACETAMINOPHEN 325 MG TABLET 650 MG PO (03:51)
--- NOTE | 2023-09-17 03:57 | PC.NURSE ---
Contacted Dr. Ross regarding Lactate 2.2. She stated I think we are fine without it.
[2023-09-17] MEDS: PIPERACILLIN/TAZO 3.375 GM in SODIUM CHLORIDE 0.9% 100 ML IV ×2 (06:45→14:16)
[2023-09-17] MEDS: QUETIAPINE 25 MG TABLET 50 MG PO ×2 (08:19→20:58)
[2023-09-17] MEDS: FAMOTIDINE 20 MG TABLET PO (08:19)
[2023-09-17] MEDS: CITALOPRAM 10 MG TABLET PO (08:20)
[2023-09-17] MEDS: ASPIRIN EC 81 MG TABLET PO (08:20)
[2023-09-17] MEDS: CARBIDOPA-LEVODOPA 25/100 TABLET 1 EACH PO ×2 (08:20→20:58)
[2023-09-17] MEDS: ASCORBIC ACID 500 MG TABLET 1000 MG PO (08:20)
[2023-09-17] MEDS: ENOXAPARIN 40 MG/0.4 ML SYRINGE SUBCUT (08:20)
[2023-09-17 08:38] LABS: Add Manual Diff / Slide Review NO; Basophils Absolute Auto 100 /uL (0-100); Basophils Percent Auto 0.5 % (0-2); Eosinophils Absolute Auto 300 /uL (0-450); Eosinophils Percent Auto 1.2 % (2-4); Hematocrit 33.1 % (41-53); Hemoglobin 10.9 g/dL (13.5-17.5); Lymphocytes Absolute Auto 3100 /uL (1100-4500); Lymphocytes Percent Auto 13.6 % (25-40); Mean Corpuscular HGB Conc 32.8 % (30-36); Mean Corpuscular Hemoglobin 30.6 PG (26-34); Mean Corpuscular Volume 93.2 fL (80-100); Monocytes Absolute Auto 2500 /uL (0-900); Monocytes Percent Auto 10.8 % (3-14); Neutrophils Absolute Auto 17100 /uL (1500-7000); Neutrophils Percent Auto 73.9 % (50-75); Platelet Count 141 X10^3/uL (150-400); Red Blood Cell Count 3.55 X10^6/uL (4.5-5.9); Red Cell Distribution Width 14.4 % (11.6-14.8); White Blood Cell Count 23.1 X10^3/uL (4.5-11.0)
[2023-09-17 08:56] LABS: Alanine Aminotransferase 11 IU/L (<50); Albumin 3.3 g/dL (3.5-5.0); Alkaline Phosphatase 183 U/L (38-126); Aspartate Aminotransferase 28 IU/L (17-59); BUN Creatinine Ratio 21.3 (6-22); Bilirubin Total 2.2 mg/dL (0.2-1.3); Blood Urea Nitrogen 37 mg/dL (9-20); Calcium 9.1 mg/dL (8.4-10.2); Carbon Dioxide 31 mmol/L (22-32); Chloride 100 mmol/L (98-107); Estimated Glomerular Filt Rate 37 mL/min (>60); Globulin 3.3 g/dL (1.7-4.1); Glucose 140 mg/dL (80-110); HEMOLYSIS < 15 (0-50); Potassium 4.3 mmol/L (3.4-5.1); Sodium 138 mmol/L (137-145); Total Protein 6.6 g/dL (6.3-8.2)
--- NOTE | 2023-09-17 12:01 | SLP.IPNOTE ---
Pt not seen by ST d/t Dr. Fischer reporting he will cancel swallow order d/t Pt with hx of swallowing issues and consuming a modified diet and Pt stating he won't eat it and not following modified diet protocol in the past. ST communicated with nursing recommendation to consider diet downgrade if safety concern arises.
--- NOTE | 2023-09-17 13:21 | PM.PN.1 ---
Subjective Subjective Interval history: Overnight confusion and agitation, improved with resumption of home benzodiazepines. Per spouse, he has attempted to go down on benzodiazepine dose without success in the past. She also reports 8 weeks of speech therapy, that he was recommended for a modified diet but would not eat it and that she wishes to continue to have him eating for comfort with the understanding of his aspiration risk. He is nearly off of oxygen this morning, improving quickly. Exam Vital Signs (past 8 hours): - 09/17/23 08:00 09/17/23 09:28 09/17/23 11:57 Temperature 98.1 F 97.4 F L Pulse Rate 69 62 Respiratory Rate 22 22 Blood Pressure 143/59 H 121/52 L Pulse Oximetry 95 95 97 Oxygen Delivery Method Nasal Cannula Oxygen Flow Rate 0 3 0 Oxygen Delivery Method Nasal Cannula Oxygen Flow Rate 0 Narrative Exam Narrative: GENERAL APPEARANCE:? elderly male, appears acutely ill, SKIN: Inspection of the skin reveals no rashes, ulcerations or petechiae. HEENT:? Normocephalic atraumatic, extraocular muscles are intact, oropharynx is clear and mucous membranes are moist, neck is supple without adenopathy NECK: Supple and symmetric. There was no thyroid enlargement, and no tenderness, or masses were felt. CHEST: Normal AP diameter and normal contour without any kyphoscoliosis. LUNGS: Auscultation of the lungs revealed no wheezes, rhonchi, or rales. CARDIOVASCULAR: There was a regular rate and rhythm without any murmurs, gallops, rubs. Peripheral pulses were 2+ and symmetric. ABDOMEN:? Soft, nontender, and nondistended MUSCULOSKELETAL: There was no tenderness or effusions noted. Muscle strength and tone were normal. EXTREMITIES: No cyanosis, clubbing or edema. NEUROLOGIC: Alert and oriented x1 (name only).? No focal deficits.? Occasional tremor. Mumbles responses frequently. Objective Labs 09/17/23 08:05 09/17/23 08:05 Labs: Laboratory Results - last 24 hr 09/16/23 09/16/23 09/16/23 12:21 13:42 15:20 WBC RBC Hgb Hct MCV MCH MCHC RDW Plt Count Neut % (Auto) Lymph % (Auto) [place] % (Auto) Eos % (Auto) Baso % (Auto) Neut # (Auto) Lymph # (Auto) [place] # (Auto) Eos # (Auto) Baso # (Auto) Sodium Potassium Chloride Carbon Dioxide BUN Creatinine Estimated GFR BUN/Creatinine Ratio Glucose Lactate 2.6 H 2.3 H Calcium Magnesium Total Bilirubin AST ALT Alkaline Phosphatase Total Protein Albumin Globulin Albumin/Globulin Ratio SARS-CoV-2 (PCR) Negative Influenza A (RT-PCR) Flu a negative Influenza B (RT-PCR) Flu b negative RSV (PCR) Negative 09/16/23 09/17/23 17:16 08:05 WBC 23.1 H RBC 3.55 L Hgb 10.9 L Hct 33.1 L MCV 93.2 MCH 30.6 MCHC 32.8 RDW 14.4 Plt Count 141 L Neut % (Auto) 73.9 Lymph % (Auto) 13.6 L [place] % (Auto) 10.8 Eos % (Auto) 1.2 L Baso % (Auto) 0.5 Neut # (Auto) 85737 H Lymph # (Auto) 3100 [place] # (Auto) 2500 H Eos # (Auto) 300 Baso # (Auto) 100 Sodium 138 Potassium 4.3 Chloride 100 Carbon Dioxide 31 BUN 37 H Creatinine 1.74 H Estimated GFR 37 L BUN/Creatinine Ratio 21.3 Glucose 140 H Lactate 2.2 H Calcium 9.1 Magnesium 2.0 Total Bilirubin 2.2 H AST 28 ALT 11 Alkaline Phosphatase 183 H Total Protein 6.6 Albumin 3.3 L Globulin 3.3 Albumin/Globulin Ratio 1.0 SARS-CoV-2 (PCR) Influenza A (RT-PCR) Influenza B (RT-PCR) RSV (PCR) [facility] Medical History Hyperlipidemia associated with type 2 diabetes mellitus REM behavioral disorder Sleep apnea (~2010) Parkinson's disease (~2009) Rosacea Mumps Measles Chicken pox Hearing loss (~2011) Partial blindness (~2014) Type 2 diabetes mellitus without complication (11/10/16) Penis injury Surgical History Anesthesia History of tonsillectomy History of cataract removal with insertion of prosthetic lens Status post appendectomy Family History Mother Heart disease Diabetes mellitus Father Cancer Grandfather Heart disease Grandmother Heart disease Grandmother Heart disease Social History household members: caregiver Smoking Status: Former smoker alcohol intake: never Assessment & Plan Assessment & Plan narrative: 1. Sepsis secondary to pneumonia with elevated creatinine, acute metabolic encephalopathy, and acute respiratory failure with hypoxia - unclear baseline creatinine as prior admission had KWAN in setting of sepsis due to UTI. Creatinine currently 1.7. - continue zosyn for presumed pneumonia, there is likely aspiration, however patient with known risk per spouse, and patient will not eat any diminished diet so wishes to proceed with regular diet knowing probable aspiration risk. - Lactate improving without fluids. He is hypertensive currently and believe risks of possible pulmonary edema and constant IV access and wiring outweigh the benefits of fluid in this case. - hold home diuretic for now, can likely resume at discharge. - WBC still elevated at 23 today, with clinical improvement expect improvement in this in a day. 2. Hyperlipidemia. Maintain patient's regular medications. 3. Parkinson's dementia with behavioral disturbance. - Maintain patient's regular medication. including benzodiazepines, citalopram, and sleep aids - has history of aggression per staff. - continue home sinemet. 4. Diabetes. Will hold home metformin in setting of sepsis, ordered sliding scale insulin. May need lantus coverage but will monitor glucose ACHS. Code status: Do not resuscitate, no advancement of care from current high flow oxygen. DVT prophylaxis: Enoxaparin 40 mg subcu daily Surrogate decision maker: Patient's . I have utilized all available immediate resources to obtain, update, or review the patient's current medications. Dispo: Admitted inpatient. Likely return to memory care once off of supplemental oxygen. Discussed with bedside staff and spouse to add additional information to presenting history and formulate the above assessment and plan. Quality VTE Deep Vein Thrombosis/Pulmonary Embolism Present on Admission: No
--- NOTE | 2023-09-17 15:14 | CM.DANOTE ---
Initial DCP Assessment Note 88 yo M, resident at [facility], presents with shortness of breath, placed on O2. per today's prog note- Sepsis secondary to pneumonia with elevated creatinine, acute metabolic encephalopathy, and acute respiratory failure with hypoxia PCP: Silvia Garcia Payer: [employer] Spoke w/Ambar Mcmahan, RN director at [facility] cell P# [phone], discussed patient. Patient requires assist in room and is not very mobile. Ambar reports that she has had conversations with family re goals of care and patient is likely to transition to hospice services soon. Patient's health has been declining. Ambar okay with patient returning home to [facility] w/home O2 as needed. Explained that Dr Fischer sees patient improving quickly and will likely be ready for discharge tomorrow. Ambar requests update tomorrow morning and can plan to have their facility van pick patient up after 1400 if discharged. team will plan to follow closely for coordination. Need to still review discharge plan with spouse Marleen. MARLENE Donahue Discharge Planning/Care Management CM Discharge Assessment Start: 09/17/23 15:12 Freq: Status: Active Protocol: Document 09/17/23 15:12 ELA (Rec: 09/17/23 15:14 ELA [id number]) Discharge Planning Assessment Assigned Fence Laborer MARLENE Gibbs DPOA/Assigned Designee Name Marleen Bird, spouse Contact Information [phone] Advance Directives? Yes: POLST Advance Directives on File Yes History Provided By Family Member,Significant Other,Medical Record Prior Living Arrangements Assisted Living Household Members caregiver Type of transporation used prior to Relies on Others admit Facility Name Admitted From: [facility] Willing to Return to Facility? Yes Independent with ADL's No Is patient alert and oriented? No Needs Assistance With Bathing,Grooming,Meal Prep, Toileting,Managing Medications ,Home Chores / Shopping Barriers to Discharge No Comment Return to [facility] Discharge Plan Assisted Living Facility Transportation Arrangement Likely facility van on Wednesday after 1400 Referrals Initiated None needed
[2023-09-17] MEDS: TRAZODONE 50 MG TABLET 100 MG PO (20:58)
[2023-09-18] VITALS (8 sets, daily range): BP systolic 106–149; BP diastolic 42–62; PULSE 57–71; RESP 16–20; TEMP 35.8–36.6; O2SAT 91–97
[2023-09-18] MEDS: PIPERACILLIN/TAZO 3.375 GM in SODIUM CHLORIDE 0.9% 100 ML IV ×3 (00:49→17:45)
[2023-09-18 05:33] LABS: Add Manual Diff / Slide Review NO; Basophils Absolute Auto 100 /uL (0-100); Basophils Percent Auto 0.5 % (0-2); Eosinophils Absolute Auto 900 /uL (0-450); Eosinophils Percent Auto 4.9 % (2-4); Hematocrit 33.4 % (41-53); Hemoglobin 10.8 g/dL (13.5-17.5); Lymphocytes Absolute Auto 3700 /uL (1100-4500); Lymphocytes Percent Auto 21.3 % (25-40); Mean Corpuscular HGB Conc 32.5 % (30-36); Mean Corpuscular Hemoglobin 30.7 PG (26-34); Mean Corpuscular Volume 94.5 fL (80-100); Monocytes Absolute Auto 2400 /uL (0-900); Monocytes Percent Auto 13.7 % (3-14); Neutrophils Absolute Auto 10300 /uL (1500-7000); Neutrophils Percent Auto 59.6 % (50-75); Platelet Count 159 X10^3/uL (150-400); Red Blood Cell Count 3.53 X10^6/uL (4.5-5.9); Red Cell Distribution Width 14.9 % (11.6-14.8); White Blood Cell Count 17.4 X10^3/uL (4.5-11.0)
[2023-09-18 05:45] LABS: Alanine Aminotransferase 9 IU/L (<50); Albumin 3.2 g/dL (3.5-5.0); Albumin Globulin Ratio 0.9 (1.0-2.8); Alkaline Phosphatase 194 U/L (38-126); Aspartate Aminotransferase 19 IU/L (17-59); BUN Creatinine Ratio 19.2 (6-22); Bilirubin Total 1.2 mg/dL (0.2-1.3); Blood Urea Nitrogen 37 mg/dL (9-20); Calcium 9.5 mg/dL (8.4-10.2); Carbon Dioxide 31 mmol/L (22-32); Chloride 103 mmol/L (98-107); Estimated Glomerular Filt Rate 33 mL/min (>60); Globulin 3.6 g/dL (1.7-4.1); Glucose 122 mg/dL (80-110); HEMOLYSIS < 15 (0-50); Magnesium 2.2 mg/dL (1.6-2.3); Potassium 4.1 mmol/L (3.4-5.1); Sodium 141 mmol/L (137-145); Total Protein 6.8 g/dL (6.3-8.2)
--- NOTE | 2023-09-18 09:05 | CM.DPC ---
DCP Cont. Per Dr. Bagley, pt is still on 4LO2, and is not ready to d/c back to [facility] today, maybe tomorrow if O2 need can decrease. Called and left a message for Ambar at [facility] re: status. Called , Marleen, discussed the plan for d/c possibly tomorrow, will call her tomorrow in the am with updated plan. *Will need a respiratory consult order entered prior to pt's d/c, monitor closely.
[2023-09-18] MEDS: ASPIRIN EC 81 MG TABLET PO (09:50)
[2023-09-18] MEDS: ENOXAPARIN 40 MG/0.4 ML SYRINGE SUBCUT (09:50)
[2023-09-18] MEDS: ASCORBIC ACID 500 MG TABLET 1000 MG PO (09:50)
[2023-09-18] MEDS: CARBIDOPA-LEVODOPA 25/100 TABLET 1 EACH PO ×3 (09:50→20:07)
[2023-09-18] MEDS: clonazePAM 0.5 MG TABLET PO ×2 (09:50→20:06)
[2023-09-18] MEDS: CITALOPRAM 10 MG TABLET PO (09:50)
[2023-09-18] MEDS: FAMOTIDINE 20 MG TABLET PO (09:50)
[2023-09-18] MEDS: QUETIAPINE 25 MG TABLET 50 MG PO ×2 (09:50→20:07)
[2023-09-18] MEDS: INSULIN LISPRO 100 UNIT/ML 3ML VIAL SUBCUT ×2 (12:19→17:12)
--- NOTE | 2023-09-18 17:26 | P.PN_ITS ---
Subjective Subjective Date Patient Seen: 09/18/23 Time Patient Seen: 08:00 Interval history: He remains with quite a productive cough and is short of breath, but improving. He has not been able to wean off oxygen at this point. Exam Vital Signs (past 8 hours): - 09/18/23 12:00 09/18/23 14:02 09/18/23 16:00 Temperature 96.5 F L 97.0 F L Pulse Rate 60 66 Respiratory Rate 18 16 Blood Pressure 106/42 L 143/58 H Pulse Oximetry 97 95 94 Oxygen Delivery Method Nasal Cannula Oxygen Flow Rate 3.5 Fraction of Inspired Oxygen 44 Fraction of Inspired Oxygen 44 SaO2/FiO2 Ratio 215 Oxygen Delivery Method Nasal Cannula Oxygen Flow Rate 3.5 Narrative Exam Narrative: GENERAL APPEARANCE:? in mild respiratory distress LUNGS: coarse breath sounds, coughing through exam CARDIOVASCULAR: regular rate and rhythm, no murmurs ABDOMEN:? Soft, nontender, and nondistended NEUROLOGIC: Alert and oriented x1 (name).? No focal deficits.? Occasional tremor Objective Labs 09/18/23 05:21 09/18/23 05:21 Labs: Laboratory Results - last 24 hr 09/18/23 05:21 WBC 17.4 H RBC 3.53 L Hgb 10.8 L Hct 33.4 L MCV 94.5 MCH 30.7 MCHC 32.5 RDW 14.9 H Plt Count 159 Neut % (Auto) 59.6 Lymph % (Auto) 21.3 L [place] % (Auto) 13.7 Eos % (Auto) 4.9 H Baso % (Auto) 0.5 Neut # (Auto) 85353 H Lymph # (Auto) 3700 [place] # (Auto) 2400 H Eos # (Auto) 900 H Baso # (Auto) 100 Sodium 141 Potassium 4.1 Chloride 103 Carbon Dioxide 31 BUN 37 H Creatinine 1.93 H Estimated GFR 33 L BUN/Creatinine Ratio 19.2 Glucose 122 H Calcium 9.5 Magnesium 2.2 Total Bilirubin 1.2 AST 19 ALT 9 Alkaline Phosphatase 194 H Total Protein 6.8 Albumin 3.2 L Globulin 3.6 Albumin/Globulin Ratio 0.9 L PFSH Medical History Hyperlipidemia associated with type 2 diabetes mellitus REM behavioral disorder Sleep apnea (~2010) Parkinson's disease (~2009) Rosacea Mumps Measles Chicken pox Hearing loss (~2011) Partial blindness (~2014) Type 2 diabetes mellitus without complication (11/10/16) Penis injury Surgical History Anesthesia History of tonsillectomy History of cataract removal with insertion of prosthetic lens Status post appendectomy Family History Mother Heart disease Diabetes mellitus Father Cancer Grandfather Heart disease Grandmother Heart disease Grandmother Heart disease Social History household members: caregiver Smoking Status: Former smoker alcohol intake: never Assessment & Plan Assessment & Plan narrative: 1. Sepsis secondary to pneumonia with elevated creatinine, acute metabolic encephalopathy, and acute respiratory failure with hypoxia - unclear baseline creatinine as prior admission had KWAN in setting of sepsis due to UTI. Creatinine currently 1.9, was 1.7 on admit. - continue zosyn for presumed pneumonia, there is likely aspiration, however patient with known risk per spouse, and patient has not eaten diminished diet - speech eval ordered - hold home diuretic for now, can likely resume at discharge. - WBC still elevated at 17, improved from 23 2. Hyperlipidemia. Maintain patient's regular medications. 3. Parkinson's dementia with behavioral disturbance. - Maintain patient's regular medication. including benzodiazepines, citalopram, and sleep aids - has history of aggression per staff. - continue home sinemet. 4. Diabetes. Will hold home metformin in setting of sepsis, ordered sliding scale insulin. May need lantus coverage but will monitor glucose ACHS. Quality VTE Deep Vein Thrombosis/Pulmonary Embolism Present on Admission: No
[2023-09-18] MEDS: TRAZODONE 50 MG TABLET 100 MG PO (20:07)
[2023-09-19] MEDS: PIPERACILLIN/TAZO 3.375 GM in SODIUM CHLORIDE 0.9% 100 ML IV (00:51)
[2023-09-19 06:04] VITALS: BP 123/57; PULSE 58; RESP 19; TEMP 36.3; O2SAT 92
[2023-09-19 06:31] LABS: Add Manual Diff / Slide Review NO; Basophils Absolute Auto 0 /uL (0-100); Basophils Percent Auto 0.2 % (0-2); Eosinophils Absolute Auto 700 /uL (0-450); Eosinophils Percent Auto 5.2 % (2-4); Hematocrit 32.2 % (41-53); Hemoglobin 10.6 g/dL (13.5-17.5); Lymphocytes Absolute Auto 3000 /uL (1100-4500); Lymphocytes Percent Auto 22.9 % (25-40); Mean Corpuscular HGB Conc 32.8 % (30-36); Mean Corpuscular Hemoglobin 30.8 PG (26-34); Monocytes Absolute Auto 2000 /uL (0-900); Monocytes Percent Auto 14.8 % (3-14); Neutrophils Absolute Auto 7600 /uL (1500-7000); Neutrophils Percent Auto 56.9 % (50-75); Platelet Count 194 X10^3/uL (150-400); Red Blood Cell Count 3.43 X10^6/uL (4.5-5.9); Red Cell Distribution Width 14.8 % (11.6-14.8); White Blood Cell Count 13.3 X10^3/uL (4.5-11.0)
--- NOTE | 2023-09-19 06:35 | PC.NURSE ---
Pt had low output. This card writer hand did a bladder scan and got 810mL. Notified RN
[2023-09-19 06:37] LABS: Alanine Aminotransferase 7 IU/L (<50); Albumin 3.1 g/dL (3.5-5.0); Albumin Globulin Ratio 0.8 (1.0-2.8); Alkaline Phosphatase 220 U/L (38-126); Aspartate Aminotransferase 18 IU/L (17-59); BUN Creatinine Ratio 19.6 (6-22); Bilirubin Total 0.9 mg/dL (0.2-1.3); Blood Urea Nitrogen 38 mg/dL (9-20); Calcium 9.6 mg/dL (8.4-10.2); Carbon Dioxide 31 mmol/L (22-32); Chloride 105 mmol/L (98-107); Estimated Glomerular Filt Rate 33 mL/min (>60); Globulin 3.7 g/dL (1.7-4.1); Glucose 141 mg/dL (80-110); HEMOLYSIS < 15 (0-50); Magnesium 2.3 mg/dL (1.6-2.3); Potassium 4.1 mmol/L (3.4-5.1); Sodium 140 mmol/L (137-145); Total Protein 6.8 g/dL (6.3-8.2)
--- NOTE | 2023-09-19 07:19 | PC.NURSE ---
patient only put out 125cc's urine thru the night. Bladder scanned for 810cc's. Recieved order to straight cath. patient started to urinate as straight cath was being set up. patient continueing to slowing put out more urine, held off with straight cath since patient is trying to go on his own.
[2023-09-19] MEDS: QUETIAPINE 25 MG TABLET 50 MG PO (08:36)
[2023-09-19] MEDS: ASPIRIN EC 81 MG TABLET PO (08:36)
[2023-09-19] MEDS: ENOXAPARIN 40 MG/0.4 ML SYRINGE SUBCUT (08:36)
[2023-09-19] MEDS: ASCORBIC ACID 500 MG TABLET 1000 MG PO (08:36)
[2023-09-19] MEDS: CITALOPRAM 10 MG TABLET PO (08:36)
[2023-09-19] MEDS: CARBIDOPA-LEVODOPA 25/100 TABLET 1 EACH PO (08:37)
[2023-09-19] MEDS: clonazePAM 0.5 MG TABLET PO (08:37)
[2023-09-19] MEDS: FAMOTIDINE 20 MG TABLET PO (08:37)
[2023-09-19 09:00] VITALS: BP 149/69; PULSE 66; RESP 16; TEMP 36.2; O2SAT 92
[2023-09-19] MEDS: CEFDINIR 300 MG CAPSULE PO (09:17)
--- NOTE | 2023-09-19 09:40 | PM.DS.1 ---
History of Present Illness History of Present Illness Chief complaint: resp distress x4 days Narrative: 87-year-old male, with a past medical history of hyperlipidemia, diabetes, Parkinson's dementia, resident of [facility] unit who was sent to the emergency room for shortness of breath. Patient is not a reliable historian due to his underlying dementia and unable to provide a colloborating history so largely obtained via ER provider. According to the staff he had increasing dyspnea over the past 4 days. He was hypoxic with EMS to the mid 80s. He is a DNR with limited interventions but family was agreeable for antibiotics, oxygen and further evaluation. His evaluation was notable for leukocytosis, elevated creatinine (though improved from previous admission), and negative COVID,flu,RSV panel. CXR shows bibasilar infiltrates. He was admitted for further management of pneumonia with acute respiratory failure with hypoxia. Discharge Providers Provider Date of admission: 09/16/23 14:06 Discharge Date: 09/19/23 Primary care physician: DEBORAH Finnegan Consults: 09/17/23 08:28 Consult to Speech Therapy Evaluate & Treat Comment: Physician Instructions: Evaluate and treat 09/18/23 16:35 Consult to Speech Therapy Evaluate & Treat Comment: ?aspiration Physician Instructions: Evaluate and treat Discharge provider: Thanh Medrano MD Summary Hospital Course Discharge Diagnosis: 1. Sepsis with acute end organ failure 2. Acute hypoxic respiratory failure 3. Pneumonia, bacterial, bilateral 4. KWAN 5. CKD 6. Parkinson's dementia with behavioral disturbance 7. Type 2 diabetes Hospital Course: Pt presented with bilateral pneumonia findings on imaging, respiratory failure, KWAN, parameters of sepsis. Cultures remained negative. He was treated with Zosyn. O2 sat 90% RA this morning. Seems back to baseline and will complete tx course with po abx (Cefdinir). Status at Discharge Cognitive/behavioral status at discharge: at baseline, confused Overall status at discharge: patient is progressing back to baseline Time Spent with Patient Time spent: Greater than 30 minutes Exam Vital Signs (past 8 hours): - 09/19/23 06:04 09/19/23 09:00 Temperature 97.3 F L 97.1 F L Pulse Rate 58 L 66 Respiratory Rate 19 16 Blood Pressure 123/57 L 149/69 H Pulse Oximetry 92 92 Oxygen Flow Rate 2 Fraction of Inspired Oxygen 44 SaO2/FiO2 Ratio 215 Oxygen Delivery Method Nasal Cannula Oxygen Flow Rate 2 Narrative Exam Narrative: Gen: alert, responsive Lungs: clear Ext: no edema Neuro: baseline confused Objective Labs 09/19/23 05:38 09/19/23 05:38 Labs: Laboratory Results - last 24 hr 09/19/23 05:38 WBC 13.3 H RBC 3.43 L Hgb 10.6 L Hct 32.2 L MCV 94.0 MCH 30.8 MCHC 32.8 RDW 14.8 Plt Count 194 Neut % (Auto) 56.9 Lymph % (Auto) 22.9 L [place] % (Auto) 14.8 H Eos % (Auto) 5.2 H Baso % (Auto) 0.2 Neut # (Auto) 7600 H Lymph # (Auto) 3000 [place] # (Auto) 2000 H Eos # (Auto) 700 H Baso # (Auto) 0 Sodium 140 Potassium 4.1 Chloride 105 Carbon Dioxide 31 BUN 38 H Creatinine 1.94 H Estimated GFR 33 L BUN/Creatinine Ratio 19.6 Glucose 141 H Calcium 9.6 Magnesium 2.3 Total Bilirubin 0.9 AST 18 ALT 7 Alkaline Phosphatase 220 H Total Protein 6.8 Albumin 3.1 L Globulin 3.7 Albumin/Globulin Ratio 0.8 L PFSH Medical History Hyperlipidemia associated with type 2 diabetes mellitus REM behavioral disorder Sleep apnea (~2010) Parkinson's disease (~2009) Rosacea Mumps Measles Chicken pox Hearing loss (~2011) Partial blindness (~2014) Type 2 diabetes mellitus without complication (11/10/16) Penis injury Surgical History Anesthesia History of tonsillectomy History of cataract removal with insertion of prosthetic lens Status post appendectomy Family History Mother Heart disease Diabetes mellitus Father Cancer Grandfather Heart disease Grandmother Heart disease Grandmother Heart disease Social History household members: caregiver Smoking Status: Former smoker alcohol intake: never Discharge Plan Discharge Plan Patient Disposition: Assisted Living Transfer to: [facility] Discharge orders & Medications Discharge Orders: Discharge (Order); Ordered 09/19/23 Ordered By: Thanh Medrano Prescriptions: New cefdinir 300 mg Capsule 300 mg PO BID Qty: 27 0RF Continued [CENTRUM SILVER] 1 tab PO QDAY Qty: 0 Rx Instructions: 7AM [CALCIUM/VITAMIN D] 1 tab PO QDAY Qty: 0 Rx Instructions: 7AM [FISH OIL] 2 cap PO QDAY Qty: 0 (DME) lancets [FreeStyle Lancets] 28 gauge misc See Dose Instructions .ROUTE .MEDSUPPLY Qty: 100 3RF Dose Instruction: As directed Rx Instructions: Use one Lancet to test Blood Sugar once daily (DME) FreeStyle Lite Strips Strip See Dose Instructions .ROUTE .MEDSUPPLY Qty: 100 3RF Dose Instruction: As directed Rx Instructions: Use one strip to test blood sugars once daily metformin 500 mg tablet 1,000 mg PO BID Qty: 360 1RF aspirin 81 mg tablet,delayed release (DR/EC) 81 mg PO DAILY quetiapine 25 mg tablet 50 mg PO BID trazodone 100 mg tablet 100 mg PO ONCE PM furosemide 80 mg tablet 80 mg PO DAILY acetaminophen 325 mg Capsule 650 mg PO Q4H PRN (Reason: Pain (Scale Score 1-3)) ascorbic acid (vitamin C) 1,000 mg Tablet 1 g PO DAILY citalopram 10 mg tablet 10 mg PO DAILY famotidine 20 mg Tablet 20 mg PO DAILY Rx Instructions: before dinner carbidopa-levodopa 25-100 mg tablet 1 tab PO TID Rx Instructions: 7AM, 12PM, 4PM clonazepam 0.5 mg tablet,disintegrating 0.5 mg PO Q4H PRN (Reason: Agitation) Rx Instructions: anxiety/agitation clonazepam 0.5 mg tablet,disintegrating 0.5 mg PO BID Rx Instructions: 7AM, 8PM melatonin 10 mg Tablet 10 mg PO BEDTIME psyllium husk [Metamucil] 0.4 gram Capsule 0.8 g PO BEDTIME Follow up/Referrals: Silvia Garcia ARNP [Primary Care Provider] - Discharge Health Status Multidrug resistant organism: No MDRO Precautions: [place] Diet/Activity/Treatments Diet: Diet as Tolerated and Carb-consistent/Diabetic Liquid consistency: Normal/Thin Food texture: Regular Visit Report/Discharge Packet Stand Alone Forms: Patient Portal/API, Stroke Signs & Symptoms Discharge Data Primary Care Provider: Love-Terrence,Silvia Quality VTE Deep Vein Thrombosis/Pulmonary Embolism Present on Admission: No
--- NOTE | 2023-09-19 10:40 | CM.DPC ---
DCP Cont. Reviewed EMR and team rounds for status updates. Pt will d/c back to [facility] today once his O2 has been delivered. Per RT, pt is still requiring 2LO2 after trialing on room air. Called tranportation person and notified her of the plan, confirmed that he will have O2 by 1:00, she will p/u pt after her lunch at 1:45.
[2023-09-19] MEDS: INSULIN LISPRO 100 UNIT/ML 3ML VIAL SUBCUT (11:59)
== END 2023-09-19 16:30 | DRG 871 ==
LOC: ED 12:13 → AC 14:08
PROVIDERS: Admitting Provider Internal Medicine; Emergency Provider Emergency Medicine; PCP Nurse Practitioner Family; Referring Provider Emergency Medicine; Visit Provider Internal Medicine
DX: A41.9 Sepsis, unspecified organism (principal); G93.41 Metabolic encephalopathy; J96.01 Acute respiratory failure with hypoxia; J15.9 Unspecified bacterial pneumonia; N17.9 Acute kidney failure, unspecified; F02.818 Dementia in other diseases classified elsewhere, unspecified severity, with other behavioral disturbance; Z11.52 Encounter for screening for COVID-19; Z66 Do not resuscitate; R65.20 Severe sepsis without septic shock; E11.22 Type 2 diabetes mellitus with diabetic chronic kidney disease; N18.9 Chronic kidney disease, unspecified; G20.A1 Parkinson's disease without dyskinesia, without mention of fluctuations; H91.90 Unspecified hearing loss, unspecified ear; E78.5 Hyperlipidemia, unspecified; H54.7 Unspecified visual loss; Z83.3 Family history of diabetes mellitus; Z87.891 Personal history of nicotine dependence; Z79.84 Long term (current) use of oral hypoglycemic drugs; Z79.82 Long term (current) use of aspirin; Z88.1 Allergy status to other antibiotic agents
CPT/HCPCS: 0241U; 36415; 71045; 80053; 82550; 82962; 83605; 83690; 83735; 83880; 84145; 84484; 85025; 87040; 93005; 93010; 94618; 94762; 96365; 99284; A9270; J1650; J1815; J2543; J3360

== ENCOUNTER → 2023-11-21 15:20 | Outpatient (ROUT) | payer MEDICARE, OTHER, SELFPAY ==
[2023-09-16 15:38] VITALS: BMI 27.1
[2023-11-21 15:57] LABS: Appearance Urine UA CLOUDY; Bilirubin Urine UA NEGATIVE (NEGATIVE); Color Urine UA YELLOW; Glucose Urine UA NEGATIVE (Negative); Ketones Urine UA NEGATIVE (NEGATIVE); Leukocyte Esterase Urine UA 3+ (NEGATIVE); Nitrite Urine UA NEGATIVE (Negative); Occult Blood Urine UA 2+ (Negative); Protein Urine UA TRACE (Negative); Specific Gravity Urine UA 1.015 (1.000-1.035); Urobilinogen Urine UA 0.2 E.U./dL (0.2); pH Urine UA 7.5 (4.5-8.0)
[2023-11-21 16:14] LABS: Bacteria Urine Many (>30); Culture Indicated Urine Specimen Cultured; RBC Urine 5-10/HPF (0-5/HPF); Squamous Epithelial Cell Urine None Seen (0-5/HPF); Urine Volume 10mL (spun); WBC Urine 30-100/HPF (0-5/HPF)
== END ==
PROVIDERS: PCP Nurse Practitioner Family; Visit Provider Internal Medicine
DX: R39.9 Unspecified symptoms and signs involving the genitourinary system (principal)
CPT/HCPCS: 81001; 87077; 87086; 87186

== ENCOUNTER 2023-11-27 17:12 | Inpatient (IN) | payer MEDICARE, OTHER, SELFPAY ==
[2023-09-16 15:38] VITALS: BMI 27.1
[2023-11-27] VITALS (20 sets, daily range): BP systolic 121–190; BP diastolic 58–76; PULSE 71–81; RESP 21–35; TEMP 37.1–37.3; O2SAT 97–100; BMI 30.9
--- NOTE | 2023-11-27 17:15 | ED_ITS ---
HPI - General Adult <Tiffany Patel MD - Last Filed: 11/28/23 07:05> General Chief complaint: Shortness of Breath/Dyspnea Stated complaint: COVID+/SOB Time Seen by Provider: 11/27/23 17:15 Related Data Home Medications Medication Instructions Recorded Confirmed aspirin 81 mg tablet,delayed 81 mg PO DAILY 10/30/20 11/27/23 release ascorbic acid (vitamin C) 1,000 mg 1 g PO DAILY 08/07/21 11/27/23 tablet carbidopa 25 mg-levodopa 100 mg 1 tab PO TID 08/07/21 11/27/23 tablet citalopram 10 mg tablet 10 mg PO DAILY 08/07/21 11/27/23 clonazepam 0.5 mg disintegrating 0.5 mg PO Q4H PRN Agitation 08/07/21 11/27/23 tablet famotidine 20 mg tablet 20 mg PO DAILY 08/07/21 11/27/23 acetaminophen 325 mg capsule 650 mg PO Q4H PRN Pain (Scale 09/16/23 11/27/23 Score 1-3) furosemide 80 mg tablet 80 mg PO DAILY 09/16/23 11/27/23 quetiapine 25 mg tablet 50 mg PO BID 09/16/23 11/27/23 bisacodyl 10 mg rectal suppository 10 mg [place] DAILY PRN Constipation 11/27/23 11/27/23 chlorpheniramine-guaifenesin 400 mg PO NOW PRN Congestion 11/27/23 11/27/23 ciprofloxacin HCl 500 mg tablet 500 mg PO BID 11/27/23 11/27/23 (Cipro) clonazepam 0.5 mg disintegrating 0.5 mg PO Q4HR PRN Anxiety 11/27/23 11/27/23 tablet ipratropium bromide 42 mcg (0.06 2 spray intranasal PRN PRN 11/27/23 11/27/23 %) nasal spray seasonal allergies loratadine 10 mg tablet 10 mg PO DAILY 11/27/23 11/27/23 magnesium hydroxide 400 mg/5 mL 30 ml PO PRN PRN Constipation 11/27/23 11/27/23 oral suspension (Milk of Magnesia) melatonin 5 mg capsule 5 mg PO BEDTIME insomnia 11/27/23 11/27/23 polyethylene glycol 3350(bulk) 17 ea miscellaneous DAILY 11/27/23 11/27/23 (Base B, Polyethylene Glycol 3350 granules) psyllium husk 0.4 gram capsule 400 PO 11/27/23 (Fiber (psyllium husk)) quetiapine 25 mg tablet (Seroquel) 25 mg PO BID PRN Agitation 11/27/23 11/27/23 trazodone 100 mg tablet 100 mg PO ONCE PM 11/27/23 11/27/23 Previous Rx's Medication Instructions Recorded lancets 28 gauge (FreeStyle #100 ea 02/19/20 Lancets) blood sugar diagnostic (FreeStyle #100 ea 03/06/20 Lite Strips) metformin 500 mg tablet 1,000 mg (2 x 500 mg) PO BID #360 01/08/21 tabs Allergies Allergy/AdvReac Type Severity Reaction Status Date / Time bacitracin Allergy Unknown Verified 08/04/22 09:33 [From NEOSPORIN ([id number])] neomycin Allergy Unknown Verified 08/04/22 09:33 [From NEOSPORIN ([id number])] polymyxin B Allergy Unknown Verified 08/04/22 09:33 [From NEOSPORIN ([id number])] <Stephanie Moreno, DO - Last Filed: 11/27/23 20:00> General Source: patient, EMS, RN notes reviewed and old records reviewed Mode of arrival: EMS History of Present Illness HPI narrative: 88-year-old male with history of Parkinson's disease, diabetes, PTSD, chronic kidney disease, dementia who resides at [facility] presents with known positive COVID and shortness of breath and hypoxia. Patient was found to be 70% on room air oxygen placed on 6 L via nasal cannula with EMS with a O2 sat in the 90s upon arrival to the ED. patient does not give much history but his is at bedside. He does talk some but infrequently. Patient she noticed started having some shortness of breath and runny nose yesterday. She notes that the facility he is at has had multiple individuals test positive for COVID. No reports of fevers. No complaints of chest pain but was found to be hypoxic at his facility. No other GI or urinary symptoms reported. No new swelling of extremities. Patient's home medications include aspirin, carbidopa levodopa, Lasix, metformin, quetiapine, trazodone. No reported surgeries from his . No known drug allergies. Former smoker quit in , no regular alcohol or recreational drugs. Primary care is [facility]. Patient is DNR/DNI limited interventions after discussion with patient and does not wish to be comfort measures at this time but if you continued to decompensate they would potentially explore this. Review of Systems <Stephanie Moreno DO - Last Filed: 11/27/23 20:00> Review of Systems ROS Unobtainable: All systems reviewed & are unremarkable except as noted in HPI and below Patient History <Tiffany Patel MD - Last Filed: 11/28/23 07:05> Medical History Hyperlipidemia associated with type 2 diabetes mellitus REM behavioral disorder Sleep apnea (~2010) Parkinson's disease (~2009) Rosacea Mumps Measles Chicken pox Hearing loss (~2011) Partial blindness (~2014) Type 2 diabetes mellitus without complication (11/10/16) Penis injury Surgical History Anesthesia History of tonsillectomy History of cataract removal with insertion of prosthetic lens Status post appendectomy Family History Mother Heart disease Diabetes mellitus Father Cancer Grandfather Heart disease Grandmother Heart disease Grandmother Heart disease Social History household members: caregiver Smoking Status: Former smoker alcohol intake: never Smoking Status: Former smoker tobacco type: cigarettes Substance Use Type: does not use Exam <Tiffany Patel MD - Last Filed: 11/28/23 07:05> Initial Vital Signs Initial Vital Signs: Vital Signs Temperature 98.8 F 11/27/23 17:15 Pulse Rate 79 11/27/23 17:15 Respiratory Rate 32 H 11/27/23 17:15 Blood Pressure 178/76 H 11/27/23 17:15 Pulse Oximetry 100 11/27/23 17:15 Oxygen Delivery Method Nasal Cannula 11/27/23 17:15 Oxygen Flow Rate 6 11/27/23 17:15 <Stephanie Moreno DO - Last Filed: 11/27/23 20:00> Narrative Exam Narrative: GENERAL: Alert and oriented to self, only answers a few questions, elderly male in mild distress. HEENT: Head normocephalic, atraumatic, EOMI, pupils reactive, face symmetric, moist mucous membranes, patient has high-flow nasal cannula in place. NECK: Supple, full range of motion CARDIOVASCULAR: Regular rate and rhythm without murmurs, rubs or gallops. No JVD. No edema bilateral lower extremities. RESPIRATORY: Breath sounds equal bilaterally, no wheezes rales or rhonchi. Mild tachypnea. No accessory muscle use but patient has been on high-flow for some time. Patient gives a few word answers. ABDOMEN: Soft, nontender. Normoactive bowel sounds all 4 quadrants. No guarding or rebound, rigidity, no mass : No CVA tenderness EXTREMITIES: Normal range of motion, no clubbing or edema. Neurovascularly intact NEUROLOGICAL: Cranial nerves II through XII grossly intact. Moving all extremities SKIN: Warm, dry, no petechiae, no rashes or lesions. Initial Vital Signs Initial Vital Signs: Vital Signs Temperature 98.8 F 11/27/23 17:15 Pulse Rate 79 11/27/23 17:15 Respiratory Rate 32 H 11/27/23 17:15 Blood Pressure 178/76 H 11/27/23 17:15 Pulse Oximetry 100 11/27/23 17:15 Oxygen Delivery Method Nasal Cannula 11/27/23 17:15 Oxygen Flow Rate 6 11/27/23 17:15 Course <Tiffany Patel MD - Last Filed: 11/28/23 07:05> Orders Ordered: Acetaminophen (Acetaminophen 325 Mg Tablet) 650 mg PO Q6H PRN PRN Reason: Fever/Mild Pain (1-3) Aspirin (Aspirin Ec 81 Mg Tablet) 81 mg PO DAILY MARYELLEN Carbidopa/Levodopa (Carbidopa-Levodopa 25/100 Tablet) 1 each PO TID MARYELLEN Citalopram Hydrobromide (Citalopram 10 Mg Tablet) 10 mg PO DAILY MARYELLEN Clonazepam (Clonazepam 0.5 Mg Tablet) 0.5 mg PO Q4H PRN PRN Reason: ANXIETY/AGITATION Dexamethasone (Dexamethasone 10 Mg/Ml Vial) 6 mg IV DAILY MARYELLEN Furosemide (Furosemide 40 Mg Tablet) 80 mg PO DAILY [facility] Heparin Sodium (Porcine) (Heparin 5,000 Unit/Ml Vial) 5,000 unit SUBCUT BID MARYELLEN Last Admin: 11/27/23 21:49 Dose: 5,000 unit Documented By: Remdesivir 100 mg/ Sodium (Chloride) 250 mls @ 250 mls/hr IV DAILY [facility] Stop: 12/01/23 09:59 Dextrose (D10w) 100 mls @ 1,200 mls/hr IV PRN PRN PRN Reason: Hypoglycemia Insulin Human Lispro (Insulin Lispro 100 Unit/Ml 3ml Vial) 0 unit SUBCUT ACHS MARYELLEN; Protocol Loratadine (Loratadine 10 Mg Tablet) 10 mg PO DAILY [facility] Melatonin (Melatonin 3 Mg Tablet) 6 mg PO BEDTIME [facility] Metformin HCl (Metformin Hcl 500 Mg Tablet) 1,000 mg PO BID [facility] Naloxone HCl (Naloxone 0.4 Mg/Ml Vial) 0.2 mg IV Q2MIN PRN PRN Reason: Opiate Reversal Ondansetron HCl (Ondansetron 4 Mg/2 Ml Inj) 4 mg IV NOW PRN PRN Reason: Nausea And Vomiting Ondansetron HCl (Ondansetron 4 Mg Odt) 4 mg SL NOW PRN PRN Reason: Nausea And Vomiting Pantoprazole Sodium (Pantoprazole Dr 20 Mg Tablet) 20 mg PO 0700 [facility] Polyethylene Glycol (Polyethylene Glycol 3350 17 Gm Powd.Pack) 17 gm PO DAILY [facility] Quetiapine Fumarate (Quetiapine 25 Mg Tablet) 25 mg PO BID PRN PRN Reason: Agitation Quetiapine Fumarate (Quetiapine 25 Mg Tablet) 50 mg PO BID [facility] Discontinued Medications Carbidopa/Levodopa (Carbidopa-Levodopa 25/100 Tablet) 1 each PO NOW ONE Stop: 11/27/23 20:40 Last Admin: 11/27/23 21:49 Dose: 1 each Documented By: Dexamethasone (Dexamethasone 10 Mg/Ml Vial) 6 mg IV NOW ONE Stop: 11/27/23 18:42 Last Admin: 11/27/23 19:06 Dose: 6 mg Documented By: LINSEY Famotidine (Famotidine 20 Mg Tablet) 20 mg PO DAILY [facility] Remdesivir 200 mg/ Sodium (Chloride) 250 mls @ 250 mls/hr IV NOW ONE Stop: 11/27/23 19:40 Last Admin: 11/27/23 23:32 Dose: 250 mls/hr Documented By: Non-Formulary Medication (Clonazepam) 0.5 mg PO Q4HR PRN PRN Reason: Anxiety Non-Formulary Medication (Melatonin) 5 mg PO BEDTIME MARYELLEN Non-Formulary Medication (Polyethylene Glycol 3350(Bulk) [Base B,Polyethylene [id number]]) 17 each MISC DAILY MARYELLEN Non-Formulary Medication (Clonazepam) 0.5 mg PO Q4H PRN PRN Reason: Agitation Non-Formulary Medication (Acetaminophen) 650 mg PO Q4H PRN PRN Reason: Pain (Scale Score 1-3) Vital Signs Vital signs: Vital Signs - 8 hr 11/27/23 17:15 11/27/23 17:34 11/27/23 18:00 Temperature 98.8 F Pulse Rate 79 79 71 Respiratory Rate 32 H 32 H 35 H Blood Pressure 178/76 H 178/76 H 169/72 H Pulse Oximetry 100 99 98 Oxygen Delivery Method Nasal Cannula Heated High Flow Oxygen Flow Rate 6 45 11/27/23 18:02 11/27/23 18:15 11/27/23 18:15 Temperature Pulse Rate 73 72 Respiratory Rate 27 H 24 Blood Pressure 157/67 H Pulse Oximetry 99 99 Oxygen Delivery Method Oxygen Flow Rate 11/27/23 18:30 11/27/23 18:30 11/27/23 18:45 Temperature Pulse Rate 72 Respiratory Rate 25 H Blood Pressure 149/66 H 150/64 H Pulse Oximetry 100 Oxygen Delivery Method Oxygen Flow Rate 11/27/23 18:45 11/27/23 19:00 11/27/23 19:00 Temperature Pulse Rate 72 72 Respiratory Rate 25 H 25 H Blood Pressure 168/65 H Pulse Oximetry 99 99 Oxygen Delivery Method Oxygen Flow Rate 11/27/23 19:15 11/27/23 19:16 11/27/23 19:16 Temperature Pulse Rate 73 73 Respiratory Rate 24 26 H Blood Pressure 190/76 H Pulse Oximetry Oxygen Delivery Method Oxygen Flow Rate <Stephanie Moreno, DO - Last Filed: 11/27/23 20:00> Orders Ordered: Acetaminophen (Acetaminophen 325 Mg Tablet) 650 mg PO Q6H PRN PRN Reason: Fever/Mild Pain (1-3) Aspirin (Aspirin Ec 81 Mg Tablet) 81 mg PO DAILY [facility] Carbidopa/Levodopa (Carbidopa-Levodopa 25/100 Tablet) 1 each PO TID [facility] Citalopram Hydrobromide (Citalopram 10 Mg Tablet) 10 mg PO DAILY [facility] Clonazepam (Clonazepam 0.5 Mg Tablet) 0.5 mg PO Q4H PRN PRN Reason: ANXIETY/AGITATION Dexamethasone (Dexamethasone 10 Mg/Ml Vial) 6 mg IV DAILY [facility] Furosemide (Furosemide 40 Mg Tablet) 80 mg PO DAILY [facility] Heparin Sodium (Porcine) (Heparin 5,000 Unit/Ml Vial) 5,000 unit SUBCUT BID [facility] Last Admin: 11/27/23 21:49 Dose: 5,000 unit Documented By: Remdesivir 100 mg/ Sodium (Chloride) 250 mls @ 250 mls/hr IV DAILY [facility] Stop: 12/01/23 09:59 Dextrose (D10w) 100 mls @ 1,200 mls/hr IV PRN PRN PRN Reason: Hypoglycemia Insulin Human Lispro (Insulin Lispro 100 Unit/Ml 3ml Vial) 0 unit SUBCUT ACHS [facility]; Protocol Loratadine (Loratadine 10 Mg Tablet) 10 mg PO DAILY [facility] Melatonin (Melatonin 3 Mg Tablet) 6 mg PO BEDTIME [facility] Metformin HCl (Metformin Hcl 500 Mg Tablet) 1,000 mg PO BID [facility] Naloxone HCl (Naloxone 0.4 Mg/Ml Vial) 0.2 mg IV Q2MIN PRN PRN Reason: Opiate Reversal Ondansetron HCl (Ondansetron 4 Mg/2 Ml Inj) 4 mg IV NOW PRN PRN Reason: Nausea And Vomiting Ondansetron HCl (Ondansetron 4 Mg Odt) 4 mg SL NOW PRN PRN Reason: Nausea And Vomiting Pantoprazole Sodium (Pantoprazole Dr 20 Mg Tablet) 20 mg PO 0700 [facility] Polyethylene Glycol (Polyethylene Glycol 3350 17 Gm Powd.Pack) 17 gm PO DAILY [facility] Quetiapine Fumarate (Quetiapine 25 Mg Tablet) 25 mg PO BID PRN PRN Reason: Agitation Quetiapine Fumarate (Quetiapine 25 Mg Tablet) 50 mg PO BID [facility] Discontinued Medications Carbidopa/Levodopa (Carbidopa-Levodopa 25/100 Tablet) 1 each PO NOW ONE Stop: 11/27/23 20:40 Last Admin: 11/27/23 21:49 Dose: 1 each Documented By: Dexamethasone (Dexamethasone 10 Mg/Ml Vial) 6 mg IV NOW ONE Stop: 11/27/23 18:42 Last Admin: 11/27/23 19:06 Dose: 6 mg Documented By: LINSEY Famotidine (Famotidine 20 Mg Tablet) 20 mg PO DAILY MARYELLEN Remdesivir 200 mg/ Sodium (Chloride) 250 mls @ 250 mls/hr IV NOW ONE Stop: 11/27/23 19:40 Last Admin: 11/27/23 23:32 Dose: 250 mls/hr Documented By: Non-Formulary Medication (Clonazepam) 0.5 mg PO Q4HR PRN PRN Reason: Anxiety Non-Formulary Medication (Melatonin) 5 mg PO BEDTIME MARYELLEN Non-Formulary Medication (Polyethylene Glycol 3350(Bulk) [Base B,Polyethylene [id number]]) 17 each MISC DAILY MARYELLEN Non-Formulary Medication (Clonazepam) 0.5 mg PO Q4H PRN PRN Reason: Agitation Non-Formulary Medication (Acetaminophen) 650 mg PO Q4H PRN PRN Reason: Pain (Scale Score 1-3) Vital Signs Vital signs: Vital Signs - 8 hr 11/27/23 17:15 11/27/23 17:34 11/27/23 18:00 Temperature 98.8 F Pulse Rate 79 79 71 Respiratory Rate 32 H 32 H 35 H Blood Pressure 178/76 H 178/76 H 169/72 H Pulse Oximetry 100 99 98 Oxygen Delivery Method Nasal Cannula Heated High Flow Oxygen Flow Rate 6 45 11/27/23 18:02 11/27/23 18:15 11/27/23 18:15 Temperature Pulse Rate 73 72 Respiratory Rate 27 H 24 Blood Pressure 157/67 H Pulse Oximetry 99 99 Oxygen Delivery Method Oxygen Flow Rate 11/27/23 18:30 11/27/23 18:30 11/27/23 18:45 Temperature Pulse Rate 72 Respiratory Rate 25 H Blood Pressure 149/66 H 150/64 H Pulse Oximetry 100 Oxygen Delivery Method Oxygen Flow Rate 11/27/23 18:45 11/27/23 19:00 11/27/23 19:00 Temperature Pulse Rate 72 72 Respiratory Rate 25 H 25 H Blood Pressure 168/65 H Pulse Oximetry 99 99 Oxygen Delivery Method Oxygen Flow Rate 11/27/23 19:15 11/27/23 19:16 11/27/23 19:16 Temperature Pulse Rate 73 73 Respiratory Rate 24 26 H Blood Pressure 190/76 H Pulse Oximetry Oxygen Delivery Method Oxygen Flow Rate Medical Decision Making <Tiffany Patel MD - Last Filed: 11/28/23 07:05> Lab Data 11/28/23 04:12 11/28/23 04:12 Labs: Lab Results 11/27/23 Range/Units 17:21 WBC 16.3 H (4.5-11.0) X10^3/uL RBC 3.91 L (4.5-5.9) X10^6/uL Hgb 12.0 L (13.5-17.5) g/dL Hct 36.9 L (41-53) % MCV 94.3 (80-100) fL MCH 30.8 (26-34) PG MCHC 32.6 (30-36) % RDW 15.8 H (11.6-14.8) % Plt Count 133 L (150-400) X10^3/uL Neut % (Auto) Not Reportable Lymph % (Auto) Not Reportable Parmer % (Auto) Not Reportable Eos % (Auto) Not Reportable Baso % (Auto) Not Reportable Lymph # (Auto) Not Reportable Parmer # (Auto) Not Reportable Baso # (Auto) Not Reportable Total Counted 100 Seg Neutrophils % 52.0 (38-70) % Lymphocytes % (Manual) 22.0 L (25-45) % Monocytes % (Manual) 15.0 H (2-11) % Eosinophils % (Manual) 10.0 H (2-4) % Basophils % (Manual) 1.0 (0-1) % Neutrophils # (Manual) 8476 H (1005-6834) /uL RBC Morphology Normal morphology PT 11.8 (9.4-12.5) SECONDS INR 1.0 (0.9-1.3) APTT 35 (25.1-36.5) SECONDS Sodium 143 (137-145) mmol/L Potassium 4.9 (3.4-5.1) mmol/L Chloride 102 (98-107) mmol/L Carbon Dioxide 31 (22-32) mmol/L BUN 31 H (9-20) mg/dL Creatinine 1.87 H (0.66-1.25) mg/dL Estimated GFR 34 L (>60) mL/min BUN/Creatinine Ratio 16.6 (6-22) Glucose 170 H (80-110) mg/dL Lactate 2.0 (0.7-2.1) mmol/L Calcium 9.8 (8.4-10.2) mg/dL Total Bilirubin 0.8 (0.2-1.3) mg/dL AST 21 (17-59) IU/L ALT 8 (<50) IU/L Alkaline Phosphatase 159 H (38-126) U/L Total Creatine Kinase 20 L (55-170) U/L Troponin I 0.014 (0.01-0.034) ng/mL NT-Pro-B Natriuret Pep 677 H (<450) pg/mL Total Protein 7.9 (6.3-8.2) g/dL Albumin 3.8 (3.5-5.0) g/dL Globulin 4.1 (1.7-4.1) g/dL Albumin/Globulin Ratio 0.9 L (1.0-2.8) Lipase 35 (23-300) U/L Procalcitonin 0.29 (<0.5) ng/mL SARS-CoV-2 (PCR) Positive H (Negative) <Stephanie Moreno, DO - Last Filed: 11/27/23 20:00> Lab Data Labs: Lab Results 11/27/23 Range/Units 17:21 WBC 16.3 H (4.5-11.0) X10^3/uL RBC 3.91 L (4.5-5.9) X10^6/uL Hgb 12.0 L (13.5-17.5) g/dL Hct 36.9 L (41-53) % MCV 94.3 (80-100) fL MCH 30.8 (26-34) PG MCHC 32.6 (30-36) % RDW 15.8 H (11.6-14.8) % Plt Count 133 L (150-400) X10^3/uL Neut % (Auto) Not Reportable Lymph % (Auto) Not Reportable Parmer % (Auto) Not Reportable Eos % (Auto) Not Reportable Baso % (Auto) Not Reportable Lymph # (Auto) Not Reportable Parmer # (Auto) Not Reportable Baso # (Auto) Not Reportable Total Counted 100 Seg Neutrophils % 52.0 (38-70) % Lymphocytes % (Manual) 22.0 L (25-45) % Monocytes % (Manual) 15.0 H (2-11) % Eosinophils % (Manual) 10.0 H (2-4) % Basophils % (Manual) 1.0 (0-1) % Neutrophils # (Manual) 8476 H (9332-4589) /uL RBC Morphology Normal morphology PT 11.8 (9.4-12.5) SECONDS INR 1.0 (0.9-1.3) APTT 35 (25.1-36.5) SECONDS Sodium 143 (137-145) mmol/L Potassium 4.9 (3.4-5.1) mmol/L Chloride 102 (98-107) mmol/L Carbon Dioxide 31 (22-32) mmol/L BUN 31 H (9-20) mg/dL Creatinine 1.87 H (0.66-1.25) mg/dL Estimated GFR 34 L (>60) mL/min BUN/Creatinine Ratio 16.6 (6-22) Glucose 170 H (80-110) mg/dL Lactate 2.0 (0.7-2.1) mmol/L Calcium 9.8 (8.4-10.2) mg/dL Total Bilirubin 0.8 (0.2-1.3) mg/dL AST 21 (17-59) IU/L ALT 8 (<50) IU/L Alkaline Phosphatase 159 H (38-126) U/L Total Creatine Kinase 20 L (55-170) U/L Troponin I 0.014 (0.01-0.034) ng/mL NT-Pro-B Natriuret Pep 677 H (<450) pg/mL Total Protein 7.9 (6.3-8.2) g/dL Albumin 3.8 (3.5-5.0) g/dL Globulin 4.1 (1.7-4.1) g/dL Albumin/Globulin Ratio 0.9 L (1.0-2.8) Lipase 35 (23-300) U/L Procalcitonin 0.29 (<0.5) ng/mL SARS-CoV-2 (PCR) Positive H (Negative) Imaging Data Chest x-ray: Radiologist's Impression: Moderate left-sided pleural effusion, generally interstitial prominence can be seen no pneumothorax, cardiac contours within normal limits aorta demonstrates calcification and tortuosity. No suspicious bony lesions, age-appropriate degenerative changes seen overlying soft tissues appear unremarkable. ECG Data Attestation: I personally reviewed and interpreted this ECG as follows: Prior ECG tracings: available for review Interpretation: Sinus rhythm with occasional PVCs rate of 79 [place] 170 QRS 82 QTC of 433. No acute ST elevation depression noted. Patient has prior from 09/18/2023. Treatment and disposition Code Status and discussions:: DNR/DNI, limited. Not comfort but if significant worsening of condition would consider. Patient and both express. [facility]ST arrived w/ patient. MDM Narrative Medical decision making narrative: This is an 88-year-old male with history of Parkinson's disease with dementia, diabetes, PTSD, some component of CHF on Lasix was DNR/DNI with recent COVID infection outbreak in a memory care center. Labs show a white count of 16 but predominant monocytes, platelets are 133 hemoglobin is 12 coags are negative, patient's appears to have chronic kidney disease fairly close to baseline with a creatinine today of 1.87 was 1.94 on priors with a BUN of 31, sodium is 143 potassium is 4.9, patient's LFTs show an alk-phos of 149 but overall negative, initial troponins negative at 0.014 with a BNP of 6 7 7, procalcitonin 0.29 patient is positive for COVID. Chest x-ray shows left pleural effusion and interstitial change. Patient did have a pneumonia in September of 2023. EKG does not show any acute EKG changes at this time. Patient was on 6 L nasal cannula saturating in the 90s but quite a bit of tachypnea and was moved to high-flow. He is currently at 45 liters/minute with an FiO2 of 34% and seems to be tolerating well tachypnea seems to be improved. I did not see him initially upon arrival. Patient is started on remdesivir and dexamethasone. Call out to Dr. Prasad, telehospitalist: accepts for inpatient. Critical Care Time <Stephanie Moreno, DO - Last Filed: 11/27/23 20:00> Critical Care Time Critical Care Time: Yes Total Critical Care Time: 35 Attestation: The high probability of a clinically significant, sudden or life threatening deterioration of the [pulm, cardiac] system(s) required my full and direct attention, intervention and personal management. The aggregate critical care time was [] minutes. This time is in addition to time spent performing reported procedures but includes the following: [x] Data Review and interpretation [x] Patient assessment and monitoring of vital signs [x] Documentation [x] Medication orders and management Discharge Plan Departure Patient Disposition: Admitted As Inpatient Clinical Impression: COVID-19 virus infection, Acute hypoxic respiratory failure, CKD (chronic kidney disease) Admit Date/Time: 11/27/23 19:27 Admit Provider: Ulises Acharya
--- NOTE | 2023-11-27 17:15 | DI.RAD.S_ITS ---
PROCEDURE: XR CHEST 1V INDICATIONS: suspected sepsis TECHNIQUE: One view of the chest was acquired. COMPARISON: [facility], CR, XR CHEST 1V, 08/04/2022, 10:26. [facility], CR, XR CHEST 1V, 09/16/2023, 12:18. FINDINGS: Surgical changes and devices: None. Lungs and pleura: There is a moderate left-sided pleural effusion. Generally is interstitial prominence can be seen. No pneumothorax is seen. Mediastinum: The cardiac contours are within normal limits. The aorta demonstrates calcification and tortuosity. Bones and chest wall: No suspicious bony lesions. Age-appropriate bony degenerative changes are seen. Overlying soft tissues appear unremarkable. IMPRESSION: Moderate left-sided pleural effusion. Generalized interstitial prominence. Please consider pulmonary edema. Dictated by: Benny Montenegro M.D. on 11/27/2023 at 16:49 Approved by: Benny Montenegro M.D. on 11/27/2023 at 16:50
[2023-11-27 17:43] LABS: Prothrombin Time 11.8 SECONDS (9.4-12.5)
[2023-11-27 17:45] LABS: PTT Partial Thromboplastin Tim 35 SECONDS (25.1-36.5)
[2023-11-27 17:47] LABS: Hematocrit 36.9 % (41-53); Mean Corpuscular HGB Conc 32.6 % (30-36); Mean Corpuscular Hemoglobin 30.8 PG (26-34); Mean Corpuscular Volume 94.3 fL (80-100); Platelet Count 133 X10^3/uL (150-400); Red Blood Cell Count 3.91 X10^6/uL (4.5-5.9); Red Cell Distribution Width 15.8 % (11.6-14.8); White Blood Cell Count 16.3 X10^3/uL (4.5-11.0)
[2023-11-27 17:48] LABS: Add Manual Diff / Slide Review YES; Alanine Aminotransferase 8 IU/L (<50); Albumin 3.8 g/dL (3.5-5.0); Albumin Globulin Ratio 0.9 (1.0-2.8); Alkaline Phosphatase 159 U/L (38-126); Aspartate Aminotransferase 21 IU/L (17-59); BUN Creatinine Ratio 16.6 (6-22); Bilirubin Total 0.8 mg/dL (0.2-1.3); Blood Urea Nitrogen 31 mg/dL (9-20); Calcium 9.8 mg/dL (8.4-10.2); Carbon Dioxide 31 mmol/L (22-32); Chloride 102 mmol/L (98-107); Creatine Kinase 20 U/L (55-170); Estimated Glomerular Filt Rate 34 mL/min (>60); Globulin 4.1 g/dL (1.7-4.1); Glucose 170 mg/dL (80-110); HEMOLYSIS < 15 (0-50); Lipase 35 U/L (23-300); Potassium 4.9 mmol/L (3.4-5.1); Sodium 143 mmol/L (137-145); Total Protein 7.9 g/dL (6.3-8.2)
[2023-11-27 18:00] LABS: NT-proBNP (BNP-Adult 18+) 677 pg/mL (<450); Troponin I 0.014 ng/mL (0.01-0.034)
--- NOTE | 2023-11-27 18:01 | PC.NURSE ---
suction set up at bedside. clear secretions from patient's mouth. Pt is on high flow 45 L per min with 35 percent FI02
[2023-11-27 18:04] LABS: Procalcitonin 0.29 ng/mL (<0.5)
[2023-11-27 18:09] LABS: COVID19 -Nasal RAPID POSITIVE (Negative)
[2023-11-27 18:15] LABS: Neutrophils Absolute Manual 8476 /uL (3000-5900); RBC Morphology Normal Morphology; Total Cells Counted 100
[2023-11-27] MEDS: DEXAMETHASONE 10 MG/ML VIAL 6 MG IV (19:06)
--- NOTE | 2023-11-27 20:02 | PM.HP.1 ---
History of Present Illness History of Present Illness Date Patient Seen: 11/27/23 Chief complaint: COVID+/SOB Narrative: 88 y/o resident of memory care facility, with recent hospitalization, 2 months ago for b/l bacterial PNA and acute hypoxia that responded to Zosyn / cefdinir and oxygen. He presented today short of breath, hypoxic, failing NC and requiring high-flow oxygen to maintain saturation above 90, COVID positive. His facility currently has an outbreak. Patient unable to provide history due to dementia.On admission to medicine, oxygen requirement down to NC again. [facility] Medical History Hyperlipidemia associated with type 2 diabetes mellitus REM behavioral disorder Sleep apnea (~2010) Parkinson's disease (~2009) Rosacea Mumps Measles Chicken pox Hearing loss (~2011) Partial blindness (~2014) Type 2 diabetes mellitus without complication (11/10/16) Penis injury Surgical History Anesthesia History of tonsillectomy History of cataract removal with insertion of prosthetic lens Status post appendectomy Family History Mother Heart disease Diabetes mellitus Father Cancer Grandfather Heart disease Grandmother Heart disease Grandmother Heart disease Social History household members: caregiver Smoking Status: Former smoker alcohol intake: never Meds Home Medications and Allergies Home Medications Medication Instructions Recorded Confirmed Type lancets 28 gauge (FreeStyle #100 ea 02/19/20 11/27/23 Rx Lancets) blood sugar diagnostic (FreeStyle #100 ea 03/06/20 11/27/23 Rx Lite Strips) aspirin 81 mg tablet,delayed 81 mg PO DAILY 10/30/20 11/27/23 History release metformin 500 mg tablet 1,000 mg (2 x 500 mg) PO BID #360 01/08/21 11/27/23 Rx tabs ascorbic acid (vitamin C) 1,000 mg 1 g PO DAILY 08/07/21 11/27/23 History tablet carbidopa 25 mg-levodopa 100 mg 1 tab PO TID 08/07/21 11/27/23 History tablet citalopram 10 mg tablet 10 mg PO DAILY 08/07/21 11/27/23 History clonazepam 0.5 mg disintegrating 0.5 mg PO Q4H PRN Agitation 08/07/21 11/27/23 History tablet famotidine 20 mg tablet 20 mg PO DAILY 08/07/21 11/27/23 History acetaminophen 325 mg capsule 650 mg PO Q4H PRN Pain (Scale 09/16/23 11/27/23 History Score 1-3) furosemide 80 mg tablet 80 mg PO DAILY 09/16/23 11/27/23 History quetiapine 25 mg tablet 50 mg PO BID 09/16/23 11/27/23 History bisacodyl 10 mg rectal suppository 10 mg AR DAILY PRN Constipation 11/27/23 11/27/23 History chlorpheniramine-guaifenesin 400 mg PO NOW PRN Congestion 11/27/23 11/27/23 History ciprofloxacin HCl 500 mg tablet 500 mg PO BID 11/27/23 11/27/23 History (Cipro) clonazepam 0.5 mg disintegrating 0.5 mg PO Q4HR PRN Anxiety 11/27/23 11/27/23 History tablet ipratropium bromide 42 mcg (0.06 2 spray intranasal PRN PRN 11/27/23 11/27/23 History %) nasal spray seasonal allergies loratadine 10 mg tablet 10 mg PO DAILY 11/27/23 11/27/23 History magnesium hydroxide 400 mg/5 mL 30 ml PO PRN PRN Constipation 11/27/23 11/27/23 History oral suspension (Milk of Magnesia) melatonin 5 mg capsule 5 mg PO BEDTIME insomnia 11/27/23 11/27/23 History polyethylene glycol 3350(bulk) 17 ea miscellaneous DAILY 11/27/23 11/27/23 History (Base B, Polyethylene Glycol 3350 granules) psyllium husk 0.4 gram capsule 400 PO 11/27/23 History (Fiber (psyllium husk)) quetiapine 25 mg tablet (Seroquel) 25 mg PO BID PRN Agitation 11/27/23 11/27/23 History trazodone 100 mg tablet 100 mg PO ONCE PM 11/27/23 11/27/23 History Allergies Allergy/AdvReac Type Severity Reaction Status Date / Time bacitracin Allergy Unknown Verified 08/04/22 09:33 [From NEOSPORIN ([id number])] neomycin Allergy Unknown Verified 08/04/22 09:33 [From NEOSPORIN ([id number])] polymyxin B Allergy Unknown Verified 08/04/22 09:33 [From NEOSPORIN ([id number])] Review of Systems Review of Systems Narrative: Unobtainable due to dementia Exam Vital Signs (past 8 hours): - 11/27/23 17:15 11/27/23 17:34 11/27/23 18:00 Temperature 98.8 F Pulse Rate 79 79 71 Respiratory Rate 32 H 32 H 35 H Blood Pressure 178/76 H 178/76 H 169/72 H Pulse Oximetry 100 99 98 Oxygen Delivery Method Nasal Cannula Heated High Flow Oxygen Flow Rate 6 45 11/27/23 18:02 11/27/23 18:15 11/27/23 18:15 Temperature Pulse Rate 73 72 Respiratory Rate 27 H 24 Blood Pressure 157/67 H Pulse Oximetry 99 99 Oxygen Delivery Method Oxygen Flow Rate 11/27/23 18:30 11/27/23 18:30 11/27/23 18:45 Temperature Pulse Rate 72 Respiratory Rate 25 H Blood Pressure 149/66 H 150/64 H Pulse Oximetry 100 Oxygen Delivery Method Oxygen Flow Rate 11/27/23 18:45 11/27/23 19:00 11/27/23 19:00 Temperature Pulse Rate 72 72 Respiratory Rate 25 H 25 H Blood Pressure 168/65 H Pulse Oximetry 99 99 Oxygen Delivery Method Oxygen Flow Rate 11/27/23 19:15 11/27/23 19:16 11/27/23 19:16 Temperature Pulse Rate 73 73 Respiratory Rate 24 26 H Blood Pressure 190/76 H Pulse Oximetry Oxygen Delivery Method Oxygen Flow Rate 11/27/23 19:30 11/27/23 19:31 11/27/23 19:31 Temperature Pulse Rate 74 74 Respiratory Rate 22 21 Blood Pressure 139/65 Pulse Oximetry 100 100 Oxygen Delivery Method Oxygen Flow Rate 11/27/23 19:45 11/27/23 19:45 Temperature Pulse Rate 76 Respiratory Rate 28 H Blood Pressure 124/58 L Pulse Oximetry 98 Oxygen Delivery Method Oxygen Flow Rate Oxygen Delivery Method Heated High Flow Oxygen Flow Rate 45 Resp Other: Tachypnea, w/o rales / wheezes Cardio Other: RRR GI Other: abdomen soft, not distended Neuro Other: bradykinetic, w/o tremor Extrem Other: 1+ - 2+ leg swelling Psych Other: cognitive deficits Objective Labs 11/27/23 17:21 11/27/23 17:21 Labs: Laboratory Results - last 24 hr 11/27/23 17:21 WBC 16.3 H RBC 3.91 L Hgb 12.0 L Hct 36.9 L MCV 94.3 MCH 30.8 MCHC 32.6 RDW 15.8 H Plt Count 133 L Neut % (Auto) Not Reportable Lymph % (Auto) Not Reportable [place] % (Auto) Not Reportable Eos % (Auto) Not Reportable Baso % (Auto) Not Reportable Lymph # (Auto) Not Reportable [place] # (Auto) Not Reportable Baso # (Auto) Not Reportable Total Counted 100 Seg Neutrophils % 52.0 Lymphocytes % (Manual) 22.0 L Monocytes % (Manual) 15.0 H Eosinophils % (Manual) 10.0 H Basophils % (Manual) 1.0 Neutrophils # (Manual) 8476 H RBC Morphology Normal morphology PT 11.8 INR 1.0 APTT 35 Sodium 143 Potassium 4.9 Chloride 102 Carbon Dioxide 31 BUN 31 H Creatinine 1.87 H Estimated GFR 34 L BUN/Creatinine Ratio 16.6 Glucose 170 H Lactate 2.0 Calcium 9.8 Total Bilirubin 0.8 AST 21 ALT 8 Alkaline Phosphatase 159 H Total Creatine Kinase 20 L Troponin I 0.014 NT-Pro-B Natriuret Pep 677 H Total Protein 7.9 Albumin 3.8 Globulin 4.1 Albumin/Globulin Ratio 0.9 L Lipase 35 Procalcitonin 0.29 SARS-CoV-2 (PCR) Positive H Assessment & Plan Assessment and plan (1) Pneumonia due to 2019-nCoV: Status: Acute (2) Acute hypoxic respiratory failure: Status: Acute (3) Parkinson's disease: Status: Chronic (4) CKD (chronic kidney disease): Status: Acute (5) Type 2 diabetes mellitus without complication: Qualifiers: Diabetes mellitus fci insulin use: without fci use Qualified Code(s): E11.9 - Type 2 diabetes mellitus without complications Status: Chronic (6) Insomnia: Qualifiers: Insomnia type: psychophysiologic Qualified Code(s): F51.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 COVID PNA, Acute Hypoxic Respiratory Failure - high-flow oxygen needed in the ED, now on 2 L, remdesivir, steroid 2. HTN / CHF? , CKD - likely diastolic - Lasix, monitored fluid status / renal function 3. Parkinson's Disease, Dementia - Sinemet - Seroquel, Clonazepam, Celexa 4. DM - metformin, SS 5. CKD - at baseline, stage 3B or 4? 6. GERD - Prilosec instead of home Pepcid, on steroid 7. Insomnia - Melatonin DVT prophylaxis - heparin
[2023-11-27] MEDS: HEPARIN 5,000 UNIT/ML VIAL 5000 UNIT SUBCUT (21:49)
[2023-11-27] MEDS: CARBIDOPA-LEVODOPA 25/100 TABLET 1 EACH PO (21:49)
--- NOTE | 2023-11-27 21:50 | RT ---
late entry -prior to transfer and admission of pt. At approx. 2105, RT noted pt with HHFNC nasal cannula off in the ER, on room-air with SpO2 at 93%, pt appeared comfortable. Will attempt to keep pt off HHFNC for time being to see if the pt is tolerating.
[2023-11-27] MEDS: REMDESIVIR 200 MG in SODIUM CHLORIDE 0.9% 250 ML 250 MG IV (23:32)
[2023-11-28] VITALS: BP 149/71; PULSE 99; RESP 20; TEMP 37.4; O2SAT 100
[2023-11-28 04:00] VITALS: BP 146/65; PULSE 76; RESP 16; TEMP 37.1; O2SAT 93
[2023-11-28 04:49] LABS: Add Manual Diff / Slide Review NO; Basophils Absolute Auto 0 /uL (0-100); Basophils Percent Auto 0.3 % (0-2); Eosinophils Absolute Auto 0 /uL (0-450); Eosinophils Percent Auto 0.1 % (2-4); Hematocrit 32.9 % (41-53); Hemoglobin 10.9 g/dL (13.5-17.5); Lymphocytes Absolute Auto 1100 /uL (1100-4500); Lymphocytes Percent Auto 11.1 % (25-40); Mean Corpuscular Hemoglobin 31.5 PG (26-34); Mean Corpuscular Volume 95.3 fL (80-100); Monocytes Absolute Auto 700 /uL (0-900); Monocytes Percent Auto 7.8 % (3-14); Neutrophils Absolute Auto 7700 /uL (1500-7000); Neutrophils Percent Auto 80.7 % (50-75); Platelet Count 115 X10^3/uL (150-400); Red Blood Cell Count 3.45 X10^6/uL (4.5-5.9); Red Cell Distribution Width 15.4 % (11.6-14.8); White Blood Cell Count 9.6 X10^3/uL (4.5-11.0)
[2023-11-28 05:26] LABS: Blood Urea Nitrogen 30 mg/dL (9-20); Calcium 9.4 mg/dL (8.4-10.2); Carbon Dioxide 31 mmol/L (22-32); Chloride 102 mmol/L (98-107); Estimated Glomerular Filt Rate 42 mL/min (>60); Glucose 224 mg/dL (80-110); HEMOLYSIS < 15 (0-50); Sodium 139 mmol/L (137-145)
[2023-11-28 05:35] LABS: NT-proBNP (BNP-Adult 18+) 869 pg/mL (<450)
--- NOTE | 2023-11-28 06:35 | PC.NURSE ---
cage shift manager RN note pt arrived from ER via stretcher, alert and oriented to self/place, followed commands, generalized weakness, VSS afebrile, PPPx4, 2+ lower leg edema SR with PVCs, lungs decreased and coarse rhonchi, moist cough, O2 sats >92% on 3L NC, abd round soft with BS, incont of urine, condom cath placed for clear berta urine, skin warm, sacrum/garrett area excoriated, cream applied, bilat AC periph IV sites patent, denies pain, meds given as ordered, bed alarm on, call sam within reach
[2023-11-28] MEDS: PANTOPRAZOLE DR 20 MG TABLET PO (07:29)
[2023-11-28] MEDS: INSULIN LISPRO 100 UNIT/ML 3ML VIAL SUBCUT (07:59)
[2023-11-28 08:00] VITALS: BP 171/90; PULSE 80; TEMP 36; O2SAT 98
[2023-11-28] MEDS: HEPARIN 5,000 UNIT/ML VIAL 5000 UNIT SUBCUT ×2 (08:00→20:46)
--- NOTE | 2023-11-28 08:15 | PM.PN.1 ---
Subjective Subjective Interval history: This patient is a 88-year-old male at [facility]. He is history of dementia and Parkinson's and presented with COVID with acute hypoxemic respiratory failure. There is currently an outbreak of COVID at this facility. He is do not resuscitate, and [id number]. He also has chronic kidney disease likely stage III. His GFR is about 42, he was started on remdesivir and dexamethasone at the time of admission. We will continue these and watch his renal function carefully. S: He was quite agitated this morning, his was able to help calm down and encouraged him to take his Seroquel. The time of my exam he was sleeping comfortably. She notes a goal of comfort based care. She is okay using COVID medications for now but if he would any deterioration she would want to move to comfort fairly quickly. In addition she is interested in pursuing the possibility of hospice. She had hoped not to transport him to the hospital when he was having his initial problems last night but rather to make him comfort care. It was explained that this is difficult to do in that care ([facility]) setting without hospice pre arranged. Exam Vital Signs (past 8 hours): - 11/28/23 04:00 11/28/23 07:00 Temperature 98.7 F Pulse Rate 76 Respiratory Rate 16 Blood Pressure 146/65 H Pulse Oximetry 93 Oxygen Delivery Method Nasal Cannula Oxygen Flow Rate 4 Fraction of Inspired Oxygen 28 SaO2/FiO2 Ratio 346 Oxygen Delivery Method Nasal Cannula Oxygen Flow Rate 4 Narrative Exam Narrative: Sedated, calm. No oxygen on. Saturations are reasonable. Lungs are clear, normal rate and effort. Heart is regular, no murmur gallop or rub. Abdomen is soft, non distended. Extremities are free of edema. Objective Imaging Chest x-ray: Radiologist's impression: Moderate left-sided pleural effusion. Generalized interstitial prominence. Please consider pulmonary edema. Labs 11/28/23 04:12 11/28/23 04:12 Labs: Laboratory Results - last 24 hr 11/27/23 11/28/23 17:21 04:12 WBC 16.3 H 9.6 RBC 3.91 L 3.45 L Hgb 12.0 L 10.9 L Hct 36.9 L 32.9 L MCV 94.3 95.3 MCH 30.8 31.5 MCHC 32.6 33.0 RDW 15.8 H 15.4 H Plt Count 133 L 115 L Neut % (Auto) Not Reportable 80.7 H Lymph % (Auto) Not Reportable 11.1 L [place] % (Auto) Not Reportable 7.8 Eos % (Auto) Not Reportable 0.1 L Baso % (Auto) Not Reportable 0.3 Neut # (Auto) 7700 H Lymph # (Auto) Not Reportable 1100 [place] # (Auto) Not Reportable 700 Eos # (Auto) 0 Baso # (Auto) Not Reportable 0 Total Counted 100 Seg Neutrophils % 52.0 Lymphocytes % (Manual) 22.0 L Monocytes % (Manual) 15.0 H Eosinophils % (Manual) 10.0 H Basophils % (Manual) 1.0 Neutrophils # (Manual) 8476 H RBC Morphology Normal morphology PT 11.8 INR 1.0 APTT 35 Sodium 143 139 Potassium 4.9 5.0 Chloride 102 102 Carbon Dioxide 31 31 BUN 31 H 30 H Creatinine 1.87 H 1.58 H Estimated GFR 34 L 42 L BUN/Creatinine Ratio 16.6 19.0 Glucose 170 H 224 H Lactate 2.0 Calcium 9.8 9.4 Total Bilirubin 0.8 AST 21 ALT 8 Alkaline Phosphatase 159 H Total Creatine Kinase 20 L Troponin I 0.014 NT-Pro-B Natriuret Pep 677 H 869 H Total Protein 7.9 Albumin 3.8 Globulin 4.1 Albumin/Globulin Ratio 0.9 L Lipase 35 Procalcitonin 0.29 SARS-CoV-2 (PCR) Positive H [facility] Medical History Hyperlipidemia associated with type 2 diabetes mellitus REM behavioral disorder Sleep apnea (~2010) Parkinson's disease (~2009) Rosacea Mumps Measles Chicken pox Hearing loss (~2011) Partial blindness (~2014) Type 2 diabetes mellitus without complication (11/10/16) Penis injury Surgical History Anesthesia History of tonsillectomy History of cataract removal with insertion of prosthetic lens Status post appendectomy Family History Mother Heart disease Diabetes mellitus Father Cancer Grandfather Heart disease Grandmother Heart disease Grandmother Heart disease Social History household members: none Smoking Status: Former smoker alcohol intake: never Assessment & Plan Assessment & Plan narrative: 1. COVID Pneumonia with Acute Hypoxic Respiratory Failure, present on admission and active. - O2 as needed, now on 2 L, remdesivir, steroid 2. Possible diastolci heart failure, present on admission and active. - likely diastolic - Lasix, monitored fluid status / renal function 3. Parkinson's Disease, and Dementia. Present on admission and active. - Sinemet - Seroquel, Clonazepam, Celexa 4. DM 2, present on admission and active. - hold metformin, SS correctional. 5. CKD, present on admission and active. - at baseline, stage 3B or 4? 6. GERD, present on admission and active. - Prilosec instead of home Pepcid, on steroid 7. Insomnia, present on admission and active. - Melatonin DVT prophylaxis - heparin does not want very aggressive medical measures. She is okay with COVID treatment for the time being. Dispo, likely back to his memory care unit within the next day or 2. Move to comfort care if he were to quickly decompensate. His is open to a hospice informational session. Time Spent With Patient Time with patient: 30 to 49 minutes with 50% spent counseling/coordinating care Quality VTE Deep Vein Thrombosis/Pulmonary Embolism Present on Admission: No
[2023-11-28] MEDS: HALOPERIDOL 5 MG/ML VIAL IM (08:21)
--- NOTE | 2023-11-28 09:30 | CM.DANOTE ---
Addendum entered by MARLENE Palencia 11/28/23 11:20: ADD: ANDRES spoke to Ambar at [facility] and she confirms that pt was able to improve once he returned to their facility in Sep 2023 with new home oxygen and was able to transition to room air and no oxygen needed after about a week after discharge. Pt remains a betsy lift at their facility and therefore they can accept him back without ability to mobilize. Ambar confirms that pt has a hx of delirium when he gets an infection or quite sick and historically pt does very well with Seroquel to help with his agitation and delirium. Pt has a PTSD from being a Marine for 30 years. ANDRES called spouse Marleen and she confirms the information and states she is on her way to the hospital to see if she can assist talking pt into taking medications since he pulled out his two IVs. Spouse had discussion with MD and plan is to limit pt's medical interventions and more comfort focused treatment but not Comfort Care orders and to see if pt can accept some medications to help him clear more. BF Original Note: Patient is an 88 yo male who was admitted on 11/27/23 for COVID+/SOB. Pt has [employer] for insurance and his PCP is Silvia Garcia. EMR was reviewed. Per MD, pt admitted 2 months ago for bilateral pneumonia and has hx of Parkinsons and Dementia and admitted from [facility] for COVID pneumonia and hypoxia and currently weaned off HHFO2 and switched to NC 4LO2. Per RN, pt has not been cooperative with care and will not keep his NC for oxygen on, not following commands, declined his breakfast and not oriented enough to participate. When pt was last admitted 2 months ago in Sep 2023 for pneumonia, ANDRES spoke to Ambar Mcmahan, RN director at [facility] care cell P# [phone], discussed patient. Patient requires assist in room and is not very mobile. Ambar reports that she has had conversations with family re goals of care and patient is likely to transition to hospice services soon. Patient's health has been declining. Spouse not bedside at this time and ANDRES left ms with Ambar at [facility] to gather further information regarding Goals of Care and if Hospice referral has been initiated yet since pt's last discharge from the hospital a couple months ago. Plan: ANDRES to follow closely for further discussion with spouse, [facility] and Goals of Care if pt continues to decline medical care and potential for Hospice referral if not already completed. Pt's COVID+ status and dementia could be a barrier to discharge to any other facility. MARLENE Palencia Discharge Planning/Care Management CM Discharge Assessment Start: 11/28/23 09:27 Freq: Status: Active Protocol: Document 11/28/23 09:27 BF (Rec: 11/28/23 09:30 BF [id number]) Discharge Planning Assessment Assigned Funeral Car Chauffeur MARLENE Quiroga DPOA/Assigned Designee Name spouse Marleen Contact Information [phone] Advance Directives? Yes: POLST Advance Directives on File Yes History Provided By Family Member,Significant Other,Medical Record Has Patient been admitted in last 30 No days? Comment last admitted in Sep 2023 a couple months ago for bilateral penumonia and discharged back to [facility] Prior Living Arrangements Assisted Living Comment [facility] Care Household Members none Type of transporation used prior to Relies on Others admit Facility Name Admitted From: [facility] Willing to Return to Facility? Yes Independent with ADL's No Is patient alert and oriented? No: advanced dementia Needs Assistance With Meal Prep,Managing Medications ,Home Chores / Shopping Caregiver for Another No DME Already Rented / Owned Wheelchair,FWW / Walker Comment Return to [facility] with possible Hospice pending progress Barriers to Discharge Yes Comment Return to [facility], COVID+ Discharge Plan Assisted Living Facility Transportation Arrangement Likely facility van vs spouse pending pt's progress and needs Referrals Initiated Other Additional Comment Possible need for Hospice referral pending pt progress Review Status In Process Please Provide Date Initial DC 11/28/23 Assessment Was Performed Next Review Type Continued Stay Review
[2023-11-28] MEDS: QUETIAPINE 25 MG TABLET 50 MG PO ×2 (11:44→20:46)
[2023-11-28] MEDS: FUROSEMIDE 40 MG TABLET 80 MG PO (11:45)
[2023-11-28] MEDS: CITALOPRAM 10 MG TABLET PO (11:47)
[2023-11-28] MEDS: CARBIDOPA-LEVODOPA 25/100 TABLET 1 EACH PO ×3 (11:48→20:47)
[2023-11-28] MEDS: METFORMIN HCL 500 MG TABLET 1000 MG PO (11:48)
[2023-11-28] MEDS: ASPIRIN EC 81 MG TABLET PO (11:49)
[2023-11-28] MEDS: QUETIAPINE 25 MG TABLET PO (15:41)
[2023-11-28 20:00] VITALS: BP 144/62; PULSE 55; RESP 18; TEMP 36.8; O2SAT 98
[2023-11-28 21:13] VITALS: PULSE 60; O2SAT 99
[2023-11-28 23:52] VITALS: BP 146/65; PULSE 56; RESP 20; O2SAT 96
[2023-11-29 04:29] VITALS: BP 164/67; PULSE 70; RESP 16; TEMP 35.7; O2SAT 95
[2023-11-29] MEDS: clonazePAM 0.5 MG TABLET PO (05:11)
[2023-11-29 08:00] VITALS: BP 191/78; PULSE 78; RESP 18; O2SAT 96
[2023-11-29] MEDS: PANTOPRAZOLE DR 20 MG TABLET PO (08:03)
[2023-11-29] MEDS: HEPARIN 5,000 UNIT/ML VIAL 5000 UNIT SUBCUT ×2 (08:30→20:02)
[2023-11-29] MEDS: CARBIDOPA-LEVODOPA 25/100 TABLET 1 EACH PO ×3 (08:30→20:02)
[2023-11-29] MEDS: QUETIAPINE 25 MG TABLET 50 MG PO ×2 (08:31→20:02)
[2023-11-29] MEDS: FUROSEMIDE 40 MG TABLET 80 MG PO (08:31)
[2023-11-29] MEDS: CITALOPRAM 10 MG TABLET PO (08:31)
[2023-11-29] MEDS: LORATADINE 10 MG TABLET PO (08:31)
[2023-11-29] MEDS: METFORMIN HCL 500 MG TABLET 1000 MG PO ×2 (08:31→20:02)
[2023-11-29] MEDS: polyethylene glycoL 3350 17 GM POWD.PACK PO (08:32)
--- NOTE | 2023-11-29 09:20 | P.PN_ITS ---
Subjective Subjective Interval history: This patient is a 88-year-old male at [facility]. He is history of dementia and Parkinson's and presented with COVID with acute hypoxemic respiratory failure. There is currently an outbreak of COVID at this facility. He is do not resuscitate, and [id number]. He also has chronic kidney disease likely stage III. He is awake and alert this morning, feels ill and weak but no complaints of shortness of breath but he appears dyspnic. His O2 saturations were in the mid 70s this morning on 2L, he was turned up to 6L with minimal improvement. Discussed with the spouse at bedside, no advancement of care. If he continues to deteriorate would be appropriate for comfort. Exam Vital Signs (past 8 hours): - 11/29/23 04:29 Temperature 96.2 F L Pulse Rate 70 Respiratory Rate 16 Blood Pressure 164/67 H Pulse Oximetry 95 Oxygen Flow Rate 2 Fraction of Inspired Oxygen 28 SaO2/FiO2 Ratio 346 Oxygen Delivery Method Nasal Cannula Oxygen Flow Rate 2 Narrative Exam Narrative: Calm. Saturations are reasonable. Lungs are clear, normal rate and effort. Heart is regular, no murmur gallop or rub. Abdomen is soft, non distended. Extremities are free of edema. Objective Labs 11/28/23 04:12 11/28/23 04:12 [facility] Medical History Hyperlipidemia associated with type 2 diabetes mellitus REM behavioral disorder Sleep apnea (~2010) Parkinson's disease (~2009) Rosacea Mumps Measles Chicken pox Hearing loss (~2011) Partial blindness (~2014) Type 2 diabetes mellitus without complication (11/10/16) Penis injury Surgical History Anesthesia History of tonsillectomy History of cataract removal with insertion of prosthetic lens Status post appendectomy Family History Mother Heart disease Diabetes mellitus Father Cancer Grandfather Heart disease Grandmother Heart disease Grandmother Heart disease Social History household members: none Smoking Status: Former smoker alcohol intake: never Assessment & Plan Assessment & Plan narrative: 1. COVID Pneumonia with Acute Hypoxic Respiratory Failure, present on admission and active. - Now on max o2, no advancement to high flow as patient does not tolerate. Will continue with these limited interventions and if he continues to decline is agreeable for comfort measures. - consider changing to dexamethasone PO as patient currently is without IV acccess given limited interventions. 2. Possible diastolic heart failure, present on admission and active. - likely diastolic - Lasix PO ordered, monitored fluid status / renal function - if IV access obtained consider IV diuresis but does not appear overloaded on exam today. 3. Parkinson's Disease, and Dementia. Present on admission and active. - Sinemet - Seroquel, Clonazepam, Celexa 4. DM 2, present on admission and active. - hold metformin, SS correctional. 5. CKD, present on admission and active. - at baseline, stage 3B or 4? 6. GERD, present on admission and active. - Prilosec instead of home Pepcid, on steroid 7. Insomnia, present on admission and active. - Melatonin DVT prophylaxis - heparin does not want very aggressive medical measures. She is okay with COVID treatment for the time being. Dispo, likely back to his memory care unit or hospice / comfort care depending on the status of his respiratory failure. Time Spent With Patient Time with patient: 30 to 49 minutes with 50% spent counseling/coordinating care Quality VTE Deep Vein Thrombosis/Pulmonary Embolism Present on Admission: No
--- NOTE | 2023-11-29 09:35 | RT ---
Called to pt's room for oxymask. Pt noted with SpO2 desaturation into 80s while on standard NC. RR 32, breath sounds diminished t/o. Noting uniform waveform and adequate PI on pulse oximeter. RT placed pt on Oxymask at flush. RT suggested HHFNC for pt. Pt is not tolerating HHFNC per RN. Pt switched to HFNC at 15LPM w/ humidification. Pt is tolerating well, noting gradual improvement in saturation, at time of 0946, noting SpO2 of 88%, HR 76 BPM. RN aware of current oxygen needs/settings.
[2023-11-29 09:49] VITALS: PULSE 69; RESP 32; O2SAT 93
--- NOTE | 2023-11-29 10:12 | RT ---
Dr. Fischer notified regarding pt's current oxygenation needs.
[2023-11-29 11:36] VITALS: TEMP 36.3
[2023-11-29 12:47] VITALS: BP 181/77; PULSE 74; RESP 17; TEMP 35.9
--- NOTE | 2023-11-29 13:54 | CM.DPC ---
DCP Cont: Per MD, pt's respirations have diminished this morning and in the 70's and likely oxymask needed and RT continuing to follow and assess. Pt not yet medically stable to discharge but has been cooperative with care. Plan: SW to follow closely to determine if pt will continue to progress for improvement or if pt continues to have decline in health and then likely discussion of starting Hospice. MARLENE Palencia
[2023-11-29 19:58] VITALS: BP 175/75; PULSE 65; RESP 18; TEMP 36.3; O2SAT 96
[2023-11-29] MEDS: MELATONIN 3 MG TABLET 6 MG PO (20:02)
[2023-11-30] VITALS (9 sets, daily range): BP systolic 63–158; BP diastolic 44–67; PULSE 59–103; RESP 16–29; TEMP 36.2–37; O2SAT 90–98
[2023-11-30] MEDS: PANTOPRAZOLE DR 20 MG TABLET PO (06:28)
[2023-11-30] MEDS: QUETIAPINE 25 MG TABLET 50 MG PO ×2 (08:21→20:06)
[2023-11-30] MEDS: ASPIRIN EC 81 MG TABLET PO (08:21)
[2023-11-30] MEDS: METFORMIN HCL 500 MG TABLET 1000 MG PO ×2 (08:21→20:06)
[2023-11-30] MEDS: CITALOPRAM 10 MG TABLET PO (08:22)
[2023-11-30] MEDS: LORATADINE 10 MG TABLET PO (08:22)
[2023-11-30] MEDS: CARBIDOPA-LEVODOPA 25/100 TABLET 1 EACH PO ×3 (08:22→20:06)
[2023-11-30] MEDS: HEPARIN 5,000 UNIT/ML VIAL 5000 UNIT SUBCUT ×2 (08:22→20:06)
--- NOTE | 2023-11-30 13:20 | P.PN_ITS ---
Subjective Subjective Interval history: This patient is a 88-year-old male at [facility]. He is history of dementia and Parkinson's and presented with COVID with acute hypoxemic respiratory failure. There is currently an outbreak of COVID at this facility. He is do not resuscitate, and [id number]. He also has chronic kidney disease likely stage III. He is a bit more somnolent today, remained on high O2 this morning but seemingly improved in the afternoon. Was hypotensive this AM, but also improved without interventions. Exam Vital Signs (past 8 hours): - 11/30/23 08:11 11/30/23 09:10 11/30/23 09:13 Pulse Rate 101 H Respiratory Rate 29 H Blood Pressure 63/44 L Pulse Oximetry 98 90 L Oxygen Delivery Method High Flow Nasal Cannula High Flow Nasal Cannula Oxygen Flow Rate 7 6 11/30/23 11:49 Pulse Rate 103 H Respiratory Rate 28 H Blood Pressure 116/57 L Pulse Oximetry 94 Oxygen Delivery Method Oxygen Flow Rate 0 Fraction of Inspired Oxygen 28 SaO2/FiO2 Ratio 346 Oxygen Delivery Method High Flow Nasal Cannula Oxygen Flow Rate 0 Narrative Exam Narrative: Calm. Saturations are reasonable. Lungs are clear, normal rate and effort. Heart is regular, no murmur gallop or rub. Abdomen is soft, non distended. Extremities are free of edema. Objective Labs 11/28/23 04:12 11/28/23 04:12 [facility] Medical History Hyperlipidemia associated with type 2 diabetes mellitus REM behavioral disorder Sleep apnea (~2010) Parkinson's disease (~2009) Rosacea Mumps Measles Chicken pox Hearing loss (~2011) Partial blindness (~2014) Type 2 diabetes mellitus without complication (11/10/16) Penis injury Surgical History Anesthesia History of tonsillectomy History of cataract removal with insertion of prosthetic lens Status post appendectomy Family History Mother Heart disease Diabetes mellitus Father Cancer Grandfather Heart disease Grandmother Heart disease Grandmother Heart disease Social History household members: none Smoking Status: Former smoker alcohol intake: never Assessment & Plan Assessment & Plan narrative: 1. COVID Pneumonia with Acute Hypoxic Respiratory Failure, present on admission and active. - Will continue with these limited interventions of supplemental oxygen as needed, but no high flow O2. If he declines is agreeable for comfort measures. - if no longer on supplemental O2 will discontinue steroids and remdesevir. 2. Possible diastolic heart failure, present on admission and active. - likely diastolic - Lasix PO ordered, monitored fluid status / renal function. Will reduce from home 80 mg daily to 20 with hypotension today. 3. Parkinson's Disease, and Dementia. Present on admission and active. - Sinemet - Seroquel, Clonazepam, Celexa 4. DM 2, present on admission and active. - hold metformin, SS correctional. 5. CKD, present on admission and active. - at baseline, stage 3B or 4? 6. GERD, present on admission and active. - Prilosec instead of home Pepcid, on steroid 7. Insomnia, present on admission and active. - Melatonin DVT prophylaxis - heparin does not want very aggressive medical measures. She is okay with COVID treatment for the time being. Dispo, likely back to his memory care unit or hospice / comfort care depending on the status of his respiratory failure. Time Spent With Patient Time with patient: 30 to 49 minutes with 50% spent counseling/coordinating care Quality VTE Deep Vein Thrombosis/Pulmonary Embolism Present on Admission: No
--- NOTE | 2023-11-30 14:23 | CM.DPNOTE ---
DCP Note OPERATOR GROUND BASED [employer] DEFENCE reviewed EMR. Per provider in morning rounds, plan to return to [facility] care either with or without hospice in the next few days. OPERATOR [employer]OUND [employer]ENCE, RN, hospitalist, and POA/Spouse met outside of room. Spouse confirmed pt does not want to come to the hospital anymore due to hx of trauma and preference is Hospice at this point. Provider reviewed different options with spouse and provided his recommendations. Spouse completed POLST form with preference for comfort care. Preference is [facility] and [facility]. Preference transport with transport van in transport w/c. Spouse reports already has hospital bed/table and pt is already a betsy lift at [facility]. OPERATOR [employer]ENCE coordinated with Ambar BARKSDALE at [facility]. Updated her on plan. OPERATOR [employer] faxed updated clinicals. OPERATOR [employer]ENCE spoke with Yanni at [facility]. Agreed to review. Reported most O2 they can take is 15ltrs and their earliest SOC is likely end of week but will double check. Plan: return to [facility] when medically stable, [facility] to follow. Transport pending [facility] SOC/medical stability. CM team will follow closely. MARLENE Hatfield
[2023-11-30] MEDS: ACETAMINOPHEN 325 MG TABLET 650 MG PO (16:00)
--- NOTE | 2023-11-30 16:23 | DIET.CONS ---
Dietary Consultation Note Admission Date: 11/27/2023 19:27 Assessment: 88M with PMh of Parkinson's with dementia, T2DM, and pneumonia. Admitted with SOB and +covid. RD consulted for poor intake. During assessment, diet was CCD however it seems as though the plan is likely comfort. No BG check currently per RN. Appropriate to liberalize diet to general. Some weight loss since June of 2023. (Marleen) reports some poor po during pnemonia in the fall. 17% weight loss since June (significant). 5% loss over last 3 months (not significant). Spoke to Marleen over the phone. States his po has been at baseline since recovering from pneumonia. No concerns. Diet recall indicates he is likely getting enough nutrition. She did report h/o aspiration but he does not like changes to texture of foods. RN states she did not notice any aspiration s/s, and again plans for comfort care and therefore liberalized diet. Diet recall: B: 2 eggs, 2 almanza +/- sausage, 1-2 pancakes and fruit L: 1/2-1 sandwich with v8 OR meat with potatoes and v8 D: same as lunch No NFPE due to isolation precautions. States he likes strawberry shakes. Likes chocolate ONS. Ht: 185.42 cm Wt: 101.5 kg BMI: 30.9 UBW: 123kg reported by Last BM: 11/29/23 (11/29/23 16:30) MNA: 8 Elmer Score: 19 Diet: 11/28/23 Breakfast Carbohydrate Consistent Diet Diet Modifications: Carbohydrate level: Medium (3 CHO) Bedtime snack: Yes Reflex DM orders: No 11/30/23 Dinner General (Regular) Diet Diet Modifications: Food Texture: Level 7 - Regular Liquid Consistency: Level 0 - Thin Nutrition Percent Meal Consumed 100% 11/30/23 13:19 Percent Meal Consumed 25% 11/29/23 18:00 Percent Meal Consumed 100% 11/29/23 14:20 Percent Meal Consumed 100% 11/29/23 12:54 Percent Meal Consumed 50% 11/28/23 18:00 Labs: RBC 3.45 X10^6/uL (4.5-5.9) L 11/28/23 04:12 Hgb 10.9 g/dL (13.5-17.5) L 11/28/23 04:12 Hct 32.9 % (41-53) L 11/28/23 04:12 Creatinine 1.58 mg/dL (0.66-1.25) H 11/28/23 04:12 Lactate 2.0 mmol/L (0.7-2.1) 11/27/23 17:21 NT-Pro-B Natriuret Pep 869 pg/mL (<450) H 11/28/23 04:12 Nutrition Diagnosis: Increased nutrient needs r/t protein needs with recent dx aeb covid status and weight loss Interventions: will send high kcal ons daily Monitoring/Evaluations: consult prn Electronically Signed by: Emily Rae 11/30/23 16:23 Clinical [address] [id number]
--- NOTE | 2023-11-30 18:23 | PC.NURSE ---
Day Shift Note Patient alert and oriented to self, occasionally to place. Calm and able to follow commands. On 7L HFNC at start of shift but titrated to RA by end of shift. Initially desatted easily with any activity with long recovery periods but this improved by end of shift. Lung sounds coarse with rhonchi bilaterally, exhibits weak cough, provided and instructed on flutter valve and IS. Pt able to use with cueing. Reported feeling miserable but denied pain, medicated with Tylenol and pt now resting quietly, appears comfortable. Taking pills with water without issue. Condom catheter in place. BP decreased this morning to 63/44 (see VS trends) after PO lasix, Dr. Fischer updated. No new orders received as pt is limited interventions with no current IV in place, hypotension self-resolved. Bed alarm on, call light within reach, intermittently uses to make needs known.
[2023-11-30] MEDS: MELATONIN 3 MG TABLET 6 MG PO (20:06)
[2023-12-01 02:12] VITALS: BP 94/58; PULSE 60; RESP 16; O2SAT 96
[2023-12-01 05:50] VITALS: BP 139/74; PULSE 50; O2SAT 90
[2023-12-01] MEDS: HEPARIN 5,000 UNIT/ML VIAL 5000 UNIT SUBCUT (07:57)
[2023-12-01] MEDS: PANTOPRAZOLE DR 20 MG TABLET PO (07:58)
[2023-12-01] MEDS: ACETAMINOPHEN 325 MG TABLET 650 MG PO (07:58)
[2023-12-01] MEDS: LORATADINE 10 MG TABLET PO (07:59)
[2023-12-01] MEDS: ASPIRIN EC 81 MG TABLET PO (07:59)
[2023-12-01] MEDS: CARBIDOPA-LEVODOPA 25/100 TABLET 1 EACH PO ×2 (07:59→14:35)
[2023-12-01] MEDS: CITALOPRAM 10 MG TABLET PO (07:59)
[2023-12-01 08:00] VITALS: BP 129/74; PULSE 50; RESP 21; TEMP 36.6; O2SAT 93
[2023-12-01] MEDS: METFORMIN HCL 500 MG TABLET 1000 MG PO (08:00)
[2023-12-01] MEDS: QUETIAPINE 25 MG TABLET 50 MG PO (08:00)
[2023-12-01] MEDS: FUROSEMIDE 40 MG TABLET 20 MG PO (08:01)
--- NOTE | 2023-12-01 11:21 | PM.DS.1 ---
History of Present Illness History of Present Illness Chief complaint: COVID+/SOB Narrative: 88 y/o resident of [facility] care facility, with recent hospitalization, 2 months ago for b/l bacterial PNA and acute hypoxia that responded to Zosyn / cefdinir and oxygen. He presented today short of breath, hypoxic, failing NC and requiring high-flow oxygen to maintain saturation above 90, COVID positive. His facility currently has an outbreak. Patient unable to provide history due to dementia.On admission to medicine, oxygen requirement down to NC again. Discharge Providers Provider Date of admission: 11/27/23 19:27 Discharge Date: 12/01/23 Primary care physician: DEBORAH Finnegan Consults: 11/27/23 22:29 Consult to Dietitian, Adult Routine Comment: Reason For Exam: poor intake Discharge provider: Joe Barry DO Summary Hospital Course Discharge Diagnosis: 1. COVID Pneumonia with Acute Hypoxic Respiratory Failure, present on admission and active. - Will continue with these limited interventions of supplemental oxygen as needed, but no high flow O2. If he declines is agreeable for comfort measures. - if no longer on supplemental O2 will discontinue steroids and remdesevir. 2. Possible diastolic heart failure, present on admission and active. - likely diastolic - Lasix PO ordered, monitored fluid status / renal function. Will reduce from home 80 mg daily to 20 with hypotension today. 3. Parkinson's Disease, and Dementia. Present on admission and active. - Sinemet - Seroquel, Clonazepam, Celexa 4. DM 2, present on admission and active. - hold metformin, SS correctional. 5. CKD, present on admission and active. - at baseline, stage 3B or 4? 6. GERD, present on admission and active. - Prilosec instead of home Pepcid, on steroid 7. Insomnia, present on admission and active. - Melatonin Per Dr. Amado MADERA discussion: Discussed with spouse outside of patient room. He has such severe trauma with his PTSD in the emergency room. Spouse would ideally like to have patient treated symptomatically and not return to the hospital. Discussed the logistical considerations and limitations of memory care treatments and diagnostic evaluations. Ultimately she does not wish for the patient to experience harm or discomfort with evaluation and would like him to primarily be comfortable. With this discussion, spouse decided that it would be best to continue limited supportive care while here to see if he recovers and oxygenation improves. She does not wish for him to return to the hospital after discharge. Plan will be to transition to hospice on discharge with focus on comfort only, no transfer to the hospital. I updated his POLST form at bedside. Hospital Course: Admitted for COVID and hypoxia. Given supp O2, steroids and remdesivir initially and improved. Spouse decided that patient was better served not returning to the hospital in the future, so POLST updated for comfort measures only. Discharged back to [facility] on hospice. Exam Vital Signs (past 8 hours): - 12/01/23 05:50 12/01/23 08:00 12/01/23 09:00 Temperature 97.8 F Pulse Rate 50 L 50 L Respiratory Rate 21 Blood Pressure 139/74 129/74 Pulse Oximetry 90 L 93 Oxygen Delivery Method Room Air Oxygen Flow Rate 0 3 Fraction of Inspired Oxygen 28 SaO2/FiO2 Ratio 346 Oxygen Delivery Method Room Air Oxygen Flow Rate 3 Narrative Exam Narrative: Calm. Saturations are reasonable. Lungs are clear, normal rate and effort. Heart is regular, no murmur gallop or rub. Abdomen is soft, non distended. Extremities are free of edema. Objective Labs 11/28/23 04:12 11/28/23 04:12 [facility] Medical History Hyperlipidemia associated with type 2 diabetes mellitus REM behavioral disorder Sleep apnea (~2010) Parkinson's disease (~2009) Rosacea Mumps Measles Chicken pox Hearing loss (~2011) Partial blindness (~2014) Type 2 diabetes mellitus without complication (11/10/16) Penis injury Surgical History Anesthesia History of tonsillectomy History of cataract removal with insertion of prosthetic lens Status post appendectomy Family History Mother Heart disease Diabetes mellitus Father Cancer Grandfather Heart disease Grandmother Heart disease Grandmother Heart disease Social History household members: none Smoking Status: Former smoker alcohol intake: never Discharge Plan Discharge Plan Patient Disposition: Hospice - Home Provider Discharge Comment: Back to [facility] Discharge orders & Medications Prescriptions: Continued (DME) lancets [FreeStyle Lancets] 28 gauge misc See Dose Instructions .ROUTE .MEDSUPPLY Qty: 100 3RF Dose Instruction: As directed Rx Instructions: Use one Lancet to test Blood Sugar once daily (DME) FreeStyle Lite Strips Strip See Dose Instructions .ROUTE .MEDSUPPLY Qty: 100 3RF Dose Instruction: As directed Rx Instructions: Use one strip to test blood sugars once daily metformin 500 mg tablet 1,000 mg PO BID Qty: 360 1RF aspirin 81 mg tablet,delayed release (DR/EC) 81 mg PO DAILY quetiapine 25 mg tablet 50 mg PO BID furosemide 80 mg tablet 80 mg PO DAILY Rx Instructions: 0.5 tabs for edema acetaminophen 325 mg Capsule 650 mg PO Q4H PRN (Reason: Pain (Scale Score 1-3)) loratadine 10 mg Tablet 10 mg PO DAILY melatonin 5 mg Capsule 5 mg PO BEDTIME psyllium husk [Fiber (psyllium husk)] 0.4 gram Capsule 0.4 g PO DAILY Rx Instructions: pt takes 400 mg. 2 caps polyethylene glycol 3350(bulk) [Base B,Polyethylene [id number]] Granules 17 ea MISCELLANEOUS DAILY trazodone 100 mg tablet 100 mg PO ONCE PM bisacodyl 10 mg Suppository 10 mg PA DAILY PRN (Reason: Constipation) chlorpheniramine-guaifenesin 400 mg PO NOW PRN (Reason: Congestion) quetiapine [Seroquel] 25 mg Tablet 25 mg PO BID PRN (Reason: Agitation) magnesium hydroxide [Milk of Magnesia] 400 mg/5 mL Suspension 30 ml PO PRN PRN (Reason: Constipation) ipratropium bromide 42 mcg (0.06 %) [place],Non-Aerosol 2 spray INTRANASAL PRN PRN (Reason: seasonal allergies) clonazepam 0.5 mg Tablet,Disintegrating 0.5 mg PO Q4HR PRN (Reason: Anxiety) Qty: 30 0RF ascorbic acid (vitamin C) 1,000 mg Tablet 1 g PO DAILY citalopram 10 mg tablet 10 mg PO DAILY famotidine 20 mg Tablet 20 mg PO DAILY Rx Instructions: before dinner carbidopa-levodopa 25-100 mg tablet 1 tab PO TID Rx Instructions: 7AM, 12PM, 4PM Discontinued ciprofloxacin HCl [Cipro] 500 mg Tablet 500 mg PO BID Rx Instructions: for 7 days clonazepam 0.5 mg tablet,disintegrating 0.5 mg PO Q4H PRN (Reason: Agitation) Rx Instructions: anxiety/agitation Follow up/Referrals: Silvia Garcia ARNP [Primary Care Provider] - 2 Weeks Visit Report/Discharge Packet Stand Alone Forms: Patient Portal/API, Stroke Signs & Symptoms Discharge Data Primary Care Provider: Silvia Garcia Quality VTE Deep Vein Thrombosis/Pulmonary Embolism Present on Admission: No
[2023-12-01 12:00] VITALS: BP 197/87; PULSE 47; RESP 21; TEMP 36.6; O2SAT 95
--- NOTE | 2023-12-01 14:10 | CM.DPNOTE ---
Addendum entered by MARLENE Hatfield 12/01/23 17:10: ARCHITECTURAL ENGINEER efaxed dc summary to [facility] Addendum entered by MARLENE Hatfield 12/01/23 16:12: ARCHITECTURAL ENGINEER spoke with Ana Paula at [facility]. confirm oxygen was delivered and their transport was on their way. RN updated. SL Original Note: DCP Note ARCHITECTURAL ENGINEER reviewed EMR. Per chart, pt was on 3 ltrs to room air overnight. Per hospitalist, pt could dc back to [facility] today with [facility] to open within next few days. ARCHITECTURAL ENGINEER coordinated with Ambar BARKSDALE/Ana Paula/Jany at [facility] often throughout day. Agreed to take him back today on the condition that oxygen is delivered before he returns. transportation arranged for 4pm- will bring own w/c and betsy sling. ARCHITECTURAL ENGINEER updated RN/provider. ARCHITECTURAL ENGINEER gave RN report number. ARCHITECTURAL ENGINEER faxed signed med list to [facility]/placed signed med list in chart. RN/resp believe due to pt being on room air now, pt will be safe to transport via facility van without O2 until home. ARCHITECTURAL ENGINEER spoke with Chula at [facility] often throughout day. Chula reports if family is agreeable they could do a stat O2 order of oxygen, cost around $150. Could be delivered around 2-3pm. ARCHITECTURAL ENGINEER met with spouse outside of room. Spouse agreeable to plan and eager to get pt home. Agreeable to pay stat delivery fee. Agreeable to open services tomorrow with [facility]. Plan: pt to dc to [facility] today at 4pm pending O2 delivered to [facility], anticipate 2-3pm delivery. [facility] to open tomorrow. CM team will continue to follow as needed/fax dc summary to [facility] when available. MARLENE Hatfield
== END 2023-12-01 16:54 | disposition hospice, home (50) | DRG 871 ==
LOC: ED 18:20 → AC 19:28 → ICU 20:44
PROVIDERS: Emergency Medicine; Admitting Provider Internal Medicine; Emergency Provider Emergency Medicine; PCP Nurse Practitioner Family; Referring Provider Emergency Medicine; Visit Provider Internal Medicine
DX: A41.9 Sepsis, unspecified organism (principal); J12.82 Pneumonia due to coronavirus disease 2019; U07.1 COVID-19; J96.01 Acute respiratory failure with hypoxia; I13.0 Hypertensive heart and chronic kidney disease with heart failure and stage 1 through stage 4 chronic kidney disease, or unspecified chronic kidney disease; I50.30 Unspecified diastolic (congestive) heart failure; F03.90 Unspecified dementia, unspecified severity, without behavioral disturbance, psychotic disturbance, mood disturbance, and anxiety; G20.A1 Parkinson's disease without dyskinesia, without mention of fluctuations; F51.04 Psychophysiologic insomnia; K21.9 Gastro-esophageal reflux disease without esophagitis; G47.00 Insomnia, unspecified; N18.32 Chronic kidney disease, stage 3b; E11.22 Type 2 diabetes mellitus with diabetic chronic kidney disease; F43.10 Post-traumatic stress disorder, unspecified; Z79.84 Long term (current) use of oral hypoglycemic drugs; Z87.891 Personal history of nicotine dependence; Z66 Do not resuscitate; Z51.5 Encounter for palliative care
CPT/HCPCS: 36415; 71045; 80048; 80053; 82550; 82962; 83605; 83690; 83880; 84145; 84484; 85007; 85025; 85610; 85730; 87040; 87635; 93005; 94762; 96374; 99285; 99291; J1100; J1630; J1644; J1815